=== PATIENT | female | born 1945 | race Caucasian/White ===

== ENCOUNTER → 2017-10-27 | Outpatient (CLI) | payer OTHER, MEDICARE ==
[2017-10-27 14:40] LABS: ALBUMIN 3.5 gm/dl (3.4-5.0); ALT/SGPT 16 U/L (12-78); BLOOD UREA NITROGEN 27 mg/dl (7-18); CALCIUM 8.9 mg/dl (8.5-10.1); CARBON DIOXIDE 34 mmol/L (21-32); CHOLESTEROL 167 mg/dl (0-200); CREATININE 1.53 mg/dl (0.60-1.20); GLUCOSE,FASTING 87 mg/dl (70-99); POTASSIUM 3.9 mmol/L (3.5-5.1); SODIUM 139 mmol/L (136-145)
[2017-10-27 14:51] LABS: ALKALINE PHOSPHATASE 63 U/L (45-117); AST/SGOT 15 U/L (15-37); LDL CHOLESTEROL CALCULATED 76 mg/dl; TOTAL PROTEIN 7.2 gm/dl (6.4-8.2)
== END | disposition home or self-care (01) ==
LOC: C.LABPBG 08:36
PROVIDERS: ATTEND Family Medicine
DX: E03.9 Hypothyroidism, unspecified (principal); E78.5 Hyperlipidemia, unspecified; I10 Essential (primary) hypertension

== ENCOUNTER → 2017-11-06 | Day surgery (SDC) | payer OTHER, MEDICARE ==
[~2017-11-06] MED LIST: ALPR0.25 PO; ASPI81TA28 PO; CHOL1000 PO; DOXY100C76 PO; INDA1TAB3 PO; LEVO137T3 PO; OPTIRAY 320 IV PRN; ROSU20TA PO; SODIUM BICARBONATE 8.4% INJ 100 MEQ in STERILE WATER 1000 ML 1,000 ML IV SCH; SODIUM CHLORIDE 0.9% 1000ML 1,000 ML IV SCH; TPRSR100 PO; VERA240T20 PO; [UNRECOGNIZED DRUG - REMARK] SCH
[2017-11-06 08:15] VITALS: Wt 104.9 kg
--- NOTE | 2017-11-07 07:19 | DIAGNOSTIC IMAGING REPORT ---
CT ANGIOGRAPHY OF THE NECK WITH AND WITHOUT CONTRAST CLINICAL HISTORY: Occlusion/stenosis of the bilateral carotid arteries. COMPARISON STUDY: No previous studies for comparison. TECHNIQUE: Unenhanced and arterial phase imaging of the neck was performed. Injection of 100 cc of Optiray 320 IV was uneventful. Sagittal and coronal reconstructions were viewed as well as maximal intensity projections on an independent 3-D workstation. FINDINGS: There is mild airspace opacity within visualized portions of the left upper lobe. Note is made of a 1.9 cm minimally enhancing right parotid gland lesion. Origins of the great vessels are suboptimally assessed due to artifact. There is apparent stenosis or less likely occlusion of the proximal left subclavian artery. There is moderate stenosis at the origin of the right subclavian artery. There is severe stenosis of the proximal right internal carotid artery extends for 1.3 cm from the vessel origin with calcified and noncalcified plaque. The vessel measures 1 mm at area of narrowing and 4.3 mm distally. This suggests a proximal 90% stenosis. There is moderate plaque within the proximal left internal carotid artery. The vessel measures 2 mm at site of narrowing and 3.7 mm distally. This suggest 40% stenosis. There is no dissection within the major vessels of the neck. No suspicious osseous lesions are present. There is moderate plaque within the bilateral cavernous carotids without significant stenosis. IMPRESSION: 1. Severe stenosis of the proximal right internal carotid artery of approximately 90% 2. Approximate 40% stenosis of the proximal left internal carotid artery. 3. Moderate stenosis at the origin of the right subclavian artery. Suboptimal evaluation of the proximal left subclavian artery due to streak artifact. The findings suggest a stenosis or less likely occlusion of the proximal left subclavian artery. 4. 1.9 cm minimally enhancing right parotid gland lesion. A follow-up carotid ultrasound is recommended. 5. Partially visualized minimal airspace opacity within the left upper lobe. A follow-up chest CT in one month is recommended to ensure resolution. Electronically signed by: Dung Berry M.D. 11/07/2017 7:18 AM Dictated Date/Time: 11/06/2017 11:49 AM
== END | disposition home or self-care (01) ==
LOC: C.MTU 07:56 → EDSTATUS 09:30
PROVIDERS: ATTEND Surgery Vascular Surgery
DX: I65.23 Occlusion and stenosis of bilateral carotid arteries (principal)

== ENCOUNTER 2017-12-03 07:37 | Inpatient (IN) | payer OTHER, MEDICARE ==
[2017-11-24 08:42] VITALS: BMI 47.0
--- NOTE | 2017-11-24 09:22 | PAT Medication Instructions ---
Service Date Nov 24, 2017. Current Home Medication List Alprazolam (Xanax), 1 TAB PO DAILY PRN for Anxiety Aspirin (Aspirin Ec), 81 MG PO QAM Cholecalciferol (Vitamin D3), 5 TAB PO QAM Indapamide (Lozol), 2.5 MG PO QAM Levothyroxine Sodium (Levothyroxine Sodium), 1 TAB PO QAM Metoprolol Succinate (Toprol Xl), 1 TAB PO QAM Rosuvastatin Calcium (Crestor), 1 TAB PO QAM Verapamil Sust Rel (Calan Sr Ext Rel), 240 MG PO HS Medication Instructions For Your Scheduled Surgery - Hold the following medications the morning of surgery: Cholecalciferol (Vitamin D3), 5 TAB PO QAM Indapamide (Lozol), 2.5 MG PO QAM - Take the following medications the morning of surgery with a sip of water: Alprazolam (Xanax), 1 TAB PO DAILY PRN for Anxiety (if needed) Aspirin (Aspirin Ec), 81 MG PO QAM (ok per surgeon) Levothyroxine Sodium (Levothyroxine Sodium), 1 TAB PO QAM Metoprolol Succinate (Toprol Xl), 1 TAB PO QAM Rosuvastatin Calcium (Crestor), 1 TAB PO QAM - Take the following medications as scheduled the night before surgery: Alprazolam (Xanax), 1 TAB PO DAILY PRN for Anxiety (if needed) Verapamil Sust Rel (Calan Sr Ext Rel), 240 MG PO HS If you have any questions please call us at [phone] or [phone] or [phone]
--- NOTE | 2017-11-24 10:01 | DIAGNOSTIC IMAGING REPORT ---
CHEST 2 VIEWS ROUTINE CLINICAL HISTORY: Preoperative chest COMPARISON STUDY: No previous studies for comparison. FINDINGS: The heart is normal in size. There is no failure. There is no focal pulmonary consolidation. There are no pleural effusions. A density at the left lung base just lateral to the left heart border is felt to represent a summation.[ IMPRESSION: No active disease in the chest. Electronically signed by: Arnold Leal M.D. 11/24/2017 10:00 AM Dictated Date/Time: 11/24/2017 9:59 AM
[2017-11-24 10:05] LABS: BASO % 0.6 %; BASO ABS # 0.03 K/uL (0-0.2); EOS % 4.2 %; IG# 0.01 K/uL (0.00-0.02); LYMPH % 20.6 %; LYMPH ABS # 0.97 K/uL (1.2-3.4); MEAN CELL VOLUME 92.7 fL (80-100); MEAN CORPUSCULAR HEMOGLOBIN 30.2 pg (25-34); MEAN CORPUSCULAR HGB CONC 32.6 g/dl (32-36); MONO % 11.9 %; MONO ABS # 0.56 K/uL (0.11-0.59); NEUT % 62.5 %; NEUT ABS # 2.94 K/uL (1.4-6.5); PLATELET COUNT 213 K/uL (130-400); RED CELL DISTRIBUTION WIDTH CV 14.4 % (11.5-14.5); RED CELL DISTRIBUTION WIDTH SD 48.9 fL (36.4-46.3); WHITE BLOOD COUNT 4.71 K/uL (4.8-10.8)
[2017-11-24 10:18] LABS: PTT PATIENT 26.2 SECONDS (21.0-31.0)
[2017-11-24 11:10] LABS: CALCIUM 9.2 mg/dl (8.5-10.1); CREATININE 1.36 mg/dl (0.60-1.20); POTASSIUM 4.4 mmol/L (3.5-5.1)
[2017-12-03] VITALS (20 sets, daily range): BP systolic 93–136; BP diastolic 41–62; PULSE 46–59; TEMP 36.3–36.7; O2SAT 91–99; Ht 149.9 cm; Wt 106.4 kg
[~2017-12-03] VITALS: Ht 149.9 cm; Wt 106.4 kg
--- NOTE | 2017-12-03 05:56 | History and Physical ---
History & Physical Date of Service December 03, 2017. History & Physical CC: Right internal carotid artery stenosis HPI: April Jensen is a 72-year-old female who was noticed to have a carotid bruit on the right. She was then sent and she underwent ultrasound which demonstrated high-grade right carotid artery stenosis where the peak systolic was in the 500s and diastolics over 150, indicating a 99% stenosis. [facility] was [facility] evaluation. Ms. Jensen states that she was in her normal state of health prior to this visit. She denies any symptoms of TIA or stroke including unilateral weakness or numbness, slurred speech, difficulty word finding, or amaurosis. She denies any new abdominal or back pain. She does have chronic back pain and issues with sciatica. She denies any claudication, rest pain, or tissue loss. She does state that early in the morning she will get cramps in her back requiring her to lay down. Once she has passed, she is able to do her activities. She is able to walk throughout [facility] without any symptoms. She is able to walk up a flight of stairs without any leg pain, minimal shortness of breath. She is able to lie flat at night. She sleeps with 2 pillows. She does not see a automatic cigar wrapper tender and has not had any stress echo testing. She denies any fever, chills, nausea, vomiting, chest pain, shortness of breath. Following that, she underwent a CTA of the neck confirming this stenosis. Past medical history is significant for hypertension, hypothyroidism, hyperlipidemia, chronic venous insufficiency with varicose veins, anxiety. Her past surgical history includes hysterectomy, bilateral oophorectomy, appendectomy, and cholecystectomy. SOCIAL HISTORY: Positive smoker, smokes 3/4 of a pack a day. This is increased since her sister in July. She drinks socially. No illicit substances. Family history is significant for cancer, stroke, and coronary artery disease. ALLERGIES TO CECLOR. HOME MEDICATIONS: Include verapamil 240 mg daily, metoprolol succinate 100 mg daily, Xanax 0.25 mg p.r.n. daily for anxiety, rosuvastatin 20 mg daily, Indapamide 25 mg daily, vitamin D3 of 5000 international units daily, levothyroxine 137 mcg daily. PHYSICAL EXAM: Heart rate is 54, blood pressure is 122/76 in the right and 22/ 72 in the left. Saturating 98% on room air. This is an obese 72-year-old female, in no acute distress. Head is normocephalic, atraumatic. Extraocular movements are intact. She does have a loud high-pitched right carotid bruit. No carotid bruit on the left. Her heart is regular rate and rhythm. Lungs are clear to auscultation bilaterally. Abdomen is obese, soft, nontender, nondistended. No rebound. No guarding. No peritoneal signs. She has palpable bilateral radial pulses. She has palpable bilateral femoral pulses. She has palpable bilateral DP pulses. She does have varicosities in her feet and small varicosities in her lower calves bilaterally. No ulcerations or sores. Her strength is 5/5 bilaterally. Sensation is intact to light touch. No cranial nerve deficits. Imp: Severe right internal carotid artery stenosis. Plan: Patient is admitted for a right CEA. I have discussed the risks options and benefits of the procedure with the patient. The patient understands the risks options and benefits and agrees to the procedure.
[~2017-12-03 07:37] MED LIST changes: +CLINDAMYCIN 600 MG/54 ML D5W IV SCH; -DOXY100C76 PO; +LACTATED RINGER'S 1000ML 1,000 ML IV SCH; -OPTIRAY 320 IV PRN; -SODIUM BICARBONATE 8.4% INJ 100 MEQ in STERILE WATER 1000 ML 1,000 ML IV SCH; -[UNRECOGNIZED DRUG - REMARK] SCH
[2017-12-03] MEDS ORDERED: ONDANSETRON INJ 2 MG/ML 2 ML VIAL ONE (09:31)
[2017-12-03] MEDS ORDERED: LIDOCAINE HCL 2% 2 ML VIAL (20MG/ML) ONE (09:31)
[2017-12-03] MEDS ORDERED: FENTANYL CITRATE INJ 50 MCG/1 ML 2 ML VIAL ONE ×2 (09:31→10:35)
[2017-12-03] MEDS ORDERED: GLYCOPYRROLATE INJ 0.2 MG/ML VIAL ONE (09:31)
[2017-12-03] MEDS ORDERED: PROPOFOL IV EMULSION 10 MG/ML 20 ML VIAL ONE (09:31)
[2017-12-03] MEDS ORDERED: DEXAMETHASONE SOD INJ 4 MG/ML VIAL ONE (09:31)
[2017-12-03] MEDS ORDERED: NEOSTIGMINE METHYLSULFATE 5 MG/5 ML SYR ONE (09:31)
--- NOTE | 2017-12-03 09:35 | History & Physical Bridge Note ---
H&P Re-Evaluation Bridge Note: I have examined the patient, reviewed the History & Physical and in the interval since the performance of the History & Physical I have noted the following changes of clinical significance: No changes noted
[2017-12-03] MEDS ORDERED: HYDROmorphone INJ 2 MG/ML SYR/VIAL IV PRN (09:45)
[2017-12-03] MEDS ORDERED: ONDANSETRON INJ 2 MG/ML 2 ML VIAL IV PRN ×2 (09:45→13:15)
[2017-12-03] MEDS ORDERED: FENTANYL CITRATE INJ 50 MCG/1 ML 2 ML VIAL IV PRN (09:45)
[2017-12-03] MEDS ORDERED: ATROPINE SULFATE 0.1 MG/ML 5ML SYR IV PRN (09:45)
[2017-12-03] MEDS ORDERED: EpHEDrine SULFATE INJ 50 MG/ML AMP IV PRN (09:45)
[2017-12-03] MEDS ORDERED: GELATIN SPONGE SZ 100 ONE (10:24)
[2017-12-03] MEDS ORDERED: BUPIVACAINE/EPINEPHRINE 0.5% MPF 1:200,000 30 ML VIAL ONE (10:25)
[2017-12-03] MEDS ORDERED: HEPARIN SOD (PORCINE) 1000 UNIT/ML 10 ML VIAL ONE ×2 (10:25→11:56)
[2017-12-03] MEDS ORDERED: CEFAZOLIN SOD 1 GM VIAL ONE (10:25)
[2017-12-03] MEDS ORDERED: THROMBIN FOR SOLN 20000 UNIT KIT ONE (10:25)
[2017-12-03] MEDS ORDERED: LIDOCAINE HCL 1% 20 ML VIAL ONE (10:25)
[2017-12-03] MEDS ORDERED: EpHEDrine SULFATE 50MG/5ML SYR ONE (11:51)
[2017-12-03] MEDS ORDERED: PHENYLEPHRINE HCL INJ 10 MG/ML VIAL ONE (11:51)
[2017-12-03] MEDS ORDERED: LARYING-O-JET KIT (LTA) ONE (12:21)
[2017-12-03] MEDS ORDERED: ROCURONIUM BROMIDE 10 MG/ML 5 ML VIAL ONE (12:23)
--- NOTE | 2017-12-03 13:07 | [facility] Post Operative Brief Note ---
Immediate Operative Summary Operative Date December 03, 2017. Pre-Operative Diagnosis Right internal carotid artery stenosis Post-Operative Diagnosis right internal carotid artery stenosis Procedure(s) Performed right carotid endarterectomy with patch Surgeon Dr. Jitendra Ward Vulnerability Assessment Analyst Surgeon(s) Dr. Chayito Lion(Fellow) Estimated Blood Loss 125ml Findings Consistent with Post-Op Diagnosis Specimens A. right carotid artery plaque (permanent) Drains None Anesthesia Type General Complication(s) none Disposition Accompanied Pt To Recover: no Disposition: Recovery Room / PACU
[2017-12-03] MEDS ORDERED: MoRPHine SULFATE 4 MG/ML 1 ML CARP\\VIAL IV PRN (13:15)
[2017-12-03] MEDS ORDERED: ALPRAZOLAM 0.25 MG TAB PO PRN (13:15)
[2017-12-03] MEDS ORDERED: OXYCODONE/ACETAMINOPHEN 5-325 TAB PO PRN (13:15)
[2017-12-03] MEDS ORDERED: PHENYLEPHRINE 100MCG/ML 5ML SYR ONE (13:57)
[2017-12-03] MEDS ORDERED: ALBUMIN HUMAN 5% 12.5 GM/250 ML VIAL IV ONE (14:03)
[2017-12-03] MEDS ORDERED: NURSING VERBAL MED ORDER ONE ×2 (14:15→14:30)
[2017-12-03] MEDS: PHENYLEPHRINE 100MCG/ML 5ML SYR IV PRN ×2 (14:26→14:33)
[2017-12-03] MEDS ORDERED: PHENYLEPHRINE HCL INJ 20 MG in DEXTROSE 5% 500ML 500 ML IV PRN ×2 (14:27→14:30)
--- NOTE | 2017-12-03 15:20 | Anesthesiology Progress Note ---
Anesthesia Post Op Note Date & Time December 03, 2017 at 15:17 Vital Signs Pain Intensity: 0 Vital Signs Past 12 Hours Date Time Temp Pulse Resp B/P (MAP) Pulse Ox O2 Delivery O2 Flow Rate FiO2 12/03/17 15:13 36.1 100 Nasal Cannula 3 12/03/17 15:08 48 15 99 12/03/17 15:08 47 15 12/03/17 15:06 118/56 12/03/17 15:03 48 17 100 12/03/17 15:03 47 17 12/03/17 15:01 119/57 12/03/17 14:58 50 16 12/03/17 14:58 49 16 103/44 99 12/03/17 14:57 49 16 104/44 99 12/03/17 14:57 49 16 12/03/17 14:56 112/58 12/03/17 14:52 53 16 12/03/17 14:52 56 16 107/46 99 12/03/17 14:51 104/60 12/03/17 14:47 50 16 99/43 99 12/03/17 14:47 50 16 12/03/17 14:46 110/55 12/03/17 14:42 49 16 12/03/17 14:42 49 16 92/40 100 12/03/17 14:41 94/47 12/03/17 14:37 58 15 79/37 100 79/37 12/03/17 14:37 61 15 12/03/17 14:36 90/50 12/03/17 14:32 62 17 12/03/17 14:32 62 17 76/37 99 76/37 12/03/17 14:31 82/48 12/03/17 14:27 15 12/03/17 14:27 50 15 80/38 80/38 12/03/17 14:26 76/44 12/03/17 14:22 59 17 68/33 12/03/17 14:22 17 12/03/17 14:21 83/49 12/03/17 14:17 64 17 81/39 81/39 12/03/17 14:17 17 12/03/17 14:16 81/50 12/03/17 14:12 16 12/03/17 14:12 63 16 12/03/17 14:11 82/49 12/03/17 14:07 17 5/2/18 14:07 66 17 12/03/17 14:06 74/45 12/03/17 14:02 68 18 12/03/17 14:02 18 12/03/17 14:01 94/53 12/03/17 13:58 69 23 12/03/17 13:58 23 12/03/17 13:56 81/45 12/03/17 13:53 72 26 12/03/17 13:53 26 12/03/17 13:51 91/54 12/03/17 13:48 70 22 12/03/17 13:48 69 22 98 12/03/17 13:46 111/57 12/03/17 13:44 83/50 12/03/17 13:43 15 12/03/17 13:43 36.2 68 16 111/57 98 Oxymask 10 12/03/17 13:43 71 15 12/03/17 08:18 36.3 59 17 136/62 94 Room Air Notes Mental Status: alert / awake / arousable, participated in evaluation Pt Amnestic to Procedure: Yes Nausea / Vomiting: adequately controlled Pain: adequately controlled Airway Patency, RR, SpO2: stable & adequate BP & HR: stable & adequate, see Notes Hydration State: stable & adequate Anesthetic Complications: no major complications apparent In recovery room, patient was awake and conversant. Good motor strength b/l upper and lower extremities. Tongue midline. Patient was hypotensive and required multiple doses of IV bolus phenylephrine followed by ephedrine. I also gave 5% albumin for volume repletion. Given that patient required bolus doses of vasoactive medications, decided to write for phenylephrine infusion. Arterial line already in place. MAP goals greater than 60. Dr. Ward is aware and we agreed to send the patient to the ICU. ICU attending saw patient at bedside. BP much improved with cuong ggt. Patient is agreeable to the plan.
--- NOTE | 2017-12-03 15:25 | Critical Care Consultation ---
Critical Care Consultation Date of Consultation: December 03, 2017. Attending Physician: Jitendra Ward M.D. Reason for Consultation: post operative hypotension History of Present Illness Patient is 72-year-old female with past medical history of hypertension hypothyroidism, hyperlipidemia, chronic venous insufficiency and anxiety who presents postop day 0 from a right carotid endarterectomy for a 99% stenosis. she has not had any known TIA or stroke or unilateral weakness, during the operative procedure her mean arterial pressure was maintained with phenylephrine she was intubated with a grade 3 view and a MAC 3 blade. Postoperatively her course was largely uneventful with the exception of sagging mean arterial pressures down into the 50s which improved with administration of phenylephrine. She is transferred to the ICU for continued phenylephrine infusion. During my evaluation in the post anesthesia care unit the patient was largely asymptomatic no complaints of pain, no chest pain, no weakness, no headache she was hoping to get a little bit of water to drink as she felt parched. Past Medical/Surgical History As noted above Past surgical history hysterectomy, oophorectomy, appendectomy, cholecystectomy , right carotid endarterectomy. Social History Smoking Status: Current Every Day Smoker Allergies Coded Allergies: Cefaclor (Verified Allergy, Severe, ANAPHYLAXIS, 12/03/17) PT REPORTS "RESPIRATORY ISSUES-THROAT CLOSES" Eggplant (Verified Allergy, Unknown, TINGLING IN HER MOUTH, 12/03/17) Home Medications Scheduled Aspirin (Aspirin Ec), 81 MG PO QAM Cholecalciferol (Vitamin D3), 5 TAB PO QAM Indapamide (Lozol), 2.5 MG PO QAM Levothyroxine Sodium (Levothyroxine Sodium), 1 TAB PO QAM Metoprolol Succinate (Toprol Xl), 1 TAB PO QAM Rosuvastatin Calcium (Crestor), 1 TAB PO QAM Verapamil Sust Rel (Calan Sr Ext Rel), 240 MG PO HS Scheduled PRN Alprazolam (Xanax), 1 TAB PO DAILY PRN for Anxiety Current Inpatient Medications Current Inpatient Medications Medications (Trade) Dose Ordered Sig/Herminio Route Start Time Stop Time Status Last Admin Dose Admin Lactated Ringer's 1,000 ml @ 15 mls/hr Q24H IV 12/03/17 06:00 12/04/17 05:59 Clindamycin Phosphate 54 ml @ 100 mls/hr PREOP IV 12/03/17 06:00 12/03/17 18:00 12/03/17 10:53 100 MLS/HR Sodium Chloride 1,000 ml @ 75 mls/hr [id number] IV 12/03/17 06:00 12/03/17 19:19 12/03/17 08:41 75 MLS/HR Oxycodone/ Acetaminophen (Percocet 5-325mg Tab) FOR MODERATE PAIN ... Q4H PRN PO 12/03/17 13:15 12/17/17 13:14 Morphine Sulfate (MoRPHine SULFATE INJ) 4 mg Q4H PRN IV 12/03/17 13:15 12/17/17 13:14 Ondansetron HCl (Zofran Inj) 4 mg Q6H PRN IV 12/03/17 13:15 01/02/18 13:14 Clindamycin Phosphate 600 mg/ Dextrose 54 ml @ 100 mls/hr Q8H IV 12/03/17 19:00 12/04/17 03:33 UNV Dextrose/Sodium Chloride 1,000 ml @ 125 mls/hr Q8H IV 12/03/17 13:07 01/02/18 13:06 UNV Enoxaparin Sodium (Lovenox Inj) 30 mg Q12H SQ 12/04/17 09:00 01/03/18 08:59 UNV Alprazolam (Xanax Tab) 0.25 mg DAILY PRN PO 12/03/17 13:15 01/02/18 13:14 Aspirin (Ecotrin Tab) 81 mg QAM PO 12/04/17 09:00 01/03/18 08:59 UNV Cholecalciferol (Vitamin D Tab) 5,000 inter.unit QAM PO 12/04/17 09:00 01/03/18 08:59 UNV Indapamide (Lozol Tab) 2.5 mg QAM PO 12/04/17 09:00 01/03/18 08:59 UNV Levothyroxine Sodium (Synthroid Tab) 137 mcg DAILYBB PO 12/04/17 07:00 01/03/18 06:59 UNV Rosuvastatin Calcium (Crestor Tab) 20 mg QAM PO 12/04/17 09:00 01/03/18 08:59 UNV Verapamil HCl (Calan-Sr Tab) 240 mg HS PO 12/03/17 21:00 01/02/18 20:59 UNV Metoprolol Succinate (Toprol Xl Tab) 100 mg DAILY PO 12/04/17 09:00 01/03/18 08:59 UNV Phenylephrine HCl (Darius-Synephrine 500MCG/5ML Syr) 100 mcg Q5M PRN IV 12/03/17 14:30 12/03/17 15:00 12/03/17 14:33 100 MCG Phenylephrine HCl 20 mg/Dextrose 502 ml @ 0 mls/hr Q0M PRN IV 12/03/17 14:27 01/02/18 14:26 Review of Systems Constitutional: No fever, No chills Respiratory: No cough, No sputum Cardiovascular: No chest pain, No orthopnea Abdomen: No pain, No nausea, No vomiting Neurologic: No memory loss, No paralysis, No weakness, No numbness/tingling, No vertigo, No balance problems, No problem reported Physical Exam Date Time Temp Pulse Resp B/P (MAP) Pulse Ox O2 Delivery O2 Flow Rate FiO2 12/03/17 14:01 94/53 12/03/17 13:58 69 23 12/03/17 13:58 23 12/03/17 13:56 81/45 12/03/17 13:53 72 26 12/03/17 13:53 26 12/03/17 13:51 91/54 12/03/17 13:48 70 22 12/03/17 13:48 69 22 98 12/03/17 13:46 111/57 12/03/17 13:44 83/50 12/03/17 13:43 15 12/03/17 13:43 36.2 68 16 111/57 98 Oxymask 10 12/03/17 13:43 71 15 12/03/17 08:18 36.3 59 17 136/62 94 Room Air General: Alert. nontoxic. Skin: Warm, dry, incision clean dry and intact Head: Atraumatic Ears, nose, mouth and throat: airway patent no evidence of hematoma Cardiovascular: Normal peripheral perfusion Respiratory: no respiratory distress Gastrointestinal: Non distended Musculoskeletal: No deformity Neuro: Equal geometry professor strength bilaterally, no obvious facial droop Diagnostic Results Reason Critically Ill: Postoperative hypotension PLAN: Neuro: Monitor for neuro change Resp: Tolerating room air Tobacco use -Encouraged smoking cessation CV: Hypotension requiring vasoactive's -Wean as tolerated, EKG and morning -This is likely secondary to anesthetics Fluids/Renal: Baseline renal insufficiency with elevated creatinine -[place] fluids ID: Monitor fever curve GI/Nutrition: Diet as tolerated Heme: Lovenox 30 mg every 12 hours ordered per vascular surgery -GFR greater than 30, appropriate dosing Endocrine: ICU glycemic protocol Vascular access: Peripheral IVs Code Status: Full code I have personally spent 30 minutes of critical care time in the direct management of this patient. This is a life/limb threatening event. This includes time spent evaluating patient, direct bedside care, chart review, placing orders, interpretation of diagnostic studies, discussion with consultants, patient, and/or family members regarding treatment decisions, as well as other required patient management activities. This time is exclusive of all separately billable procedures, and teaching time and separate from and in addition to any other critical care service time.
[2017-12-03] MEDS: D5W AND 1/2NSS 1,000 ML IV SCH (15:57)
[2017-12-03] MEDS: CLINDAMYCIN IV 600 MG in DEXTROSE 5% 50ML 50 ML IV SCH (19:14)
[2017-12-03] MEDS ORDERED: VERAPAMIL HCL 240 MG TABCR PO SCH (21:00)
--- NOTE | 2017-12-03 21:28 | OPERATIVE REPORT ---
DATE OF OPERATION: 12/03/2017 PREOPERATIVE DIAGNOSIS: Right internal carotid artery stenosis. POSTOPERATIVE DIAGNOSIS: Right internal carotid artery stenosis. PROCEDURE: Right carotid endarterectomy with Sheffield Acuseal patch angioplasty. SURGEON: Dr. Jitendra Ward. SENIOR APPLICATION SECURITY CONSULTANT: Dr. Chayito Lion, [facility]. ESTIMATED BLOOD LOSS: 125 mL. Findings consistent with postoperative diagnosis. ASSESSMENT: Right carotid artery plaque. ANESTHESIA: General endotracheal anesthesia plus local. COMPLICATIONS: None. INDICATIONS: Mrs. April Jensen is a pleasant 72-year-old woman with history of hypertension, hypothyroidism, hyperlipidemia, chronic venous insufficiency, anxiety who was found on routine exam to have a right carotid bruit. She underwent a carotid duplex which showed a severe stenosis of the right carotid artery. For this reason, she was referred to vascular surgery. She was recommended to undergo right carotid endarterectomy. The risks, benefits and alternatives were discussed with the patient and she consented to the procedure. DESCRIPTION OF PROCEDURE: The patient was taken to the operating room and placed in the supine position. General endotracheal anesthesia was induced by anesthesia colleagues. Right neck and chest were prepped and draped in the usual sterile fashion. A safety timeout was performed and the patient, procedure, and sidedness were correctly identified. An incision was made with a 10 blade scalpel over the anterior border of the sternocleidomastoid. Bovie electrocautery was used to dissect subcutaneous tissues. The platysma was identified and divided with Bovie electrocautery. The anterior border of the sternocleidomastoid muscle was identified and retracted laterally. The IJ was identified and also retracted laterally. The facial vein was identified and doubly ligated and divided. The common carotid artery was identified and dissected circumferentially. We proceeded distally and identified the superior thyroid, external carotid, and internal carotid arteries. These were dissected circumferentially. The patient was anticoagulated with 7000 units of intravenous heparin. Following this, the internal, external, superior thyroid, and common carotid arteries were clamped sequentially. An arteriotomy was made in the common carotid with an 11 blade scalpel. This was extended proximally and distally with Collins scissors. A Doppler shunt was placed into the internal carotid and a Pratik clamp used to secure in place. It was backbled and the remaining end was inserted into the common carotid artery and to restore flow. We proceeded with our endarterectomy in the usual fashion. Small bits of plaque were additionally removed. The lumen was irrigated with heparinized saline and appeared clean. A Sheffield Acuseal patch was then brought into the field. This was sewn in place with Sheffield-Beck CV6 suture in a running fashion beginning at the internal carotid. Prior to completion of the patch, the shunt was removed and all arteries were back bled, forward bled and flushed. Following completion of the patch, there were 2 areas of bleeding at the distal aspect of the patch near the internal carotid. These were controlled with 6-0 Prolene sutures. Gelfoam, thrombin were applied to overlying the patch and manual pressure was held for several minutes with good hemostasis. The platysma was reapproximated with 3-0 Vicryl in a running fashion. The skin was reapproximated with 4-0 Vicryl in a running subcuticular fashion. Dermabond skin glue was applied to the incision. Local anesthesia was injected into the subcutaneous tissues surrounding the incision. The patient was awakened from anesthesia and was following commands in all 4 extremities. She tolerated the procedure well and there were no immediate complications. Dr. Jitendra Ward was present for the entire procedure. I attest to the content of the Intraoperative Record and any orders documented therein. Any exception s are noted below.
[2017-12-04] VITALS (11 sets, daily range): BP systolic 108–202; BP diastolic 45–87; PULSE 48–78; TEMP 36.4–37.4; O2SAT 87–96
[2017-12-04] MEDS: D5W AND 1/2NSS 1,000 ML IV SCH (00:29)
[2017-12-04] MEDS: CLINDAMYCIN IV 600 MG in DEXTROSE 5% 50ML 50 ML IV SCH (03:45)
[2017-12-04 04:32] LABS: HEMATOCRIT 41.2 % (37-47); HEMOGLOBIN 13.6 g/dL (12.0-16.0); IG# 0.02 K/uL (0.00-0.02); LYMPH % 4.3 %; MEAN CELL VOLUME 91.6 fL (80-100); MEAN CORPUSCULAR HEMOGLOBIN 30.2 pg (25-34); MEAN PLATELET VOLUME 9.1 fL (7.4-10.4); MONO % 5.1 %; MONO ABS # 0.47 K/uL (0.11-0.59); NEUT % 90.4 %; NEUT ABS # 8.37 K/uL (1.4-6.5); PLATELET COUNT 163 K/uL (130-400); RED CELL DISTRIBUTION WIDTH CV 14.3 % (11.5-14.5); RED CELL DISTRIBUTION WIDTH SD 47.9 fL (36.4-46.3); WHITE BLOOD COUNT 9.26 K/uL (4.8-10.8)
[2017-12-04 05:00] LABS: CALCIUM 7.8 mg/dl (8.5-10.1); CREATININE 1.26 mg/dl (0.60-1.20); POTASSIUM 3.4 mmol/L (3.5-5.1)
[2017-12-04] MEDS ORDERED: POTASSIUM CHLORIDE 20 MEQ TABCR PO STA (05:18)
--- NOTE | 2017-12-04 05:59 | Clinical Documentation Query ---
CLINICAL DOCUMENTATION QUERY 72-y/o female who has undergone right CEA. Patient is documented as having "baseline renal insufficiency with elevated creatinine." Documenting the stage of CKD will improve data integrity and will help clarify vague terms such as "renal insufficiency" or "chronic renal failure." The stages of CKD according to the [employer] are as follows: Stage I: GFR >90 Stage II: GFR 60-89 Stage III: GFR 30-59 Stage IV: GFR 15-29 Stage V: GFR <15 In your clinical opinion is this patient being managed for: ( x) Chronic kidney disease, stage 3 (moderate) ( ) Not Agree ( ) Other explanation of clinical findings (Please Explain. If no explanation given, this would be considered a no response.) ( ) Unable to determine ( ) Need to Discuss (Please call CDS via extension or qliq. If no interaction occurs this is considered a no response.) The medical record reflects the following clinical findings, treatment, and risk factors. Clinical Indicators: As above. BUN 23, Creatinine 1.26, GFR 42.8 Treatment: daily PRP's, I/O's, ICU hemodynamic monitoring, liberal fluid administration, IV Darius-Synephrine gtt. Risk Factors: Age, home NSAID use, HTN, Please clarify and document your clinical opinion in the progress notes and discharge summary. Terms such as "probable", "suspected", "likely", "questionable", "possible", or "still to be ruled out" are acceptable. IF IN AGREEMENT, YOU MUST DOCUMENT ABOVE DIAGNOSTIC STATEMENT IN DAILY PROGRESS NOTES AND DISCHARGE SUMMARY. This document is not part of the patient's record. Thank You, Saad Redd RN [phone] & via [email or web address]
[2017-12-04] MEDS ORDERED: LEVOTHYROXINE 137 MCG TAB PO SCH (06:00)
--- NOTE | 2017-12-04 06:00 | Clinical Documentation Query ---
CLINICAL DOCUMENTATION QUERY 72-y/o female who has undergone right CEA. Patient is documented as having "baseline renal insufficiency with elevated creatinine." Documenting the stage of CKD will improve data integrity and will help clarify vague terms such as "renal insufficiency" or "chronic renal failure." The stages of CKD according to the [employer] are as follows: Stage I: GFR >90 Stage II: GFR 60-89 Stage III: GFR 30-59 Stage IV: GFR 15-29 Stage V: GFR <15 In your clinical opinion is this patient being managed for: (X ) Chronic kidney disease, stage 3 (moderate) ( ) Not Agree ( ) Other explanation of clinical findings (Please Explain. If no explanation given, this would be considered a no response.) ( ) Unable to determine ( ) Need to Discuss (Please call CDS via extension or qliq. If no interaction occurs this is considered a no response.) The medical record reflects the following clinical findings, treatment, and risk factors. Clinical Indicators: As above. BUN 23, Creatinine 1.26, GFR 42.8 Treatment: daily PRP's, I/O's, ICU hemodynamic monitoring, liberal fluid administration, IV Darius-Synephrine gtt. Risk Factors: Age, home NSAID use, HTN, Please clarify and document your clinical opinion in the progress notes and discharge summary. Terms such as "probable", "suspected", "likely", "questionable", "possible", or "still to be ruled out" are acceptable. IF IN AGREEMENT, YOU MUST DOCUMENT ABOVE DIAGNOSTIC STATEMENT IN DAILY PROGRESS NOTES AND DISCHARGE SUMMARY. This document is not part of the patient's record. Thank You, Saad Redd RN [phone] & via qlicCONNECT
--- NOTE | 2017-12-04 08:01 | Progress Note ---
Progress Note Date of Service: December 04, 2017. Subjective No complaints. No swallowing problems. No hoarseness. Objective Vital Signs Vital Signs Past 12 Hours Date Time Temp Pulse Resp B/P (MAP) Pulse Ox O2 Delivery O2 Flow Rate FiO2 12/04/17 06:01 78 24 126/72 (90) 12/04/17 05:01 65 14 123/52 (75) 93 12/04/17 04:01 54 17 118/66 (83) 95 12/04/17 04:00 96 Room Air 12/04/17 04:00 36.6 52 17 202/87 (125) 95 12/04/17 03:00 53 13 116/47 (70) 93 12/04/17 02:01 52 15 108/61 (77) 87 12/04/17 02:00 54 16 125/50 (75) 95 12/04/17 01:00 48 18 117/45 (69) 94 12/04/17 00:01 56 16 127/71 (89) 94 12/04/17 00:00 36.4 54 19 113/46 (68) 95 12/03/17 23:59 93 Room Air 12/03/17 22:15 53 16 97/50 (66) 93 12/03/17 22:01 50 18 115/57 (76) 94 12/03/17 21:30 52 18 103/45 (64) 93 Room Air 12/03/17 21:00 48 16 111/48 (69) 92 Room Air 12/03/17 20:30 47 16 112/48 (69) 91 Room Air 12/03/17 20:01 36.7 50 16 93/51 (65) 92 Room Air 12/03/17 20:00 52 16 97/46 (63) 91 Room Air 12/03/17 20:00 98 Room Air Exam Awake and alert VSS Afebrile Incision dry and clean Minimal edema of incision No neuro deficits Laboratory and Microbiology Results Past 24 Hours Test 12/03/17 08:38 12/03/17 16:25 12/03/17 20:56 12/03/17 23:59 Range/Units Hepatitis C Antibody Screen NEG NEG Bedside Glucose 154 185 157 70-90 mg/dl Test 12/04/17 03:57 Range/Units White Blood Count 9.26 4.8-10.8 K/uL Red Blood Count 4.50 4.2-5.4 M/uL Hemoglobin 13.6 12.0-16.0 g/dL Hematocrit 41.2 37-47 % Mean Corpuscular Volume 91.6 80-100 fL Mean Corpuscular Hemoglobin 30.2 25-34 pg Mean Corpuscular Hemoglobin Concent 33.0 32-36 g/dl Platelet Count 163 130-400 K/uL Mean Platelet Volume 9.1 7.4-10.4 fL Neutrophils (%) (Auto) 90.4 % Lymphocytes (%) (Auto) 4.3 % Monocytes (%) (Auto) 5.1 % Eosinophils (%) (Auto) 0.0 % Basophils (%) (Auto) 0.0 % Neutrophils # (Auto) 8.37 1.4-6.5 K/uL Lymphocytes # (Auto) 0.40 1.2-3.4 K/uL Monocytes # (Auto) 0.47 0.11-0.59 K/uL Eosinophils # (Auto) 0.00 0-0.5 K/uL Basophils # (Auto) 0.00 0-0.2 K/uL RDW Standard Deviation 47.9 36.4-46.3 fL RDW Coefficient of Variation 14.3 11.5-14.5 % Immature Granulocyte % (Auto) 0.2 % Immature Granulocyte # (Auto) 0.02 0.00-0.02 K/uL Sodium Level 137 136-145 mmol/L Potassium Level 3.4 3.5-5.1 mmol/L Chloride Level 105 98-107 mmol/L Carbon Dioxide Level 28 21-32 mmol/L Anion Gap 4.0 3-11 mmol/L Blood Urea Nitrogen 23 7-18 mg/dl Creatinine 1.26 0.60-1.20 mg/dl Est Creatinine Clear Calc Drug Dose 44.1 ml/min Estimated GFR () 49.6 Estimated GFR (Non- 42.8 BUN/Creatinine Ratio 18.0 10-20 Random Glucose 130 70-99 mg/dl Calcium Level 7.8 8.5-10.1 mg/dl Microbiology Results 12/03/17 MRSA DNA Surveillance Screen - Final, Complete Specimen Negative for MRSA by DNA Probe Imp: Post right CEA Plan: Doing well D/C today
[2017-12-04] MEDS ORDERED: OXYC-57 PO (08:02)
--- NOTE | 2017-12-04 08:03 | Discharge Instructions ---
Discharge Instructions Date of Service December 04, 2017. Admission Reason for Admission: Right Severe Asymptomatic Carotid Stenosis Discharge Discharge Diagnosis / Problem: Severe right internal carotid artery stenosis Discharge Goals Goal(s): Therapeutic intervention Activity Recommendations Activity Limitations: per Instructions/Follow-up section . Instructions / Follow-Up Instructions / Follow-Up Call [phone] to schedule a follow up appointment if one not already scheduled. SPECIAL CARE INSTRUCTIONS: Medications: * Continue to take Aspirin as directed. Incision Care: * You may shower, but do not rub incision. You may let the warm soapy water run over it. Be sure to dry the incision well after bathing. * Do not shave directly over the incision until it is healed. * DO NOT IMMERSE THE INCISION IN A TUB/POOL/etc. UNTIL HEALED. Restrictions: * Do not drive for at least one week or if you are still taking any narcotic pain medication. * Do not lift anything heavier than a gallon of milk for one week after going home. Possible Complications: * Numbness - It is normal to have some numbness around the incision. Numbness can extend beyond the incision to areas of the neck, ear and face. The numbness is due to bruising of nerves during the surgery and will gradually improve over a period of months. * Hoarseness/Difficulty Speaking and Swallowing - The bruising of nerves in the neck can also cause a hoarse voice, difficulty speaking or swallowing. This may improve over time, HOWEVER, if it continues for more than a few days please contact our office ([phone]). * Excessive Swelling - There will be some swelling immediately after surgery which usually resolves within one week. If you notice that the swelling is getting worse, notify your surgeon ([phone]). * Drainage/Bleeding - If there is any drainage or bleeding, it should be a very small amount (less than a teaspoon per day). If you have excessive bleeding or drainage from the incision, call your surgeon ([phone]) right away. ACTIVATION OF EMERGENCY MEDICAL SYSTEM: Call [phone], immediately, if you experience any of the following: Warning Signs and Symptoms of Stroke: * Sudden numbness or weakness of the face, arm or leg, especially on one side of the body * Sudden confusion, trouble speaking or understanding * Sudden trouble seeing in one or both eyes * Sudden trouble walking, dizziness, loss of balance or coordination * Sudden severe headache with no cause Do not delay calling 911 if you experience any warning signs or symptoms of a stroke. Delay in seeking medical attention may affect what treatments can be given to you. Risk Factors for Stroke: You can reduce your chances of stroke by working with your medical provider to adopt a healthy lifestyle. Some specific ways to lower your chance of stroke are: * If you are a smoker, now is the time to stop smoking cigarettes * If you are diabetic, improve the control of your blood sugars * Avoid excessive amounts of alcohol * Control high blood pressure * Lose weight if you are overweight * Be sure to lead an active lifestyle * Eat a healthy diet low in salt, cholesterol and fat You should know about other risk factors for stroke that you are unable to control. These include: * Age 55 years or older * Male gender * Certain racial groups: , or / * Family History of Stroke, Mini stroke or Heart Attack * Sickle Cell Disease You will be receiving a call from the Vascular Surgery Nurse after you are discharged. FOLLOW UP VISIT: It is important for you to keep your follow up appointments with your medical provider. Keep any scheduled doctor appointments. Current Hospital Diet Patient's current hospital diet: AHA Diet (Heart Healthy) Discharge Diet Recommended Diet: AHA Diet (Heart Healthy) Procedures Procedures Performed: right carotid endarterectomy with patch Pending Studies Studies pending at discharge: no Laboratory Results Lipid Panel Test 10/27/17 08:39 Range/Units Triglycerides Level 113 0-150 mg/dl Cholesterol Level 167 0-200 mg/dl HDL Cholesterol 68 mg/dl Cholesterol/HDL Ratio 2.5 LDL Cholesterol, Calculated 76 mg/dl Medical Emergencies . Who to Call and When: Medical Emergencies: If at any time you feel your situation is an emergency, please call 911 immediately. . Non-Emergent Contact Non-Emergency issues call your: Surgeon . "Provider Documentation" section prepared by Jitendra Ward. . [place] Drug Monitoring Program Search Results: no issues identified
[2017-12-04] MEDS ORDERED: CHOLECALCIFEROL 1000 INTER.UNIT TAB PO SCH (09:00)
[2017-12-04] MEDS ORDERED: ROSUVASTATIN CALCIUM 20 MG TAB PO SCH (09:00)
[2017-12-04] MEDS ORDERED: INDAPAMIDE 1.25 MG TAB PO SCH (09:00)
[2017-12-04] MEDS ORDERED: ENOXAPARIN 30 MG/0.3 ML SYR SQ SCH (09:00)
[2017-12-04] MEDS ORDERED: ASPIRIN 81 MG ECTAB PO SCH (09:00)
[2017-12-04] MEDS ORDERED: METOPROLOL SUCC 50MG EXT REL TAB PO SCH (09:00)
--- NOTE | 2017-12-06 03:15 | DISCHARGE SUMMARY ---
ADMISSION DIAGNOSIS: Right internal carotid artery stenosis. DISCHARGE DIAGNOSES: 1. Status post right carotid endarterectomy with patch. 2. Right internal carotid artery stenosis. DISCHARGE CONDITION: Stable. CONSULTATIONS IN THE HOSPITAL: Included none. PROCEDURES IN THE HOSPITAL: Included her right carotid endarterectomy with patch which was performed on 12/03/2017 with an EBL of 125 mL and no significant complications. HISTORY OF PRESENT ILLNESS: Mrs. Jensen is a 72-year-old female who was noticed by her family physician to have a carotid bruit on the right side. She underwent ultrasound evaluation to determine if she had a high-grade right carotid artery stenosis, and she was referred to the vascular surgery team. Patient was essentially asymptomatic, denying any symptoms of amaurosis, unilateral extremity weakness, numbness or tingling, difficulty speaking or swallowing, sudden onset confusion or other concerns. CTA confirmed the diagnosis of 99% stenosis of the right internal carotid artery, and she was recommended to consider undergoing a right carotid endarterectomy due to her significantly increased risk of CVA, if left untreated. The procedure, risks, benefits, alternatives were discussed with the patient by Dr. Ward and she expressed understanding and agreement to proceed. HOSPITAL COURSE: Patient was admitted after undergoing her right carotid endarterectomy with patch. She had no significant complications and an EBL of 125 mL. She remained essentially stable postoperatively including labs and vital signs. She was taking foods well by mouth, ambulating in the room and had minimal discomfort postoperatively and she was felt to be stable enough for discharge on postop day 1. PHYSICAL EXAMINATION: VITAL SIGNS: On day of discharge, her vital signs are as follows: Pulse of 78, respiratory rate of 24, blood pressure of 126/72, pulse oximetry of 93% on room air. CONSTITUTIONAL: Patient is a mildly chronically ill appearing elderly female in no acute distress. She ambulated without assistance and is active, alert and oriented x4 with normal recent and remote memory. HEAD: Normocephalic and atraumatic. EYES: EOMI. ENMT: Demonstrates no hearing loss, rhinorrhea or pharyngeal erythema. NECK: The right side of her neck did demonstrate some mild edema and tenderness. Her incision is well approximated. There is no dehiscence or drainage. Her trachea is midline. Her left neck is normal. HEART: Demonstrates regular rate and rhythm. LUNGS: Decreased but clear bilaterally. EXTREMITIES: Peripheral pulses are full and equal in all extremities unless otherwise noted, specifically they were normal in her brachial, radial and femoral pulses. Lower extremity distal pulses are +1. She has brisk capillary refill. No sign of distal ischemia. ABDOMEN: Soft, nontender with normoactive bowel sounds in all 4 quadrants. No guarding, rebound. There was no flank or CVA tenderness. MUSCULOSKELETAL: Demonstrated normal tone and strength for age. NEUROLOGIC: Patient has grossly intact cranial nerves and grossly intact sensation. She is without any focal deficits. DIET UPON DISCHARGE: Should be a low-cholesterol AHA diet. MEDICATIONS: Reconciled in the chart and are as per the discharge instructions. FOLLOWUP: With Dr. Ward or his PA Leilani Cardozo within 2 weeks for reevaluation. She is advised to call the office with any other questions or concerns.
== END 2017-12-04 10:00 | disposition home or self-care (01) | DRG 38 ==
LOC: C.ACU 07:37 → C.MSICU 07:41 → ENRESERV 14:47 → CANBEDREQ 15:34
PROVIDERS: ADMIT Surgery Vascular Surgery; ATTEND Surgery Vascular Surgery
PROC: 03UK0JZ Supplement Right Internal Carotid Artery with Synthetic Substitute, Open Approach (ICD-10-PCS; principal; 2017-12-03 10:00)
PROC: 03CK0Z6 (ICD-10-PCS; principal; 2017-12-03 10:00)
DX: I65.21 Occlusion and stenosis of right carotid artery (principal); Z68.42 Body mass index [BMI] 45.0-49.9, adult; I95.81 Postprocedural hypotension; T88.59XA Other complications of anesthesia, initial encounter; T41.205A Adverse effect of unspecified general anesthetics, initial encounter; Y92.238 Other place in hospital as the place of occurrence of the external cause; I73.9 Peripheral vascular disease, unspecified; I12.9 Hypertensive chronic kidney disease with stage 1 through stage 4 chronic kidney disease, or unspecified chronic kidney disease; N18.9 Chronic kidney disease, unspecified; E03.9 Hypothyroidism, unspecified; E78.5 Hyperlipidemia, unspecified; I87.2 Venous insufficiency (chronic) (peripheral); F41.9 Anxiety disorder, unspecified; F32.9 Major depressive disorder, single episode, unspecified; F17.210 Nicotine dependence, cigarettes, uncomplicated; E66.01 Morbid (severe) obesity due to excess calories; Z86.718 Personal history of other venous thrombosis and embolism; Z79.82 Long term (current) use of aspirin; Z79.899 Other long term (current) drug therapy; Z88.1 Allergy status to other antibiotic agents; Z91.018 Allergy to other foods

== ENCOUNTER → 2018-03-24 | Outpatient (CLI) | payer OTHER, MEDICARE ==
[~2018-03-24] MED LIST changes: -CLINDAMYCIN 600 MG/54 ML D5W IV SCH; -LACTATED RINGER'S 1000ML 1,000 ML IV SCH; +OXYC-57 PO; -SODIUM CHLORIDE 0.9% 1000ML 1,000 ML IV SCH
--- NOTE | 2018-03-25 13:39 | MAMMOGRAPHY REPORT ---
BILATERAL DIGITAL SCREENING MAMMOGRAM TOMOSYNTHESIS WITH CAD: 03/24/2018 CLINICAL HISTORY: Routine screening. TECHNIQUE: The study was acquired using full field digital technology and interpreted from soft copy. Breast tomosynthesis in addition to standard 2D mammography was performed. Current study was also ev aluated with a Computer Aided Detection (CAD) system. COMPARISON: No prior exams were available for comparison. BREAST COMPOSITION: There are scattered areas of fibroglandular density in both breasts. FINDINGS: The exam is slightly suboptimal due to inability of the patient to tolerate adequate positi oning. Therefore additional 2D mammograms were performed to optimize inclusion of all breast tissue. There are a few scattered benign-appearing calcifications. No suspicious mass, architectural distor tion or cluster of microcalcifications is seen. IMPRESSION: ACR BI-RADS CATEGORY 1: NEGATIVE There is no mammographic evidence of malignancy. Prior outside mammograms are currently being reques tommie and if obtained they will be reviewed, compared to the current exam to assess for any more subtle changes, and an addendum will be made to this report. Otherwise, a 1 year screening mammogram is re commended. The patient will receive written notification of the results. Some breast cancers are not detected with mammography. A negative mammographic report should not scotty y biopsy if a clinically suggestive mass is present. Tonia Kwan M.D. ay/:03/24/2018 16:00:43 Canary Breeder: RT Ap(Anuja)(M), [facility] letter sent: Normal 1/2 BI-RADS Code: ACR BI-RADS Category 1: Negative
== END | disposition home or self-care (01) ==
LOC: C.MAMM 11:17
PROVIDERS: ATTEND Physician Assistant
DX: Z12.31 Encounter for screening mammogram for malignant neoplasm of breast (principal)

== ENCOUNTER 2025-02-16 12:28 | Inpatient (IN) ==
[2025-02-16] MEDS: ALBUT/IPRATROP 3MG/0.5MG NEB 3 ML VIAL ONE (12:50)
[2025-02-16] MEDS: ALBUT/IPRATROP 3MG/0.5MG NEB 3 ML VIAL NEB STA (12:51)
--- NOTE | 2025-02-16 13:04 | XRay Report ---
XR chest 1V portable CLINICAL HISTORY: SOB, hypoxic COMPARISON STUDY: 01/28/2024 FINDINGS: Single view portable chest demonstrates the patchy airspace opacity in the right lung base. There is no pleural effusion or pneumothorax. The heart and pulmonary vascularity are unremarkable f or portable technique. IMPRESSION: Patchy right basilar infiltrate. Suspect infectious or aspiration pneumonia. ACT 112: Negative or not required by law. Electronically signed by: Qian Gonzalez M.D. 02/16/2025 1:01 PM
[2025-02-16 13:06] LABS: Hematocrit (blood only) 50.2 % (37.0-47.0); Hemoglobin 16.5 g/dl (12.0-16.0); Immature Granulocytes # (auto) 0.02 K/uL (0.01-0.20); Immature Granulocytes % (auto) 0.2 %; Mean Corpuscular Hemoglobin 29.8 pg (25.0-34.0); Mean Corpuscular Volume 90.8 fL (80.0-100.0); Platelet Count 254 K/uL (130-400); RDW Standard Deviation 51.8 fL (36.4-46.3); Red Blood Count 5.53 M/uL (4.20-5.40); White Blood Count 8.09 K/ul (4.8-10.8)
[2025-02-16 13:25] LABS: Alanine Aminotransferase 10.0 U/L (7-52); Albumin Globulin Ratio 1.1 (0.9-2); Alkaline Phosphatase 69.0 U/L (34-104); Anion Gap 7.0 (3-11); Bilirubin,Total 0.4 mg/dl (0.2-1.0); Blood Urea Nitrogen 20.0 mg/dl (6-23); Calcium 9.1 mg/dl (8.6-10.3); Carbon Dioxide 32.0 mmol/L (21-32); Chloride 100.0 mmol/L (98-107); Creatinine Clr Calc Pharmacy 48.4 ml/min; Globulin 3.7 gm/dl (2.5-4.0); Glucose 153.0 mg/dl (70-99(Fasting)); Lipase 69.0 U/L (11-82); Potassium 3.6 mmol/L (3.5-5.1); Sodium 139.0 mmol/L (136-145); Total Protein 7.8 gm/dl (6.0-8.3)
--- NOTE | 2025-02-16 13:26 | Emergency Department Note ---
Impression & Plan Acute hypoxic respiratory failure, COPD (chronic obstructive pulmonary disease), Elevated troponin, Flash pulmonary edema ED Provider Note NAME: MILLICENT JOHN AGE: 79 SEX: F : 1945 ARRIVES VIA: Walk-In INFORMANT: Patient, ED PROVIDER(S): Randall Hauser MD CHIEF COMPLAINT: Shortness of breath, "acid reflux ". HPI: This is a 79-year-old female presenting for shortness of breath and acid reflux per patient notes that she has had stomach pain, sharp feels like a "stone "in her abdomen. She reports is why she got to the hospital however she feels short of breath more she walks. She reports requiring no oxygen. She reports no pleurisy currently. She reports smoking only occasionally. Otherwise no nausea or vomiting currently. No diarrhea. Does not report actual chest pain. ROS: See above HPI for pertinent positives & negatives. A total of 10 systems reviewed and were otherwise negative. PAST MEDICAL HISTORY: See Below PAST SURGICAL HISTORY: See Below FAMILY HISTORY: See Below SOCIAL HISTORY: See Below HOME MEDICATIONS: See Below ALLERGIES: See Below VITALS: See Below PHYSICAL EXAMINATION: General: resting comfortably in no acute distress Head: Normocephalic and atraumatic Eyes: Normal inspection, extraocular muscles intact Ear, nose, throat: Normal external exam Neck: Normal range of motion Respiratory: Tachypneic, faint wheezes at the bases Cardiovascular: Regular rate/rhythm, no murmur GI: soft, nontender, no guarding or rebound Extremities: nontender, moves all extremities Neuro: The patient awake and alert, appropriately conversive, no focal deficits, symmetric faces Skin: Warm, dry, and intact MEDICAL DECISION MAKING: This is a 79-year-old female presenting for shortness of breath/acid reflux pain. Patient does point to her lower chest/upper abdomen on the left side. Consider ACS, PE. Patient with hypoxia to about 79% on arrival. She is tachycardic into the 110s. Otherwise not hypotensive. Considered sepsis, pneumonia as well. - Chest x-ray reveals a right lower lobe opacity concerning for pneumonia, independent interpretation - Due to the risk of PE with her tachycardia and hypoxia we will proceed to CTA to help better elucidate - Patient troponin does come back elevated at 570s. Repeat EKG is ordered please see below for interpretations - Patient blood otherwise reveals hemoglobin is 16.5, no significant electrolyte disturbances - I was called to bedside as patient's nurse was concern about patient's breathing status. Patient returned from CT shortly before this. She had received albuterol treatment without success. She appears centrally cyanotic with blue lips. She is an extremis and tachypneic. She states he "help me, I cannot breathe ". I have called emergently for respiratory therapist for BiPAP. - I have reviewed the CT of the chest and do not see any large pulm embolism. Otherwise see only minimal pleural effusions. No signs of significant pleural effusion or pneumonia by my independent interpretation - CT imaging read by radiology shows cardiomegaly with mild pleural effusion - Otherwise patient continues to decline. She now has become unresponsive. BiPAP placed for preoxygenation prior to intubation - Patient's VBG also returns at 7.16/97. Will increase respiratory rate at this time - Patient intubated, see procedure note below. Required 2 attempts, 7.5 tube was too large, downsized to 7.0 without complication. -Post procedure chest x-ray reveals right-sided hazy opacity diffusely, with ET tube above martin -Consider COPD extubation worsening versus flash pulmonary edema. Will start patient on nitroglycerin drip as well as propofol for post sedation -Ultimate patient ever ended up receiving nitroglycerin. Propofol did downtrend her blood pressure. She has had significant improvement. She also had continued albuterol treatments on the ventilator. -Discussed care with Dr. Carranza,, choker hooker - Discussed care with Dr. Mae, for admission Endotracheal Intubation Indication respiratory distress, decline The patient was on 100% oxygen via NRB prior to the procedure. Suction, airway equipment, RSI drugs, respiratory equipment, and appropriate personnel were prepared prior to the initiation of the procedure. A time out was taken. Induction was performed with etomidate, succinylcholine. After observing the clinical benefit of the medications, the airway was easily visualized utilizing a video laryngoscopy. A 7.0 size ETT tube was placed atraumatically to 22 cm using standard technique. The cuff inflated without signs of malfunction. There were bilateral breath sounds, positive colormetric change, no gastric sounds, a good capnography waveform, and post procedure pulse oximetry was 92%. Post intubation sedation and paralysis was administered using propofol. Differential diagnosis: ACS, PE, dissection, pneumonia, CHF, COPD Independent History obtained from: Daughter, son-in-law, Diagnostics interpreted by me: ECG: ECG independently interpreted by me with sinus tachycardia rate of 111, QRS 76, QTc 372, no ST segment elevations consistent with STEMI criteria Second ECG independently interpreted by me with sinus tachycardia to 132, QRS 70, QTc 394], no ST segment elevations consistent with STEMI criteria overall similar morphology Cardiac Monitoring: An order was placed for continuous cardiac monitoring. The monitor shows a rate of 112 with sinus tachycardia rhythm. Critical Care Note: I have personally spent 64 minutes of critical care time in the direct management of this patient. This includes bedside care, interpretation of diagnostic studies, and testing, discussion with consultants, patient, and family members, and other required patient management activities. This 64 minutes is in excess of all separately billable procedures. Past Med/Surg History Problem List (Updated 02/18/25 @ 00:38 by Randall Hauser MD) Flash pulmonary edema (Acute) Elevated troponin (Acute) Acute hypoxic respiratory failure (Acute) Elevated troponin Chronic intermittent abdominal pain Hypomagnesemia Acute metabolic encephalopathy NSTEMI (non-ST elevated myocardial infarction) Acute CHF Acute respiratory failure with hypoxia and hypercapnia Peripheral vascular disease Acute respiratory failure with hypercapnia Hiatal hernia Tobacco use Sensorineural hearing loss, bilateral Stenosis of both subclavian arteries [facility] vascular visit (05/2022): asymptomatic, 2 year reevaluation recommended Hx of carotid stenosis s/p Right CEA (2018) Morbid obesity Venous insufficiency (chronic) (peripheral) Pre-diabetes Hypothyroidism Hypertension Hyperlipidemia History of uterine cancer (2006) chemo and XRT GERD (gastroesophageal reflux disease) COPD (chronic obstructive pulmonary disease) (Acute) Per records, patient denies Chronic kidney disease, stage III (moderate) Anxiety Warthin tumor Vitamin D deficiency Medical History Imbalance Bilateral impacted cerumen Balance disorder Edema of both lower legs due to peripheral venous insufficiency Parotid mass Postmenopausal Hx of renal calculi History of seasonal allergies History of anemia Hx of blood clots Superficial RLE blood clot (after delivery), no issues since History of asthma Childhood, no current/recent issues Surgical History History of parotid gland removal (02/03/24) superficial right parotidectomy, pathology Warthin Tumor Hx of esophagogastroduodenoscopy (10/2021) History of cholecystectomy History of colonoscopy H/O total hysterectomy History of tooth extraction H/O carotid endarterectomy (12/03/17) Right H/O: section x1 Family History Grandmother Breast cancer Mother Myocardial infarction Heart disease Stroke Hypertension Mother Hypertension Father , age 76 Family history of esophageal cancer Heart disease Hypertension Cancer Other No family history of adverse response to anesthesia No family history of bleeding disorder Denies family history of Ovarian cancer Prostate cancer Lung cancer Colorectal cancer Social History (Updated 02/16/25 @ 23:36 by Rudolph Mae MD) Smoking Status: Current every day smoker Tobacco Type: Cigarettes Age Started Using Tobacco: 21; packs per day: 1; Second Hand Exposure: No; Do You Dip or Chew Tobacco: No; Hx Alcohol Use: No (unknown; intubated) Hx Substance Use: No (unknown; intubated) Preferred Language: Indonesian Communication Ability: Effective Communication Ability Comment: intubated Visual Impairment: No Limitations Hearing Ability: Normal Demurrage Clerk Required: No Beliefs That Will Affect Care: None marital status: Current Living Situation: Spouse Current Living Situation Comment: lives with current occupational status: retired How many Children do You have: 2 Feels Safe at Home: Yes Childhood Exposure to Second-Hand Smoke: Yes Diet: regular Diet Comment: regular caffeine: Yes (coffee) during the past year weight has: decreased > 10 lbs Dental Care, Regularly: No Physical Activity Frequency: 1-2 Times per Week Physical Activity Frequency Comment: limited Seatbelt Use: always Sunscreen Use: No Assistive Devices: Cane Assistive Devices Comment: unknown; intubated Allergies Allergies Allergy/AdvReac Type Severity Reaction Status Date / Time cefaclor Allergy Severe Anaphylaxis Verified 02/16/25 11:56 eggplant Allergy Itching Verified 02/17/25 16:21 Home Meds Home Medications Medication Instructions Recorded Confirmed aspirin 81 mg tablet,delayed 81 mg PO QAM #90 tabs 01/20/19 02/16/25 release cholecalciferol (vitamin D3) 25 25 mcg PO QAM 11/22/22 02/16/25 mcg (1,000 unit) capsule docusate sodium 100 mg capsule 100 mg PO BID PRN Constipation 10/27/23 07/16/25 (Colace) Previous Rx's Medication Instructions Recorded potassium chloride 20 mEq 20 meq PO BID #180 tabs 03/16/24 tablet,extended release(part/cryst) rosuvastatin 40 mg tablet 40 mg PO QAM #90 tabs 03/16/24 betamethasone dipropionate 0.05 % 1 applic topical BID PRN skin 07/26/24 topical cream irritation #45 grams levothyroxine 137 mcg tablet 137 mcg PO QAM #90 tabs 08/03/24 indapamide 2.5 mg tablet 2.5 mg PO QAM #90 tabs 08/23/24 metoprolol succinate 50 mg 50 mg PO QAM #90 tabs 08/23/24 tablet,extended release 24 hr verapamil 240 mg tablet,extended 240 mg PO HS #90 tabs 09/02/24 release alprazolam 0.25 mg tablet 0.25 mg PO DAILY PRN anxiety #30 01/25/25 tabs dicyclomine 20 mg tablet 20 mg PO BID PRN stomach cramps 02/02/25 #60 tabs hydroxyzine pamoate 25 mg capsule 25 mg PO Q8H PRN anxiety #30 caps 02/02/25 (Vistaril) pantoprazole 40 mg tablet,delayed 40 mg PO DAILY reflux #90 tabs 02/02/25 release Results & Data (ED) Vital Signs Vital Signs - 24 hr 02/16/25 12:33 02/16/25 12:42 02/16/25 12:45 Temperature 36.7 C Temperature Source Temporal Artery Scan Pulse Rate 117 H 102 H Pulse Rate [Forehead] Respiratory Rate 22 Respiratory Effort / Characteristics Short of Breath Respiratory Pattern Regular Blood Pressure 140/98 Blood Pressure Mean 112 Pulse Oximetry 81 L 98 Oxygen Delivery Method Room Air Nasal Cannula Oxygen Flow Rate 6 Fraction of Inspired Oxygen Sepsis Recent Fever Within 48 Hours No Sepsis New/Unexplained Change in Mental Status N/A Sepsis Action Taken by Nursing Physician Notified End-Tidal CO2 02/16/25 12:45 02/16/25 12:57 02/16/25 14:59 Temperature Temperature Source Pulse Rate 108 H 103 H Pulse Rate [Forehead] 108 H Respiratory Rate 23 29 H 21 Respiratory Effort / Characteristics Spontaneous Respiratory Pattern Blood Pressure 160/98 H Blood Pressure Mean 118 Pulse Oximetry 100 100 91 Oxygen Delivery Method Nasal Cannula Nasal Cannula Mechanical Vent Oxygen Flow Rate 6 6 Fraction of Inspired Oxygen 100 Sepsis Recent Fever Within 48 Hours Sepsis New/Unexplained Change in Mental Status Sepsis Action Taken by Nursing End-Tidal CO2 02/16/25 15:27 02/16/25 15:30 Temperature Temperature Source Pulse Rate 115 H Pulse Rate [Forehead] Respiratory Rate 20 22 Respiratory Effort / Characteristics Respiratory Pattern Blood Pressure Blood Pressure Mean Pulse Oximetry 99 Oxygen Delivery Method Oxygen Flow Rate Fraction of Inspired Oxygen 50 Sepsis Recent Fever Within 48 Hours Sepsis New/Unexplained Change in Mental Status Sepsis Action Taken by Nursing End-Tidal CO2 61 Laboratory Data 02/17/25 04:33 02/17/25 15:53 Lab Results 02/16/25 02/16/25 02/16/25 Range/Units 12:45 12:53 13:56 WBC 8.09 (4.8-10.8) K/ul RBC 5.53 H (4.20-5.40) M/uL Hgb 16.5 H (12.0-16.0) g/dl POC Hgb 17.3 H (12.0-16.0) g/dl Hct 50.2 H (37.0-47.0) % POC Hct 51 H (37-47) % MCV 90.8 (80.0-100.0) fL MCH 29.8 (25.0-34.0) pg MCHC 32.9 (32.0-36.0) g/dL RDW Std Deviation 51.8 H (36.4-46.3) fL RDW Coeff of Rudy 15.4 H (11.5-14.5) % Plt Count 254 (130-400) K/uL MPV 8.8 L (9.4-12.4) fL Immature Gran % (Auto) 0.2 % Neut % (Auto) 70.6 % Lymph % (Auto) 16.9 % Wake % (Auto) 9.4 % Eos % (Auto) 2.3 % Baso % (Auto) 0.6 % Neut # (Auto) 5.70 (1.40-6.50) K/uL Lymph # (Auto) 1.37 (1.20-3.40) K/uL Wake # (Auto) 0.76 H (0.11-0.59) K/uL Eos # (Auto) 0.19 (0.00-0.50) K/uL Baso # (Auto) 0.05 (0.00-0.20) K/uL Immature Gran # (Auto) 0.02 (0.01-0.20) K/uL POC Sodium 140 (135-144) mmol/L Sodium 139 (136-145) mmol/L POC Potassium 3.4 (3.3-5.0) mmol/L Potassium 3.6 (3.5-5.1) mmol/L POC Chloride 99 L (101-112) mmol/L Chloride 100 (98-107) mmol/L Carbon Dioxide 32 (21-32) mmol/L POC Total CO2 30 (24-31) mmol/L Anion Gap 7 (3-11) POC Anion Gap 15.0 L (16-25) mmol/L POC BUN 22 H (7-18) mg/dl BUN 20 (6-23) mg/dl Creatinine 1.08 (0.6-1.2) mg/dl POC Creatinine 1.2 (0.6-1.3) mg/dl Est Cr Clr Drug Dosing 48.4 ml/min eGFR 52.58 BUN/Creatinine Ratio 18.5 (10-20) Glucose 153 H (70-99(Fasting)) mg/dl POC Glucose (other) 149 H (70-99) mg/dl Lactate 0.9 (0.4-2.0) mmol/L Calcium 9.1 (8.6-10.3) mg/dl POC Ioniz Calcium [place] 1.09 L (1.12-1.32) mmol/l Magnesium 1.0 L (1.7-2.4) mg/dl Total Bilirubin 0.4 (0.2-1.0) mg/dl AST 19 (13-39) U/L ALT 10 (7-52) U/L Alkaline Phosphatase 69 (34-104) U/L Troponin I High Sens 572.1 H* (0-14) pg/ml Total Protein 7.8 (6.0-8.3) gm/dl Albumin 4.1 (3.4-5.0) gm/dl Globulin 3.7 (2.5-4.0) gm/dl Albumin/Globulin Ratio 1.1 (0.9-2) Lipase 69 (11-82) U/L 07/16/25 Range/Units 15:02 WBC (4.8-10.8) K/ul RBC (4.20-5.40) M/uL Hgb (12.0-16.0) g/dl POC Hgb (12.0-16.0) g/dl Hct (37.0-47.0) % POC Hct (37-47) % MCV (80.0-100.0) fL MCH (25.0-34.0) pg MCHC (32.0-36.0) g/dL RDW Std Deviation (36.4-46.3) fL RDW Coeff of Rudy (11.5-14.5) % Plt Count (130-400) K/uL MPV (9.4-12.4) fL Immature Gran % (Auto) % Neut % (Auto) % Lymph % (Auto) % Wake % (Auto) % Eos % (Auto) % Baso % (Auto) % Neut # (Auto) (1.40-6.50) K/uL Lymph # (Auto) (1.20-3.40) K/uL Wake # (Auto) (0.11-0.59) K/uL Eos # (Auto) (0.00-0.50) K/uL Baso # (Auto) (0.00-0.20) K/uL Immature Gran # (Auto) (0.01-0.20) K/uL POC Sodium (135-144) mmol/L Sodium (136-145) mmol/L POC Potassium (3.3-5.0) mmol/L Potassium (3.5-5.1) mmol/L POC Chloride (101-112) mmol/L Chloride (98-107) mmol/L Carbon Dioxide (21-32) mmol/L POC Total CO2 (24-31) mmol/L Anion Gap (3-11) POC Anion Gap (16-25) mmol/L POC BUN (7-18) mg/dl BUN (6-23) mg/dl Creatinine (0.6-1.2) mg/dl POC Creatinine (0.6-1.3) mg/dl Est Cr Clr Drug Dosing ml/min eGFR BUN/Creatinine Ratio (10-20) Glucose (70-99(Fasting)) mg/dl POC Glucose (other) (70-99) mg/dl Lactate (0.4-2.0) mmol/L Calcium (8.6-10.3) mg/dl POC Ioniz Calcium Carolina (1.12-1.32) mmol/l Magnesium (1.7-2.4) mg/dl Total Bilirubin (0.2-1.0) mg/dl AST (13-39) U/L ALT (7-52) U/L Alkaline Phosphatase (34-104) U/L Troponin I High Sens 916.1 H* D (0-14) pg/ml Total Protein (6.0-8.3) gm/dl Albumin (3.4-5.0) gm/dl Globulin (2.5-4.0) gm/dl Albumin/Globulin Ratio (0.9-2) Lipase (11-82) U/L Administered Medications Albuterol (Albut/Ipratrop 3mg/0.5mg Neb 3 Ml Vial) 3 ml NEB QIDR [facility]; Protocol Stop: 03/18/25 18:59 Last Admin: 02/17/25 20:41 Dose: Not Given Documented By: Admin: 02/17/25 15:04 Dose: 3 ml Documented By: han Admin: 02/17/25 13:32 Dose: 3 ml Documented By: Admin: 02/17/25 06:59 Dose: 3 ml Documented By: han Admin: 02/16/25 20:35 Dose: Not Given Documented By: ZEKE Aspirin (Aspirin 81 Mg Ectab) 81 mg PO QAM [facility] Stop: 03/19/25 08:59 Last Admin: 02/17/25 10:49 Dose: 81 mg Documented By: ARTI Budesonide (Budesonide 0.5 Mg/2 Ml Vial (Pulmicort)) 0.5 mg NEB BIDR [facility] Stop: 03/18/25 18:59 Last Admin: 02/17/25 20:35 Dose: 0.5 mg Documented By: Admin: 02/17/25 06:59 Dose: 0.5 mg Documented By: han Admin: 02/16/25 19:21 Dose: 0.5 mg Documented By: ZEKE Enoxaparin Sodium (Enoxaparin Inj 40 Mg/0.4 Ml Syr) 40 mg SQ Q24H [facility] Stop: 03/19/25 08:59 Last Admin: 02/17/25 09:53 Dose: 40 mg Documented By: ARTI Formoterol Fumarate (Formoterol 20 Mcg/2 Ml Vial) 20 mcg NEB BIDR [facility] Stop: 03/18/25 18:59 Last Admin: 02/17/25 20:36 Dose: 20 mcg Documented By: Admin: 02/17/25 06:58 Dose: 20 mcg Documented By: han Admin: 02/16/25 19:22 Dose: 20 mcg Documented By: ZEKE Azithromycin 250 mg/ Dextrose 252.5 mls @ 125 mls/hr IV Q24H [facility] Stop: 02/22/25 15:14 Last Infusion: 02/17/25 17:17 Dose: Infused Documented By: Admin: 02/17/25 15:15 Dose: 125 mls/hr Documented By: ARTI Norepinephrine Bitartrate (Levophed/D5w) 4 mg in 250 mls @ 0 mls/hr IV .Q0M [facility]COM; Protocol Stop: 03/18/25 17:51 Last Titration: 02/17/25 12:01 Dose: 0 mcg/kg/min, 0 mls/hr Documented By: ARTI Co-signed By: LISA Titration: 02/17/25 11:52 Dose: 0.01 mcg/kg/min, 3.6 mls/hr Documented By: ARTI Co-signed By: LISA Titration: 02/17/25 11:43 Dose: 0.03 mcg/kg/min, 10.9 mls/hr Documented By: ARTI Co-signed By: LISA Titration: 02/17/25 11:38 Dose: 0.05 mcg/kg/min, 18.1 mls/hr Documented By: ARTI Co-signed By: LISA Titration: 02/17/25 11:33 Dose: 0.07 mcg/kg/min, 25.3 mls/hr Documented By: ARTI Co-signed By: LISA Titration: 02/17/25 10:18 Dose: 0.05 mcg/kg/min, 18.1 mls/hr Documented By: ARTI Co-signed By: LISA Titration: 02/17/25 07:03 Dose: 0 mcg/kg/min, 0 mls/hr Documented By: ARTI Co-signed By: MNM Titration: 02/17/25 06:45 Dose: 0 mcg/kg/min, 0 mls/hr Documented By: MNM Co-signed By: CLC Titration: 02/17/25 06:22 Dose: 0.01 mcg/kg/min, 3.6 mls/hr Documented By: MNM Co-signed By: CLC Titration: 02/17/25 05:41 Dose: 0.03 mcg/kg/min, 10.9 mls/hr Documented By: MNM Co-signed By: CLC Titration: 02/17/25 05:00 Dose: 0.05 mcg/kg/min, 18.1 mls/hr Documented By: MNM Co-signed By: CLC Titration: 02/17/25 02:44 Dose: 0 mcg/kg/min, 0 mls/hr Documented By: MNM Co-signed By: CLC Titration: 02/17/25 02:15 Dose: 0.01 mcg/kg/min, 3.6 mls/hr Documented By: MNM Co-signed By: CLC Titration: 02/16/25 21:15 Dose: 0.03 mcg/kg/min, 10.9 mls/hr Documented By: MNM Co-signed By: CLC Titration: 02/16/25 20:20 Dose: 0.05 mcg/kg/min, 18.1 mls/hr Documented By: MNM Co-signed By: CLC Titration: 02/16/25 18:55 Dose: 0.07 mcg/kg/min, 25.3 mls/hr Documented By: LAF Co-signed By: MNM Titration: 02/16/25 17:45 Dose: 0.07 mcg/kg/min, 25.3 mls/hr Documented By: LAF Co-signed By: WMDexter Admin: 02/16/25 17:34 Dose: 0.05 mcg/kg/min, 18.1 mls/hr Documented By: LAF Co-signed By: MARILOU Insulin Aspart (Insulin Aspart Per Unit Charge) 0 units SC Q6 [facility]COM Stop: 03/19/25 00:00 Last Admin: 02/17/25 17:32 Dose: 1 units Documented By: ARTI Co-signed By: LISA Admin: 02/17/25 12:28 Dose: 4 units Documented By: ARTI Co-signed By: LISA Admin: 02/17/25 05:48 Dose: Not Given Documented By: Admin: 02/17/25 01:12 Dose: 4 units Documented By: DINESH Co-signed By: NIKKI Levothyroxine Sodium (Levothyroxine Sodium 137 Mcg Tablet) 137 mcg PO DAILYBB [facility] Stop: 03/19/25 06:29 Last Admin: 02/17/25 06:05 Dose: 137 mcg Documented By: DINESH Midodrine (Midodrine Hcl 2.5 Mg Tab) 5 mg PO TID@0800,1200,1700 [facility] Stop: 03/19/25 16:59 Last Admin: 02/17/25 17:34 Dose: 5 mg Documented By: ARTI Miscellaneous (Icu Electrolyte Replacement Protocol) 1 each N/A BID@06,18 [facility]; Protocol Stop: 02/23/25 17:59 Last Admin: 02/17/25 17:33 Dose: 1 each Documented By: Admin: 02/17/25 06:05 Dose: 1 each Documented By: Admin: 02/16/25 18:48 Dose: Not Given Documented By: MAGALY Polyethylene Glycol (Polyethylene (Miralax) 17 Gm Pack) 17 gm PO DAILY [facility] Stop: 03/18/25 18:59 Last Admin: 02/17/25 10:49 Dose: 17 gm Documented By: Admin: 02/16/25 20:19 Dose: 17 gm Documented By: DINESH Prednisone (Prednisone 20 Mg Tab) 20 mg PO QDB [facility] Stop: 03/19/25 13:29 Last Admin: 02/17/25 14:32 Dose: 20 mg Documented By: ARTI Rosuvastatin Calcium (Rosuvastatin Calcium 20 Mg Tab) 40 mg PO QAM [facility] Stop: 03/19/25 08:59 Last Admin: 02/17/25 10:49 Dose: 40 mg Documented By: ARTI Discontinued Medications Albuterol (Albut/Ipratrop 3mg/0.5mg Neb 3 Ml Vial) Confirm Administered Dose 3 ml .ROUTE .STK-MED ONE Stop: 02/16/25 12:48 Last Admin: 02/16/25 12:50 Dose: 3 ml Documented By: Albuterol (Albut/Ipratrop 3mg/0.5mg Neb 3 Ml Vial) 3 ml NEB NOW STA; Protocol Stop: 02/16/25 12:51 Last Admin: 02/16/25 12:51 Dose: Not Given Documented By: Albuterol (Albuterol 0.083% Nebu Soln 3 Ml Vial) Confirm Administered Dose 2.5 mg .ROUTE .STK-MED ONE Stop: 02/16/25 14:39 Last Admin: 02/16/25 15:02 Dose: 2.5 mg Documented By: ORLANDO Albuterol (Albuterol 0.083% Nebu Soln 3 Ml Vial) Confirm Administered Dose 5 mg .ROUTE .STK-MED ONE Stop: 02/16/25 15:02 Last Admin: 02/16/25 15:13 Dose: Not Given Documented By: CTK Albuterol (Albuterol 0.083% Nebu Soln 3 Ml Vial) 2.5 mg NEB NOW STA; Protocol Stop: 02/16/25 15:24 Last Admin: 02/16/25 15:25 Dose: 2.5 mg Documented By: JROGELIO Albuterol (Albuterol 0.083% Nebu Soln 3 Ml Vial) 2.5 mg NEB NOW STA; Protocol Stop: 02/16/25 15:25 Last Admin: 02/16/25 15:25 Dose: 2.5 mg Documented By: JROGELIO Aspirin (Aspirin 300 Mg Supp) 300 mg MD ONE ONE Stop: 02/16/25 15:48 Last Admin: 02/16/25 16:25 Dose: 300 mg Documented By: CTK Furosemide (Furosemide 40 Mg/4 Ml Vial) 40 mg IV ONE ONE Stop: 02/16/25 15:20 Last Admin: 02/16/25 15:58 Dose: 40 mg Documented By: CTK Furosemide (Furosemide Inj 20 Mg/2 Ml Vial) 20 mg IV ONE ONE Stop: 02/17/25 05:54 Last Admin: 02/17/25 06:17 Dose: 20 mg Documented By: MNM Levofloxacin/Dextrose (Levaquin/D5w) 750 mg in 150 mls @ 100 mls/hr IV Q24H [facility]; Protocol Stop: 02/18/25 13:44 Last Admin: 02/16/25 16:23 Dose: Not Given Documented By: CTK Propofol (Diprivan) 1,000 mg in 100 mls @ 0 mls/hr IV .Q0M [facility]; Protocol Stop: 02/19/25 15:14 Last Titration: 02/17/25 10:35 Dose: Infused Documented By: Titration: 02/17/25 07:24 Dose: 0 mcg/kg/min, 0 mls/hr Documented By: Titration: 02/17/25 07:03 Dose: 15 mcg/kg/min, 8.7 mls/hr Documented By: Admin: 02/17/25 06:22 Dose: Not Given Documented By: Admin: 02/17/25 06:14 Dose: 15 mcg/kg/min, 8.7 mls/hr Documented By: DINESH Co-signed By: CLC Titration: 02/17/25 06:14 Dose: Infused Documented By: MNAshely Co-signed By: CLC Admin: 02/17/25 03:55 Dose: Not Given Documented By: Titration: 02/16/25 22:50 Dose: 20 mcg/kg/min, 11.6 mls/hr Documented By: Titration: 02/16/25 22:36 Dose: 25 mcg/kg/min, 14.5 mls/hr Documented By: Admin: 02/16/25 22:31 Dose: 30 mcg/kg/min, 17.4 mls/hr Documented By: DINESH Co-signed By: CLC Titration: 02/16/25 22:31 Dose: Infused Documented By: MNAshely Co-signed By: CLC Admin: 02/16/25 21:15 Dose: Not Given Documented By: Titration: 02/16/25 20:41 Dose: 30 mcg/kg/min, 17.4 mls/hr Documented By: Titration: 02/16/25 20:20 Dose: 35 mcg/kg/min, 20.3 mls/hr Documented By: Titration: 02/16/25 18:55 Dose: 40 mcg/kg/min, 23.2 mls/hr Documented By: LAF Co-signed By: MNM Admin: 02/16/25 18:00 Dose: 40 mcg/kg/min, 23.2 mls/hr Documented By: LAF Co-signed By: WMK Titration: 02/16/25 18:00 Dose: Infused Documented By: LAF Co-signed By: WMK Titration: 02/16/25 15:22 Dose: 40 mcg/kg/min, 23.2 mls/hr Documented By: Admin: 02/16/25 15:10 Dose: 35 mcg/kg/min, 20.3 mls/hr Documented By: ALEJANDRO Co-signed By: KIRK Azithromycin 250 mg/ Dextrose 252.5 mls @ 125 mls/hr IV NOW STA Stop: 02/16/25 17:21 Last Infusion: 02/16/25 18:52 Dose: Infused Documented By: Admin: 02/16/25 16:24 Dose: 125 mls/hr Documented By: ALEJANDRO Fentanyl Citrate (Fentanyl Citrate) 2,500 mcg in 250 mls @ 0 mls/hr IV .Q0M MALCOM; Protocol Stop: 03/02/25 15:29 Last Titration: 02/17/25 10:34 Dose: Infused Documented By: ARTI Co-signed By: LISA Titration: 02/17/25 07:25 Dose: 0 mcg/hr, 0 mls/hr Documented By: ARTI Co-signed By: KJL Titration: 02/17/25 07:03 Dose: 25 mcg/hr, 2.5 mls/hr Documented By: ARTI Co-signed By: MNM Titration: 02/17/25 00:46 Dose: 25 mcg/hr, 2.5 mls/hr Documented By: DINESH Co-signed By: CLC Titration: 02/16/25 18:55 Dose: 50 mcg/hr, 5 mls/hr Documented By: MAGALY Co-signed By: MNM Titration: 02/16/25 16:31 Dose: 50 mcg/hr, 5 mls/hr Documented By: ALEJANDRO Co-signed By: KIRK Admin: 02/16/25 16:12 Dose: 25 mcg/hr, 2.5 mls/hr Documented By: ALEJANDRO Co-signed By: KIRK Famotidine (Pepcid 20mg Iv Push) 20 mg in 5 mls @ 2.5 mls/min IV NOW STA Stop: 02/16/25 16:16 Last Admin: 02/16/25 16:34 Dose: 2.5 mls/min Documented By: ALEJANDRO Pantoprazole Sodium (Protonix) 40 mg in 10 mls @ 5 mls/min IV DAILY MALCOM Stop: 03/18/25 16:56 Last Admin: 02/17/25 10:01 Dose: 5 mls/min Documented By: Admin: 02/16/25 17:54 Dose: 5 mls/min Documented By: MAGALY Magnesium Sulfate/Dextrose (Magnesium Sulfate / D5w) 1 gm in 100 mls @ 50 mls/hr IV Q2H MALCOM Stop: 02/17/25 02:44 Last Infusion: 02/17/25 03:56 Dose: Infused Documented By: Admin: 02/17/25 01:12 Dose: 50 mls/hr Documented By: Infusion: 02/17/25 00:32 Dose: Infused Documented By: Admin: 02/16/25 22:32 Dose: 50 mls/hr Documented By: Infusion: 02/16/25 22:19 Dose: Infused Documented By: Admin: 02/16/25 20:19 Dose: 50 mls/hr Documented By: Infusion: 02/16/25 20:19 Dose: Infused Documented By: Admin: 02/16/25 18:47 Dose: 50 mls/hr Documented By: MAGALY Potassium Chloride (K Antonio / Wtr) 10 meq in 100 mls @ 100 mls/hr IV Q1H MALCOM Stop: 02/17/25 03:59 Last Infusion: 02/17/25 04:05 Dose: Infused Documented By: Admin: 02/17/25 03:10 Dose: 100 mls/hr Documented By: Infusion: 02/17/25 03:10 Dose: Infused Documented By: Admin: 02/17/25 02:10 Dose: 100 mls/hr Documented By: DINESH Sodium Phosphate 21 mmol/ (Sodium Chloride) 507 mls @ 145 mls/hr IV ONE ONE Stop: 02/17/25 09:14 Last Infusion: 02/17/25 10:35 Dose: Infused Documented By: Admin: 02/17/25 06:14 Dose: 145 mls/hr Documented By: DINESH Ioversol (Optiray 320 125ml) 112 ml IV ONCE ONE Stop: 02/16/25 13:47 Last Admin: 02/16/25 13:46 Dose: 112 ml Documented By: CLEVE Ioversol (Optiray 320 125ml) 115 ml IV ONCE ONE Stop: 02/16/25 17:07 Last Admin: 02/16/25 17:07 Dose: 115 ml Documented By: CATHY Magnesium Oxide (Magnesium Oxide 400 Mg Tab) 400 mg NG Q4H MALCOM Stop: 02/17/25 09:46 Last Admin: 02/17/25 10:49 Dose: 400 mg Documented By: Admin: 02/17/25 06:04 Dose: 400 mg Documented By: DINESH Magnesium Oxide (Magnesium Oxide 400 Mg Tab) 400 mg PO ONCE ONE Stop: 02/17/25 17:22 Last Admin: 02/17/25 17:32 Dose: 400 mg Documented By: ARTI Magnesium Oxide (Magnesium Oxide 400 Mg Tab) 400 mg PO ONCE ONE Stop: 02/17/25 21:31 Last Admin: 02/17/25 20:54 Dose: 400 mg Documented By: MAIA Methylprednisolone (Methylprednisolone 125 Mg/2 Ml Vial) 40 mg IV NOW STA Stop: 02/16/25 15:05 Last Admin: 02/16/25 15:14 Dose: 40 mg Documented By: ALEJANDRO Miscellaneous (Rapid Sequence Induction Bag) Confirm Administered Dose 1 each N/A .STK-MED ONE Stop: 02/16/25 14:16 Last Admin: 02/16/25 15:09 Dose: Not Given Documented By: ALEJANDRO Joineraneous (Icu Protocol For Hyperglycemia) 1 each N/A ACHS MALCOM Stop: 02/18/25 16:56 Last Admin: 02/16/25 19:22 Dose: Not Given Documented By: DINESH Nitroglycerin/Dextrose (Nitroglycerin/D5w 100 Mcg/Ml Btl) Confirm Administered Dose 25 mg .ROUTE .STK-MED ONE Stop: 02/16/25 14:14 Last Admin: 02/16/25 15:08 Dose: Not Given Documented By: NAYAK Norepinephrine Bitartrate (Norepinephrine/D5w 4 Mg/250 Ml) Confirm Administered Dose 4 mg IV .STK-MED ONE Stop: 02/16/25 17:34 Last Admin: 02/16/25 17:54 Dose: Not Given Documented By: MAGALY Potassium Chloride (Potassium Chloride 20 Meq/15 Ml Udc) 40 meq GT NOW STA Stop: 02/17/25 01:12 Last Admin: 02/17/25 01:35 Dose: 40 meq Documented By: DINESH Potassium Chloride (Potassium Chloride 20 Meq/15 Ml Udc) 20 meq NG Q4H MALCOM Stop: 02/17/25 09:46 Last Admin: 02/17/25 10:49 Dose: 20 meq Documented By: Admin: 02/17/25 06:04 Dose: 20 meq Documented By: DINESH Propofol (Propofol Iv Emulsion 10 Mg/Ml 100 Ml Vial) Confirm Administered Dose 1,000 mg IV .STK-MED ONE Stop: 02/16/25 14:23 Last Admin: 02/16/25 15:08 Dose: Not Given Documented By: CTK Imaging Data Radiologist's Impression: Chest X-Ray 02/16/25 12:43 XR chest 1V portable CLINICAL HISTORY: SOB, hypoxic COMPARISON STUDY: 01/28/2024 FINDINGS: Single view portable chest demonstrates the patchy airspace opacity in the right lung base. There is no pleural effusion or pneumothorax. The heart and pulmonary vascularity are unremarkable for portable technique. IMPRESSION: Patchy right basilar infiltrate. Suspect infectious or aspiration pneumonia. ACT 112: Negative or not required by law. Electronically signed by: Qian Gonzalez M.D. 02/16/2025 1:01 PM Chest CTA 02/16/25 13:18 CT ANGIOGRAM OF THE CHEST CLINICAL HISTORY: Chest pain. Hypoxia. Tachycardia. COMPARISON STUDY: Chest x-ray dated 02/16/2025 TECHNIQUE: Following the IV administration of 112 cc of Optiray 320, CT angiogram of the chest was performed from the upper abdomen to the thoracic inlet utilizing the pulmonary embolus protocol. Images are reviewed in the axial, sagittal, and coronal planes. 3-D MIPS images are created and assessed. IV contrast was administered without complication. A dose lowering technique was utilized adhering to the principles of ALARA. CT DOSE: 833.65 mGy.cm FINDINGS: Thyroid: Mildly enlarged and heterogeneous. Thoracic aorta: There is atherosclerotic calcification of the thoracic aorta, which is normal in caliber and demonstrates standard 3-vessel arch anatomy. No dissection is seen. 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 Pulmonary vasculature: The pulmonary trunk is normal in caliber. There are no filling defects identified in main, lobar, or segmental pulmonary branches to suggest pulmonary embolus. Heart: The heart is mildly enlarged and without pericardial effusion. The coronary arteries are densely calcified. Lungs and pleural spaces: There is diffuse interlobular septal thickening with mild groundglass opacities. There is no airspace consolidation typical for pneumonia. There are trace pleural effusions with dependent atelectasis. Secretions are noted in the trachea. There is diffuse peribronchial thickening. There is a 5 mm left lower lobe pulmonary nodule seen on image #101. Mediastinum: There is no mediastinal lymphadenopathy. Alexus: Clear. Axillae: There is no axillary lymphadenopathy. 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 Partially imaged upper abdominal viscera is otherwise grossly unremarkable. Skeletal structures: The skeletal structures are osteopenic. No lytic or blastic bony lesions are seen. Degenerative change is noted in the thoracic spine and shoulders. Sclerotic change is seen at the right sternoclavicular joint. IMPRESSION: 1. There is no evidence of pulmonary embolus in the main, lobar, or segmental pulmonary arteries. 2. Cardiomegaly with congestive failure and mild pulmonary edema. 3. Trace pleural effusions. 4. There is a pathologically indeterminant 5 mm pulmonary nodule in the left lower lobe. If warranted this can be followed as per the Fleischner criteria. See below 5. 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 Note that this may place the patient at risk for steal phenomenon. 6. Additional findings as above. Please refer to below summary of Fleischner criteria recommendations for follow- up of incidental CT nodules (Krystina Perry, Guidelines for management of small pulmonary nodules detected on CT scans: A statement from the Fleischner Society, Radiology 237: [phone].) SOLID NODULES Solitary nodule size: <6 mm * low risk patients: no follow-up needed * high risk patients: optional CT at 12 months Solitary nodule size: 6-8 mm * low risk patients: follow-up at 6-12 months, then consider further follow-up at 18-24 months * high risk patients: initial follow-up CT at 6-12 months and then at 18-24 months if no change Solitary nodule size: >8 mm * either low or high risk patients - consider follow-up CT at 3 months, and/or CT-PET, and/or biopsy Multiple nodules size: <6 mm * low risk patients: no routine follow-up * high risk patients: optional CT at 12 months Multiple nodules size: 6-8 mm * low risk patients: follow-up at 3-6 months, then consider further follow-up at 18-24 months * high risk patients: follow-up at 3-6 months, then at 18-24 months if no change Multiple nodules size: >8 mm * low risk patients: follow-up at 3-6 months, then consider further follow-up at 18-24 months * high risk patients: follow-up at 3-6 months, then at 18-24 months if no change Note: newly detected indeterminate nodule in persons 35 years of age or older. * low risk patients: minimal or absent history of smoking and/or other known risk factors * high risk patients: history of smoking or of other known risk factors (e.g. first degree relative with lung cancer, or exposure to asbestos, radon, uranium) * if a nodule up to 8 mm is partly solid or is ground glass further follow-up is required after 24 months to exclude possible slow growing adenocarcinoma (JOAN) SUBSOLID NODULES Solitary pure ground-glass nodule * nodule size <6 mm - no CT follow-up required * nodule size >=6 mm - follow-up CT at 6-12 months, then every 2 years until 5 years Solitary part-solid nodule * nodule size <6 mm - no CT follow-up required * nodule size >=6 mm - follow-up CT at 3-6 months. If unchanged, and solid component remains <6 mm, then annual follow-up for 5 years Multiple subsolid nodules * nodule size <6 mm - follow-up CT at 3-6 months, consider further follow-up at 2 and 4 years if stable * nodule size >=6 mm - follow-up CT at 3-6 months, subsequent management based on the most suspicious nodule(s) ACT 112: Negative or not required by law. Electronically signed by: Jabier White M.D. 02/16/2025 2:02 PM Chest X-Ray 02/16/25 14:42 XR chest 1V portable CLINICAL HISTORY: ET tube confirmation COMPARISON STUDY: 02/16/2025 FINDINGS: Single view portable chest demonstrates an endotracheal tube approximately 3 cm above the martin. There is an NG tube in place with the tip extending at least as far as the upper body of the stomach. Reticular densities are progressive since the prior examination and the right Appears more involved than the left. Some loculated fluid in the right minor fissure. IMPRESSION: Endotracheal tube 3 cm above the martin. NG tube tip not visualized. Progressive findings of pulmonary edema right greater than left. ACT 112: Negative or not required by law. Electronically signed by: Qian Gonzalez M.D. 02/16/2025 3:04 PM KUB X-Ray 02/16/25 14:42 KUB HISTORY: OG tube confirmation COMPARISON STUDY: 02/16/2025 FINDINGS: Endotracheal tube tip is stable just below the thoracic inlet. Nasogastric tube tip is in the mid body of the stomach. IMPRESSION: Nasogastric tube tip is in the body of the stomach. ACT 112: Negative or not required by law. The above report was generated using voice recognition software. It may contain grammatical, syntax or spelling errors. Electronically signed by: Gm Stoddard M.D. 02/16/2025 3:01 PM Discharge Plan Visit Data Chief Complaint: Abdominal Pain Stated Complaint: ACID REFLUX ED Provider: Randall Hauser Discharge Problem: Acute hypoxic respiratory failure, COPD (chronic obstructive pulmonary disease), Elevated troponin, Flash pulmonary edema Patient Disposition: Admitted As Inpatient Condition: Critical Discharge Instructions Interventions: ED Discharge Assessment Last Done: 02/16/25 16:54
[2025-02-16] MEDS: OPTIRAY 320 125ml IV ONE ×2 (13:46→17:07)
--- NOTE | 2025-02-16 14:04 | CT Scan Report ---
CT ANGIOGRAM OF THE CHEST CLINICAL HISTORY: Chest pain. Hypoxia. Tachycardia. COMPARISON STUDY: Chest x-ray dated 02/16/2025 TECHNIQUE: Following the IV administration of 112 cc of Optiray 320, CT angiogram of the chest was pe rformed from the upper abdomen to the thoracic inlet utilizing the pulmonary embolus protocol. Images are reviewed in the axial, sagittal, and coronal planes. 3-D MIPS images are created and assessed. I V contrast was administered without complication. A dose lowering technique was utilized adhering to the principles of ALARA. CT DOSE: 833.65 mGy.cm FINDINGS: Thyroid: Mildly enlarged and heterogeneous. Thoracic aorta: There is atherosclerotic calcification of the thoracic aorta, which is normal in [place] and demonstrates standard 3-vessel arch anatomy. No dissection is seen. There is high-grade steno sis at the origin of the left subclavian artery. Pulmonary vasculature: The pulmonary trunk is normal in caliber. There are no filling defects identif ied in main, lobar, or segmental pulmonary branches to suggest pulmonary embolus. Heart: The heart is mildly enlarged and without pericardial effusion. The coronary arteries are dense ly calcified. Lungs and pleural spaces: There is diffuse interlobular septal thickening with mild groundglass opaci ties. There is no airspace consolidation typical for pneumonia. There are trace pleural effusions wit h dependent atelectasis. Secretions are noted in the trachea. There is diffuse peribronchial thickeni ng. There is a 5 mm left lower lobe pulmonary nodule seen on image #101. Mediastinum: There is no mediastinal lymphadenopathy. Alexus: Clear. Axillae: There is no axillary lymphadenopathy. 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 Partially imaged uppe r abdominal viscera is otherwise grossly unremarkable. Skeletal structures: The skeletal structures are osteopenic. No lytic or blastic bony lesions are see n. Degenerative change is noted in the thoracic spine and shoulders. Sclerotic change is seen at the right sternoclavicular joint. IMPRESSION: 1. There is no evidence of pulmonary embolus in the main, lobar, or segmental pulmonary arteries. 2. Cardiomegaly with congestive failure and mild pulmonary edema. 3. Trace pleural effusions. 4. There is a pathologically indeterminant 5 mm pulmonary nodule in the left lower lobe. If warranted this can be followed as per the Fleischner criteria. See below 5. 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 Note that this may place the patient at risk for steal phenomenon. 6. Additional findings as above. Please refer to below summary of Fleischner criteria recommendations for follow-up of incidental CT n odules (Krystina Perry, Guidelines for management of small pulmonary nodules detected on CT scans: A fallon zarco from the Fleischner Society, Radiology 237: [phone].) SOLID NODULES Solitary nodule size: <6 mm * low risk patients: no follow-up needed * high risk patients: optional CT at 12 months Solitary nodule size: 6-8 mm * low risk patients: follow-up at 6-12 months, then consider further follow-up at 18-24 months * high risk patients: initial follow-up CT at 6-12 months and then at 18-24 months if no change Solitary nodule size: >8 mm * either low or high risk patients - consider follow-up CT at 3 months, and/or CT-PET, and/or biopsy Multiple nodules size: <6 mm * low risk patients: no routine follow-up * high risk patients: optional CT at 12 months Multiple nodules size: 6-8 mm * low risk patients: follow-up at 3-6 months, then consider further follow-up at 18-24 months * high risk patients: follow-up at 3-6 months, then at 18-24 months if no change Multiple nodules size: >8 mm * low risk patients: follow-up at 3-6 months, then consider further follow-up at 18-24 months * high risk patients: follow-up at 3-6 months, then at 18-24 months if no change Note: newly detected indeterminate nodule in persons 35 years of age or older. * low risk patients: minimal or absent history of smoking and/or other known risk factors * high risk patients: history of smoking or of other known risk factors (e.g. first degree relative with lung cancer, or exposure to asbestos, radon, uranium) * if a nodule up to 8 mm is partly solid or is ground glass further follow-up is required after 24 m onths to exclude possible slow growing adenocarcinoma (JOAN) SUBSOLID NODULES Solitary pure ground-glass nodule * nodule size <6 mm - no CT follow-up required * nodule size >=6 mm - follow-up CT at 6-12 months, then every 2 years until 5 years Solitary part-solid nodule * nodule size <6 mm - no CT follow-up required * nodule size >=6 mm - follow-up CT at 3-6 months. If unchanged, and solid component remains <6 mm, then annual follow-up for 5 years Multiple subsolid nodules * nodule size <6 mm - follow-up CT at 3-6 months, consider further follow-up at 2 and 4 years if sta ble * nodule size >=6 mm - follow-up CT at 3-6 months, subsequent management based on the most suspiciou s nodule(s) ACT 112: Negative or not required by law. Electronically signed by: Jabier White M.D. 02/16/2025 2:02 PM
[2025-02-16 14:11] LABS: Base Excess VBG 1.9 mEq/L; HCO3 VBG 35 mmol/L; Oxygen Saturation VBG < 60.0 %; PCO2 VBG 97 mmHg (38-50); PO2 VBG 29 mmHg; pH VBG 7.16 (7.36-7.41)
[2025-02-16] MEDS: ALBUTEROL 0.083% NEBU SOLN 3 ML VIAL ONE ×2 (15:02→15:13)
--- NOTE | 2025-02-16 15:02 | XRay Report ---
KUB HISTORY: OG tube confirmation COMPARISON STUDY: 02/16/2025 FINDINGS: Endotracheal tube tip is stable just below the thoracic inlet. Nasogastric tube tip is in t he mid body of the stomach. IMPRESSION: Nasogastric tube tip is in the body of the stomach. ACT 112: Negative or not required by law. The above report was generated using voice recognition software. It may contain grammatical, syntax o r spelling errors. Electronically signed by: Gm Stoddard M.D. 02/16/2025 3:01 PM
[2025-02-16] MEDS ORDERED: STAT IV Infusion **Titration per Protocol STA ×3 (15:03→17:51)
[2025-02-16] MEDS ORDERED: PROPOFOL BOLUS FROM BAG IV PRN (15:03)
--- NOTE | 2025-02-16 15:05 | XRay Report ---
XR chest 1V portable CLINICAL HISTORY: ET tube confirmation COMPARISON STUDY: 02/16/2025 FINDINGS: Single view portable chest demonstrates an endotracheal tube approximately 3 cm above the c [place]. There is an NG tube in place with the tip extending at least as far as the upper body of the s tomach. Reticular densities are progressive since the prior examination and the right Appears more involved than the left. Some loculated fluid in the right minor fissure. IMPRESSION: Endotracheal tube 3 cm above the martin. NG tube tip not visualized. Progressive finding s of pulmonary edema right greater than left. ACT 112: Negative or not required by law. Electronically signed by: Qian Gonzalez M.D. 02/16/2025 3:04 PM
--- NOTE | 2025-02-16 15:06 | Critical Care Consultation ---
Date of Consultation February 16, 2025 Assessment & Plan (1) Acute respiratory failure with hypercapnia: (2) COPD (chronic obstructive pulmonary disease): (3) Morbid obesity: (4) Peripheral vascular disease: Plan Impression: 79-year-old female with likely COPD although PFTs are not available admitted with abdominal pain found to have hypercapnic respiratory failure progressing to need for intubation mechanical ventilation. Recommendations: 1. Neurologic: Patient is currently sedated with propofol. Will use adjuvant fentanyl and as needed Versed/Precedex. 2. Cardiovascular: CT scan concerning for increased pulmonary venous pressures. Check echocardiogram. Trend troponins. Lasix IV now. Hold verapamil and statin for now 3. Pulmonary: Hypercapnic respiratory failure: Likely a component of obstructive lung disease. Solu-Medrol, budesonide, and Perforomist with azithromycin added for acute exacerbation of COPD. Smoking cessation to be recommended. Patient does have a pulmonary nodule which will require outpatient follow-up with a repeat CT scan in 6 to 12 months. Continue current ventilatory strategy and monitor for auto PEEP. Assess for vent liberation in the next 24 hours 4. GI: Abdominal pain, unclear etiology. The patient does have significant peripheral arterial disease and intestinal ischemia is possible. CT of the abdomen and pelvis currently pending. LFTs reassuring. Lipase normal. Consider checking lactate depending on clinical response. 5. Renal: No current issues. ICU electrolyte replacement protocol. Acid-base status as noted above. 6. ID: Patient received Levaquin in the emergency room. Do not see an obvious source of infection. Azithromycin for acute exacerbation of COPD but hold additional antibiotics. 8. Endocrine: Glycemic control per protocol. Continue home Synthroid. Patient is critically ill at this point time with significant possibility of clinical decline and/or . A total of 45 minutes in critical care time was spent in evaluation management coordinating care for this patient History of Present Illness History of Present Illness Asked by ER staff to assist in evaluation management of this patient intubated for hypercarbic respiratory failure. History is obtained from review electronic medical record as well as discussion with the ER staff. The patient is intubated and unable to provide any history. Patient is a 79-year-old female with a history of tobacco abuse (no PFTs available). She likely has chronic hypercarbic respiratory failure as elevated by chronically elevated bicarb on chemistry panels but no blood gas previously performed. She presented to the emergency room this afternoon with complaints of abdominal pain. She was noted to be bronchospastic in the emergency room and received albuterol. She was noted to be hypercarbic and an attempt was made with noninvasive positive pressure ventilation which the patient was poorly tolerant of and she was subsequently intubated. She developed hypertension. She is now sedated on propofol. CTA of the chest did show increased interstitial markings concerning for potential pulmonary venous hypertension but no significant airspace opacity. She has high peak airway pressures on the ventilator. Allergies Allergy/AdvReac Type Severity Reaction Status Date / Time cefaclor Allergy Severe Anaphylaxis Verified 02/16/25 11:56 prednisone AdvReac Mild Unverified 02/16/25 11:56 Eggplant Allergy Intermediate Mouth Uncoded 02/16/25 11:56 tingling Home Medications Medication Instructions Recorded Confirmed Type aspirin 81 mg tablet,delayed 81 mg PO QAM #90 tabs 01/20/19 01/20/25 History release cholecalciferol (vitamin D3) 25 25 mcg PO QAM 11/22/22 01/20/25 History mcg (1,000 unit) capsule docusate sodium 100 mg capsule 100 mg PO BID PRN Constipation 05/30/23 01/20/25 History (Colace) potassium chloride 20 mEq 20 meq PO BID #180 tabs 03/16/24 01/20/25 Rx tablet,extended release(part/cryst) rosuvastatin 40 mg tablet 40 mg PO QAM #90 tabs 03/16/24 01/20/25 Rx betamethasone dipropionate 0.05 % 1 applic topical BID PRN skin 07/26/24 01/20/25 Rx topical cream irritation #45 grams levothyroxine 137 mcg tablet 137 mcg PO QAM #90 tabs 08/03/24 01/20/25 Rx indapamide 2.5 mg tablet 2.5 mg PO QAM #90 tabs 08/23/24 01/20/25 Rx metoprolol succinate 50 mg 50 mg PO QAM #90 tabs 08/23/24 01/20/25 Rx tablet,extended release 24 hr verapamil 240 mg tablet,extended 240 mg PO HS #90 tabs 09/02/24 01/20/25 Rx release alprazolam 0.25 mg tablet 0.25 mg PO DAILY PRN anxiety #30 01/25/25 Rx tabs dicyclomine 20 mg tablet 20 mg PO BID PRN stomach cramps 02/02/25 Rx #60 tabs hydroxyzine pamoate 25 mg capsule 25 mg PO Q8H PRN anxiety #30 caps 02/02/25 Rx (Vistaril) pantoprazole 40 mg tablet,delayed 40 mg PO DAILY reflux #90 tabs 02/02/25 Rx release Patient History Medical History Imbalance Bilateral impacted cerumen Balance disorder Edema of both lower legs due to peripheral venous insufficiency Parotid mass Postmenopausal Hx of renal calculi History of seasonal allergies History of anemia Hx of blood clots History of asthma Surgical History History of parotid gland removal (02/03/24) Hx of esophagogastroduodenoscopy (10/2021) History of cholecystectomy History of colonoscopy H/O total hysterectomy History of tooth extraction H/O carotid endarterectomy (12/03/17) H/O: section Family History Grandmother Breast cancer Mother Myocardial infarction Heart disease Stroke Hypertension Mother Hypertension Father Family history of esophageal cancer Heart disease Hypertension Cancer Other No family history of adverse response to anesthesia No family history of bleeding disorder Denies family history of Ovarian cancer Prostate cancer Lung cancer Colorectal cancer Social History Smoking Status: Unknown if ever smoked Tobacco Type: Cigarettes Age Started Using Tobacco: 66; packs per day: 0.5; Cigarettes Per Day: > 1 PPD; Second Hand Exposure: No; Do You Dip or Chew Tobacco: No; Hx Alcohol Use: No Hx Substance Use: No Preferred Language: Welsh Communication Ability: Effective Visual Impairment: No Limitations Hearing Ability: Normal 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 Beliefs That Will Affect Care: None marital status: Current Living Situation: Spouse Current Living Situation Comment: current occupational status: retired How many Children do You have: 2 Feels Safe at Home: Yes Childhood Exposure to Second-Hand Smoke: Yes Diet: regular Diet Comment: regular caffeine: Yes (coffee) during the past year weight has: decreased > 10 lbs Dental Care, Regularly: No Physical Activity Frequency: 1-2 Times per Week Physical Activity Frequency Comment: limited Seatbelt Use: always Sunscreen Use: No Assistive Devices: Denture - Upper and Glasses Review of Systems Review of Systems: Unobtainable due to endotracheal tube Physical Exam Constitutional: + mechanically ventilated Neck: trachea midline, no thyromegaly Respiratory: + tachypneic Auscultation: + rhonchi and + wheezes Cardiovascular: RRR, no murmur, no edema Gastrointestinal (Abdomen): normal bowel sounds, soft, nontender, no hepatosplenomegaly Musculoskeletal: Extremities: extremities normal to inspection Skin: no rashes, warm and dry Neurologic: sedated Lymphatic: no cervical lymphadenopathy Results & Data Results & Data Vital Signs (Past 12 Hours) Vital Signs Temp Pulse Pulse Resp BP Pulse Ox O2 Del Method 02/16/25 14:59 108 H 21 91 Mechanical Vent 02/16/25 12:57 103 H 29 H 160/98 H 100 Nasal Cannula 02/16/25 12:45 108 H 23 100 Nasal Cannula 02/16/25 12:45 102 H 02/16/25 12:42 98 Nasal Cannula 02/16/25 12:33 36.7 C 117 H 22 140/98 81 L Room Air O2 Flow Rate FiO2 02/16/25 14:59 100 02/16/25 12:57 6 02/16/25 12:45 6 02/16/25 12:45 02/16/25 12:42 6 02/16/25 12:33 Critical Care Results & Data Vital Signs (Past 12 Hours) Vital Signs Temp Pulse Pulse Resp BP Pulse Ox O2 Del Method 02/16/25 14:59 108 H 21 91 Mechanical Vent 02/16/25 12:57 103 H 29 H 160/98 H 100 Nasal Cannula 02/16/25 12:45 108 H 23 100 Nasal Cannula 02/16/25 12:45 102 H 02/16/25 12:42 98 Nasal Cannula 02/16/25 12:33 36.7 C 117 H 22 140/98 81 L Room Air O2 Flow Rate FiO2 02/16/25 14:59 100 02/16/25 12:57 6 02/16/25 12:45 6 02/16/25 12:45 02/16/25 12:42 6 02/16/25 12:33 Lab & Micro Results (Past 24 Hours) RBC 5.53 M/uL (4.20-5.40) H 02/16/25 WBC 8.09 K/ul (4.8-10.8) 02/16/25 Hgb 16.5 g/dl (12.0-16.0) H 02/16/25 Hct 50.2 % (37.0-47.0) H 02/16/25 MCV 90.8 fL (80.0-100.0) 02/16/25 MCH 29.8 pg (25.0-34.0) 02/16/25 MCHC 32.9 g/dL (32.0-36.0) 02/16/25 RDW Standard Deviation 51.8 fL (36.4-46.3) H 02/16/25 RDW Coefficient of Variation 15.4 % (11.5-14.5) H 02/16/25 Plt Count 254 K/uL (130-400) 02/16/25 MPV 8.8 fL (9.4-12.4) L 02/16/25 Neutrophils (%) (Auto) 70.6 % 02/16/25 Lymphocytes (%) (Auto) 16.9 % 02/16/25 Monocytes # (Auto) 0.76 K/uL (0.11-0.59) H 02/16/25 Eosinophils # (Auto) 0.19 K/uL (0.00-0.50) 02/16/25 Immature Granulocyte % (Auto) 0.2 % 02/16/25 Neutrophils # (Auto) 5.70 K/uL (1.40-6.50) 02/16/25 Lymphocytes # (Auto) 1.37 K/uL (1.20-3.40) 02/16/25 Monocytes # (Auto) 0.76 K/uL (0.11-0.59) H 02/16/25 Eosinophils # (Auto) 0.19 K/uL (0.00-0.50) 02/16/25 Basophils # (Auto) 0.05 K/uL (0.00-0.20) 02/16/25 Immature Granulocyte # (Auto) 0.02 K/uL (0.01-0.20) 5 Na 139 mmol/L (136-145) 02/16/25 K 3.6 mmol/L (3.5-5.1) 02/16/25 Cl 100 mmol/L (98-107) 02/16/25 CO2 32 mmol/L (21-32) 02/16/25 Anion Gap 7 (3-11) 02/16/25 BUN 20 mg/dl (6-23) 02/16/25 Creatinine 1.08 mg/dl (0.6-1.2) 02/16/25 BUN/Creatinine Ratio 18.5 (10-20) 02/16/25 Glu 153 mg/dl (70-99(Fasting)) H 02/16/25 Ca 9.1 mg/dl (8.6-10.3) 02/16/25 Total Bilirubin 0.4 mg/dl (0.2-1.0) 02/16/25 AST 19 U/L (13-39) 02/16/25 ALT 10 U/L (7-52) 02/16/25 Alkaline Phosphatase 69 U/L (34-104) 02/16/25 TP 7.8 gm/dl (6.0-8.3) 02/16/25 Albumin 4.1 gm/dl (3.4-5.0) 02/16/25 Globulin 3.7 gm/dl (2.5-4.0) 02/16/25 Albumin/Globulin Ratio 1.1 (0.9-2) 02/16/25 Calcium Level 9.1 mg/dl (8.6-10.3) 02/16/25 12:45 Venous Blood pH 7.16 (7.36-7.41) L 02/16/25 23:59 Venous Blood Partial Pressure CO2 97 mmHg (38-50) H 02/16/25 23 :59 Venous Blood Partial Pressure O2 29 mmHg 02/16/25 23:59 Venous Blood HCO3 35 mmol/L 02/16/25 23:59 Venous Blood Base Excess 1.9 mEq/L 02/16/25 23:59 Venous Blood Oxygen Saturation < 60.0 % 02/16/25 23:59 Diagnostic Findings (Past 24 Hours) Chest X-Ray 02/16/25 12:43 XR chest 1V portable CLINICAL HISTORY: SOB, hypoxic COMPARISON STUDY: 01/28/2024 FINDINGS: Single view portable chest demonstrates the patchy airspace opacity in the right lung base. There is no pleural effusion or pneumothorax. The heart and pulmonary vascularity are unremarkable for portable technique. IMPRESSION: Patchy right basilar infiltrate. Suspect infectious or aspiration pneumonia. ACT 112: Negative or not required by law. Electronically signed by: Qian Gonzalez M.D. 02/16/2025 1:01 PM Chest CTA 02/16/25 13:18 CT ANGIOGRAM OF THE CHEST CLINICAL HISTORY: Chest pain. Hypoxia. Tachycardia. COMPARISON STUDY: Chest x-ray dated 02/16/2025 TECHNIQUE: Following the IV administration of 112 cc of Optiray 320, CT angiogram of the chest was performed from the upper abdomen to the thoracic inlet utilizing the pulmonary embolus protocol. Images are reviewed in the axial, sagittal, and coronal planes. 3-D MIPS images are created and assessed. IV contrast was administered without complication. A dose lowering technique was utilized adhering to the principles of ALARA. CT DOSE: 833.65 mGy.cm FINDINGS: Thyroid: Mildly enlarged and heterogeneous. Thoracic aorta: There is atherosclerotic calcification of the thoracic aorta, which is normal in caliber and demonstrates standard 3-vessel arch anatomy. No dissection is seen. 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 Pulmonary vasculature: The pulmonary trunk is normal in caliber. There are no filling defects identified in main, lobar, or segmental pulmonary branches to suggest pulmonary embolus. Heart: The heart is mildly enlarged and without pericardial effusion. The coronary arteries are densely calcified. Lungs and pleural spaces: There is diffuse interlobular septal thickening with mild groundglass opacities. There is no airspace consolidation typical for pneumonia. There are trace pleural effusions with dependent atelectasis. Secretions are noted in the trachea. There is diffuse peribronchial thickening. There is a 5 mm left lower lobe pulmonary nodule seen on image #101. Mediastinum: There is no mediastinal lymphadenopathy. Alexus: Clear. Axillae: There is no axillary lymphadenopathy. 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 Partially imaged upper abdominal viscera is otherwise grossly unremarkable. Skeletal structures: The skeletal structures are osteopenic. No lytic or blastic bony lesions are seen. Degenerative change is noted in the thoracic spine and shoulders. Sclerotic change is seen at the right sternoclavicular joint. IMPRESSION: 1. There is no evidence of pulmonary embolus in the main, lobar, or segmental pulmonary arteries. 2. Cardiomegaly with congestive failure and mild pulmonary edema. 3. Trace pleural effusions. 4. There is a pathologically indeterminant 5 mm pulmonary nodule in the left lower lobe. If warranted this can be followed as per the Fleischner criteria. See below 5. 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 Note that this may place the patient at risk for steal phenomenon. 6. Additional findings as above. Please refer to below summary of Fleischner criteria recommendations for follow- up of incidental CT nodules (Krystina Perry, Guidelines for management of small pulmonary nodules detected on CT scans: A statement from the Fleischner Society, Radiology 237: [phone].) SOLID NODULES Solitary nodule size: <6 mm * low risk patients: no follow-up needed * high risk patients: optional CT at 12 months Solitary nodule size: 6-8 mm * low risk patients: follow-up at 6-12 months, then consider further follow-up at 18-24 months * high risk patients: initial follow-up CT at 6-12 months and then at 18-24 months if no change Solitary nodule size: >8 mm * either low or high risk patients - consider follow-up CT at 3 months, and/or CT-PET, and/or biopsy Multiple nodules size: <6 mm * low risk patients: no routine follow-up * high risk patients: optional CT at 12 months Multiple nodules size: 6-8 mm * low risk patients: follow-up at 3-6 months, then consider further follow-up at 18-24 months * high risk patients: follow-up at 3-6 months, then at 18-24 months if no change Multiple nodules size: >8 mm * low risk patients: follow-up at 3-6 months, then consider further follow-up at 18-24 months * high risk patients: follow-up at 3-6 months, then at 18-24 months if no change Note: newly detected indeterminate nodule in persons 35 years of age or older. * low risk patients: minimal or absent history of smoking and/or other known risk factors * high risk patients: history of smoking or of other known risk factors (e.g. first degree relative with lung cancer, or exposure to asbestos, radon, uranium) * if a nodule up to 8 mm is partly solid or is ground glass further follow-up is required after 24 months to exclude possible slow growing adenocarcinoma (JOAN) SUBSOLID NODULES Solitary pure ground-glass nodule * nodule size <6 mm - no CT follow-up required * nodule size >=6 mm - follow-up CT at 6-12 months, then every 2 years until 5 years Solitary part-solid nodule * nodule size <6 mm - no CT follow-up required * nodule size >=6 mm - follow-up CT at 3-6 months. If unchanged, and solid component remains <6 mm, then annual follow-up for 5 years Multiple subsolid nodules * nodule size <6 mm - follow-up CT at 3-6 months, consider further follow-up at 2 and 4 years if stable * nodule size >=6 mm - follow-up CT at 3-6 months, subsequent management based on the most suspicious nodule(s) ACT 112: Negative or not required by law. Electronically signed by: Jabier White M.D. 02/16/2025 2:02 PM Chest X-Ray 02/16/25 14:42 XR chest 1V portable CLINICAL HISTORY: ET tube confirmation COMPARISON STUDY: 02/16/2025 FINDINGS: Single view portable chest demonstrates an endotracheal tube approximately 3 cm above the martin. There is an NG tube in place with the tip extending at least as far as the upper body of the stomach. Reticular densities are progressive since the prior examination and the right Appears more involved than the left. Some loculated fluid in the right minor fissure. IMPRESSION: Endotracheal tube 3 cm above the martin. NG tube tip not visualized. Progressive findings of pulmonary edema right greater than left. ACT 112: Negative or not required by law. Electronically signed by: Qian Gonzalez M.D. 02/16/2025 3:04 PM KUB X-Ray 02/16/25 14:42 KUB HISTORY: OG tube confirmation COMPARISON STUDY: 02/16/2025 FINDINGS: Endotracheal tube tip is stable just below the thoracic inlet. Nasogastric tube tip is in the mid body of the stomach. IMPRESSION: Nasogastric tube tip is in the body of the stomach. ACT 112: Negative or not required by law. The above report was generated using voice recognition software. It may contain grammatical, syntax or spelling errors. Electronically signed by: Gm Stoddard M.D. 02/16/2025 3:01 PM RT Ventilator Mngmt (Last Documented) Ventilator Ordered Settings Respiratory Rate 21 02/16/25 14:59 Fraction of Inspired Oxygen 100 02/16/25 14:59 Ventilator - PT Measurements Respiratory Rate 21 Coding Level of Care Code 50992 CRITICAL CARE 1ST 30-74M Diagnoses Acute respiratory failure with hypercapnia J96.02 COPD (chronic obstructive pulmonary disease) J44.9 Morbid obesity E66.01 Peripheral vascular disease I73.9
[2025-02-16] MEDS: PROPOFOL IV EMULSION 10 MG/ML 100 ML VIAL IV ONE (15:08)
[2025-02-16] MEDS: NITROGLYCERIN/D5W 100 MCG/ML BTL ONE (15:08)
[2025-02-16] MEDS: RAPID SEQUENCE INDUCTION BAG ONE (15:09)
--- NOTE | 2025-02-16 15:16 | History & Physical Report ---
Date of Service February 16, 2025 Assessment & Plan (1) Acute respiratory failure with hypoxia and hypercapnia: (2) Acute CHF: (3) NSTEMI (non-ST elevated myocardial infarction): (4) Chronic intermittent abdominal pain: (5) Acute metabolic encephalopathy: (6) COPD (chronic obstructive pulmonary disease): (7) Hypomagnesemia: (8) Peripheral vascular disease: (9) Tobacco use: (10) Stenosis of both subclavian arteries: (11) Hx of carotid stenosis: (12) Hypothyroidism: (13) Hypertension: (14) Hyperlipidemia: (15) History of uterine cancer: (16) GERD (gastroesophageal reflux disease): (17) Chronic kidney disease, stage III (moderate): (18) History of parotid gland removal: Plan 79yo female with long-standing tobacco dependence, hypothyroidism, uterine cancer 2006, childhood asthma/current COPD, CKD stage 3a, known subclavian artery stenosis, h/o carotid stenosis s/p CEA on right, and 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 Patient's respiratory distress worsened while in the ER ultimately requiring intubation & mechanical ventilation. #acute respiratory failure with hypoxia & hypercapnia - -suspect multifactorial - pulmonary edema/acute CHF + ?b/l pneumonia (?aspiration given how rapid her resp failure developed) + COPD exacerbation; no evidence of PE on CTA chest -s/p intubation/mech ventilation -defer vent management to ICU attending -defer antibiotic selection to ICU attending -diuresis with lasix IV x 1 -bronchodilators QID scheduled -defer use of steroids to ICU attending -recheck ABG this afternoon #recurrent, intermittent abdominal pain - -episodes present for months -not always related to eating/drinking; some episodes occur randomly -severe; typically present in the epigastric region -symptoms cont to reoccur despite use of antacids; she does not have a gall bladder -could be due to mesenteric ischemia; could be atypical angina; could be gastri tis/GERD/PUD -CTA abd/pelvis ordered; mesenteric arteries indeed have significant stenoses -troponin is elevated - see below -EGD 2021 with gastritis - place on IV PPI +/- IV pepcid -of note - lipase and LFTs today wnl #elevated troponin / NSTEMI - -uncertain at this time if type 1 vs type 2 -has numerous CAD risk factors -initial troponin was 572, climbing to 916 a short while later -she has Q waves inferiorly and anteriorly on her EKG -gave rectal aspirin in the event this was type 1 event and cont asa 81mg daily moving forward -trend troponins -echo ordered (I cannot find an old echo in our system) -low threshold for formal cardiology evaluation #acute CHF - -imaging and exam suggestive of some element of pulmonary edema/volume overload -lasix 40mg IV x 1 ordered by ICU attending - agree with such -echo ordered/pending #?infectious bronchitis/pneumonia? - -defer antibiotic selection, if felt needed, to ICU attending #acute metabolic encephalopathy - -2nd to hypoxia, hypercapnia, possible pneumonia/bronchitis, etc. #COPD with exacerbation - -bronchodilators, +/- systemic steroids, +/- antibiotics #GERD/history of gastritis/history of hiatal hernia - -IV PPI #hypomagnesemia - -severe, level 1 -mag sulfate 4gm IV now -etiology? 2nd to poor oral intake at home? chronic PPI use? other? 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 and able to discuss #polycythemia - -likely 2nd to chronic hypoxia from tobacco use/COPD #PAD/history of carotid stenosis/history of subclavian artery stenosis - -BPs may not be reliable in either arm due to subclavian artery stenosis thus consider arterial line while in ICU #LLL pulmonary nodule - -given long-standing tobacco use will need f/u CT scan in the next few months for stability -5mm in size patient is medically complex and critically ill code status - FULL code per family total critical care time about 75 minutes including care coordination with ER attending, ICU attending, gathering information from family, chart review, placing orders, and treating her cardiopulmonary issues which are life- threatening History of Present Illness Chief Complaint: abdominal pain, shortness of breath Primary Care Provider: Humera Mccann, DO 79yo female with long-standing tobacco dependence, hypothyroidism, uterine cancer 2006, childhood asthma/current COPD, CKD stage 3, known subclavian artery stenosis, h/o carotid stenosis s/p CEA on right, and prior Warthin tumor of the parotid gland presents with persistent abdominal pain as well as worsening dyspnea. During my assessment patient was intubated and sedated on propofol. Thus, all history was obtained from the ER provider, the medical record, and the patient's daughter & . Ms Jensen reportedly has been dealing with recurrent episodes of severe upper abdominal pain going back 6-12 months. Episodes are sometime post-prandial, and other episodes are unrelated to eating. Episodes can list minutes to hours. Pain radiates from the upper abdomen into the middle of the chest and up to the lower anterior neck. She has some dyspnea with these episodes. Does not typically vomit with her spells. She has had some weight loss dating back to when these episodes started. Daughter & report she takes large amounts of Tums for her abdominal pain without relief of symptoms. She had a severe episode last Friday, and then about 9/930am today - while in the bathroom - she developed a typical episode of abdominal pain. She was able to ready herself to go to the [facility] office for her ears but the pain did persist. While at ENT the patient's noted mild dyspnea. Following this visit she came to the ER to be evaluated for the ongoing abdominal pain and dyspnea. Upon presentation to the ER today she was tachycardic and her o2 sats were 81% in room air. 6 liters NC O2 was applied with improvement in her sats. She was sent for a CTA chest to check for PE and upon return her respiratory status worsened rapidly. She also had worsening lethargy/altered mental status. Attempts to utilize NIPPV with BiPAP were not successful, and therefore she was intubated by the ER attending. Since intubation she has had some pink/mildly bloody gastric secretions exuding from the enteric tube. Per the patient's Ms Jensen has been in her usual state of health the last few days. She has had no infectious symptoms or respiratory illness. There was no vomiting while at the ENT office or en route to [facility]. Lastly, per the pt's family as well as per outpatient primary care office visit documentation, the patient's verapamil was recently discontinued due to low BPs at home as well as in the office. This is in addition to d/c of her metoprolol and indapamide. Allergies Allergy/AdvReac Type Severity Reaction Status Date / Time cefaclor Allergy Severe Anaphylaxis Verified 02/16/25 11:56 prednisone AdvReac Mild Unverified 02/16/25 11:56 Eggplant Allergy Intermediate Mouth Uncoded 02/16/25 11:56 tingling Home Medications Medication Instructions Recorded Confirmed Type aspirin 81 mg tablet,delayed 81 mg PO QAM #90 tabs 01/20/19 02/16/25 History release cholecalciferol (vitamin D3) 25 25 mcg PO QAM 11/22/22 02/16/25 History mcg (1,000 unit) capsule docusate sodium 100 mg capsule 100 mg PO BID PRN Constipation 05/30/23 02/16/25 History (Colace) potassium chloride 20 mEq 20 meq PO BID #180 tabs 03/16/24 02/16/25 Rx tablet,extended release(part/cryst) rosuvastatin 40 mg tablet 40 mg PO QAM #90 tabs 03/16/24 02/16/25 Rx betamethasone dipropionate 0.05 % 1 applic topical BID PRN skin 07/26/24 02/16/25 Rx topical cream irritation #45 grams levothyroxine 137 mcg tablet 137 mcg PO QAM #90 tabs 08/03/24 02/16/25 Rx indapamide 2.5 mg tablet 2.5 mg PO QAM #90 tabs 08/23/24 02/16/25 Rx metoprolol succinate 50 mg 50 mg PO QAM #90 tabs 08/23/24 02/16/25 Rx tablet,extended release 24 hr verapamil 240 mg tablet,extended 240 mg PO HS #90 tabs 09/02/24 02/16/25 Rx release alprazolam 0.25 mg tablet 0.25 mg PO DAILY PRN anxiety #30 01/25/25 02/16/25 Rx tabs dicyclomine 20 mg tablet 20 mg PO BID PRN stomach cramps 02/02/25 02/16/25 Rx #60 tabs hydroxyzine pamoate 25 mg capsule 25 mg PO Q8H PRN anxiety #30 caps 02/02/25 02/16/25 Rx (Vistaril) pantoprazole 40 mg tablet,delayed 40 mg PO DAILY reflux #90 tabs 02/02/25 02/16/25 Rx release Past Med/Surg History Problem List (Updated 02/16/25 @ 23:44 by Rudolph Mae MD) Chronic intermittent abdominal pain Hypomagnesemia Acute metabolic encephalopathy NSTEMI (non-ST elevated myocardial infarction) Acute CHF Acute respiratory failure with hypoxia and hypercapnia Peripheral vascular disease Acute respiratory failure with hypercapnia Hiatal hernia Tobacco use Sensorineural hearing loss, bilateral Stenosis of both subclavian arteries [facility] vascular visit (05/2022): asymptomatic, 2 year reevaluation recommended Hx of carotid stenosis s/p Right CEA (2017) Morbid obesity Venous insufficiency (chronic) (peripheral) Pre-diabetes Hypothyroidism Hypertension Hyperlipidemia History of uterine cancer (2006) chemo and XRT GERD (gastroesophageal reflux disease) COPD (chronic obstructive pulmonary disease) Per records, patient denies Chronic kidney disease, stage III (moderate) Anxiety Warthin tumor Vitamin D deficiency Medical History Imbalance Bilateral impacted cerumen Balance disorder Edema of both lower legs due to peripheral venous insufficiency Parotid mass Postmenopausal Hx of renal calculi History of seasonal allergies History of anemia Hx of blood clots Superficial RLE blood clot (after delivery), no issues since History of asthma Childhood, no current/recent issues Surgical History History of parotid gland removal (02/03/24) superficial right parotidectomy, pathology Warthin Tumor Hx of esophagogastroduodenoscopy (10/2021) History of cholecystectomy History of colonoscopy H/O total hysterectomy History of tooth extraction H/O carotid endarterectomy (12/03/17) Right H/O: section x1 Family History Grandmother Breast cancer Mother Myocardial infarction Heart disease Stroke Hypertension Mother Hypertension Father , age 76 Family history of esophageal cancer Heart disease Hypertension Cancer Other No family history of adverse response to anesthesia No family history of bleeding disorder Denies family history of Ovarian cancer Prostate cancer Lung cancer Colorectal cancer Social History (Updated 02/16/25 @ 23:36 by Rudolph Mae MD) Smoking Status: Current every day smoker Tobacco Type: Cigarettes Age Started Using Tobacco: 21; packs per day: 1; Second Hand Exposure: No; Do You Dip or Chew Tobacco: No; Hx Alcohol Use: No (unknown; intubated) Hx Substance Use: No (unknown; intubated) Preferred Language: Stateless Communication Ability: Unable Communication Ability Comment: intubated Visual Impairment: No Limitations Hearing Ability: Normal [employer] Supervisor Required: No Beliefs That Will Affect Care: None marital status: Current Living Situation: Spouse Current Living Situation Comment: lives with current occupational status: retired How many Children do You have: 2 Feels Safe at Home: Yes Childhood Exposure to Second-Hand Smoke: Yes Diet: regular Diet Comment: regular caffeine: Yes (coffee) during the past year weight has: decreased > 10 lbs Dental Care, Regularly: No Physical Activity Frequency: 1-2 Times per Week Physical Activity Frequency Comment: limited Seatbelt Use: always Sunscreen Use: No Assistive Devices: Denture - Upper and Glasses Review of Systems Review of Systems: Unobtainable due to endotracheal tube and Unobtainable due to reduced consciousness additional information obtained from family - -LE edema is chronic -upper abdominal pain episodes, although they radiate into the midline chest, do not radiate into the jaw or arms -continues to smoke -last stress test years ago -last EGD 2021 (gastritis, etc) Physical Exam Physical Exam: gen - intubated, sedated - but moving arms around, pulling at lines - thus placed in soft limb restraints eyes - PERRL HENT - ETT in place; enteric tube in place neck - JVD present, about 1/[address] up neck; no lymph nodes or obvious goiter heart - tachy, s1 s2, no obvious murmur lungs - diffuse wheezes b/l, crackles b/l, tachypneic, intubated abd - soft NT ND BS+; no HSM vascular - b/l radial pulses <1+, right hand is mildly dusky in appearance, cap refill 3 sec on right hand, slightly better left hand; b/l foot pulses 1+; 2+ pitting edema extending to just above knees neuro - moves all 4 limbs spontaneously skin - no rash Results & Data Results & Data Vital Signs (Past 12 Hours) Vital Signs Temp Pulse Pulse Resp BP Pulse Ox O2 Del Method 02/16/25 14:59 108 H 21 91 Mechanical Vent 02/16/25 12:57 103 H 29 H 160/98 H 100 Nasal Cannula 02/16/25 12:45 108 H 23 100 Nasal Cannula 02/16/25 12:45 102 H 02/16/25 12:42 98 Nasal Cannula 02/16/25 12:33 36.7 C 117 H 22 140/98 81 L Room Air O2 Flow Rate FiO2 02/16/25 14:59 100 02/16/25 12:57 6 02/16/25 12:45 6 02/16/25 12:45 02/16/25 12:42 6 02/16/25 12:33 Laboratory Results Laboratory Results - last 24 hr 02/16/25 02/16/25 02/16/25 12:45 12:53 13:56 WBC 8.09 RBC 5.53 H Hgb 16.5 H POC Hgb 17.3 H Hct 50.2 H POC Hct 51 H MCV 90.8 MCH 29.8 MCHC 32.9 RDW Std Deviation 51.8 H RDW Coeff of Rudy 15.4 H Plt Count 254 MPV 8.8 L Immature Gran % (Auto) 0.2 Neut % (Auto) 70.6 Lymph % (Auto) 16.9 [place] % (Auto) 9.4 Eos % (Auto) 2.3 Baso % (Auto) 0.6 Neut # (Auto) 5.70 Lymph # (Auto) 1.37 [place] # (Auto) 0.76 H Eos # (Auto) 0.19 Baso # (Auto) 0.05 Immature Gran # (Auto) 0.02 Specimen Type Sample Site POC pH POC pCO2 POC pO2 POC HCO3 POC Base Excess O2 Sat Pulse Oximetry ABG pH (Temp Correct) ABG pCO2 (Temp Corrct POC ABG pO2 at Pt Temp POC ABG O2 Sat Julito Test VBG pH VBG pCO2 VBG pO2 VBG HCO3 VBG O2 Saturation VBG Base Excess O2 Delivery Device Vent Mode POC FiO2 End Tidal CO2 POC Sodium 140 Sodium 139 POC Potassium 3.4 Potassium 3.6 POC Chloride 99 L Chloride 100 Carbon Dioxide 32 POC Total CO2 30 Anion Gap 7 POC Anion Gap 15.0 L POC BUN 22 H BUN 20 Creatinine 1.08 POC Creatinine 1.2 Est Cr Clr Drug Dosing 48.4 eGFR 52.58 BUN/Creatinine Ratio 18.5 Glucose 153 H POC Glucose POC Glucose (other) 149 H Lactate 0.9 Calcium 9.1 POC Ioniz Calcium [place] 1.09 L Magnesium 1.0 L Total Bilirubin 0.4 AST 19 ALT 10 Alkaline Phosphatase 69 Troponin I High Sens 572.1 H* Total Protein 7.8 Albumin 4.1 Globulin 3.7 Albumin/Globulin Ratio 1.1 Lipase 69 Urine Color Urine Appearance Urine pH Ur Specific [place] Urine Protein Urine Glucose (UA) Urine Ketones Urine Blood Urine Nitrite Urine Bilirubin Urine Urobilinogen Ur Leukocyte Esterase Urine WBC (Auto) Urine RBC (Auto) U Hyaline Cast (Auto) U Epithel Cells (Auto) Urine Bacteria (Auto) Urine Comment Nasal Screen MRSA (PCR) 02/16/25 15:02 WBC RBC Hgb POC Hgb Hct POC Hct MCV MCH MCHC RDW Std Deviation RDW Coeff of Rudy Plt Count MPV Immature Gran % (Auto) Neut % (Auto) Lymph % (Auto) [place] % (Auto) Eos % (Auto) Baso % (Auto) Neut # (Auto) Lymph # (Auto) [place] # (Auto) Eos # (Auto) Baso # (Auto) Immature Gran # (Auto) Specimen Type Sample Site POC pH POC pCO2 POC pO2 POC HCO3 POC Base Excess O2 Sat Pulse Oximetry ABG pH (Temp Correct) ABG pCO2 (Temp Corrct POC ABG pO2 at Pt Temp POC ABG O2 Sat Julito Test VBG pH VBG pCO2 VBG pO2 VBG HCO3 VBG O2 Saturation VBG Base Excess O2 Delivery Device Vent Mode POC FiO2 End Tidal CO2 POC Sodium Sodium POC Potassium Potassium POC Chloride Chloride Carbon Dioxide POC Total CO2 Anion Gap POC Anion Gap POC BUN BUN Creatinine POC Creatinine Est Cr Clr Drug Dosing eGFR BUN/Creatinine Ratio Glucose POC Glucose POC Glucose (other) Lactate Calcium POC Ioniz Calcium [place] Magnesium Total Bilirubin AST ALT Alkaline Phosphatase Troponin I High Sens 916.1 H* D Total Protein Albumin Globulin Albumin/Globulin Ratio Lipase Urine Color Urine Appearance Urine pH Ur Specific [place] Urine Protein Urine Glucose (UA) Urine Ketones Urine Blood Urine Nitrite Urine Bilirubin Urine Urobilinogen Ur Leukocyte Esterase Urine WBC (Auto) Urine RBC (Auto) U Hyaline Cast (Auto) U Epithel Cells (Auto) Urine Bacteria (Auto) Urine Comment Nasal Screen MRSA (PCR) Diagnostic Findings Chest X-Ray 02/16/25 12:43 XR chest 1V portable CLINICAL HISTORY: SOB, hypoxic COMPARISON STUDY: 01/28/2024 FINDINGS: Single view portable chest demonstrates the patchy airspace opacity in the right lung base. There is no pleural effusion or pneumothorax. The heart and pulmonary vascularity are unremarkable for portable technique. IMPRESSION: Patchy right basilar infiltrate. Suspect infectious or aspiration pneumonia. ACT 112: Negative or not required by law. Electronically signed by: Qian Gonzalez M.D. 02/16/2025 1:01 PM Chest CTA 02/16/25 13:18 CT ANGIOGRAM OF THE CHEST CLINICAL HISTORY: Chest pain. Hypoxia. Tachycardia. COMPARISON STUDY: Chest x-ray dated 02/16/2025 TECHNIQUE: Following the IV administration of 112 cc of Optiray 320, CT angiogram of the chest was performed from the upper abdomen to the thoracic inlet utilizing the pulmonary embolus protocol. Images are reviewed in the axial, sagittal, and coronal planes. 3-D MIPS images are created and assessed. IV contrast was administered without complication. A dose lowering technique was utilized adhering to the principles of ALARA. CT DOSE: 833.65 mGy.cm FINDINGS: Thyroid: Mildly enlarged and heterogeneous. Thoracic aorta: There is atherosclerotic calcification of the thoracic aorta, which is normal in caliber and demonstrates standard 3-vessel arch anatomy. No dissection is seen. 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 Pulmonary vasculature: The pulmonary trunk is normal in caliber. There are no filling defects identified in main, lobar, or segmental pulmonary branches to suggest pulmonary embolus. Heart: The heart is mildly enlarged and without pericardial effusion. The coronary arteries are densely calcified. Lungs and pleural spaces: There is diffuse interlobular septal thickening with mild groundglass opacities. There is no airspace consolidation typical for pneumonia. There are trace pleural effusions with dependent atelectasis. Secretions are noted in the trachea. There is diffuse peribronchial thickening. There is a 5 mm left lower lobe pulmonary nodule seen on image #101. Mediastinum: There is no mediastinal lymphadenopathy. Alexus: Clear. Axillae: There is no axillary lymphadenopathy. 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 Partially imaged upper abdominal viscera is otherwise grossly unremarkable. Skeletal structures: The skeletal structures are osteopenic. No lytic or blastic bony lesions are seen. Degenerative change is noted in the thoracic spine and shoulders. Sclerotic change is seen at the right sternoclavicular joint. IMPRESSION: 1. There is no evidence of pulmonary embolus in the main, lobar, or segmental pulmonary arteries. 2. Cardiomegaly with congestive failure and mild pulmonary edema. 3. Trace pleural effusions. 4. There is a pathologically indeterminant 5 mm pulmonary nodule in the left l ower lobe. If warranted this can be followed as per the Fleischner criteria. See below 5. 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 Note that this may place the patient at risk for steal phenomenon. 6. Additional findings as above. Please refer to below summary of Fleischner criteria recommendations for follow- up of incidental CT nodules (Krystina Perry, Guidelines for management of small pulmonary nodules detected on CT scans: A statement from the Fleischner Society, Radiology 237: [phone].) SOLID NODULES Solitary nodule size: <6 mm * low risk patients: no follow-up needed * high risk patients: optional CT at 12 months Solitary nodule size: 6-8 mm * low risk patients: follow-up at 6-12 months, then consider further follow-up at 18-24 months * high risk patients: initial follow-up CT at 6-12 months and then at 18-24 months if no change Solitary nodule size: >8 mm * either low or high risk patients - consider follow-up CT at 3 months, and/or CT-PET, and/or biopsy Multiple nodules size: <6 mm * low risk patients: no routine follow-up * high risk patients: optional CT at 12 months Multiple nodules size: 6-8 mm * low risk patients: follow-up at 3-6 months, then consider further follow-up at 18-24 months * high risk patients: follow-up at 3-6 months, then at 18-24 months if no change Multiple nodules size: >8 mm * low risk patients: follow-up at 3-6 months, then consider further follow-up at 18-24 months * high risk patients: follow-up at 3-6 months, then at 18-24 months if no change Note: newly detected indeterminate nodule in persons 35 years of age or older. * low risk patients: minimal or absent history of smoking and/or other known risk factors * high risk patients: history of smoking or of other known risk factors (e.g. first degree relative with lung cancer, or exposure to asbestos, radon, uranium) * if a nodule up to 8 mm is partly solid or is ground glass further follow-up is required after 24 months to exclude possible slow growing adenocarcinoma (JOAN) SUBSOLID NODULES Solitary pure ground-glass nodule * nodule size <6 mm - no CT follow-up required * nodule size >=6 mm - follow-up CT at 6-12 months, then every 2 years until 5 years Solitary part-solid nodule * nodule size <6 mm - no CT follow-up required * nodule size >=6 mm - follow-up CT at 3-6 months. If unchanged, and solid component remains <6 mm, then annual follow-up for 5 years Multiple subsolid nodules * nodule size <6 mm - follow-up CT at 3-6 months, consider further follow-up at 2 and 4 years if stable * nodule size >=6 mm - follow-up CT at 3-6 months, subsequent management based on the most suspicious nodule(s) ACT 112: Negative or not required by law. Electronically signed by: Jabier White M.D. 02/16/2025 2:02 PM Chest X-Ray 02/16/25 14:42 XR chest 1V portable CLINICAL HISTORY: ET tube confirmation COMPARISON STUDY: 02/16/2025 FINDINGS: Single view portable chest demonstrates an endotracheal tube approximately 3 cm above the martin. There is an NG tube in place with the tip extending at least as far as the upper body of the stomach. Reticular densities are progressive since the prior examination and the right Appears more involved than the left. Some loculated fluid in the right minor fissure. IMPRESSION: Endotracheal tube 3 cm above the martin. NG tube tip not visualized. Progressive findings of pulmonary edema right greater than left. ACT 112: Negative or not required by law. Electronically signed by: Qian Gonzalez M.D. 02/16/2025 3:04 PM KUB X-Ray 02/16/25 14:42 KUB HISTORY: OG tube confirmation COMPARISON STUDY: 02/16/2025 FINDINGS: Endotracheal tube tip is stable just below the thoracic inlet. Nasogastric tube tip is in the mid body of the stomach. IMPRESSION: Nasogastric tube tip is in the body of the stomach. ACT 112: Negative or not required by law. The above report was generated using voice recognition software. It may contain grammatical, syntax or spelling errors. Electronically signed by: Gm Stoddard M.D. 02/16/2025 3:01 PM Abdomen/Pelvis CTA 02/16/25 16:16 CT ABDOMEN and PELVIS with INTRAVENOUS CONTRAST HISTORY: Abdominal pain TECHNIQUE: CT abdomen and pelvis with contrast. IV CONTRAST: 100 mL of OMNIPAQUE 300 ENTERIC CONTRAST: Not Given COMPARISON: None FINDINGS: LOWER CHEST: Cardiomegaly. Small pleural fluids and interstitial pulmonary edema. Bibasilar atelectasis and pneumonia with extensive bronchiolitis. LIVER: No focal lesion identified. Hepatic steatosis and hepatomegaly. GALLBLADDER/BILIARY: The gallbladder is not well-seen, may be surgically absent or underdistended. No abnormal biliary dilatation. SPLEEN: Unremarkable. PANCREAS: Unremarkable. ADRENALS: Nodular thickening. KIDNEYS: Unremarkable. No stones or hydronephrosis identified. PERITONEUM/RETROPERITONEUM. No lymphadenopathy by size criteria. No aortic aneurysm. Extensive atherosclerosis with multifocal stenoses of the celiac trunk, the SMA, the renal arteries and BETTIE. GASTROINTESTINAL: No obstruction. Normal appendix. Colonic diverticulosis without evidence of diverticulitis. Multiple loops of small bowel demonstrate mild inflammatory changes with wall thickening. There is a moderate-sized stool ball resulting in impaction of the rectal vault. There is perirectal inflammation. Upstream, there is moderate fecal burden in the large bowel. REPRODUCTIVE: Status post hysterectomy. URINARY BLADDER: Beckett catheter is in place. Intraluminal air likely related to current instrumentation. Mild wall thickening through the urinary bladder. BONES: No acute findings. IMPRESSION: Bibasilar pneumonia and atelectasis with extensive bronchiolitis. Interstitial pulmonary edema and small pleural fluids suggesting CHF. Suggestion of mild enteritis. The etiology is nonspecific and may be infectious/inflammatory however ischemic process should be also considered given extensive atherosclerosis of the mesenteric vasculature and evidence of CHF noted in the lung base. Stercoral colitis with upstream constipation. Electronically signed by Gerry Jackson 02-16-2025 6:01 PM EKG - my reading - sinus tach, anterior and inferior Q waves, no ST changes Code Status & VTE Plan Code Status full code Critical Care Time Critical Care Time: Yes Total Critical Care Time: 75 PG Care Time/CCT Total # of Minutes Spent Total Time Spent with Patient: Total time spent is greater than 50% in coordination of care (as documented) at patient's floor/unit and/or counseling patient: Critical Care Time: Yes Total Critical Care Time: 75 Coding Level of Care Code None Diagnoses Acute respiratory failure with hypoxia and hypercapnia J96.01; J96.02 Acute CHF I50.9 NSTEMI (non-ST elevated myocardial infarction) I21.4 Chronic intermittent abdominal pain R10.9; G89.29 Acute metabolic encephalopathy G93.41 COPD (chronic obstructive pulmonary disease) J44.9 Hypomagnesemia E83.42 Peripheral vascular disease I73.9 Tobacco use Z72.0 Stenosis of both subclavian arteries I70.8 Hx of carotid stenosis Z86.79 Hypothyroidism, unspecified type E03.9 Hypothyroidism type: unspecified Essential hypertension I10 Hypertension type: essential hypertension Mixed hyperlipidemia E78.2 Hyperlipidemia type: mixed hyperlipidemia History of uterine cancer Z85.42 GERD (gastroesophageal reflux disease) K21.9 Chronic kidney disease, stage III (moderate) N18.3 History of parotid gland removal Z90.49 Additional Codes Critical Care Time - Critical Care Time: Yes ([id number]) (12) Hypothyroidism Hypothyroidism type: unspecified Qualified Code(s): E03.9 - Hypothyroidism, unspecified (13) Hypertension Hypertension type: essential hypertension Qualified Code(s): I10 - Essential (primary) hypertension (14) Hyperlipidemia Hyperlipidemia type: mixed hyperlipidemia Qualified Code(s): E78.2 - Mixed hyperlipidemia
[2025-02-16] MEDS: ALBUTEROL 0.083% NEBU SOLN 3 ML VIAL NEB STA ×2 (15:25)
[2025-02-16] MEDS: FUROSEMIDE 40 MG/4 ML VIAL IV ONE (15:58)
[2025-02-16] MEDS: fentaNYL citrate 2,500 MCG/250 ML BAG IV SCH (16:12)
[2025-02-16 16:23] LABS: Magnesium 1.0 mg/dl (1.7-2.4)
[2025-02-16] MEDS: AZITHROMYCIN 250 MG in DEXTROSE 5% 250 ML IV STA (16:24)
[2025-02-16] MEDS: ASPIRIN 300 MG SUPP PR ONE (16:25)
[2025-02-16] MEDS: FAMOTIDINE 20MG IV PUSH 20 MG/5 ML SYR IV STA (16:34)
[2025-02-16 17:02] LABS: Appearance Urine Clear (Clear); Bacteria Urine Automated None Seen (None Seen); Glucose Urine UA Negative (Negative); WBC Urine Automated 0-5 /hpf (0-5)
[2025-02-16 17:16] LABS: iSTAT Art Bld Gas Base Excess -7.0 meg/L (-9-1.8)
[2025-02-16] MEDS: NOREPINEPHRINE/D5W 4 MG/250 ML PLCT IV SCH (17:34)
[2025-02-16] MEDS: PANTOprazole 40 MG/10 ML SYR IV SCH (17:54)
[2025-02-16] MEDS: NOREPINEPHRINE/D5W 4 MG/250 ML IV ONE (17:54)
--- NOTE | 2025-02-16 18:02 | CT Scan Report ---
CT ABDOMEN and PELVIS with INTRAVENOUS CONTRAST HISTORY: Abdominal pain TECHNIQUE: CT abdomen and pelvis with contrast. IV CONTRAST: 100 mL of OMNIPAQUE 300 ENTERIC CONTRAST: Not Given COMPARISON: None FINDINGS: LOWER CHEST: Cardiomegaly. Small pleural fluids and interstitial pulmonary edema. Bibasilar atelectasis and pneumonia with extensive bronchiolitis. LIVER: No focal lesion identified. Hepatic steatosis and hepatomegaly. GALLBLADDER/BILIARY: The gallbladder is not well-seen, may be surgically absent or underdistended. No abnormal biliary dilatation. SPLEEN: Unremarkable. PANCREAS: Unremarkable. ADRENALS: Nodular thickening. KIDNEYS: Unremarkable. No stones or hydronephrosis identified. PERITONEUM/RETROPERITONEUM. No lymphadenopathy by size criteria. No aortic aneurysm. Extensive atherosclerosis with multifocal stenoses of the celiac trunk, the SMA, the renal arteries and BETTIE. GASTROINTESTINAL: No obstruction. Normal appendix. Colonic diverticulosis without evidence of diverticulitis. Multiple loops of small bowel demonstrate mild inflammatory changes with wall thickening. There is a moderate-sized stool ball resulting in impaction of the rectal vault. There is perirectal inflammation. Upstream, there is moderate fecal burden in the large bowel. REPRODUCTIVE: Status post hysterectomy. URINARY BLADDER: Beckett catheter is in place. Intraluminal air likely related to current instrumentation. Mild wall thickening through the urinary bladder. BONES: No acute findings. IMPRESSION: Bibasilar pneumonia and atelectasis with extensive bronchiolitis. Interstitialpulmonary edema and small pleural fluids suggesting CHF. Suggestion of mild enteritis. The etiology is nonspecific and may be infectious/inflammatory however ischemic process should be also considered given extensive atherosclerosis of the mesenteric vasculature and evidence of CHF noted in the lung base. Stercoral colitis withupstream constipation. Electronically signed by Gerry Jackson 02-16-2025 6:01 PM
[2025-02-16] MEDS ORDERED: DEXTROSE 50% 50 ML SYRINGE IV PRN (18:17)
[2025-02-16] MEDS ORDERED: GLUCOSE 10 TAB/TUBE PO PRN (18:17)
[2025-02-16] MEDS ORDERED: GLUCOSE 40% GEL 15 GM TUBE PO PRN (18:17)
[2025-02-16] MEDS ORDERED: GLUCAGON FOR INJ 1 MG VIAL SQ PRN (18:17)
[2025-02-16] MEDS ORDERED: CARBOHYDRATES FOR HYPOGLYCEMIA PO PRN (18:17)
--- NOTE | 2025-02-16 18:21 | Procedure Note ---
Procedure Note Date of Service February 16, 2025 ARTERIAL LINE PROCEDURE NOTE: Procedure: Arterial Line Placement Provider: Basim Carranza MD Indication: Monitoring on Pressors Procedure was emergent. Patient unable to provide verbal or written consent due to being intubated on the ventilator. A time-out was completed verifying correct patient, procedure, site, positioning, and implant(s) or special equipment if applicable. Allens test was performed to ensure adequate perfusion. Patients right wrist was prepped and draped in the usual sterile fashion. Left side was avoided due to significant subclavian stenosis on the left. Ultrasound guidance was used to aid needle placement. A 20g Arrow arterial line was introduced into the right radial artery. Catheter was threaded, and the needle was removed with appropriate blood return. Good waveform was observed. The patient tolerated the procedure well. Blood Loss: Minimal Complications: None [facility] [place] (Charges) Tubes, Drains, and Vasc Access Procedure 1: Tubes, Drains, and Vasc Access: [id number] Arterial Cath/Cannulation Sampling/Monitoring/Transfusion Procedure 2: Tubes, Drains, and Vasc Access: [id number] Ultrasound Guidance For Vascular Coding CPT Codes Tubes, Drains, and Vasc Access - Tubes, Drains, and Vasc Access: [id number] Arterial Cath/Cannulation Sampling/Monitoring/Transfusion ([id number]) Tubes, Drains, and Vasc Access - Tubes, Drains, and Vasc Access: [id number] Ultrasound Guidance For Vascular ([id number]) Additional Codes Date of Service ([email or web address])
[2025-02-16] MEDS: MAGNESIUM SULFATE / D5W 1 GM/100 ML BAG IV SCH (18:47)
[2025-02-16] MEDS: ICU ELECTROLYTE REPLACEMENT PROTOCOL SCH (18:48)
[2025-02-16] MEDS: BUDESONIDE 0.5 MG/2 ML VIAL (PULMICORT) NEB SCH (19:21)
[2025-02-16] MEDS: FORMOTEROL 20 MCG/2 ML VIAL NEB SCH (19:22)
[2025-02-16 19:51] LABS: iSTAT Art Bld Gas Base Excess 2.0 meg/L (-9-1.8); iSTAT Art Bld Gas pCO2 Correct 38 mmHg (35-46); iSTAT Art Bld Gas pH Corrected 7.448 (7.35-7.45); iSTAT Arterial Blood Gas pO2 C 115
[2025-02-16] MEDS: POLYETHYLENE (MIRALAX) 17 GM PACK PO SCH (20:19)
[2025-02-16] MEDS: ALBUT/IPRATROP 3MG/0.5MG NEB 3 ML VIAL NEB SCH (20:35)
[2025-02-17 00:10] LABS: Hematocrit (blood only) 47.2 % (37.0-47.0); Hemoglobin 15.8 g/dl (12.0-16.0)
[2025-02-17 00:52] LABS: Anion Gap 13.0 (3-11); Blood Urea Nitrogen 20.0 mg/dl (6-23); Calcium 8.7 mg/dl (8.6-10.3); Carbon Dioxide 26.0 mmol/L (21-32); Chloride 96.0 mmol/L (98-107); Creatinine Clr Calc Pharmacy 44.3 ml/min; Glucose 236.0 mg/dl (70-99(Fasting)); Potassium 2.7 mmol/L (3.5-5.1); Sodium 135.0 mmol/L (136-145)
[2025-02-17] MEDS: INSULIN ASPART PER UNIT CHARGE SC SCH (01:12)
[2025-02-17] MEDS: POTASSIUM CHLORIDE 20 MEQ/15 ML UDC GT STA (01:35)
--- NOTE | 2025-02-17 01:44 | Communication Note ---
Date of Service: February 17, 2025 Notified by RN of critical troponin > 4000, prior was 900s. Repeat EKG without acute ischemic changes. POCUS shows LVH with overall reduced LVEF. LV is full to mildly dilated, IVC is plump > 2cm without respiratory variation. Her UOP has been approximately 1L tonight and 1L during day shift. Received Lasix x1. Based on her presentation, imaging, and POCUS I believe patient remains volume up. She is currently urinating well on her own. K is 2.7. Will replace K and consider additional IV Lasix if UOP slows, otherwise re-dose in AM. Vent mechanics are a cceptable. NSTEMI likely 2/2 acute exacerbation of combined heart failure, unlikely ACS. Could consider heparin infusion pending further work-up but with given history of blood from OGT will hold for now. Of note, there is no blood from OGT and it remains to LIS. Echo is ordered for morning. Coding Level of Care Code None
[2025-02-17] MEDS: POTASSIUM CHLORIDE / WTR 10 MEQ/100 ML PLCT IV SCH (02:10)
[2025-02-17 04:54] LABS: Hematocrit (blood only) 43.7 % (37.0-47.0); Hemoglobin 15.2 g/dl (12.0-16.0); Immature Granulocytes # (auto) 0.03 K/uL (0.01-0.20); Immature Granulocytes % (auto) 0.3 %; Mean Corpuscular Hemoglobin 29.9 pg (25.0-34.0); Mean Corpuscular Volume 86.0 fL (80.0-100.0); Platelet Count 228 K/uL (130-400); RDW Standard Deviation 47.0 fL (36.4-46.3); Red Blood Count 5.08 M/uL (4.20-5.40); White Blood Count 10.07 K/ul (4.8-10.8)
[2025-02-17 05:16] LABS: Anion Gap 8.0 (3-11); Blood Urea Nitrogen 20.0 mg/dl (6-23); Calcium 8.7 mg/dl (8.6-10.3); Carbon Dioxide 29.0 mmol/L (21-32); Chloride 98.0 mmol/L (98-107); Creatinine Clr Calc Pharmacy 44.7 ml/min; Glucose 133.0 mg/dl (70-99(Fasting)); Magnesium 1.9 mg/dl (1.7-2.4); Potassium 3.7 mmol/L (3.5-5.1); Sodium 135.0 mmol/L (136-145)
[2025-02-17] MEDS ORDERED: SODIUM PHOSPHATE 3 MMOL/1 ML INFUSION IV STA (05:34)
[2025-02-17] MEDS: MAGNESIUM OXIDE 400 MG TAB NG SCH (06:04)
[2025-02-17] MEDS: POTASSIUM CHLORIDE 20 MEQ/15 ML UDC NG SCH (06:04)
[2025-02-17] MEDS: LEVOTHYROXINE SODIUM 137 MCG TABLET PO SCH (06:05)
[2025-02-17] MEDS: SODIUM PHOSPHATE 21 MMOL in SODIUM CHLORIDE 0.9% 500 ML IV ONE (06:14)
[2025-02-17] MEDS: FUROSEMIDE INJ 20 MG/2 ML VIAL IV ONE (06:17)
--- NOTE | 2025-02-17 07:34 | XRay Report ---
EXAM: XR chest 1V portable CLINICAL HISTORY: resp failure TECHNIQUE: Radiograph of chest was acquired. COMPARISON: 01/28/2024 07:48:46 L[facility] TRIMMER FINDINGS: Bilateral bronchovascular congestion. The cardiomediastinal silhouette is within normal limits. No acute osseous abnormality. ETT with tip 3.5cm over the martin. NGT seen below the left hemidiaphragm, with its tip not included in the field of view IMPRESSION: 1. Bilateral bronchovascular congestion. (New finding) 2. ETT with tip 3.5cm over the martin. 3. NGT seen below the left hemidiaphragm, with its tip not included in the field of view. Electronically signed by Tesfaye Hernandez 02-17-2025 07:34 AM
[2025-02-17] MEDS ORDERED: Nursing to Pharmacy Communication SCH (08:02)
[2025-02-17] MEDS: ENOXAPARIN INJ 40 MG/0.4 ML SYR SQ SCH (09:53)
--- NOTE | 2025-02-17 10:21 | Critical Care Progress Note ---
Date of Service February 17, 2025 Assessment & Plan (1) Acute respiratory failure with hypercapnia: (2) COPD (chronic obstructive pulmonary disease): (3) Morbid obesity: (4) Peripheral vascular disease: Plan Impression: 79-year-old female with likely COPD although PFTs are not available admitted with abdominal pain found to have hypercapnic respiratory failure progressing to need for intubation mechanical ventilation. 24-hour events: Patient was stable overnight. Pressors were weaned off. She completed a spontaneous breathing trial this morning with reassuring results and was extubated. She is doing well clinically and hemodynamically stable. No chest pain. Recommendations: 1. Neurologic: No current issues 2. Cardiovascular: Troponin increased significantly. Outside of what I would expect from supply/demand mismatch. Echocardiogram performed this morning and pending. Continue aspirin. Continue to trend troponin. Cardiology consultation. Given her significant peripheral arterial disease, high suspicion that she has underlying coronary disease as well. She is responded favorably to diuretics. 3. Pulmonary: Hypercapnic respiratory failure: Likely a component of obstructive lung disease. Continue Solu-Medrol, budesonide, Perforomist, azithromycin, and as needed DuoNebs. Smoking cessation recommended. Patient does have a pulmonary nodule which will require outpatient follow-up with a repeat CT scan in 6 to 12 months. Incentive spirometry and out of bed to chair as tolerated. 4. GI: Severe reflux: The patient had been treating this with cigarettes. Unclear if her reflux may have been her anginal equivalent. Continue PPI. Advance diet as tolerated. 5. Renal: No current issues. ICU electrolyte replacement protocol. Acid-base status as noted above. 6. ID: Azithromycin for acute exacerbation of COPD 8. Endocrine: Glycemic control per protocol. Continue home Synthroid. Out of bed to chair as tolerated. Discontinue Beckett catheter. Bedside swallow evaluation and if does well advance diet as tolerated. If does well, may be able to downgrade out of the intensive care unit later today. The above recommendations and plan were discussed with the patient and bedside critical care nurse. They expressed understanding and are in agreement with plan as outlined Admission and Anticipated Discharge Date Admission Date: February 16, 2025 Subjective Patient seen and examined. EMR reviewed. Discussed with bedside critical care nurse in a multidisciplinary rounds as well as with overnight critical care MERCEDEZ. The patient was placed on SBT this morning. She did well. She was extubated. She currently states she is feeling fine. No shortness of breath or chest pain. She endorses severe reflux which brought her to the hospital, unclear if this was an anginal equivalent. Review of Systems Review of Systems: All systems reviewed & are unremarkable except as noted in Subjective Physical Exam Constitutional: well developed and well nourished Neck: trachea midline, no thyromegaly Respiratory: no respiratory distress, no labored breathing and not tachypneic Auscultation: no rhonchi and no wheezes Cardiovascular: RRR, no murmur, no edema Gastrointestinal (Abdomen): normal bowel sounds, soft, nontender, no hepatosplenomegaly Musculoskeletal: Extremities: extremities normal to inspection Skin: no rashes, warm and dry Lymphatic: no cervical lymphadenopathy Results & Data Results & Data Vital Signs (Past 12 Hours) Vital Signs Temp Pulse Resp BP Pulse Ox O2 Del Method O2 Flow Rate 02/17/25 09:35 90 Room Air 02/17/25 09:33 37.3 C 95 H 17 91 02/17/25 09:21 Nasal Cannula 1 02/17/25 09:06 93 Nasal Cannula 1 02/17/25 09:03 37.2 C 95 H 16 95 02/17/25 09:00 92/56 L 02/17/25 08:51 37.3 C 88 23 98 02/17/25 08:48 37.3 C 92 H 17 100 02/17/25 08:09 37.2 C 115 H 20 96 02/17/25 07:25 02/17/25 07:14 19 02/17/25 07:06 37.1 C 88 16 95 02/17/25 05:21 36.9 C 73 16 97 02/17/25 05:12 36.9 C 74 16 96 02/17/25 04:51 36.8 C 70 16 97 02/17/25 04:42 36.8 C 83 16 97 02/17/25 04:30 36.8 C 71 16 97 02/17/25 04:27 36.8 C 71 16 98 02/17/25 04:06 36.7 C 77 16 98 02/17/25 04:00 02/17/25 03:54 36.7 C 72 16 97 02/17/25 03:48 36.7 C 73 16 97 02/17/25 03:39 36.7 C 72 16 97 02/17/25 03:15 36.6 C 68 16 96 02/17/25 03:06 36.5 C 72 16 97 02/17/25 02:51 36.5 C 76 16 97 02/17/25 02:45 36.4 C L 76 16 97 02/17/25 02:30 74 16 99 02/17/25 02:21 36.4 C L 74 16 98 02/17/25 02:06 36.3 C L 68 16 98 02/17/25 01:51 36.3 C L 68 16 98 02/17/25 01:42 36.2 C L 66 16 98 02/17/25 01:30 36.2 C L 68 16 98 02/17/25 01:03 36.1 C L 69 16 98 02/17/25 00:30 35.9 C L 69 16 98 02/17/25 00:21 35.9 C L 67 16 98 02/17/25 00:18 35.9 C L 63 16 99 02/17/25 00:06 35.8 C L 68 16 98 02/17/25 00:00 66 02/16/25 23:56 02/16/25 23:51 35.8 C L 66 16 98 02/16/25 23:45 35.7 C L 66 16 99 02/16/25 23:36 35.7 C L 72 16 99 02/16/25 23:34 17 02/16/25 23:15 35.7 C L 66 18 99 02/16/25 23:03 35.7 C L 67 18 99 02/16/25 22:54 35.7 C L 69 18 99 02/16/25 22:33 35.6 C L 69 18 100 02/16/25 22:21 70 18 100 FiO2 02/17/25 09:35 02/17/25 09:33 02/17/25 09:21 02/17/25 09:06 02/17/25 09:03 02/17/25 09:00 02/17/25 08:51 02/17/25 08:48 02/17/25 08:09 02/17/25 07:25 40 02/17/25 07:14 40 02/17/25 07:06 02/17/25 05:21 02/17/25 05:12 02/17/25 04:51 02/17/25 04:42 02/17/25 04:30 02/17/25 04:27 02/17/25 04:06 02/17/25 04:00 40 02/17/25 03:54 02/17/25 03:48 02/17/25 03:39 02/17/25 03:15 02/17/25 03:06 02/17/25 02:51 02/17/25 02:45 02/17/25 02:30 40 02/17/25 02:21 02/17/25 02:06 02/17/25 01:51 02/17/25 01:42 02/17/25 01:30 02/17/25 01:03 02/17/25 00:30 02/17/25 00:21 02/17/25 00:18 02/17/25 00:06 02/17/25 00:00 02/16/25 23:56 40 02/16/25 23:51 02/16/25 23:45 02/16/25 23:36 02/16/25 23:34 40 02/16/25 23:15 02/16/25 23:03 02/16/25 22:54 02/16/25 22:33 02/16/25 22:21 40 Critical Care Results & Data Vital Signs (Past 12 Hours) Vital Signs Temp Pulse Resp BP Pulse Ox O2 Del Method O2 Flow Rate 02/17/25 09:35 90 Room Air 02/17/25 09:33 37.3 C 95 H 17 91 02/17/25 09:21 Nasal Cannula 1 02/17/25 09:06 93 Nasal Cannula 1 02/17/25 09:03 37.2 C 95 H 16 95 02/17/25 09:00 92/56 L 02/17/25 08:51 37.3 C 88 23 98 02/17/25 08:48 37.3 C 92 H 17 100 02/17/25 08:09 37.2 C 115 H 20 96 02/17/25 07:25 02/17/25 07:14 19 02/17/25 07:06 37.1 C 88 16 95 02/17/25 05:21 36.9 C 73 16 97 02/17/25 05:12 36.9 C 74 16 96 02/17/25 04:51 36.8 C 70 16 97 07/17/25 04:42 36.8 C 83 16 97 02/17/25 04:30 36.8 C 71 16 97 02/17/25 04:27 36.8 C 71 16 98 02/17/25 04:06 36.7 C 77 16 98 02/17/25 04:00 02/17/25 03:54 36.7 C 72 16 97 02/17/25 03:48 36.7 C 73 16 97 02/17/25 03:39 36.7 C 72 16 97 02/17/25 03:15 36.6 C 68 16 96 02/17/25 03:06 36.5 C 72 16 97 02/17/25 02:51 36.5 C 76 16 97 02/17/25 02:45 36.4 C L 76 16 97 02/17/25 02:30 74 16 99 02/17/25 02:21 36.4 C L 74 16 98 02/17/25 02:06 36.3 C L 68 16 98 02/17/25 01:51 36.3 C L 68 16 98 02/17/25 01:42 36.2 C L 66 16 98 02/17/25 01:30 36.2 C L 68 16 98 02/17/25 01:03 36.1 C L 69 16 98 02/17/25 00:30 35.9 C L 69 16 98 02/17/25 00:21 35.9 C L 67 16 98 02/17/25 00:18 35.9 C L 63 16 99 02/17/25 00:06 35.8 C L 68 16 98 02/17/25 00:00 66 02/16/25 23:56 02/16/25 23:51 35.8 C L 66 16 98 02/16/25 23:45 35.7 C L 66 16 99 02/16/25 23:36 35.7 C L 72 16 99 02/16/25 23:34 17 02/16/25 23:15 35.7 C L 66 18 99 02/16/25 23:03 35.7 C L 67 18 99 02/16/25 22:54 35.7 C L 69 18 99 02/16/25 22:33 35.6 C L 69 18 100 FiO2 02/17/25 09:35 02/17/25 09:33 07/17/25 09:21 02/17/25 09:06 02/17/25 09:03 02/17/25 09:00 02/17/25 08:51 02/17/25 08:48 02/17/25 08:09 02/17/25 07:25 40 02/17/25 07:14 40 02/17/25 07:06 02/17/25 05:21 02/17/25 05:12 02/17/25 04:51 02/17/25 04:42 02/17/25 04:30 02/17/25 04:27 02/17/25 04:06 02/17/25 04:00 40 02/17/25 03:54 02/17/25 03:48 02/17/25 03:39 02/17/25 03:15 02/17/25 03:06 02/17/25 02:51 02/17/25 02:45 02/17/25 02:30 40 02/17/25 02:21 02/17/25 02:06 02/17/25 01:51 02/17/25 01:42 02/17/25 01:30 02/17/25 01:03 02/17/25 00:30 02/17/25 00:21 02/17/25 00:18 02/17/25 00:06 02/17/25 00:00 02/16/25 23:56 40 02/16/25 23:51 02/16/25 23:45 02/16/25 23:36 02/16/25 23:34 40 02/16/25 23:15 02/16/25 23:03 02/16/25 22:54 02/16/25 22:33 Lab & Micro Results (Past 24 Hours) RBC 5.08 M/uL (4.20-5.40) 02/17/25 WBC 10.07 K/ul (4.8-10.8) 02/17/25 Hgb 15.2 g/dl (12.0-16.0) 02/17/25 Hct 43.7 % (37.0-47.0) 02/17/25 MCV 86.0 fL (80.0-100.0) 02/17/25 MCH 29.9 pg (25.0-34.0) 02/17/25 MCHC 34.8 g/dL (32.0-36.0) 02/17/25 RDW Standard Deviation 47.0 fL (36.4-46.3) H 02/17/25 RDW Coefficient of Variation 14.7 % (11.5-14.5) H 02/17/25 Plt Count 228 K/uL (130-400) 02/17/25 MPV 8.9 fL (9.4-12.4) L 02/17/25 Neutrophils (%) (Auto) 88.6 % 02/17/25 Lymphocytes (%) (Auto) 4.4 % 02/17/25 Monocytes # (Auto) 0.66 K/uL (0.11-0.59) H 02/17/25 Eosinophils # (Auto) 0.00 K/uL (0.00-0.50) 02/17/25 Immature Granulocyte % (Auto) 0.3 % 02/17/25 Neutrophils # (Auto) 8.93 K/uL (1.40-6.50) H 02/17/25 Lymphocytes # (Auto) 0.44 K/uL (1.20-3.40) L 02/17/25 Monocytes # (Auto) 0.66 K/uL (0.11-0.59) H 02/17/25 Eosinophils # (Auto) 0.00 K/uL (0.00-0.50) 02/17/25 Basophils # (Auto) 0.01 K/uL (0.00-0.20) 02/17/25 Immature Granulocyte # (Auto) 0.03 K/uL (0.01-0.20) 5 Na 135 mmol/L (136-145) L 02/17/25 K 3.7 mmol/L (3.5-5.1) 02/17/25 Cl 98 mmol/L (98-107) 02/17/25 CO2 29 mmol/L (21-32) 02/17/25 Anion Gap 8 (3-11) 02/17/25 BUN 20 mg/dl (6-23) 02/17/25 Creatinine 1.17 mg/dl (0.6-1.2) 02/17/25 BUN/Creatinine Ratio 17.1 (10-20) 02/17/25 Glu 133 mg/dl (70-99(Fasting)) H 02/17/25 Ca 8.7 mg/dl (8.6-10.3) 02/17/25 Phosphorus Level 1.9 mg/dl (2.5-4.9) L 02/17/25 Total Bilirubin 0.4 mg/dl (0.2-1.0) 02/16/25 AST 19 U/L (13-39) 02/16/25 ALT 10 U/L (7-52) 02/16/25 Alkaline Phosphatase 69 U/L (34-104) 02/16/25 TP 7.8 gm/dl (6.0-8.3) 02/16/25 Albumin 4.1 gm/dl (3.4-5.0) 02/16/25 Globulin 3.7 gm/dl (2.5-4.0) 02/16/25 Albumin/Globulin Ratio 1.1 (0.9-2) 02/16/25 Mg 1.9 mg/dl (1.7-2.4) 02/17/25 04:33 Calcium Level 8.7 mg/dl (8.6-10.3) 02/17/25 04:33 Venous Blood pH 7.16 (7.36-7.41) L 02/16/25 23:59 Venous Blood Partial Pressure CO2 97 mmHg (38-50) H 02/16/25 23 :59 Venous Blood Partial Pressure O2 29 mmHg 02/16/25 23:59 Venous Blood HCO3 35 mmol/L 02/16/25 23:59 Venous Blood Base Excess 1.9 mEq/L 02/16/25 23:59 Venous Blood Oxygen Saturation < 60.0 % 02/16/25 23:59 Julito Test NA 02/16/25 19:22 Diagnostic Findings (Past 24 Hours) Chest X-Ray 02/16/25 12:43 XR chest 1V portable CLINICAL HISTORY: SOB, hypoxic COMPARISON STUDY: 01/28/2024 FINDINGS: Single view portable chest demonstrates the patchy airspace opacity in the right lung base. There is no pleural effusion or pneumothorax. The heart and pulmonary vascularity are unremarkable for portable technique. IMPRESSION: Patchy right basilar infiltrate. Suspect infectious or aspiration pneumonia. ACT 112: Negative or not required by law. Electronically signed by: Qian Gonzalez M.D. 02/16/2025 1:01 PM Chest CTA 02/16/25 13:18 CT ANGIOGRAM OF THE CHEST CLINICAL HISTORY: Chest pain. Hypoxia. Tachycardia. COMPARISON STUDY: Chest x-ray dated 02/16/2025 TECHNIQUE: Following the IV administration of 112 cc of Optiray 320, CT angiogram of the chest was performed from the upper abdomen to the thoracic inlet utilizing the pulmonary embolus protocol. Images are reviewed in the axial, sagittal, and coronal planes. 3-D MIPS images are created and assessed. IV contrast was administered without complication. A dose lowering technique was utilized adhering to the principles of ALARA. CT DOSE: 833.65 mGy.cm FINDINGS: Thyroid: Mildly enlarged and heterogeneous. Thoracic aorta: There is atherosclerotic calcification of the thoracic aorta, which is normal in caliber and demonstrates standard 3-vessel arch anatomy. No dissection is seen. 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 Pulmonary vasculature: The pulmonary trunk is normal in caliber. There are no filling defects identified in main, lobar, or segmental pulmonary branches to suggest pulmonary embolus. Heart: The heart is mildly enlarged and without pericardial effusion. The coronary arteries are densely calcified. Lungs and pleural spaces: There is diffuse interlobular septal thickening with mild groundglass opacities. There is no airspace consolidation typical for pneumonia. There are trace pleural effusions with dependent atelectasis. Secretions are noted in the trachea. There is diffuse peribronchial thickening. There is a 5 mm left lower lobe pulmonary nodule seen on image #101. Mediastinum: There is no mediastinal lymphadenopathy. Alexus: Clear. Axillae: There is no axillary lymphadenopathy. 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 Partially imaged upper abdominal viscera is otherwise grossly unremarkable. Skeletal structures: The skeletal structures are osteopenic. No lytic or blastic bony lesions are seen. Degenerative change is noted in the thoracic spine and shoulders. Sclerotic change is seen at the right sternoclavicular joint. IMPRESSION: 1. There is no evidence of pulmonary embolus in the main, lobar, or segmental pulmonary arteries. 2. Cardiomegaly with congestive failure and mild pulmonary edema. 3. Trace pleural effusions. 4. There is a pathologically indeterminant 5 mm pulmonary nodule in the left lower lobe. If warranted this can be followed as per the Fleischner criteria. See below 5. 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 N ote that this may place the patient at risk for steal phenomenon. 6. Additional findings as above. Please refer to below summary of Fleischner criteria recommendations for follow- up of incidental CT nodules (Krystina Perry, Guidelines for management of small pulmonary nodules detected on CT scans: A statement from the Fleischner Society, Radiology 237: [phone].) SOLID NODULES Solitary nodule size: <6 mm * low risk patients: no follow-up needed * high risk patients: optional CT at 12 months Solitary nodule size: 6-8 mm * low risk patients: follow-up at 6-12 months, then consider further follow-up at 18-24 months * high risk patients: initial follow-up CT at 6-12 months and then at 18-24 months if no change Solitary nodule size: >8 mm * either low or high risk patients - consider follow-up CT at 3 months, and/or CT-PET, and/or biopsy Multiple nodules size: <6 mm * low risk patients: no routine follow-up * high risk patients: optional CT at 12 months Multiple nodules size: 6-8 mm * low risk patients: follow-up at 3-6 months, then consider further follow-up at 18-24 months * high risk patients: follow-up at 3-6 months, then at 18-24 months if no change Multiple nodules size: >8 mm * low risk patients: follow-up at 3-6 months, then consider further follow-up at 18-24 months * high risk patients: follow-up at 3-6 months, then at 18-24 months if no change Note: newly detected indeterminate nodule in persons 35 years of age or older. * low risk patients: minimal or absent history of smoking and/or other known risk factors * high risk patients: history of smoking or of other known risk factors (e.g. first degree relative with lung cancer, or exposure to asbestos, radon, uranium) * if a nodule up to 8 mm is partly solid or is ground glass further follow-up is required after 24 months to exclude possible slow growing adenocarcinoma (JOAN) SUBSOLID NODULES Solitary pure ground-glass nodule * nodule size <6 mm - no CT follow-up required * nodule size >=6 mm - follow-up CT at 6-12 months, then every 2 years until 5 years Solitary part-solid nodule * nodule size <6 mm - no CT follow-up required * nodule size >=6 mm - follow-up CT at 3-6 months. If unchanged, and solid component remains <6 mm, then annual follow-up for 5 years Multiple subsolid nodules * nodule size <6 mm - follow-up CT at 3-6 months, consider further follow-up at 2 and 4 years if stable * nodule size >=6 mm - follow-up CT at 3-6 months, subsequent management based on the most suspicious nodule(s) ACT 112: Negative or not required by law. Electronically signed by: Jabier White M.D. 02/16/2025 2:02 PM Chest X-Ray 02/16/25 14:42 XR chest 1V portable CLINICAL HISTORY: ET tube confirmation COMPARISON STUDY: 02/16/2025 FINDINGS: Single view portable chest demonstrates an endotracheal tube approximately 3 cm above the martin. There is an NG tube in place with the tip extending at least as far as the upper body of the stomach. Reticular densities are progressive since the prior examination and the right Appears more involved than the left. Some loculated fluid in the right minor fissure. IMPRESSION: Endotracheal tube 3 cm above the martin. NG tube tip not visualized. Progressive findings of pulmonary edema right greater than left. ACT 112: Negative or not required by law. Electronically signed by: Qian Gonzalez M.D. 02/16/2025 3:04 PM KUB X-Ray 02/16/25 14:42 KUB HISTORY: OG tube confirmation COMPARISON STUDY: 02/16/2025 FINDINGS: Endotracheal tube tip is stable just below the thoracic inlet. Nasogastric tube tip is in the mid body of the stomach. IMPRESSION: Nasogastric tube tip is in the body of the stomach. ACT 112: Negative or not required by law. The above report was generated using voice recognition software. It may contain grammatical, syntax or spelling errors. Electronically signed by: Gm Stoddard M.D. 02/16/2025 3:01 PM Abdomen/Pelvis CTA 02/16/25 16:16 CT ABDOMEN and PELVIS with INTRAVENOUS CONTRAST HISTORY: Abdominal pain TECHNIQUE: CT abdomen and pelvis with contrast. IV CONTRAST: 100 mL of OMNIPAQUE 300 ENTERIC CONTRAST: Not Given COMPARISON: None FINDINGS: LOWER CHEST: Cardiomegaly. Small pleural fluids and interstitial pulmonary edema. Bibasilar atelectasis and pneumonia with extensive bronchiolitis. LIVER: No focal lesion identified. Hepatic steatosis and hepatomegaly. GALLBLADDER/BILIARY: The gallbladder is not well-seen, may be surgically absent or underdistended. No abnormal biliary dilatation. SPLEEN: Unremarkable. PANCREAS: Unremarkable. ADRENALS: Nodular thickening. KIDNEYS: Unremarkable. No stones or hydronephrosis identified. PERITONEUM/RETROPERITONEUM. No lymphadenopathy by size criteria. No aortic aneurysm. Extensive atherosclerosis with multifocal stenoses of the celiac trunk, the SMA, the renal arteries and BETTIE. GASTROINTESTINAL: No obstruction. Normal appendix. Colonic diverticulosis without evidence of diverticulitis. Multiple loops of small bowel demonstrate mild inflammatory changes with wall thickening. There is a moderate-sized stool ball resulting in impaction of the rectal vault. There is perirectal inflammation. Upstream, there is moderate fecal burden in the large bowel. REPRODUCTIVE: Status post hysterectomy. URINARY BLADDER: Beckett catheter is in place. Intraluminal air likely related to current instrumentation. Mild wall thickening through the urinary bladder. BONES: No acute findings. IMPRESSION: Bibasilar pneumonia and atelectasis with extensive bronchiolitis. Interstitialpulmonary edema and small pleural fluids suggesting CHF. Suggestion of mild enteritis. The etiology is nonspecific and may be infectious/inflammatory however ischemic process should be also considered given extensive atherosclerosis of the mesenteric vasculature and evidence of CHF noted in the lung base. Stercoral colitis withupstream constipation. Electronically signed by Gerry Jackson 02-16-2025 6:01 PM Chest X-Ray 02/17/25 06:00 EXAM: XR chest 1V portable CLINICAL HISTORY: resp failure TECHNIQUE: Radiograph of chest was acquired. COMPARISON: 01/28/2024 07:48:46 ROOF TILER FINDINGS: Bilateral bronchovascular congestion. The cardiomediastinal silhouette is within normal limits. No acute osseous abnormality. ETT with tip 3.5cm over the martin. NGT seen below the left hemidiaphragm, with its tip not included in the field of view IMPRESSION: 1. Bilateral bronchovascular congestion. (New finding) 2. ETT with tip 3.5cm over the martin. 3. NGT seen below the left hemidiaphragm, with its tip not included in the field of view. Electronically signed by Tesfaye Hernandez 02-17-2025 07:34 AM I & O Totals 24 Hours 02/16/25 02/17/25 02/18/25 06:59 06:59 06:59 Intake Total 1282.879 / 1282.879 26.775 / 26.775 Output Total 2350 / 2350 1050 / 1050 Balance -1067.121 / -1067.121 -1023.225 / -1023.225 Cumulative 02/16/25 12:28 thru 02/17/25 10:18 Intake Total 1309.654 Output Total 3400 Balance -2090.346 RT Ventilator Mngmt (Last Documented) Ventilator Ordered Settings Ventilator Support Mode Pressure Control 02/17/25 07:25 Respiratory Rate 17 02/17/25 09:33 Ventilator Tidal Volume 475 02/17/25 07:14 Setting Minute Ventilation 13.2 02/17/25 07:14 Ventilator Positive Pressure 5 02/17/25 07:25 Support Setting Positive End Expiratory 5 02/17/25 07:25 Pressure Fraction of Inspired Oxygen 40 02/17/25 07:25 Machine Comment RR decrease per Estrellita Mccullough 02/16/25 23:34 PA-C CCM Ventilator - PT Measurements Respiratory Rate 17 Exhaled Tidal Volume 421 Minute Ventilation 13.2 Peak Inspiratory Airway 29 Pressure Plateau Pressure 25 Respiratory Cycle Inspiratory: 1:3.7 Expiratory Ratio Inspiratory Phase Time 0.8 End-Tidal CO2 40 Static Lung Compliance 24.76 Dynamic Lung Compliance 20.05 Normal Static Lung Compliance 46.00 Coding Level of Care Code 56284 SUB INP/OBS CARE 3/50MIN Diagnoses Acute respiratory failure with hypercapnia J96.02 COPD (chronic obstructive pulmonary disease) J44.9 Morbid obesity E66.01 Peripheral vascular disease I73.9
[2025-02-17] MEDS: ROSUVASTATIN CALCIUM 20 MG TAB PO SCH (10:49)
[2025-02-17] MEDS: ASPIRIN 81 MG ECTAB PO SCH (10:49)
--- NOTE | 2025-02-17 12:01 | XCELERA ---
[id number] [id number].[email or web address]
--- NOTE | 2025-02-17 14:25 | Electrocardiogram Report ---
Test Reason : Blood Pressure : */* mmHG Vent. Rate : 111 BPM Atrial Rate : 111 BPM P-R Int : 202 ms QRS Dur : 76 ms QT Int : 274 ms P-R-T Axes : 69 -14 99 degrees QTcB Int : 372 ms Sinus tachycardia Possible Left atrial enlargement Inferior infarct , age undetermined Anterolateral infarct , age undetermined Abnormal ECG When compared with ECG of 28-Jan-2024 09:04, Significant changes have occurred Confirmed by Mahamed Gracia ([id number]) on 02/17/2025 2:25:10 PM Referred By: REFERRED SELF Confirmed By: Mahamed Gracia
--- NOTE | 2025-02-17 14:26 | Electrocardiogram Report ---
Test Reason : Blood Pressure : */* mmHG Vent. Rate : 132 BPM Atrial Rate : 132 BPM P-R Int : 194 ms QRS Dur : 70 ms QT Int : 266 ms P-R-T Axes : 33 -19 100 degrees QTcB Int : 394 ms Sinus tachycardia with Premature atrial complexes Possible Left atrial enlargement Inferior infarct (cited on or before 16-Feb-2025) Anterolateral infarct (cited on or before 16-Feb-2025) Abnormal ECG When compared with ECG of 16-Feb-2025 12:44, (unconfirmed) Premature atrial complexes are now Present Confirmed by Mahamed Gracia ([id number]) on 02/17/2025 2:25:30 PM Referred By: REFERRED SELF Confirmed By: Mahamed Gracia
--- NOTE | 2025-02-17 14:27 | Electrocardiogram Report ---
Test Reason : Blood Pressure : */* mmHG Vent. Rate : 111 BPM Atrial Rate : 111 BPM P-R Int : 194 ms QRS Dur : 76 ms QT Int : 286 ms P-R-T Axes : -29 -11 -73 degrees QTcB Int : 388 ms Sinus tachycardia Inferior infarct (cited on or before 16-Feb-2025) Anterolateral infarct (cited on or before 16-Feb-2025) Abnormal ECG When compared with ECG of 16-Feb-2025 14:04, (unconfirmed) Premature atrial complexes are no longer Present Confirmed by Mahamed Gracia ([id number]) on 02/17/2025 2:27:26 PM Referred By: REFERRED SELF Confirmed By: Mahamed Gracia
--- NOTE | 2025-02-17 14:29 | Electrocardiogram Report ---
Test Reason : Blood Pressure : */* mmHG Vent. Rate : 81 BPM Atrial Rate : 81 BPM P-R Int : 250 ms QRS Dur : 88 ms QT Int : 374 ms P-R-T Axes : 70 -16 93 degrees QTcB Int : 434 ms Sinus rhythm with sinus arrhythmia with 1st degree A-V block Inferior infarct (cited on or before 16-Feb-2025) Anteroseptal infarct (cited on or before 16-Feb-2025) Abnormal ECG When compared with ECG of 16-Feb-2025 15:47, (unconfirmed) TN interval has increased ST elevation now present in Inferior leads Confirmed by Mahamed Gracia ([id number]) on 02/17/2025 2:29:22 PM Referred By: REFERRED SELF Confirmed By: Mahamed Gracia
[2025-02-17] MEDS: predniSONE 20 MG TAB PO SCH (14:32)
--- NOTE | 2025-02-17 14:48 | Electrocardiogram Report ---
Test Reason : Blood Pressure : */* mmHG Vent. Rate : 68 BPM Atrial Rate : 68 BPM P-R Int : 266 ms QRS Dur : 82 ms QT Int : 406 ms P-R-T Axes : 59 -26 124 degrees QTcB Int : 431 ms Sinus rhythm with sinus arrhythmia with 1st degree A-V block Minimal voltage criteria for LVH, may be normal variant Inferior infarct (cited on or before 16-Feb-2025) Anterolateral infarct (cited on or before 16-Feb-2025) Abnormal ECG When compared with ECG of 16-Feb-2025 18:26, (unconfirmed) Questionable change in initial forces of Septal leads Confirmed by Mahamed Gracia ([id number]) on 02/17/2025 2:48:51 PM Referred By: REFERRED SELF Confirmed By: Mahamed Gracia
[2025-02-17] MEDS: AZITHROMYCIN 250 MG in DEXTROSE 5% 250 ML IV SCH (15:15)
--- NOTE | 2025-02-17 15:51 | Cardiology Consultation ---
Date of Consultation February 17, 2025 Assessment & Plan (1) Acute respiratory failure with hypercapnia: -Seems to be a large component of acute pulmonary edema. -Would continue aggressive diuresis. -Normal left ventricular systolic function without wall motion abnormalities. (2) Elevated troponin: -Suspect this is a supply/demand mismatch. -Acute respiratory failure in the face of mild LVH. -Continue to trend troponins. History of Present Illness Attending Physician: Rudolph Mae MD History of Present Illness Mrs. Jensen is a 79-year-old female admitted yesterday with respiratory distress requiring mechanical ventilation. This consultation was ordered to assist in her cardiac management. The patient was in her usual state of health until the day of presentation. She began to note some abdominal discomfort and progressive shortness of breath. She presented to the emergency room in extremis and required intubation. Chest x-ray and CT scan of the chest noted significant pulmonary edema. Fortunately, the patient was successfully extubated this morning. She is now resting comfortably in bed without complaints. She explains that her breathing has improved. At no time as she experienced chest discomfort. She has never had a cardiac diagnosis previously. Past medical and surgical history 1. Hypertension 2. Hypercholesterolemia 3. Peripheral vascular disease 4. Bilateral subclavian artery stenosis 5. Chronic renal failure 6. GERD 7. Hiatal hernia 8. Hypothyroidism 9. COPD 10. Right carotid endarterectomy 11. Uterine carcinoma Social history , lives with her Smokes 1 pack of cigarettes daily Occasional alcohol Family history Noncontributory Review of systems A 10 point review of system was undertaken and negative except that described above. Allergies Allergy/AdvReac Type Severity Reaction Status Date / Time cefaclor Allergy Severe Anaphylaxis Verified 02/16/25 11:56 eggplant Allergy Verified 02/17/25 09:45 prednisone AdvReac Mild Unverified 02/16/25 11:56 Home Medications Medication Instructions Recorded Confirmed Type aspirin 81 mg tablet,delayed 81 mg PO QAM #90 tabs 01/20/19 02/16/25 History release cholecalciferol (vitamin D3) 25 25 mcg PO QAM 11/22/22 02/16/25 History mcg (1,000 unit) capsule docusate sodium 100 mg capsule 100 mg PO BID PRN Constipation 05/30/23 02/16/25 History (Colace) potassium chloride 20 mEq 20 meq PO BID #180 tabs 03/16/24 02/16/25 Rx tablet,extended release(part/cryst) rosuvastatin 40 mg tablet 40 mg PO QAM #90 tabs 03/16/24 02/16/25 Rx betamethasone dipropionate 0.05 % 1 applic topical BID PRN skin 07/26/24 02/16/25 Rx topical cream irritation #45 grams levothyroxine 137 mcg tablet 137 mcg PO QAM #90 tabs 08/03/24 02/16/25 Rx indapamide 2.5 mg tablet 2.5 mg PO QAM #90 tabs 08/23/24 02/16/25 Rx metoprolol succinate 50 mg 50 mg PO QAM #90 tabs 08/23/24 02/16/25 Rx tablet,extended release 24 hr verapamil 240 mg tablet,extended 240 mg PO HS #90 tabs 09/02/24 02/16/25 Rx release alprazolam 0.25 mg tablet 0.25 mg PO DAILY PRN anxiety #30 01/25/25 02/16/25 Rx tabs dicyclomine 20 mg tablet 20 mg PO BID PRN stomach cramps 02/02/25 02/16/25 Rx #60 tabs hydroxyzine pamoate 25 mg capsule 25 mg PO Q8H PRN anxiety #30 caps 02/02/25 02/16/25 Rx (Vistaril) pantoprazole 40 mg tablet,delayed 40 mg PO DAILY reflux #90 tabs 02/02/25 02/16/25 Rx release Patient History Medical History Imbalance Bilateral impacted cerumen Balance disorder Edema of both lower legs due to peripheral venous insufficiency Parotid mass Postmenopausal Hx of renal calculi History of seasonal allergies History of anemia Hx of blood clots Superficial RLE blood clot (after delivery), no issues since History of asthma Childhood, no current/recent issues Surgical History History of parotid gland removal (02/03/24) superficial right parotidectomy, pathology Warthin Tumor Hx of esophagogastroduodenoscopy (10/2021) History of cholecystectomy History of colonoscopy H/O total hysterectomy History of tooth extraction H/O carotid endarterectomy (12/03/17) Right H/O: section x1 Family History Grandmother Breast cancer Mother Myocardial infarction Heart disease Stroke Hypertension Mother Hypertension Father , age 76 Family history of esophageal cancer Heart disease Hypertension Cancer Other No family history of adverse response to anesthesia No family history of bleeding disorder Denies family history of Ovarian cancer Prostate cancer Lung cancer Colorectal cancer Social History (Updated 02/16/25 @ 23:36 by Rudolph Mae MD) Smoking Status: Current every day smoker Tobacco Type: Cigarettes Age Started Using Tobacco: 21; packs per day: 1; Second Hand Exposure: No; Do You Dip or Chew Tobacco: No; Hx Alcohol Use: No (unknown; intubated) Hx Substance Use: No (unknown; intubated) Preferred Language: Upper Sorbian Communication Ability: Effective Communication Ability Comment: intubated Visual Impairment: No Limitations Hearing Ability: Normal 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 Beliefs That Will Affect Care: None marital status: Current Living Situation: Spouse Current Living Situation Comment: lives with current occupational status: retired How many Children do You have: 2 Feels Safe at Home: Yes Childhood Exposure to Second-Hand Smoke: Yes Diet: regular Diet Comment: regular caffeine: Yes (coffee) during the past year weight has: decreased > 10 lbs Dental Care, Regularly: No Physical Activity Frequency: 1-2 Times per Week Physical Activity Frequency Comment: limited Seatbelt Use: always Sunscreen Use: No Assistive Devices: Cane Assistive Devices Comment: unknown; intubated Physical Exam Physical Exam: In general this is a well-developed and well-nourished white female in no acute distress. HEENT exam is negative. Neck is supple with full carotid upstrokes. Scar noted on the right neck. No jugular venous distention at 45 degrees. Cardiovascular Martin reveals a regular rhythm with distant heart sounds. No obvious murmurs. Lungs decreased breath sounds at the bases with scattered rales. Abdomen soft bruise. Extremities reveal intact radial artery pulse bilaterally. Trace pretibial edema. Results & Data Vital Signs (Past 12 Hours) Vital Signs Temp Pulse Pulse Resp BP BP BP 02/17/25 15:04 65 20 02/17/25 13:00 37.5 C 100 H 19 02/17/25 13:00 02/17/25 12:52 125/78 02/17/25 12:52 125/78 02/17/25 12:45 71/47 L 02/17/25 12:42 37.5 C 96 H 18 02/17/25 12:36 37.5 C 99 H 19 02/17/25 12:30 84/53 L 02/17/25 12:24 37.5 C 101 H 19 02/17/25 12:15 90/58 L 02/17/25 12:09 37.5 C 104 H 21 02/17/25 12:00 91/64 L 02/17/25 12:00 91/64 L 02/17/25 12:00 37.5 C 99 H 14 02/17/25 12:00 91/64 L 02/17/25 11:51 99/66 L 02/17/25 11:45 112/67 02/17/25 11:43 109/68 02/17/25 11:43 109/68 02/17/25 11:42 37.5 C 101 H 11 L 02/17/25 11:38 121/84 02/17/25 11:33 37.4 C 96 H 02/17/25 11:31 54/45 L 02/17/25 11:15 86/60 L 02/17/25 11:03 37.3 C 82 02/17/25 11:01 93/55 L 02/17/25 10:51 37.3 C 93 H 02/17/25 10:45 107/60 02/17/25 10:39 37.3 C 93 H 02/17/25 10:03 37.3 C 91 H 02/17/25 10:00 85/55 L 02/17/25 09:48 37.3 C 83 19 02/17/25 09:35 02/17/25 09:33 37.3 C 95 H 02/17/25 09:21 02/17/25 09:06 02/17/25 09:03 37.2 C 95 H 02/17/25 09:00 92/56 L 02/17/25 08:51 37.3 C 88 02/17/25 08:48 37.3 C 92 H 02/17/25 08:09 37.2 C 115 H 20 02/17/25 08:00 85 02/17/25 07:25 02/17/25 07:14 19 02/17/25 07:06 37.1 C 88 16 02/17/25 05:21 36.9 C 73 16 02/17/25 05:12 36.9 C 74 16 02/17/25 04:51 36.8 C 70 16 02/17/25 04:42 36.8 C 83 16 02/17/25 04:30 36.8 C 71 16 02/17/25 04:27 36.8 C 71 16 02/17/25 04:06 36.7 C 77 16 02/17/25 04:00 02/17/25 03:54 36.7 C 72 16 02/17/25 03:48 36.7 C 73 16 02/17/25 03:39 36.7 C 72 16 Pulse Ox O2 Del Method O2 Flow Rate FiO2 02/17/25 15:04 93 Room Air 02/17/25 13:00 90 02/17/25 13:00 96 Room Air 02/17/25 12:52 02/17/25 12:52 02/17/25 12:45 02/17/25 12:42 97 02/17/25 12:36 96 02/17/25 12:30 02/17/25 12:24 97 02/17/25 12:15 02/17/25 12:09 98 02/17/25 12:00 02/17/25 12:00 02/17/25 12:00 96 02/17/25 12:00 02/17/25 11:51 02/17/25 11:45 02/17/25 11:43 02/17/25 11:43 02/17/25 11:42 95 02/17/25 11:38 02/17/25 11:33 95 02/17/25 11:31 02/17/25 11:15 02/17/25 11:03 95 02/17/25 11:01 02/17/25 10:51 95 02/17/25 10:45 02/17/25 10:39 95 02/17/25 10:03 100 02/17/25 10:00 02/17/25 09:48 94 02/17/25 09:35 90 Room Air 02/17/25 09:33 91 02/17/25 09:21 Nasal Cannula 1 02/17/25 09:06 93 Nasal Cannula 1 02/17/25 09:03 95 02/17/25 09:00 02/17/25 08:51 98 02/17/25 08:48 100 02/17/25 08:09 96 02/17/25 08:00 02/17/25 07:25 40 02/17/25 07:14 40 02/17/25 07:06 95 02/17/25 05:21 97 02/17/25 05:12 96 02/17/25 04:51 97 02/17/25 04:42 97 02/17/25 04:30 97 02/17/25 04:27 98 02/17/25 04:06 98 02/17/25 04:00 40 02/17/25 03:54 97 02/17/25 03:48 97 02/17/25 03:39 97 Laboratory Results CBC, electrolytes, and TSH are all unremarkable. Initial high-sensitivity troponin was 572 with follow-up values of 916, 4813, 7389, and 6048. Diagnostic Findings Echocardiogram notes normal left ventricular systolic function with ejection fraction of 55 to 60%. No wall motion abnormality. Mild LVH. Mild to moderate mitral crustacean. No prior studies for comparison. EKG notes sinus tachycardia and age on no anterolateral myocardial infarction pattern. Chest x- ray notes pulmonary edema. CT scan of the chest noted no evidence of a pulmonary embolism. There was evidence of pulmonary edema. PG Care Time/CCT Total # of Minutes Spent Total Time Spent with Patient: Total time spent is greater than 50% in coordination of care (as documented) at patient's floor/unit and/or counseling patient: Coding Level of Care Code 16693 INT INP/OBS CARE 3/75MIN Diagnoses Acute respiratory failure with hypercapnia J96.02 Elevated troponin R79.89
[2025-02-17 17:04] LABS: Calcium 8.9 mg/dl (8.6-10.3); Magnesium 1.8 mg/dl (1.7-2.4); Potassium 4.0 mmol/L (3.5-5.1)
[2025-02-17] MEDS: MAGNESIUM OXIDE 400 MG TAB PO ONE ×2 (17:32→20:54)
[2025-02-17] MEDS: MIDODRINE HCL 2.5 MG TAB PO SCH (17:34)
--- NOTE | 2025-02-17 20:17 | Hospitalist Progress Note ---
Date of Service February 17, 2025 Assessment & Plan (1) Acute respiratory failure with hypoxia and hypercapnia: (2) Acute heart failure with preserved ejection fraction (HFpEF): (3) Flash pulmonary edema: (4) Elevated troponin: (5) NSTEMI (non-ST elevated myocardial infarction): (6) Mesenteric artery stenosis: (7) Chronic intermittent abdominal pain: (8) Acute metabolic encephalopathy: (9) COPD (chronic obstructive pulmonary disease): (10) Hypomagnesemia: (11) Peripheral vascular disease: (12) Tobacco use: (13) Stenosis of both subclavian arteries: (14) Hx of carotid stenosis: (15) Hypothyroidism: (16) Hypertension: (17) Hyperlipidemia: (18) History of uterine cancer: (19) GERD (gastroesophageal reflux disease): (20) Chronic kidney disease, stage III (moderate): (21) History of parotid gland removal: Plan 79yo female with long-standing tobacco dependence, hypothyroidism, uterine cancer 2006, childhood asthma/current COPD, CKD stage 3a, known subclavian artery stenosis, h/o carotid stenosis s/p CEA on right, and 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 Patient's respiratory distress escalated significantly while in the ER ultimately requiring intubation & mechanical ventilation. Imaging highly suggestive of pulmonary edema. #acute respiratory failure with hypoxia & hypercapnia - -suspect multifactorial - pulmonary edema/acute CHF + ?b/l pneumonia (?aspiration given how rapid her resp failure developed) + COPD exacerbation; no evidence of PE on CTA chest -s/p intubation/mech ventilation 02/16, now extubated 02/17 AM -cont diuresis with IV lasix -cont bronchodilators -remains on tapering steroids -remains on azithromycin -I believe the main component of her resp failure was due to pulmonary edema #recurrent, intermittent abdominal pain - -episodes present for months -not always related to eating/drinking; some episodes occur randomly -severe; typically present in the epigastric region; "twisting" sensation in the abdomen per patient -symptoms cont to reoccur despite use of antacids; she does not have a gall bladder -could be due to mesenteric ischemia; could be atypical angina; could be gastritis/GERD/PUD -CTA abd/pelvis -- all 3 mesenteric arteries have significant stenoses -troponin is elevated - see below -EGD 2021 with gastritis - placed on PPI -of note - lipase and LFTs wnl -consider MRA abdomen to check celiac/SMA/BETTIE -consider GI consultation for EGD #elevated troponin / NSTEMI - -uncertain at this time if type 1 vs type 2; cardiology consult appreciated --> type 2 AR suspected (ie - myocardial demand ischemia) -echo with normal EF and normal LV wall motion -initial troponin was 572; peak troponin - 7389 -she has Q waves inferiorly and anteriorly on her EKG -remains on aspirin 81mg daily -cont crestor 40mg daily -patient herself feels that chest symptoms are due to severe GERD but, although she may have GERD, GERD would not cause flash pulmonary edema #acute HFpEF - -imaging and admit exam suggestive of pulmonary edema/volume overload -improved s/p multiple doses of IV lasix with marked improvement in volume status & respiratory status -echo with preserved EF & normal LV wall motion -BMP am #?infectious bronchitis/pneumonia? - -day #2 azithromycin #acute metabolic encephalopathy - -2nd to hypoxia, hypercapnia, possible pneumonia/bronchitis, etc. -resolved #COPD with exacerbation - -bronchodilators + systemic steroids +antibiotics -improved #GERD/history of gastritis/history of hiatal hernia - -cont PPI #hypomagnesemia - -severe, level 1 at presentation -s/p replacement with IV mag; mag level now wnl -etiology? 2nd to poor oral intake at home? chronic PPI use? other? -serial levels #h/o HTN - -all anti-hypertensives on hold -"low" BPs in arms likely due to subclavian artery stenosis #DVT Proph - -lovenox 40mg daily #CKD stage 3a - -daily BMP while being diuresed #hypothyroidism - -TSH 2.4 in January -cont synthroid #tobacco dependence - -consider nicoderm patch -scholarship counselor to quit #polycythemia - -likely 2nd to chronic hypoxia from tobacco use/COPD #PAD/history of carotid stenosis/history of subclavian artery stenosis - -BPs may not be reliable in either arm due to subclavian artery stenosis -art line indeed was giving readings 20+ points better than automatic BP cuff -is now on midodrine TID #LLL pulmonary nodule - -given long-standing tobacco use will need f/u CT scan in the next few months for stability -5mm in size appreciate critical care assistance Admission and Anticipated Discharge Date Admission Date: February 16, 2025 Subjective events of last 24 hours noted was extubated from the vent this am after undergoing successful spontaneous breathing trial during my visit she was initially sleeping but easily awoke reported no dyspnea reported no abd pain today she confirmed with me that on the day of admission she had abdominal pain - "like a twisting" in her abdomen - that started at home continued all the way until she saw ENT abd pain got worse she then began to experience some mild dyspnea while in the car on the way home from ENT dyspnea got to a point where she asked her to bring her to the hospital patient confirmed she takes copious amounts of Tums at home for "heartburn" sometimes it helps, sometimes it doesn't has not tried PPI therapy tele overnight wnl of note - automatic BPs from electronic cuff on arms giving SBP readings in the 80-90 range; before arterial line was pulled she had 20+ point difference (BPs 20+ points higher with art line) Review of Systems Review of Systems: gen - no fevers cv - no chest pain today pulm - no dyspnea at rest GI - no N/V/pain today Physical Exam Physical Exam: gen - looks much better today, awake/alert, extubated HENT - MMM neck - JVD much improved today heart - RRR, s1 s2, no obvious murmur lungs - mild wheezes b/l - improved, crackles b/l - improved, no distress abd - soft NT ND BS+; no HSM vascular - right hand duskiness improved today; b/l foot pulses 1+; <1+ pitting edema b/l legs psych - a/o x 3 Results & Data Results & Data Vital Signs (Past 12 Hours) Vital Signs Temp Pulse Pulse Resp BP BP BP 02/17/25 18:10 103/64 02/17/25 18:00 36.9 C 89 18 02/17/25 17:21 37.1 C 90 19 02/17/25 16:57 02/17/25 16:15 37.1 C 95 H 23 02/17/25 15:52 84/57 L 02/17/25 15:51 37.3 C 101 H 22 02/17/25 15:51 84/57 L 02/17/25 15:04 65 20 02/17/25 15:00 37.4 C 96 H 17 02/17/25 14:00 37.4 C 99 H 21 02/17/25 13:00 37.5 C 100 H 19 02/17/25 13:00 02/17/25 12:52 125/78 02/17/25 12:52 125/78 02/17/25 12:45 71/47 L 02/17/25 12:42 37.5 C 96 H 18 02/17/25 12:36 37.5 C 99 H 02/17/25 12:30 84/53 L 02/17/25 12:24 37.5 C 101 H 19 02/17/25 12:15 90/58 L 02/17/25 12:09 37.5 C 104 H 02/17/25 12:00 91/64 L 02/17/25 12:00 91/64 L 02/17/25 12:00 37.5 C 99 H 02/17/25 12:00 91/64 L 02/17/25 11:51 99/66 L 02/17/25 11:45 112/67 02/17/25 11:43 109/68 02/17/25 11:43 109/68 02/17/25 11:42 37.5 C 101 H 11 L 02/17/25 11:38 121/84 02/17/25 11:33 37.4 C 96 H 02/17/25 11:31 54/45 L 02/17/25 11:15 86/60 L 02/17/25 11:03 37.3 C 82 02/17/25 11:01 93/55 L 02/17/25 10:51 37.3 C 93 H 02/17/25 10:45 107/60 02/17/25 10:39 37.3 C 93 H 02/17/25 10:03 37.3 C 91 H 17 02/17/25 10:00 85/55 L 02/17/25 09:48 37.3 C 83 02/17/25 09:35 02/17/25 09:33 37.3 C 95 H 17 02/17/25 09:21 02/17/25 09:06 02/17/25 09:03 37.2 C 95 H 02/17/25 09:00 92/56 L 02/17/25 08:51 37.3 C 88 23 02/17/25 08:48 37.3 C 92 H 17 Pulse Ox Pulse Ox O2 Del Method O2 Del Method O2 Flow Rate 02/17/25 18:10 02/17/25 18:00 94 02/17/25 17:21 93 02/17/25 16:57 90 Room Air 02/17/25 16:15 90 02/17/25 15:52 02/17/25 15:51 02/17/25 15:51 02/17/25 15:04 93 Room Air 02/17/25 15:00 02/17/25 14:00 91 02/17/25 13:00 90 02/17/25 13:00 96 Room Air 02/17/25 12:52 02/17/25 12:52 02/17/25 12:45 02/17/25 12:42 97 02/17/25 12:36 96 02/17/25 12:30 02/17/25 12:24 97 02/17/25 12:15 02/17/25 12:09 98 02/17/25 12:00 02/17/25 12:00 02/17/25 12:00 96 02/17/25 12:00 02/17/25 11:51 02/17/25 11:45 02/17/25 11:43 02/17/25 11:43 02/17/25 11:42 95 02/17/25 11:38 02/17/25 11:33 95 02/17/25 11:31 02/17/25 11:15 02/17/25 11:03 95 02/17/25 11:01 02/17/25 10:51 95 02/17/25 10:45 02/17/25 10:39 95 02/17/25 10:03 100 02/17/25 10:00 02/17/25 09:48 94 02/17/25 09:35 90 Room Air 02/17/25 09:33 91 02/17/25 09:21 Nasal Cannula 1 02/17/25 09:06 93 Nasal Cannula 1 02/17/25 09:03 95 02/17/25 09:00 02/17/25 08:51 98 02/17/25 08:48 100 Laboratory Results Laboratory Results - last 48 hr 02/16/25 02/16/25 02/16/25 12:45 12:53 13:56 WBC 8.09 RBC 5.53 H Hgb 16.5 H POC Hgb 17.3 H Hct 50.2 H POC Hct 51 H MCV 90.8 MCH 29.8 MCHC 32.9 RDW Std Deviation 51.8 H RDW Coeff of Rudy 15.4 H Plt Count 254 MPV 8.8 L Immature Gran % (Auto) 0.2 Neut % (Auto) 70.6 Lymph % (Auto) 16.9 [place] % (Auto) 9.4 Eos % (Auto) 2.3 Baso % (Auto) 0.6 Neut # (Auto) 5.70 Lymph # (Auto) 1.37 [place] # (Auto) 0.76 H Eos # (Auto) 0.19 Baso # (Auto) 0.05 Immature Gran # (Auto) 0.02 Specimen Type Sample Site POC pH POC pCO2 POC pO2 POC HCO3 POC Base Excess O2 Sat Pulse Oximetry ABG pH (Temp Correct) ABG pCO2 (Temp Corrct POC ABG pO2 at Pt Temp POC ABG O2 Sat Julito Test VBG pH VBG pCO2 VBG pO2 VBG HCO3 VBG O2 Saturation VBG Base Excess O2 Delivery Device Vent Mode POC FiO2 End Tidal CO2 POC Sodium 140 Sodium 139 POC Potassium 3.4 Potassium 3.6 POC Chloride 99 L Chloride 100 Carbon Dioxide 32 POC Total CO2 30 Anion Gap 7 POC Anion Gap 15.0 L POC BUN 22 H BUN 20 Creatinine 1.08 POC Creatinine 1.2 Est Cr Clr Drug Dosing 48.4 eGFR 52.58 BUN/Creatinine Ratio 18.5 Glucose 153 H POC Glucose POC Glucose (other) 149 H Lactate 0.9 Calcium 9.1 POC Ioniz Calcium [place] 1.09 L Phosphorus Magnesium 1.0 L Total Bilirubin 0.4 AST 19 ALT 10 Alkaline Phosphatase 69 Troponin I High Sens 572.1 H* Total Protein 7.8 Albumin 4.1 Globulin 3.7 Albumin/Globulin Ratio 1.1 Lipase 69 Procalcitonin Urine Color Urine Appearance Urine pH Ur Specific [place] Urine Protein Urine Glucose (UA) Urine Ketones Urine Blood Urine Nitrite Urine Bilirubin Urine Urobilinogen Ur Leukocyte Esterase Urine WBC (Auto) Urine RBC (Auto) U Hyaline Cast (Auto) U Epithel Cells (Auto) Urine Bacteria (Auto) Urine Comment Nasal Screen MRSA (PCR) 02/16/25 02/16/25 02/16/25 15:02 16:39 17:03 WBC RBC Hgb POC Hgb 18.0 H Hct POC Hct 53 H MCV MCH MCHC RDW Std Deviation RDW Coeff of Rudy Plt Count MPV Immature Gran % (Auto) Neut % (Auto) Lymph % (Auto) [place] % (Auto) Eos % (Auto) Baso % (Auto) Neut # (Auto) Lymph # (Auto) [place] # (Auto) Eos # (Auto) Baso # (Auto) Immature Gran # (Auto) Specimen Type Sample Site POC pH 7.16 L* POC pCO2 60 H POC pO2 83 POC HCO3 22 POC Base Excess -7.0 O2 Sat Pulse Oximetry ABG pH (Temp Correct) ABG pCO2 (Temp Corrct POC ABG pO2 at Pt Temp POC ABG O2 Sat 92.0 Julito Test VBG pH VBG pCO2 VBG pO2 VBG HCO3 VBG O2 Saturation VBG Base Excess O2 Delivery Device Vent Mode POC FiO2 End Tidal CO2 POC Sodium 155 H Sodium POC Potassium 3.1 L Potassium POC Chloride Chloride Carbon Dioxide POC Total CO2 23 L Anion Gap POC Anion Gap POC BUN BUN Creatinine POC Creatinine Est Cr Clr Drug Dosing eGFR BUN/Creatinine Ratio Glucose POC Glucose POC Glucose (other) Lactate Calcium POC Ioniz Calcium [place] Phosphorus Magnesium Total Bilirubin AST ALT Alkaline Phosphatase Troponin I High Sens 916.1 H* D Total Protein Albumin Globulin Albumin/Globulin Ratio Lipase Procalcitonin Urine Color Yellow Urine Appearance Clear Urine pH 6.0 Ur Specific [place] 1.024 Urine Protein Negative Urine Glucose (UA) Negative Urine Ketones Negative Urine Blood Trace H Urine Nitrite Negative Urine Bilirubin Negative Urine Urobilinogen Negative Ur Leukocyte Esterase Negative Urine WBC (Auto) 0-5 Urine RBC (Auto) 3-5 H U Hyaline Cast (Auto) 3-5 H U Epithel Cells (Auto) 3-5 H Urine Bacteria (Auto) None Seen Urine Comment Nasal Screen MRSA (PCR) 02/16/25 02/16/25 02/16/25 17:32 19:22 23:51 WBC RBC Hgb 15.8 POC Hgb 16.7 H Hct 47.2 H POC Hct 49 H MCV MCH MCHC RDW Std Deviation RDW Coeff of Rudy Plt Count MPV Immature Gran % (Auto) Neut % (Auto) Lymph % (Auto) [place] % (Auto) Eos % (Auto) Baso % (Auto) Neut # (Auto) Lymph # (Auto) [place] # (Auto) Eos # (Auto) Baso # (Auto) Immature Gran # (Auto) Specimen Type Arterial Sample Site Art Line POC pH 7.43 POC pCO2 40 POC pO2 123 H POC HCO3 27 H POC Base Excess 2.0 H O2 Sat Pulse Oximetry 100 ABG pH (Temp Correct) 7.448 ABG pCO2 (Temp Corrct 38 POC ABG pO2 at Pt Temp 115 POC ABG O2 Sat 99.0 H Julito Test NA VBG pH VBG pCO2 VBG pO2 VBG HCO3 VBG O2 Saturation VBG Base Excess O2 Delivery Device Ventilator Vent Mode AC POC FiO2 40 End Tidal CO2 27 POC Sodium 134 L Sodium 135 L POC Potassium 2.8 L Potassium 2.7 L D POC Chloride Chloride 96 L Carbon Dioxide 26 POC Total CO2 28 Anion Gap 13 H POC Anion Gap POC BUN BUN 20 Creatinine 1.18 POC Creatinine Est Cr Clr Drug Dosing 44.3 eGFR 47.28 BUN/Creatinine Ratio 16.9 Glucose 236 H POC Glucose 202 H POC Glucose (other) Lactate Calcium 8.7 POC Ioniz Calcium [place] Phosphorus Magnesium Total Bilirubin AST ALT Alkaline Phosphatase Troponin I High Sens 4813.2 H* D Total Protein Albumin Globulin Albumin/Globulin Ratio Lipase Procalcitonin 0.09 Urine Color Urine Appearance Urine pH Ur Specific [place] Urine Protein Urine Glucose (UA) Urine Ketones Urine Blood Urine Nitrite Urine Bilirubin Urine Urobilinogen Ur Leukocyte Esterase Urine WBC (Auto) Urine RBC (Auto) U Hyaline Cast (Auto) U Epithel Cells (Auto) Urine Bacteria (Auto) Urine Comment Nasal Screen MRSA (PCR) 02/16/25 02/17/25 02/17/25 Unknown 04:33 11:32 WBC 10.07 RBC 5.08 Hgb 15.2 POC Hgb Hct 43.7 POC Hct MCV 86.0 D MCH 29.9 MCHC 34.8 RDW Std Deviation 47.0 H RDW Coeff of Rudy 14.7 H Plt Count 228 MPV 8.9 L Immature Gran % (Auto) 0.3 Neut % (Auto) 88.6 Lymph % (Auto) 4.4 [place] % (Auto) 6.6 Eos % (Auto) 0.0 Baso % (Auto) 0.1 Neut # (Auto) 8.93 H Lymph # (Auto) 0.44 L [place] # (Auto) 0.66 H Eos # (Auto) 0.00 Baso # (Auto) 0.01 Immature Gran # (Auto) 0.03 Specimen Type Sample Site POC pH POC pCO2 POC pO2 POC HCO3 POC Base Excess O2 Sat Pulse Oximetry ABG pH (Temp Correct) ABG pCO2 (Temp Corrct POC ABG pO2 at Pt Temp POC ABG O2 Sat Julito Test VBG pH 7.16 L VBG pCO2 97 H VBG pO2 29 VBG HCO3 35 VBG O2 Saturation < 60.0 VBG Base Excess 1.9 O2 Delivery Device Vent Mode POC FiO2 End Tidal CO2 POC Sodium Sodium 135 L POC Potassium Potassium 3.7 D POC Chloride Chloride 98 Carbon Dioxide 29 POC Total CO2 Anion Gap 8 POC Anion Gap POC BUN BUN 20 Creatinine 1.17 POC Creatinine Est Cr Clr Drug Dosing 44.7 eGFR 47.76 BUN/Creatinine Ratio 17.1 Glucose 133 H POC Glucose 132 H POC Glucose (other) Lactate Calcium 8.7 POC Ioniz Calcium [place] Phosphorus 1.9 L Magnesium 1.9 Total Bilirubin AST ALT Alkaline Phosphatase Troponin I High Sens 7389.3 H* D Total Protein Albumin Globulin Albumin/Globulin Ratio Lipase Procalcitonin Urine Color Urine Appearance Urine pH Ur Specific [place] Urine Protein Urine Glucose (UA) Urine Ketones Urine Blood Urine Nitrite Urine Bilirubin Urine Urobilinogen Ur Leukocyte Esterase Urine WBC (Auto) Urine RBC (Auto) U Hyaline Cast (Auto) U Epithel Cells (Auto) Urine Bacteria (Auto) Urine Comment Nasal Screen MRSA (PCR) Negative 02/17/25 02/17/25 02/17/25 12:01 15:53 16:30 WBC RBC Hgb POC Hgb Hct POC Hct MCV MCH MCHC RDW Std Deviation RDW Coeff of Rudy Plt Count MPV Immature Gran % (Auto) Neut % (Auto) Lymph % (Auto) [place] % (Auto) Eos % (Auto) Baso % (Auto) Neut # (Auto) Lymph # (Auto) [place] # (Auto) Eos # (Auto) Baso # (Auto) Immature Gran # (Auto) Specimen Type Sample Site POC pH POC pCO2 POC pO2 POC HCO3 POC Base Excess O2 Sat Pulse Oximetry ABG pH (Temp Correct) ABG pCO2 (Temp Corrct POC ABG pO2 at Pt Temp POC ABG O2 Sat Julito Test VBG pH VBG pCO2 VBG pO2 VBG HCO3 VBG O2 Saturation VBG Base Excess O2 Delivery Device Vent Mode POC FiO2 End Tidal CO2 POC Sodium Sodium POC Potassium Potassium 4.0 POC Chloride Chloride Carbon Dioxide POC Total CO2 Anion Gap POC Anion Gap POC BUN BUN Creatinine POC Creatinine Est Cr Clr Drug Dosing eGFR BUN/Creatinine Ratio Glucose POC Glucose 124 H POC Glucose (other) Lactate Calcium 8.9 POC Ioniz Calcium [place] Phosphorus 4.2 D Magnesium 1.8 Total Bilirubin AST ALT Alkaline Phosphatase Troponin I High Sens 6048.1 H* Total Protein Albumin Globulin Albumin/Globulin Ratio Lipase Procalcitonin Urine Color Urine Appearance Urine pH Ur Specific [place] Urine Protein Urine Glucose (UA) Urine Ketones Urine Blood Urine Nitrite Urine Bilirubin Urine Urobilinogen Ur Leukocyte Esterase Urine WBC (Auto) Urine RBC (Auto) U Hyaline Cast (Auto) U Epithel Cells (Auto) Urine Bacteria (Auto) Urine Comment Nasal Screen MRSA (PCR) Diagnostic Findings Chest X-Ray 02/17/25 06:00 EXAM: XR chest 1V portable CLINICAL HISTORY: resp failure TECHNIQUE: Radiograph of chest was acquired. COMPARISON: 01/28/2024 07:48:46 QUITLINE COUNSELOR FINDINGS: Bilateral bronchovascular congestion. The cardiomediastinal silhouette is within normal limits. No acute osseous abnormality. ETT with tip 3.5cm over the martin. NGT seen below the left hemidiaphragm, with its tip not included in the field of view IMPRESSION: 1. Bilateral bronchovascular congestion. (New finding) 2. ETT with tip 3.5cm over the martin. 3. NGT seen below the left hemidiaphragm, with its tip not included in the field of view. Electronically signed by Tesfaye Hernandez 02-17-2025 07:34 AM echo - EF preserved, no LV wall motion abnormalities, RV function wnl, no major valvular dysfunction PG Care Time/CCT Total # of Minutes Spent Total Time Spent with Patient: Total time spent is greater than 50% in coordination of care (as documented) at patient's floor/unit and/or counseling patient: Coding Level of Care Code 74220 SUB INP/OBS CARE 2/35MIN Diagnoses Acute respiratory failure with hypoxia and hypercapnia J96.01; J96.02 Acute heart failure with preserved ejection fraction (HFpEF) I50.31 Flash pulmonary edema J81.0 Elevated troponin R79.89 NSTEMI (non-ST elevated myocardial infarction) I21.4 Mesenteric artery stenosis K55.1 Chronic intermittent abdominal pain R10.9; G89.29 Acute metabolic encephalopathy G93.41 COPD (chronic obstructive pulmonary disease) J44.9 Hypomagnesemia E83.42 Peripheral vascular disease I73.9 Tobacco use Z72.0 Stenosis of both subclavian arteries I70.8 Hx of carotid stenosis Z86.79 Hypothyroidism, unspecified type E03.9 Hypothyroidism type: unspecified Essential hypertension I10 Hypertension type: essential hypertension Mixed hyperlipidemia E78.2 Hyperlipidemia type: mixed hyperlipidemia History of uterine cancer Z85.42 GERD (gastroesophageal reflux disease) K21.9 Chronic kidney disease, stage III (moderate) N18.3 History of parotid gland removal Z90.49 (15) Hypothyroidism Hypothyroidism type: unspecified Qualified Code(s): E03.9 - Hypothyroidism, unspecified (16) Hypertension Hypertension type: essential hypertension Qualified Code(s): I10 - Essential (primary) hypertension (17) Hyperlipidemia Hyperlipidemia type: mixed hyperlipidemia Qualified Code(s): E78.2 - Mixed hyperlipidemia
[2025-02-18 04:43] LABS: Hematocrit (blood only) 42.2 % (37.0-47.0); Hemoglobin 13.8 g/dl (12.0-16.0); Immature Granulocytes # (auto) 0.04 K/uL (0.01-0.20); Immature Granulocytes % (auto) 0.3 %; Mean Corpuscular Hemoglobin 29.4 pg (25.0-34.0); Mean Corpuscular Volume 89.8 fL (80.0-100.0); Platelet Count 201 K/uL (130-400); RDW Standard Deviation 52.6 fL (36.4-46.3); Red Blood Count 4.70 M/uL (4.20-5.40); White Blood Count 11.88 K/ul (4.8-10.8)
[2025-02-18 04:57] LABS: Anion Gap 6.0 (3-11); Blood Urea Nitrogen 20.0 mg/dl (6-23); Calcium 8.5 mg/dl (8.6-10.3); Carbon Dioxide 33.0 mmol/L (21-32); Chloride 98.0 mmol/L (98-107); Creatinine Clr Calc Pharmacy 41.3 ml/min; Glucose 121.0 mg/dl (70-99(Fasting)); Magnesium 1.8 mg/dl (1.7-2.4); Potassium 4.5 mmol/L (3.5-5.1); Sodium 137.0 mmol/L (136-145)
[2025-02-18] MEDS: MAGNESIUM OXIDE 400 MG TAB PO SCH (06:24)
--- NOTE | 2025-02-18 07:55 | Critical Care Progress Note ---
Date of Service February 18, 2025 Assessment & Plan (1) Acute respiratory failure with hypercapnia: (2) COPD (chronic obstructive pulmonary disease): (3) Morbid obesity: (4) Peripheral vascular disease: Plan Impression: 79-year-old female with likely COPD although PFTs are not available admitted with abdominal pain found to have hypercapnic respiratory failure progressing to need for intubation mechanical ventilation. 24-hour events: SBT yesterday morning. Extubated. Oxygen weaned to off. Up to chair. Advancing diet. Recommendations: 1. Neurologic: No current issues 2. Cardiovascular: Cardiology consultation reviewed. Troponin is peaked. Suspect supply/demand mismatch. No regional wall motion abnormalities. Continue aspirin. Hypotension resolved. She is on midodrine currently and blood pressure appears well-controlled. Midodrine can be weaned to off as tolerated over the next several days. She does have severe subclavian stenosis so blood pressure in the left arm is likely unreliable 3. Pulmonary: Hypercapnic respiratory failure: Likely a component of obstructive lung disease. Complete 5 days of prednisone as well as 5 days of oral azithromycin for acute exacerbation of COPD. Will continue nebulized budesonide and Perforomist but can likely transition to Anoro at discharge. Outpatient PFTs and smoking cessation recommended. 4. GI: Severe reflux: Reasonably well-controlled currently. Diet as tolerated 5. Renal: Mild increase in serum creatinine on this morning. Hold additional diuretics 6. ID: Azithromycin for acute exacerbation of COPD 8. Endocrine: Glycemic control per protocol. Continue home Synthroid. Out of be discontinue Beckett catheter. The patient's critical care needs are resolved. She stable to transfer to the floor. Critical care services will sign off. Feel free to contact us with questions or concerns Admission and Anticipated Discharge Date Admission Date: February 16, 2025 Subjective Patient seen and examined. EMR reviewed. Discussed with overnight critical care MERCEDEZ as well as with bedside critical care nurse in a multidisciplinary rounds. The patient has been extubated. She is doing well clinically. She is up to the chair yesterday. Her oxygen has been weaned down to room air. She is not experiencing any coughing or sputum production. No chest pain or palpitations. No syncope or presyncope. She is tolerating a diet and not experiencing any significant heartburn reflux or abdominal pain. She overall feels that she is doing well. Review of Systems Review of Systems: All systems reviewed & are unremarkable except as noted in Subjective Physical Exam Constitutional: well developed and well nourished Neck: trachea midline, no thyromegaly Respiratory: no respiratory distress, no labored breathing and not tachypneic Auscultation: no rhonchi and no wheezes Cardiovascular: RRR, no murmur, no edema Gastrointestinal (Abdomen): normal bowel sounds, soft, nontender, no hepatosplenomegaly Musculoskeletal: Extremities: extremities normal to inspection Skin: no rashes, warm and dry Lymphatic: no cervical lymphadenopathy Results & Data Results & Data Vital Signs (Past 12 Hours) Vital Signs Temp Pulse Pulse Resp BP Pulse Ox O2 Del Method 02/18/25 07:44 Room Air 02/18/25 07:38 66 20 91 Nasal Cannula 02/18/25 07:30 36.6 C 82 22 124/72 94 Room Air 02/18/25 06:00 95/66 L 02/18/25 06:00 36.6 C 67 15 98 02/18/25 05:01 97/63 L 02/18/25 05:01 97/63 L 02/18/25 05:01 97/63 L 02/18/25 05:00 36.5 C 71 16 97 02/18/25 04:00 36.6 C 113 H 14 99 02/18/25 03:01 90/56 L 02/18/25 03:01 90/56 L 02/18/25 03:01 90/56 L 02/18/25 03:00 36.5 C 69 15 97 02/18/25 02:09 36.5 C 72 16 97 02/18/25 01:03 36.5 C 69 17 108/61 97 02/18/25 00:30 36.5 C 66 17 97 02/17/25 23:21 36.6 C 65 20 97 02/17/25 22:00 36.6 C 75 15 96 02/17/25 21:15 36.7 C 71 15 96 02/17/25 20:39 72 15 96 Nasal Cannula 02/17/25 20:24 36.7 C 73 14 103/64 97 02/17/25 20:00 Nasal Cannula O2 Flow Rate 02/18/25 07:44 02/18/25 07:38 2 02/18/25 07:30 02/18/25 06:00 02/18/25 06:00 02/18/25 05:01 02/18/25 05:01 02/18/25 05:01 02/18/25 05:00 02/18/25 04:00 02/18/25 03:01 02/18/25 03:01 02/18/25 03:01 02/18/25 03:00 02/18/25 02:09 02/18/25 01:03 02/18/25 00:30 02/17/25 23:21 02/17/25 22:00 02/17/25 21:15 02/17/25 20:39 2 02/17/25 20:24 02/17/25 20:00 2 Critical Care Results & Data Vital Signs (Past 12 Hours) Vital Signs Temp Pulse Pulse Resp BP Pulse Ox O2 Del Method 02/18/25 07:44 Room Air 02/18/25 07:38 66 20 91 Nasal Cannula 02/18/25 07:30 36.6 C 82 22 124/72 94 Room Air 02/18/25 06:00 95/66 L 02/18/25 06:00 36.6 C 67 15 98 02/18/25 05:01 97/63 L 02/18/25 05:01 97/63 L 02/18/25 05:01 97/63 L 02/18/25 05:00 36.5 C 71 16 97 02/18/25 04:00 36.6 C 113 H 14 99 02/18/25 03:01 90/56 L 02/18/25 03:01 90/56 L 02/18/25 03:01 90/56 L 02/18/25 03:00 36.5 C 69 15 97 02/18/25 02:09 36.5 C 72 16 97 02/18/25 01:03 36.5 C 69 17 108/61 97 02/18/25 00:30 36.5 C 66 17 97 02/17/25 23:21 36.6 C 65 20 97 02/17/25 22:00 36.6 C 75 15 96 02/17/25 21:15 36.7 C 71 15 96 02/17/25 20:39 72 15 96 Nasal Cannula 02/17/25 20:24 36.7 C 73 14 103/64 97 02/17/25 20:00 Nasal Cannula O2 Flow Rate 02/18/25 07:44 02/18/25 07:38 2 02/18/25 07:30 02/18/25 06:00 02/18/25 06:00 02/18/25 05:01 02/18/25 05:01 02/18/25 05:01 02/18/25 05:00 02/18/25 04:00 02/18/25 03:01 02/18/25 03:01 02/18/25 03:01 02/18/25 03:00 02/18/25 02:09 02/18/25 01:03 02/18/25 00:30 02/17/25 23:21 02/17/25 22:00 02/17/25 21:15 02/17/25 20:39 2 02/17/25 20:24 02/17/25 20:00 2 Lab & Micro Results (Past 24 Hours) RBC 4.70 M/uL (4.20-5.40) 02/18/25 WBC 11.88 K/ul (4.8-10.8) H 02/18/25 Hgb 13.8 g/dl (12.0-16.0) 02/18/25 Hct 42.2 % (37.0-47.0) 02/18/25 MCV 89.8 fL (80.0-100.0) 02/18/25 MCH 29.4 pg (25.0-34.0) 02/18/25 MCHC 32.7 g/dL (32.0-36.0) 02/18/25 RDW Standard Deviation 52.6 fL (36.4-46.3) H 02/18/25 RDW Coefficient of Variation 15.9 % (11.5-14.5) H 02/18/25 Plt Count 201 K/uL (130-400) 02/18/25 MPV 9.2 fL (9.4-12.4) L 02/18/25 Neutrophils (%) (Auto) 87.2 % 02/18/25 Lymphocytes (%) (Auto) 5.9 % 02/18/25 Monocytes # (Auto) 0.76 K/uL (0.11-0.59) H 02/18/25 Eosinophils # (Auto) 0.00 K/uL (0.00-0.50) 02/18/25 Immature Granulocyte % (Auto) 0.3 % 02/18/25 Neutrophils # (Auto) 10.36 K/uL (1.40-6.50) H 02/18/25 Lymphocytes # (Auto) 0.70 K/uL (1.20-3.40) L 02/18/25 Monocytes # (Auto) 0.76 K/uL (0.11-0.59) H 02/18/25 Eosinophils # (Auto) 0.00 K/uL (0.00-0.50) 02/18/25 Basophils # (Auto) 0.02 K/uL (0.00-0.20) 02/18/25 Immature Granulocyte # (Auto) 0.04 K/uL (0.01-0.20) 5 Na 137 mmol/L (136-145) 02/18/25 K 4.5 mmol/L (3.5-5.1) 02/18/25 Cl 98 mmol/L (98-107) 02/18/25 CO2 33 mmol/L (21-32) H 02/18/25 Anion Gap 6 (3-11) 02/18/25 BUN 20 mg/dl (6-23) 02/18/25 Creatinine 1.26 mg/dl (0.6-1.2) H 02/18/25 BUN/Creatinine Ratio 15.9 (10-20) 02/18/25 Glu 121 mg/dl (70-99(Fasting)) H 02/18/25 Ca 8.5 mg/dl (8.6-10.3) L 02/18/25 Phosphorus Level 4.9 mg/dl (2.5-4.9) 02/18/25 Mg 1.8 mg/dl (1.7-2.4) 02/18/25 04:18 Calcium Level 8.5 mg/dl (8.6-10.3) L 02/18/25 04:18 Diagnostic Findings (Past 24 Hours) Chest X-Ray 02/18/25 06:00 EXAM: XR chest 1V portable CLINICAL HISTORY: resp failure TECHNIQUE: Radiograph of chest was acquired. COMPARISON: FINDINGS: Prominent peripheral and bronchovascular markings in bilateral lung huber -unchanged Rest of the lungs are clear and well-expanded with no pulmonary infiltrate or pleural effusion. The cardiomediastinal silhouette is within normal limits. No acute osseous abnormality. Interval removal of endotracheal and nasogastric tubes IMPRESSION: Interval stable prominent peripheral and bronchovascular markings in bilateral lung huber are likely of congestive etiology, clinical correlation is recommended. Interval removal of endotracheal and nasogastric tubes Electronically signed by Tesfaye Hernandez 02-18-2025 07:54 AM I & O Totals 24 Hours 02/17/25 02/18/25 02/19/25 06:59 06:59 06:59 Intake Total 1282.879 / 2574.740 0748.691 / 1209.691 Output Total 2350 / 2350 2310 / 2310 Balance -1067.121 / -1067.121 -1100.309 / -1100.309 Cumulative 02/16/25 12:28 thru 02/18/25 06:00 Intake Total 2492.570 Output Total 4660 Balance -2167.430 RT Ventilator Mngmt (Last Documented) Ventilator Ordered Settings Ventilator Support Mode Pressure Control 02/17/25 07:25 Respiratory Rate 20 02/18/25 07:38 Ventilator Tidal Volume 475 02/17/25 07:14 Setting Minute Ventilation 13.2 02/17/25 07:14 Ventilator Positive Pressure 5 02/17/25 07:25 Support Setting Positive End Expiratory 5 02/17/25 07:25 Pressure Fraction of Inspired Oxygen 40 02/17/25 07:25 Machine Comment RR decrease per Estrellita Mccullough 02/16/25 23:34 PA-C CCM Ventilator - PT Measurements Respiratory Rate 20 Exhaled Tidal Volume 421 Minute Ventilation 13.2 Peak Inspiratory Airway 29 Pressure Plateau Pressure 25 Respiratory Cycle Inspiratory: 1:3.7 Expiratory Ratio Inspiratory Phase Time 0.8 End-Tidal CO2 40 Static Lung Compliance 24.76 Dynamic Lung Compliance 20.05 Normal Static Lung Compliance 46.00 Coding Level of Care Code 16403 SUB INP/OBS CARE 3/50MIN Diagnoses Acute respiratory failure with hypercapnia J96.02 COPD (chronic obstructive pulmonary disease) J44.9 Morbid obesity E66.01 Peripheral vascular disease I73.9
[2025-02-18] MEDS ORDERED: Nursing to Pharmacy Communication SCH (08:15)
[2025-02-18] MEDS: AZITHROMYCIN 250 MG TAB PO SCH (09:31)
--- NOTE | 2025-02-18 11:29 | Cardiology Progress Note ---
Date of Service February 18, 2025 Assessment & Plan (1) Acute respiratory failure with hypercapnia: Plan: -Pulmonary edema resolved. -Would continue diuretics on an as-needed basis. -Normal left ventricular systolic function without wall motion abn ormalities. (2) Elevated troponin: Plan: -Suspect a supply/demand mismatch. -Acute respiratory failure in the face of mild LVH. -Troponin trending down. Admission and Anticipated Discharge Date Admission Date: February 16, 2025 Subjective The patient is resting comfortably at bedside chair without complaints of chest pain or dyspnea. Physical Exam Physical Exam: In general this is a well-developed and well-nourished white female in no acute distress. HEENT exam is negative. Neck is supple with full carotid upstrokes. Scar noted on the right neck. No jugular venous distention at 45 degrees. Cardiovascular exam reveals a regular rhythm with distant heart sounds. No obvious murmurs. Lungs decreased breath sounds at the bases with scattered rales. Abdomen soft bruise. Extremities reveal intact radial artery pulse bilaterally. Trace pretibial edema. Results & Data Vital Signs (Past 12 Hours) Vital Signs Temp Pulse Pulse Resp BP Pulse Ox O2 Del Method 02/18/25 11:14 65 15 94 Room Air 02/18/25 08:00 69 02/18/25 07:44 Room Air 02/18/25 07:38 66 20 91 Nasal Cannula 02/18/25 07:30 36.6 C 82 22 124/72 94 Room Air 02/18/25 06:00 95/66 L 02/18/25 06:00 36.6 C 67 15 98 02/18/25 05:01 97/63 L 02/18/25 05:01 97/63 L 02/18/25 05:01 97/63 L 02/18/25 05:00 36.5 C 71 16 97 02/18/25 04:00 36.6 C 113 H 14 99 02/18/25 03:01 90/56 L 02/18/25 03:01 90/56 L 02/18/25 03:01 90/56 L 02/18/25 03:00 36.5 C 69 15 97 02/18/25 02:09 36.5 C 72 16 97 02/18/25 01:03 36.5 C 69 17 108/61 97 02/18/25 00:30 36.5 C 66 17 97 O2 Flow Rate 02/18/25 11:14 02/18/25 08:00 02/18/25 07:44 02/18/25 07:38 2 02/18/25 07:30 02/18/25 06:00 02/18/25 06:00 02/18/25 05:01 02/18/25 05:01 02/18/25 05:01 02/18/25 05:00 02/18/25 04:00 02/18/25 03:01 02/18/25 03:01 02/18/25 03:01 02/18/25 03:00 02/18/25 02:09 02/18/25 01:03 02/18/25 00:30 Diagnostic Findings threat monitoring analyst is benign. PG Care Time/CCT Total # of Minutes Spent Total Time Spent with Patient: Total time spent is greater than 50% in coordination of care (as documented) at patient's floor/unit and/or counseling patient: Coding Level of Care Code 57312 SUB INP/OBS CARE 3/50MIN Diagnoses Acute respiratory failure with hypercapnia J96.02 Elevated troponin R79.89
[2025-02-18] MEDS: INSULIN ASPART PER UNIT CHARGE SC SCH (11:53)
[2025-02-18] MEDS: COUGH DROP (SUGAR FREE) LOZ 24 LOZ/1 BOX BUCCAL PRN (15:48)
[2025-02-18] MEDS: FUROSEMIDE 20 MG TAB PO ONE (15:49)
--- NOTE | 2025-02-18 16:58 | Hospitalist Progress Note ---
Date of Service February 18, 2025 Assessment & Plan (1) Acute respiratory failure with hypoxia and hypercapnia: (2) Acute heart failure with preserved ejection fraction (HFpEF): (3) Flash pulmonary edema: (4) Elevated troponin: (5) NSTEMI (non-ST elevated myocardial infarction): (6) Mesenteric artery stenosis: (7) Chronic intermittent abdominal pain: (8) Acute metabolic encephalopathy: (9) COPD (chronic obstructive pulmonary disease): (10) Hypomagnesemia: (11) Peripheral vascular disease: (12) Tobacco use: (13) Stenosis of both subclavian arteries: (14) Hx of carotid stenosis: (15) Hypothyroidism: (16) Hypertension: (17) Hyperlipidemia: (18) History of uterine cancer: (19) GERD (gastroesophageal reflux disease): (20) Chronic kidney disease, stage III (moderate): (21) History of parotid gland removal: Plan 79yo female with long-standing tobacco dependence, hypothyroidism, uterine cancer 2006, childhood asthma/current COPD, CKD stage 3a, known subclavian artery stenosis, h/o carotid stenosis s/p CEA on right, and 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 Patient's respiratory distress escalated significantly while in the ER ultimately requiring intubation & mechanical ventilation. Imaging c/w pulmonary edema. #acute respiratory failure with hypoxia & hypercapnia - fully resolved - -suspect multifactorial - pulmonary edema/acute CHF +/- COPD exacerbation; no evidence of PE on CTA chest; infectious process (pneumonia, etc) not suspected -s/p intubation/mech ventilation 02/16; extubated 02/17 AM -cont diuresis with lasix - can make PO today -cont bronchodilators -remains on tapering steroids - prednisone 20mg/day -remains on azithromycin - day #3 of 5 -I believe the main component of her resp failure was due to pulmonary edema - see below #recurrent, intermittent abdominal pain - -episodes present for months -not always related to eating/drinking; some episodes occur randomly -severe; typically present in the epigastric region; "twisting" sensation in the abdomen per patient; pain radiates up the center of chest to the throat, and then has a "burning" sensation -she had continuous upper abd pain the AM of admission which persisted until she came to the hospital; she had florid resp failure in the midst of this pain event -symptoms cont to reoccur despite use of antacids; she does not have a gall bladder -could be due to mesenteric ischemia; could be atypical angina/ischemic; could be gastritis/GERD/PUD --- latter least favored -CTA abd/pelvis -- all 3 mesenteric arteries have significant stenoses -I messaged with Dr Ward from vascular surgery who sees her in clinic for previous carotid disease, subclavian artery stenosis, etc. -he briefly looked at CTA - he advised f/u with him in clinic to discuss this further -troponin was markedly elevated near 8000 - see below -EGD 2021 with gastritis - placed on PPI this admission -added carafate QID today due to recurrent symptoms; tums prn as well -of note - lipase and LFTs wnl -consider GI consultation for EGD but uncertain if this is an optimal time to pursue such -consider additional cardiac w/u (nuclear study??, other?) -NUMEROUS CAD risk factors - tobacco, strong famhx (mother with CABG), HTN, known PAD (carotids, subclavian, mesenterics, etc), etc. #elevated troponin / NSTEMI - -uncertain at this time if type 1 vs type 2; cardiology consult appreciated --> type 2 NJ suspected (ie - myocardial demand ischemia) rather than ACS -echo with normal EF and normal LV wall motion -initial troponin was 572; peak troponin - 7389 -she has Q waves inferiorly and anteriorly on her EKG -remains on aspirin 81mg daily -cont crestor 40mg daily -patient herself feels that chest symptoms are due to severe GERD but, although she may have GERD, GERD would not cause flash pulmonary edema -d/w cardiology plan of care #acute HFpEF - -imaging and admit exam suggestive of pulmonary edema/volume overload -improved s/p multiple doses of IV lasix with marked improvement in volume status & respiratory status -echo with preserved EF & normal LV wall motion -BMP stable today -plan lasix 20mg po x 1 today -BMP am #?infectious bronchitis/pneumonia? - -low suspicion of such -day #3 azithromycin -will finish 5-day course of azithromycin to be on safe side but again I have little suspicion this was infectious in nature #acute metabolic encephalopathy - -2nd to hypoxia, hypercapnia, possible pneumonia/bronchitis, etc. -resolved #COPD with exacerbation - -bronchodilators + systemic steroids +antibiotics -improved/resolving -wean steroids, finish 5-day azithromycin course #GERD/history of gastritis/history of hiatal hernia - -cont PPI -add carafate QID today -tums prn #hypomagnesemia - -severe, level 1 at presentation -s/p replacement with IV mag; mag level now wnl -etiology? 2nd to poor oral intake at home? chronic PPI use? other? -mag 1.8 today #h/o HTN - -all anti-hypertensives on hold -"low" BPs in arms may be due to subclavian artery stenosis #DVT Proph - -lovenox 40mg daily #CKD stage 3a - -daily BMP -Cr stable today #hypothyroidism - -TSH 2.4 in January -cont synthroid #tobacco dependence - -offered nicoderm patch today - patient declined such -funeral prearrangement counselor to quit #polycythemia - -likely 2nd to chronic hypoxia from tobacco use/COPD -h/h stable #PAD/history of carotid stenosis/history of subclavian artery stenosis - -BPs may not be reliable in either arm due to subclavian artery stenosis -art line indeed was giving readings 20+ points better than automatic BP cuff -is now on midodrine TID; try to wean this off by hospital discharge #LLL pulmonary nodule - -given long-standing tobacco use will need f/u CT scan in the next few months for stability -5mm in size appreciate critical care assistance transfer from ICU to PCU today PT, OT evals rehab needed? family EXTENSIVELY updated at bedside today questions answered Admission and Anticipated Discharge Date Admission Date: February 16, 2025 Subjective tele stable overnight patient is tired/weak but otherwise feels better in comparison to admission multiple family at bedside - , daughter, grand-daughter discussed care plan answered numerous questions retrospectively patient now remembers being more short of breath than baseline about 24 hours prior to ER presentation she also "always has swelling" and family is pleased with how her legs look now (no edema) patient's family also mentions that in the days leading up to admission she was having more frequent episodes of upper abdominal pain (pt describes them as a "twisting" feeling in her abdomen that radiates to the central chest and into the throat) the throat "avina" when she gets these symptoms late in the day today she had another episode of "throat burning" and she requested tums for this family wants patient to go to rehab Review of Systems Review of Systems: gen - tired, eating well cv - no orthopnea; edema improved pulm - cough improved; dyspnea improved/resolved (at rest) GI - no abd pain episodes since admission Physical Exam Physical Exam: gen - looks well today, in good spirits, NAD, laying comfortably in bed HENT - MMM neck - no JVD today heart - RRR, occasional PVC, s1 s2, no obvious murmur lungs - mild wheezes b/l, minimal crackles b/l bases, no distress abd - soft NT ND BS+; no HSM vascular - b/l foot pulses 1+; no edema b/l legs psych - a/o x 3 Results & Data Results & Data Vital Signs (Past 12 Hours) Vital Signs Temp Pulse Pulse Resp BP Pulse Ox O2 Del Method 02/18/25 15:08 68 20 93 Room Air 02/18/25 12:00 76 18 93 02/18/25 12:00 36.5 C 02/18/25 11:57 104/66 02/18/25 11:14 65 15 94 Room Air 02/18/25 08:00 69 02/18/25 07:44 Room Air 02/18/25 07:38 66 20 91 Nasal Cannula 02/18/25 07:30 36.6 C 82 22 124/72 94 Room Air 02/18/25 06:00 95/66 L 02/18/25 06:00 36.6 C 67 15 98 02/18/25 05:01 97/63 L 02/18/25 05:01 97/63 L 02/18/25 05:01 97/63 L 02/18/25 05:00 36.5 C 71 16 97 O2 Flow Rate 02/18/25 15:08 02/18/25 12:00 02/18/25 12:00 02/18/25 11:57 02/18/25 11:14 02/18/25 08:00 02/18/25 07:44 02/18/25 07:38 2 02/18/25 07:30 02/18/25 06:00 02/18/25 06:00 02/18/25 05:01 02/18/25 05:01 02/18/25 05:01 02/18/25 05:00 Laboratory Results Laboratory Results - last 48 hr 02/17/25 02/17/25 02/17/25 11:32 12:01 15:53 WBC RBC Hgb Hct MCV MCH MCHC RDW Std Deviation RDW Coeff of Rudy Plt Count MPV Immature Gran % (Auto) Neut % (Auto) Lymph % (Auto) [place] % (Auto) Eos % (Auto) Baso % (Auto) Neut # (Auto) Lymph # (Auto) [place] # (Auto) Eos # (Auto) Baso # (Auto) Immature Gran # (Auto) Sodium Potassium 4.0 Chloride Carbon Dioxide Anion Gap BUN Creatinine Est Cr Clr Drug Dosing eGFR BUN/Creatinine Ratio Glucose POC Glucose 132 H Calcium 8.9 Phosphorus 4.2 D Magnesium 1.8 Troponin I High Sens 6048.1 H* 02/17/25 02/17/25 02/18/25 16:30 20:07 04:18 WBC 11.88 H RBC 4.70 Hgb 13.8 Hct 42.2 MCV 89.8 MCH 29.4 MCHC 32.7 RDW Std Deviation 52.6 H RDW Coeff of Rudy 15.9 H Plt Count 201 MPV 9.2 L Immature Gran % (Auto) 0.3 Neut % (Auto) 87.2 Lymph % (Auto) 5.9 [place] % (Auto) 6.4 Eos % (Auto) 0.0 Baso % (Auto) 0.2 Neut # (Auto) 10.36 H Lymph # (Auto) 0.70 L [place] # (Auto) 0.76 H Eos # (Auto) 0.00 Baso # (Auto) 0.02 Immature Gran # (Auto) 0.04 Sodium 137 Potassium 4.5 Chloride 98 Carbon Dioxide 33 H Anion Gap 6 BUN 20 Creatinine 1.26 H Est Cr Clr Drug Dosing 41.3 eGFR 43.70 BUN/Creatinine Ratio 15.9 Glucose 121 H POC Glucose 124 H 128 H Calcium 8.5 L Phosphorus 4.9 Magnesium 1.8 Troponin I High Sens 02/18/25 02/18/25 02/18/25 07:07 11:11 15:44 WBC RBC Hgb Hct MCV MCH MCHC RDW Std Deviation RDW Coeff of Rudy Plt Count MPV Immature Gran % (Auto) Neut % (Auto) Lymph % (Auto) [place] % (Auto) Eos % (Auto) Baso % (Auto) Neut # (Auto) Lymph # (Auto) [place] # (Auto) Eos # (Auto) Baso # (Auto) Immature Gran # (Auto) Sodium Potassium Chloride Carbon Dioxide Anion Gap BUN Creatinine Est Cr Clr Drug Dosing eGFR BUN/Creatinine Ratio Glucose POC Glucose 111 H 98 131 H Calcium Phosphorus Magnesium Troponin I High Sens Diagnostic Findings Chest X-Ray 02/18/25 06:00 EXAM: XR chest 1V portable CLINICAL HISTORY: resp failure TECHNIQUE: Radiograph of chest was acquired. COMPARISON: FINDINGS: Prominent peripheral and bronchovascular markings in bilateral lung huber -unchanged Rest of the lungs are clear and well-expanded with no pulmonary infiltrate or pleural effusion. The cardiomediastinal silhouette is within normal limits. No acute osseous abnormality. Interval removal of endotracheal and nasogastric tubes IMPRESSION: Interval stable prominent peripheral and bronchovascular markings in bilateral lung huber are likely of congestive etiology, clinical correlation is recommended. Interval removal of endotracheal and nasogastric tubes Electronically signed by Tesfaye Hernandez 02-18-2025 07:54 AM PG Care Time/CCT Total # of Minutes Spent Total Time Spent with Patient: Total time spent is greater than 50% in coordination of care (as documented) at patient's floor/unit and/or counseling patient: Coding Level of Care Code 59947 SUB INP/OBS CARE 3/50MIN Diagnoses Acute respiratory failure with hypoxia and hypercapnia J96.01; J96.02 Acute heart failure with preserved ejection fraction (HFpEF) I50.31 Flash pulmonary edema J81.0 Elevated troponin R79.89 NSTEMI (non-ST elevated myocardial infarction) I21.4 Mesenteric artery stenosis K55.1 Chronic intermittent abdominal pain R10.9; G89.29 Acute metabolic encephalopathy G93.41 COPD (chronic obstructive pulmonary disease) J44.9 Hypomagnesemia E83.42 Peripheral vascular disease I73.9 Tobacco use Z72.0 Stenosis of both subclavian arteries I70.8 Hx of carotid stenosis Z86.79 Hypothyroidism, unspecified type E03.9 Hypothyroidism type: unspecified Essential hypertension I10 Hypertension type: essential hypertension Mixed hyperlipidemia E78.2 Hyperlipidemia type: mixed hyperlipidemia History of uterine cancer Z85.42 GERD (gastroesophageal reflux disease) K21.9 Chronic kidney disease, stage III (moderate) N18.3 History of parotid gland removal Z90.49 (15) Hypothyroidism Hypothyroidism type: unspecified Qualified Code(s): E03.9 - Hypothyroidism, unspecified (16) Hypertension Hypertension type: essential hypertension Qualified Code(s): I10 - Essential (primary) hypertension (17) Hyperlipidemia Hyperlipidemia type: mixed hyperlipidemia Qualified Code(s): E78.2 - Mixed hyperlipidemia
[2025-02-18] MEDS: SUCRALFATE 1 GM/10 ML UDC PO SCH (17:16)
[2025-02-19 05:06] LABS: Anion Gap 7.0 (3-11); Blood Urea Nitrogen 26.0 mg/dl (6-23); Calcium 8.6 mg/dl (8.6-10.3); Carbon Dioxide 32.0 mmol/L (21-32); Chloride 101.0 mmol/L (98-107); Creatinine Clr Calc Pharmacy 45.3 ml/min; Glucose 93.0 mg/dl (70-99(Fasting)); Potassium 3.7 mmol/L (3.5-5.1); Sodium 140.0 mmol/L (136-145)
[2025-02-19] MEDS: MIDODRINE HCL 2.5 MG TAB PO SCH (07:56)
[2025-02-19] MEDS: POTASSIUM CHLORIDE CRTAB 20 MEQ TABCR PO SCH (08:11)
[2025-02-19] MEDS: FUROSEMIDE 20 MG TAB PO SCH (08:11)
[2025-02-19] MEDS: MAGNESIUM OXIDE 400 MG TAB PO SCH (08:11)
[2025-02-19] MEDS ORDERED: ALBUT/IPRATROP 3MG/0.5MG NEB 3 ML VIAL NEB PRN (11:25)
--- NOTE | 2025-02-19 12:52 | Cardiology Consultation ---
Date of Consultation February 19, 2025 History of Present Illness Reason for Consultation: Atypical chest discomfort, possible coronary artery disease Attending Physician: Rudolph Mae MD History of Present Illness Chart reviewed and patient examined. In brief she is a 79-year-old woman with a history of hypertension, hypercholesterolemia, chronic kidney disease and widespread atherosclerosis including carotid, subclavian and mesenteric disease. She has not been evaluated for coronary artery disease to my knowledge however she had a chest CTA done February 16, 2025 which showed atherosclerotic calcification of the thoracic aorta and her coronary arteries were reported to be densely calcified. This is consistent with coronary artery disease. She presented on February 16, 2025 with shortness of breath and what she describes as acid reflux, however very shortly after presentation she appeared to demonstrate worsening of pulmonary edema (she had been having fluid retention but no other diagnosis of CHF) and required intubation for respiratory failure. She was diuresed and her pulmonary edema has clinically cleared and she is extubated, on chest x-ray yesterday she did have evidence of CHF however. Of note she has been having what she describes as acid reflux which is discomfort in her midsternal area, there is a concern that this might be angina with an atypical description. On presentation her troponin was 572 and it increased to just over 6024 hours later and this morning (2 days after the peak) was still 32 her echocardiogram done on February 17, 2025 shows normal left ventricular systolic function with mild concentric left ventricular hypertrophy and mild to moderate mitral regurgitation. No wall motion abnormalities were identified. 00. Allergies Allergy/AdvReac Type Severity Reaction Status Date / Time cefaclor Allergy Severe Anaphylaxis Verified 02/16/25 11:56 eggplant Allergy Itching Verified 02/17/25 16:21 Home Medications Medication Instructions Recorded Confirmed Type aspirin 81 mg tablet,delayed 81 mg PO QAM #90 tabs 01/20/19 02/16/25 History release cholecalciferol (vitamin D3) 25 25 mcg PO QAM 11/22/22 02/16/25 History mcg (1,000 unit) capsule docusate sodium 100 mg capsule 100 mg PO BID PRN Constipation 05/30/23 02/16/25 History (Colace) potassium chloride 20 mEq 20 meq PO BID #180 tabs 03/16/24 02/16/25 Rx tablet,extended release(part/cryst) rosuvastatin 40 mg tablet 40 mg PO QAM #90 tabs 03/16/24 02/16/25 Rx betamethasone dipropionate 0.05 % 1 applic topical BID PRN skin 07/26/24 02/16/25 Rx topical cream irritation #45 grams levothyroxine 137 mcg tablet 137 mcg PO QAM #90 tabs 08/03/24 02/16/25 Rx indapamide 2.5 mg tablet 2.5 mg PO QAM #90 tabs 08/23/24 02/16/25 Rx metoprolol succinate 50 mg 50 mg PO QAM #90 tabs 08/23/24 02/16/25 Rx tablet,extended release 24 hr verapamil 240 mg tablet,extended 240 mg PO HS #90 tabs 09/02/24 02/16/25 Rx release alprazolam 0.25 mg tablet 0.25 mg PO DAILY PRN anxiety #30 01/25/25 02/16/25 Rx tabs dicyclomine 20 mg tablet 20 mg PO BID PRN stomach cramps 02/02/25 02/16/25 Rx #60 tabs hydroxyzine pamoate 25 mg capsule 25 mg PO Q8H PRN anxiety #30 caps 02/02/25 02/16/25 Rx (Vistaril) pantoprazole 40 mg tablet,delayed 40 mg PO DAILY reflux #90 tabs 02/02/25 02/16/25 Rx release Patient History Medical History Imbalance Bilateral impacted cerumen Balance disorder Edema of both lower legs due to peripheral venous insufficiency Parotid mass Postmenopausal Hx of renal calculi History of seasonal allergies History of anemia Hx of blood clots Superficial RLE blood clot (after delivery), no issues since History of asthma Childhood, no current/recent issues Surgical History History of parotid gland removal (02/03/24) superficial right parotidectomy, pathology Warthin Tumor Hx of esophagogastroduodenoscopy (10/2021) History of cholecystectomy History of colonoscopy H/O total hysterectomy History of tooth extraction H/O carotid endarterectomy (12/03/17) Right H/O: section x1 Family History Grandmother Breast cancer Mother Myocardial infarction Heart disease Stroke Hypertension Mother Hypertension Father , age 76 Family history of esophageal cancer Heart disease Hypertension Cancer Other No family history of adverse response to anesthesia No family history of bleeding disorder Denies family history of Ovarian cancer Prostate cancer Lung cancer Colorectal cancer Social History (Updated 02/16/25 @ 23:36 by Rudolph Mae MD) Smoking Status: Current every day smoker Tobacco Type: Cigarettes Age Started Using Tobacco: 21; packs per day: 1; Second Hand Exposure: No; Do You Dip or Chew Tobacco: No; Hx Alcohol Use: No (unknown; intubated) Hx Substance Use: No (unknown; intubated) Preferred Language: [place]ian Communication Ability: Effective Communication Ability Comment: intubated Visual Impairment: No Limitations Hearing Ability: Normal Senior Instructional Designer Required: No Beliefs That Will Affect Care: None marital status: Current Living Situation: Spouse Current Living Situation Comment: lives with current occupational status: retired How many Children do You have: 2 Feels Safe at Home: Yes Childhood Exposure to Second-Hand Smoke: Yes Diet: regular Diet Comment: regular caffeine: Yes (coffee) during the past year weight has: decreased > 10 lbs Dental Care, Regularly: No Physical Activity Frequency: 1-2 Times per Week Physical Activity Frequency Comment: limited Seatbelt Use: always Sunscreen Use: No Assistive Devices: Cane Assistive Devices Comment: unknown; intubated Results & Data Vital Signs (Past 12 Hours) Vital Signs Temp Pulse Pulse Resp BP BP Pulse Ox 02/19/25 12:38 36.6 C 75 19 123/71 95 02/19/25 07:50 02/19/25 07:49 36.4 C L 83 22 104/55 L 93 02/19/25 07:05 78 16 96 02/19/25 01:00 71 18 137/75 O2 Del Method O2 Flow Rate 02/19/25 12:38 Room Air 02/19/25 07:50 Room Air 02/19/25 07:49 Room Air 02/19/25 07:05 Nasal Cannula 2 02/19/25 01:00 Laboratory Results Cardiac Enzymes 02/19/25 Range/Units 04:35 Troponin I High Sens 3199.6 H* D (0-14) pg/ml Comprehensive Metabolic Panel 02/19/25 Range/Units 04:35 Sodium 140 (136-145) mmol/L Potassium 3.7 (3.5-5.1) mmol/L Chloride 101 (98-107) mmol/L Carbon Dioxide 32 (21-32) mmol/L BUN 26 H (6-23) mg/dl Creatinine 1.15 (0.6-1.2) mg/dl Glucose 93 (70-99(Fasting)) mg/dl Calcium 8.6 (8.6-10.3) mg/dl Intake and Output 02/18/25 02/19/25 02/19/25 22:59 06:59 14:59 Intake Total 0 / 260 60 / 260 180 / 180 Output Total 300 / 500 700 / 700 Balance 0 / -240 -240 / -240 -520 / -520 Intake: IV 0 / 0 Norepinephrine/D5w 4 mg In 250 0 / 0 ml @ 0 MCG/KG/MIN IV .Q0M [facility] Rx#:[id number] Oral 60 / 260 180 / 180 Output: Urine 300 / 300 700 / 700 Other: # Unmeasured Voids 1 PG Care Time/CCT Total # of Minutes Spent Total Time Spent with Patient: Total time spent is greater than 50% in coordination of care (as documented) at patient's floor/unit and/or counseling patient: Coding
--- NOTE | 2025-02-19 13:05 | Cardiology Progress Note ---
Date of Service February 19, 2025 Assessment & Plan (1) Chest pain: (2) NSTEMI (non-ST elevated myocardial infarction): (3) Acute heart failure with preserved ejection fraction (HFpEF): Plan 1. Chest pain: Her chest pain is hard to interpret, it has characteristics of both angina and reflux, but I am leaning toward a lot of it being anginal. She has coronary calcifications consistent with coronary artery disease and her electrocardiogram on presentation suggests ischemia as well as her enzyme pattern. I think we need to assume that her chest discomfort is at least in part ischemic. 2. NSTEMI: On presentation she had a mildly elevated troponin which increased significantly and is now dropped down somewhat. The pattern is consistent with injury, it is possible it is simply demand ischemia in the setting of coronary artery disease but I think we need to characterize her coronary arteries and make sure she does not have unstable plaque. Her electrocardiographic changes are very worrisome. I discussed invasive evaluation with her, her and her daughter and they all agree therefore I will plan on catheterization on Friday. 3. CHF: Her respiratory arrest seems at least in part due to congestive heart failure however her chest x-ray never showed severe findings, it may well be that she had "flash pulmonary edema" from quite severe disease, possibly right coronary artery occlusion and left main disease or something equivalent which could be very risky. I think we need to define her coronary anatomy. Admission and Anticipated Discharge Date Admission Date: February 16, 2025 Subjective Chart reviewed and patient examined. In brief she is a 79-year-old woman with a history of hypertension, hypercholesterolemia, chronic kidney disease and widespread atherosclerosis including carotid, subclavian and mesenteric disease. She has not been evaluated for coronary artery disease to my knowledge however she had a chest CTA done February 16, 2025 which showed atherosclerotic calcification of the thoracic aorta and her coronary arteries were reported to be densely calcified. This is consistent with coronary artery disease. She presented on February 16, 2025 with shortness of breath and what she describes as acid reflux, however very shortly after presentation she appeared to demonstrate worsening of pulmonary edema (she had been having fluid retention but no other diagnosis of CHF) and required intubation for respiratory failure. She was diuresed and her pulmonary edema has clinically cleared and she is extubated, on chest x-ray yesterday she did have evidence of CHF however although not severe. Of note she has been having what she describes as acid reflux which is discomfort in her midsternal area, there is a concern that this might be angina with an atypical description. On presentation her troponin was 572 and it increased to just over 6000 24 hours later and this morning (2 days after the peak) was still 3200. Her echocardiogram done on February 17, 2025 shows normal left ventricular systolic function with mild concentric left ventricular hypertrophy and mild to moderate mitral regurgitation. No wall motion abnormalities were identified. Review of her electrocardiograms suggest some acute changes on February 16, 2025, her electrocardiogram from January 2024 was essentially normal and now she appears to have widespread (inferior and anterior) ischemic change or infarction. I discussed her symptoms with her and I cannot tell whether she is describing reflux symptoms or angina, there are components of both in her description. One worrisome aspect is that if she is anxious and active at the same time she has a lot of trouble with it, sometimes it seems to be fairly brief which would suggest that it is angina. It could be she has both and cannot distinguish. She did not have any discomfort today but she had it yesterday which might fit her enzyme pattern being ischemic. Today she feels better. Physical Exam Physical Exam: Constitutional: Alert, cooperative and in no distress. She is resting supine in bed. HEENT: Unremarkable Neck: No jugular venous distention, carotid pulses are normal and equal bilaterally without bruits. Pulmonary: Expiratory wheeze bilaterally. Cardiac: Regular rhythm with no murmur, gallop or rub. Abdomen: Soft, nontender with normal bowel sounds. Extremities: No edema. Neurologic: No focal findings. G Skin: No rash, ecchymoses or petechiae. Results & Data Vital Signs (Past 12 Hours) Vital Signs Temp Pulse Resp BP Pulse Ox O2 Del Method O2 Flow Rate 02/19/25 12:38 36.6 C 75 19 123/71 95 Room Air 02/19/25 07:50 Room Air 02/19/25 07:49 36.4 C L 83 22 104/55 L 93 Room Air 02/19/25 07:05 78 16 96 Nasal Cannula 2 Laboratory Results Cardiac Enzymes 02/19/25 Range/Units 04:35 Troponin I High Sens 3199.6 H* D (0-14) pg/ml Comprehensive Metabolic Panel 02/19/25 Range/Units 04:35 Sodium 140 (136-145) mmol/L Potassium 3.7 (3.5-5.1) mmol/L Chloride 101 (98-107) mmol/L Carbon Dioxide 32 (21-32) mmol/L BUN 26 H (6-23) mg/dl Creatinine 1.15 (0.6-1.2) mg/dl Glucose 93 (70-99(Fasting)) mg/dl Calcium 8.6 (8.6-10.3) mg/dl Intake and Output 02/18/25 02/19/25 02/19/25 22:59 06:59 14:59 Intake Total 0 / 260 60 / 260 180 / 180 Output Total 300 / 500 700 / 700 Balance 0 / -240 -240 / -240 -520 / -520 Intake: IV 0 / 0 Norepinephrine/D5w 4 mg In 250 0 / 0 ml @ 0 MCG/KG/MIN IV .Q0M [facility] Rx#:[id number] Oral 60 / 260 180 / 180 Output: Urine 300 / 300 700 / 700 Other: # Unmeasured Voids 1 Diagnostic Findings Telemetry: Sinus rhythm, no significant arrhythmia PG Care Time/CCT Total # of Minutes Spent Total Time Spent with Patient: Total time spent is greater than 50% in coordination of care (as documented) at patient's floor/unit and/or counseling patient: Coding Level of Care Code 06407 CRITICAL CARE EA ADD 30M Diagnoses Chest pain R07.9 NSTEMI (non-ST elevated myocardial infarction) I21.4 Acute heart failure with preserved ejection fraction (HFpEF) I50.31 Time Spent (min) 90
--- NOTE | 2025-02-19 16:52 | Hospitalist Progress Note ---
Date of Service February 19, 2025 Assessment & Plan (1) Acute respiratory failure with hypoxia and hypercapnia: (2) Acute heart failure with preserved ejection fraction (HFpEF): (3) Flash pulmonary edema: (4) Elevated troponin: (5) NSTEMI (non-ST elevated myocardial infarction): (6) Mesenteric artery stenosis: (7) Chronic intermittent abdominal pain: (8) Acute metabolic encephalopathy: (9) COPD (chronic obstructive pulmonary disease): (10) Hypomagnesemia: (11) Peripheral vascular disease: (12) Tobacco use: (13) Stenosis of both subclavian arteries: (14) Hx of carotid stenosis: (15) Hypothyroidism: (16) Hypertension: (17) Hyperlipidemia: (18) History of uterine cancer: (19) GERD (gastroesophageal reflux disease): (20) Chronic kidney disease, stage III (moderate): (21) History of parotid gland removal: Plan 79yo female with long-standing tobacco dependence, hypothyroidism, uterine cancer 2006, childhood asthma/current COPD, CKD stage 3a, known subclavian artery stenosis, h/o carotid stenosis s/p CEA on right, and 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 Patient's respiratory distress escalated significantly and rapidly while in the ER ultimately requiring intubation & mechanical ventilation. Imaging c/w pulmonary edema. #acute respiratory failure with hypoxia & hypercapnia - fully resolved - -suspect multifactorial - pulmonary edema/acute CHF +/- COPD exacerbation; no evidence of PE on CTA chest; infectious process (pneumonia, etc) not suspected -s/p intubation/mech ventilation 02/16; extubated 02/17 AM -cont diuresis with lasix 20mg daily -cont bronchodilators -remains on tapering steroids - prednisone 20mg/day; cut to 10mg/day tomorrow -remains on azithromycin - day #4 of 5 -I believe the main component of her resp failure was due to pulmonary edema - see below #recurrent, intermittent abdominal pain - -episodes present for months -not always related to eating/drinking; some episodes occur randomly -severe; typically present in the epigastric region; "twisting" sensation in the abdomen per patient; pain radiates up the center of chest to the throat, and then has a "burning" sensation -she had continuous upper abd pain the AM of admission which persisted until she came to the hospital; she had florid resp failure in the midst of this pain event -symptoms cont to reoccur despite use of antacids; she does not have a gall bladder -could be due to mesenteric ischemia; could be atypical angina/ischemic; could be gastritis/GERD/PUD --- latter least favored -CTA abd/pelvis -- all 3 mesenteric arteries have significant stenoses -I messaged Dr Ward from vascular surgery who sees her in clinic for previous carotid disease, subclavian artery stenosis, etc. -he briefly looked at CTA - he advised f/u with him in clinic to discuss this further; likely not the main cause of her abdominal pain -troponin was markedly elevated near 8000 - see below -EGD 2021 with gastritis - placed on PPI this admission -added carafate QID due to recurrent symptoms; tums prn also available to her -of note - lipase and LFTs wnl -strongly consider additional cardiac w/u -NUMEROUS CAD risk factors - tobacco, strong famhx (mother with CABG), HTN, known PAD (carotids, subclavian, mesenterics, etc), etc. -see below #elevated troponin / NSTEMI - -ACS on hospital day #1 suspected -troponin repeated today - it is coming down albeit very slowly; this fits more so with ACS rather than myocardial demand ischemia -echo with normal EF and normal LV wall motion -initial troponin was 572; peak troponin - 7389 -she has Q waves inferiorly and anteriorly on her EKG -cont aspirin 81mg daily -cont crestor 40mg daily -this AM I had a lengthy discussion with Dr Pitts from [facility] [place] [facility] -in light of her numerous CAD risk factors, her presentation ("abdominal pain" lasting hours followed by respiratory distress and flash pulmonary edema leading to intubation), slowly decreasing troponin, EKG findings, etc we are both concerned her presentation was c/w ACS -Dr Pitts to see today and discuss possible heart cath early this week -if any recurrent chest/abdominal symptoms would start low-dose heparin drip -ideally she take a beta anand but uncertain her BP could tolerate; hold for now but at some point try to introduce #acute HFpEF - -imaging and admit exam c/w pulmonary edema/volume overload -improved s/p multiple doses of IV lasix with marked improvement in volume status & respiratory status; extubated from the critical [facility] hospital day #2 -echo with preserved EF & normal LV wall motion -BMP stable -cont lasix 20mg po daily -BMP am #?infectious bronchitis/pneumonia? - -low suspicion of such but finish course of azithromycin, day #4 of 5 today, to be on safe side -no evidence of pneumonia, however #acute metabolic encephalopathy - -2nd to hypoxia, hypercapnia, possible pneumonia/bronchitis, etc. -resolved #COPD with exacerbation - -bronchodilators + systemic steroids +antibiotics -resolved -wean steroids to 10mg/day, finish 5-day azithromycin course #GERD/history of gastritis/history of hiatal hernia - -cont PPI -cont carafate QID -tums prn #hypomagnesemia - -severe, level 1 at presentation -s/p replacement with IV mag; mag level now wnl -etiology? 2nd to poor oral intake at home? chronic PPI use? other? -repeat mag am #h/o HTN - -all anti-hypertensives on hold including indapamide, verapamil -"low" BPs in arms may be due to subclavian artery stenosis #DVT Proph - -lovenox 40mg daily #CKD stage 3a - -daily BMP #hypothyroidism - -TSH 2.4 in January -cont synthroid #tobacco dependence - -offered nicoderm patch - patient declined such -student financial services counselor to quit #polycythemia - -likely 2nd to chronic hypoxia from tobacco use/COPD -h/h stable since her admission CBC #PAD/history of carotid stenosis/history of subclavian artery stenosis - -BPs may not be reliable in either arm due to subclavian artery stenosis -art line indeed was giving readings 20+ points better than automatic BP cuff -is now on midodrine TID; try to wean this off by hospital discharge; cut to 2.5mg TID -then try holding tomorrow #LLL pulmonary nodule - -given long-standing tobacco use will need f/u CT scan in the next few months for stability -5mm in size PT, OT evals rehab needed? family EXTENSIVELY updated at bedside 02/18 questions answered lengthy discussion held with Dr Pitts today from cardiology appreciate his assistance Admission and Anticipated Discharge Date Admission Date: February 16, 2025 Subjective patient reports ongoing fatigue she was sitting in the chair when I came to visit her did have "burning throat" last pm; I ordered carafate for her and the symptoms did resolve however, following the throat symptoms, she was "exhausted" in fact, she reports that with her abdominal pain "spells" she is typically exhausted for 3-4 hours following the events denies any dyspnea at rest mild cough tele overnight wnl Review of Systems Review of Systems: cv - no discrete chest pain, no edema pulm - no sputum, mild cough only, no dyspnea at rest; some wheezing GI - no vomiting, no abd pain spells Physical Exam Physical Exam: gen - laying in recliner chair, looks tired, otherwise NAD HENT - MMM neck - no JVD heart - RRR, s1 s2, no obvious murmur lungs - mild wheezes b/l, slight crackle bases, no distress abd - soft NT ND BS+; no HSM vascular - b/l foot pulses 1+; no edema b/l legs; varicose veins b/l legs psych - a/o x 3 Results & Data Results & Data Vital Signs (Past 12 Hours) Vital Signs Temp Pulse Resp BP Pulse Ox O2 Del Method O2 Flow Rate 02/19/25 12:38 36.6 C 75 19 123/71 95 Room Air 02/19/25 07:50 Room Air 02/19/25 07:49 36.4 C L 83 22 104/55 L 93 Room Air 02/19/25 07:05 78 16 96 Nasal Cannula 2 Laboratory Results Laboratory Results - last 24 hr 02/19/25 02/19/25 02/19/25 04:35 07:24 11:33 Sodium 140 Potassium 3.7 Chloride 101 Carbon Dioxide 32 Anion Gap 7 BUN 26 H Creatinine 1.15 Est Cr Clr Drug Dosing 45.3 eGFR 48.76 BUN/Creatinine Ratio 22.6 H Glucose 93 POC Glucose 85 85 Calcium 8.6 Magnesium Troponin I High Sens 3199.6 H* D PG Care Time/CCT Total # of Minutes Spent Total Time Spent with Patient: Total time spent is greater than 50% in coordination of care (as documented) at patient's floor/unit and/or counseling patient: Coding Level of Care Code 38381 SUB INP/OBS CARE 3/50MIN Diagnoses Acute respiratory failure with hypoxia and hypercapnia J96.01; J96.02 Acute heart failure with preserved ejection fraction (HFpEF) I50.31 Flash pulmonary edema J81.0 Elevated troponin R79.89 NSTEMI (non-ST elevated myocardial infarction) I21.4 Mesenteric artery stenosis K55.1 Chronic intermittent abdominal pain R10.9; G89.29 Acute metabolic encephalopathy G93.41 COPD (chronic obstructive pulmonary disease) J44.9 Hypomagnesemia E83.42 Peripheral vascular disease I73.9 Tobacco use Z72.0 Stenosis of both subclavian arteries I70.8 Hx of carotid stenosis Z86.79 Hypothyroidism, unspecified type E03.9 Hypothyroidism type: unspecified Essential hypertension I10 Hypertension type: essential hypertension Mixed hyperlipidemia E78.2 Hyperlipidemia type: mixed hyperlipidemia History of uterine cancer Z85.42 GERD (gastroesophageal reflux disease) K21.9 Chronic kidney disease, stage III (moderate) N18.3 History of parotid gland removal Z90.49 (15) Hypothyroidism Hypothyroidism type: unspecified Qualified Code(s): E03.9 - Hypothyroidism, unspecified (16) Hypertension Hypertension type: essential hypertension Qualified Code(s): I10 - Essential (primary) hypertension (17) Hyperlipidemia Hyperlipidemia type: mixed hyperlipidemia Qualified Code(s): E78.2 - Mixed hyperlipidemia
[2025-02-20 04:45] LABS: Anion Gap 7.0 (3-11); Blood Urea Nitrogen 28.0 mg/dl (6-23); Calcium 8.8 mg/dl (8.6-10.3); Carbon Dioxide 29.0 mmol/L (21-32); Chloride 100.0 mmol/L (98-107); Creatinine Clr Calc Pharmacy 48.7 ml/min; Glucose 85.0 mg/dl (70-99(Fasting)); Magnesium 1.7 mg/dl (1.7-2.4); Potassium 3.9 mmol/L (3.5-5.1); Sodium 136.0 mmol/L (136-145)
--- NOTE | 2025-02-20 14:39 | Cardiology Progress Note ---
Date of Service February 20, 2025 Assessment & Plan (1) Chest pain: (2) NSTEMI (non-ST elevated myocardial infarction): (3) Acute heart failure with preserved ejection fraction (HFpEF): Plan 1. Chest pain: Her chest pain is hard to interpret, it has characteristics of both angina and reflux, but I am leaning toward a lot of it being anginal. She has coronary calcifications consistent with coronary artery disease and her electrocardiogram on presentation suggests ischemia as well as her enzyme pattern, now she appears to have an inferior and anterior infarct pattern which is new the last year. I think we need to assume that her chest discomfort is at least in part ischemic. She has not had it for several days which may mean that she infarcted. 2. NSTEMI: On presentation she had a mildly elevated troponin which increased significantly and has now dropped down somewhat. The pattern is consistent with injury, it is possible it is simply demand ischemia in the setting of coronary artery disease but I think we need to characterize her coronary arteries and make sure she does not have unstable plaque. May have infarcted a vessel, her electrocardiographic changes are very worrisome. I discussed invasive evaluation with her, her and her daughter yesterday and I reviewed it again today with the patient and they all agree therefore I will plan on catheterization on Friday. 3. CHF: Her respiratory arrest seems at least in part due to congestive heart failure however her chest x-ray never showed severe findings, it may well be that she had "flash pulmonary edema" from quite severe disease, possibly right coronary artery occlusion and left main disease or something equivalent which could be very risky. I think we need to define her coronary anatomy. She seems to be out of her heart failure currently. Admission and Anticipated Discharge Date Admission Date: February 16, 2025 Subjective She is feeling well today with no cardiovascular symptoms. No recurrent chest discomfort, she has been out of bed. She is in good spirits. Physical Exam Physical Exam: Constitutional: Alert, cooperative and in no distress. She is resting supine in bed. HEENT: Unremarkable Neck: No jugular venous distention, carotid pulses are normal and equal bilaterally without bruits. Pulmonary: Lungs are clear bilaterally. Cardiac: Regular rhythm with no murmur, gallop or rub. Abdomen: Soft, nontender with normal bowel sounds. Extremities: No edema. Neurologic: No focal findings. Skin: No rash, ecchymoses or petechiae. Results & Data Vital Signs (Past 12 Hours) Vital Signs Temp Pulse Pulse Pulse Resp BP Pulse Ox 02/20/25 11:23 36.5 C 92 H 16 146/86 H 95 02/20/25 08:10 36.6 C 76 16 124/66 96 02/20/25 07:45 02/20/25 07:14 69 02/20/25 07:13 81 18 92 O2 Del Method 02/20/25 11:23 Room Air 02/20/25 08:10 Room Air 02/20/25 07:45 Room Air 02/20/25 07:14 02/20/25 07:13 Room Air Laboratory Results Comprehensive Metabolic Panel 02/20/25 Range/Units 04:12 Sodium 136 (136-145) mmol/L Potassium 3.9 (3.5-5.1) mmol/L Chloride 100 (98-107) mmol/L Carbon Dioxide 29 (21-32) mmol/L BUN 28 H (6-23) mg/dl Creatinine 1.07 (0.6-1.2) mg/dl Glucose 85 (70-99(Fasting)) mg/dl Calcium 8.8 (8.6-10.3) mg/dl Intake and Output 02/19/25 02/20/25 02/20/25 22:59 06:59 14:59 Intake Total 60 / 240 440 / 440 Output Total 350 / 1050 151 / 151 Balance -350 / -810 60 / -810 289 / 289 Intake: Oral 60 / 240 440 / 440 Output: Urine 350 / 1050 150 / 150 # Bowel Movements / Other: # Unmeasured Voids 2 3 Diagnostic Findings Telemetry: Sinus rhythm, no significant arrhythmia Yesterday's electrocardiogram shows sinus rhythm at 75 bpm with an inferior myocardial infarction and an anterior myocardial infarction by ECG criteria, new since January 2024 and consistent with her recent ST elevation. PG Care Time/CCT Total # of Minutes Spent Total Time Spent with Patient: Total time spent is greater than 50% in coordination of care (as documented) at patient's floor/unit and/or counseling patient: Coding Level of Care Code 82477 SUB INP/OBS CARE 3/50MIN Diagnoses Chest pain R07.9 NSTEMI (non-ST elevated myocardial infarction) I21.4 Acute heart failure with preserved ejection fraction (HFpEF) I50.31
--- NOTE | 2025-02-20 16:38 | Electrocardiogram Report ---
Test Reason : Blood Pressure : */* mmHG Vent. Rate : 75 BPM Atrial Rate : 75 BPM P-R Int : 208 ms QRS Dur : 76 ms QT Int : 374 ms P-R-T Axes : 73 -23 104 degrees QTcB Int : 417 ms Normal sinus rhythm with sinus arrhythmia Minimal voltage criteria for LVH, may be normal variant ( [place] product ) Inferior infarct (cited on or before 16-Feb-2025) Anterior infarct (cited on or before 16-Feb-2025) Abnormal ECG When compared with ECG of 17-Feb-2025 01:08, DE interval has decreased Serial changes of evolving Inferior infarct and anterior infarct Confirmed by Je Pitts ([id number]) on 02/20/2025 4:38:18 PM Referred By: REFERRED SELF Confirmed By: Je Pitts
--- NOTE | 2025-02-20 17:46 | Hospitalist Progress Note ---
Date of Service February 20, 2025 Assessment & Plan (1) Acute respiratory failure with hypoxia and hypercapnia: (2) Acute heart failure with preserved ejection fraction (HFpEF): (3) Flash pulmonary edema: (4) NSTEMI (non-ST elevated myocardial infarction): (5) Elevated troponin: (6) Mesenteric artery stenosis: (7) Chronic intermittent abdominal pain: (8) Acute metabolic encephalopathy: (9) COPD (chronic obstructive pulmonary disease): (10) Hypomagnesemia: (11) Peripheral vascular disease: (12) Tobacco use: (13) Stenosis of both subclavian arteries: (14) Hx of carotid stenosis: (15) Hypothyroidism: (16) Hypertension: (17) Hyperlipidemia: (18) History of uterine cancer: (19) GERD (gastroesophageal reflux disease): (20) Chronic kidney disease, stage III (moderate): (21) History of parotid gland removal: Plan 79yo female with long-standing tobacco dependence, hypothyroidism, uterine cancer 2006, childhood asthma/current COPD, CKD stage 3a, known subclavian artery stenosis, h/o carotid stenosis s/p CEA on right, and 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 Patient's respiratory distress escalated significantly and rapidly while in the ER ultimately requiring intubation & mechanical ventilation. Imaging c/w pulmonary edema. #acute respiratory failure with hypoxia & hypercapnia - resolved - -suspect multifactorial - pulmonary edema/acute CHF +/- COPD exacerbation; no evidence of PE on CTA chest; infectious process (pneumonia, etc) not suspected -s/p intubation/mech ventilation 02/16; extubated 02/17 AM -cont diuresis with lasix 20mg daily -cont bronchodilators -remains on tapering steroids - cut prednisone to 10mg/day -remains on azithromycin - today is day #5 of 5 -stop abx after today's dose -I believe the main component of her resp failure was due to pulmonary edema - see below #elevated troponin / NSTEMI - -ACS on hospital day #1 suspected -initial troponin was 572; peak troponin - 7389 -troponin repeated 02/19 - still elevated at 3199 but slowly coming down; this fits more so with ACS rather than myocardial demand ischemia -echo with normal EF and normal LV wall motion -she has Q waves inferiorly and anteriorly on her EKG -cont aspirin 81mg daily -cont crestor 40mg daily -consider low-dose beta anand if BPs will allow -lengthy discussion with Dr Pitts from [facility] on 02/19 -in light of her numerous CAD risk factors (tobacco, strong famhx - mother with CABG, HTN, known PAD), her presentation ("abdominal pain" lasting hours followed by respiratory distress and flash pulmonary edema leading to intubation), slowly decreasing troponin, EKG findings, etc we are both concerned her presentation was c/w ACS -Dr Pitts advising L heart cath - plan to 02/21; NPO after MN tonight -if any recurrent chest/abdominal symptoms would start low-dose heparin drip #acute HFpEF - -imaging and admit exam c/w pulmonary edema/volume overload -resolved s/p multiple doses of IV lasix with marked improvement in volume status & respiratory status; extubated from the [facility] day [facility]2 -echo with preserved EF & normal LV wall motion -BMP stable -cont lasix 20mg po daily -BMP again in am #recurrent, intermittent abdominal pain - -episodes present for months -not always related to eating/drinking; some episodes occur randomly -severe; typically present in the epigastric region; "twisting" sensation in the abdomen per patient; pain radiates up the center of chest to the throat, and then has a "burning" sensation -she had continuous upper abd pain the AM of admission which persisted until she came to the hospital; she had florid resp failure in the midst of this pain event -symptoms have continued to reoccur despite use of antacids; she does not have a gall bladder -CTA abd/pelvis -- all 3 mesenteric arteries have significant stenoses -I messaged Dr Ward from vascular surgery who sees her in clinic for previous carotid disease, subclavian artery stenosis, etc. -he briefly looked at CTA - he advised f/u with him in clinic to discuss this further; likely not the main cause of her abdominal pain -troponin was markedly elevated near 8000 -EGD 2021 with gastritis - -placed on PPI this admission -added carafate QID due to recurrent symptoms; tums prn also available to her -of note - lipase and LFTs wnl -at this point we are concerned that these abdominal pain episodes are atypical angina -to director of cath lab tomorrow for L heart cath; NPO after MN tonight #?infectious bronchitis/pneumonia? - -low suspicion of such but finish course of azithromycin, day #5 of 5 today, to be on safe side -no evidence of pneumonia clinically or radiographically #acute metabolic encephalopathy - resolved -2nd to hypoxia, hypercapnia, possible pneumonia/bronchitis, etc. #COPD with exacerbation - -bronchodilators + systemic steroids +antibiotics -resolved -wean steroids to 10mg/day today, finish 5-day azithromycin course today #GERD/history of gastritis/history of hiatal hernia - -cont PPI -cont carafate QID -tums prn #hypomagnesemia - -severe, level 1 at presentation -s/p replacement with IV mag; mag level now wnl -etiology? 2nd to poor oral intake at home? chronic PPI use? other? -repeat mag today wnl #h/o HTN - -all anti-hypertensives on hold including indapamide, verapamil -"low" BPs in arms may be due to subclavian artery stenosis #DVT Proph - -lovenox 40mg daily #CKD stage 3a - -daily BMP #hypothyroidism - -TSH 2.4 in January -cont synthroid #tobacco dependence - -director of group counseling program to quit #polycythemia - -likely 2nd to chronic hypoxia from tobacco use/COPD -h/h stable since her admission CBC #PAD/history of carotid stenosis/history of subclavian artery stenosis - -BPs may not be reliable in either arm due to subclavian artery stenosis -art line indeed was giving readings 20+ points better than automatic BP cuff -try holding midodrine today #LLL pulmonary nodule - -given long-standing tobacco use will need f/u CT scan in the next few months for stability -5mm in size PT, OT evals completed; rehab not needed family EXTENSIVELY updated at bedside 02/18 updated 02/20 by phone care d/w Dr Pitts today from cardiology appreciate his assistance Admission and Anticipated Discharge Date Admission Date: February 16, 2025 Subjective tele overnight wnl no dyspnea, SCHNEIDER, chest pain, "twisting abd pain" episodes, nausea or emesis walked around the ICU today w/o limitation some fatigue, but otherwise feeling good she is anxious about the heart cath tomorrow Review of Systems Review of Systems: CV - no orthopnea, no edema pulm - minimal cough, minimal wheeze GI - no reflux symptoms today; no N/V Physical Exam Physical Exam: gen - laying in bed comfortably; best she has looked since admission; NAD HENT - MMM neck - no JVD heart - RRR, s1 s2, no obvious murmur lungs - minimal wheezes b/l, no rales, no distress abd - soft NT ND BS+; no HSM vascular - b/l foot pulses 1-2+; no edema b/l legs; varicose veins b/l legs psych - a/o x 3 Results & Data Results & Data Vital Signs (Past 12 Hours) Vital Signs Temp Pulse Pulse Pulse Resp BP Pulse Ox 02/20/25 15:21 36.5 C 80 18 124/70 92 02/20/25 14:54 76 02/20/25 11:23 36.5 C 92 H 16 146/86 H 95 02/20/25 08:10 36.6 C 76 16 124/66 96 02/20/25 07:45 02/20/25 07:14 69 02/20/25 07:13 81 18 92 O2 Del Method 02/20/25 15:21 Room Air 02/20/25 14:54 02/20/25 11:23 Room Air 02/20/25 08:10 Room Air 02/20/25 07:45 Room Air 02/20/25 07:14 02/20/25 07:13 Room Air Laboratory Results Laboratory Results - last 24 hr 02/19/25 02/20/25 02/20/25 20:14 04:12 07:17 Sodium 136 Potassium 3.9 Chloride 100 Carbon Dioxide 29 Anion Gap 7 BUN 28 H Creatinine 1.07 Est Cr Clr Drug Dosing 48.7 eGFR 53.17 BUN/Creatinine Ratio 26.2 H Glucose 85 POC Glucose 94 84 Calcium 8.8 Magnesium 1.7 02/20/25 02/20/25 11:22 16:14 Sodium Potassium Chloride Carbon Dioxide Anion Gap BUN Creatinine Est Cr Clr Drug Dosing eGFR BUN/Creatinine Ratio Glucose POC Glucose 106 H 101 H Calcium Magnesium PG Care Time/CCT Total # of Minutes Spent Total Time Spent with Patient: Total time spent is greater than 50% in coordination of care (as documented) at patient's floor/unit and/or counseling patient: Coding Level of Care Code 23746 SUB INP/OBS CARE 2/35MIN Diagnoses Acute respiratory failure with hypoxia and hypercapnia J96.01; J96.02 Acute heart failure with preserved ejection fraction (HFpEF) I50.31 Flash pulmonary edema J81.0 NSTEMI (non-ST elevated myocardial infarction) I21.4 Elevated troponin R79.89 Mesenteric artery stenosis K55.1 Chronic intermittent abdominal pain R10.9; G89.29 Acute metabolic encephalopathy G93.41 COPD (chronic obstructive pulmonary disease) J44.9 Hypomagnesemia E83.42 Peripheral vascular disease I73.9 Tobacco use Z72.0 Stenosis of both subclavian arteries I70.8 Hx of carotid stenosis Z86.79 Hypothyroidism, unspecified type E03.9 Hypothyroidism type: unspecified Essential hypertension I10 Hypertension type: essential hypertension Mixed hyperlipidemia E78.2 Hyperlipidemia type: mixed hyperlipidemia History of uterine cancer Z85.42 GERD (gastroesophageal reflux disease) K21.9 Chronic kidney disease, stage III (moderate) N18.3 History of parotid gland removal Z90.49 (15) Hypothyroidism Hypothyroidism type: unspecified Qualified Code(s): E03.9 - Hypothyroidism, unspecified (16) Hypertension Hypertension type: essential hypertension Qualified Code(s): I10 - Essential (primary) hypertension (17) Hyperlipidemia Hyperlipidemia type: mixed hyperlipidemia Qualified Code(s): E78.2 - Mixed hyperlipidemia
[2025-02-21 04:40] LABS: Anion Gap 10.0 (3-11); Blood Urea Nitrogen 27.0 mg/dl (6-23); Calcium 9.1 mg/dl (8.6-10.3); Carbon Dioxide 30.0 mmol/L (21-32); Chloride 101.0 mmol/L (98-107); Creatinine Clr Calc Pharmacy 41.7 ml/min; Glucose 86.0 mg/dl (70-99(Fasting)); Potassium 4.0 mmol/L (3.5-5.1); Sodium 141.0 mmol/L (136-145)
--- NOTE | 2025-02-21 08:27 | Pre Anesthesia Assessment ---
Date of Service February 21, 2025 Pre Sedation Assessment Vital Signs Temp Pulse Pulse Pulse Resp BP BP 02/21/25 07:22 84 15 117/94 02/21/25 07:08 36.6 C 92 H 18 151/90 H 02/21/25 07:00 02/21/25 06:56 77 17 02/21/25 06:55 92 H 02/21/25 04:50 36.6 C 83 83 18 128/71 128/71 02/20/25 21:04 36.9 C 76 76 23 119/71 119/71 02/20/25 20:00 02/20/25 19:29 70 18 02/20/25 15:21 36.5 C 80 18 124/70 02/20/25 14:54 76 02/20/25 11:23 36.5 C 92 H 16 146/86 H Pulse Ox O2 Del Method 02/21/25 07:22 97 Room Air 02/21/25 07:08 97 Room Air 02/21/25 07:00 Room Air 02/21/25 06:56 94 Room Air 02/21/25 06:55 02/21/25 04:50 95 Room Air 02/20/25 21:04 94 Room Air 02/20/25 20:00 Room Air 02/20/25 19:29 95 Room Air 02/20/25 15:21 92 Room Air 02/20/25 14:54 02/20/25 11:23 95 Room Air Cardiovascular RRR, no murmur, no edema Respiratory Additional Comments: CTAB poor air movement Pre-Sedation Airway Assessment Smoking Status: Current every day smoker Short, Thick Neck: Yes Thyromental Distance: > or= 3.5 Finger Breadths Oral Cavity: + Dentures Mallampati Class: III ASA: ASA4 NPO Status Date of Last Intake of Fluids: 02/20/25 Time of Last Intake of Fluids: 20:00 Date of Last Intake of Solid Food: 02/20/25 Time of Last Intake of Solid Foods: 20:00 Notes The planned sedation has been discussed with the patient. Informed Consent was obtained. I have identified the patient, determined the appropriateness of sedation and have assessed the patient immediately prior to the procedure. All medicine(s) and interventions are by my order.
[2025-02-21] MEDS: MIDAZOLAM HCL 1 MG/ML 2ML VIAL ONE (09:13)
[2025-02-21] MEDS: NITROGLYCERIN/D5W 100MCG/ML 20ML SYR ONE (09:13)
[2025-02-21] MEDS: HEPARIN (PORCINE) 1000 UNIT/ML 10 ML (CATH LAB USE ONLY) ONE (09:13)
[2025-02-21] MEDS: niCARdipine 2,000 MCG/20 ML SYR ONE (09:13)
[2025-02-21] MEDS: OPTIRAY 350 ONE (09:14)
[2025-02-21] MEDS: IODIXANOL (VISIPAQUE) 320 MG/ML 100ML IV ONE (09:14)
[2025-02-21] MEDS: diphenhydrAMINE 50 MG/ML VIAL ONE (09:14)
--- NOTE | 2025-02-21 09:15 | Post Anesthesia Assessment ---
Date of Service February 21, 2025 Post Sedation Assessment Vital Signs Temp Pulse Pulse Pulse Resp BP BP 02/21/25 07:22 84 15 117/94 02/21/25 07:08 36.6 C 92 H 18 151/90 H 02/21/25 07:00 02/21/25 06:56 77 17 02/21/25 06:55 92 H 02/21/25 04:50 36.6 C 83 83 18 128/71 128/71 02/20/25 21:04 36.9 C 76 76 23 119/71 119/71 02/20/25 20:00 02/20/25 19:29 70 18 02/20/25 15:21 36.5 C 80 18 124/70 02/20/25 14:54 76 02/20/25 11:23 36.5 C 92 H 16 146/86 H Pulse Ox O2 Del Method 02/21/25 07:22 97 Room Air 02/21/25 07:08 97 Room Air 02/21/25 07:00 Room Air 02/21/25 06:56 94 Room Air 02/21/25 06:55 02/21/25 04:50 95 Room Air 02/20/25 21:04 94 Room Air 02/20/25 20:00 Room Air 02/20/25 19:29 95 Room Air 02/20/25 15:21 92 Room Air 02/20/25 14:54 02/20/25 11:23 95 Room Air Recovery Score Activity: Moves 4 extremities Respiration: Deep Breath/Cough Circulation: +/-20% PreAnes Value Consciousness: Fully Awake Oxygen Saturation: O2 needed for >90% Discharge Sedation Level of Care: Fast Track Phase II Post Sedation Plan On clinical assessment, the patient appears to have tolerated the sedation without complications. Patient is recovering as anticipated. Patient will continue to be monitored by nursing and may be discharged when sedation discharge criteria are met per below protocol. Upon Completions of procedure up to 15 minutes continue every 5 minute vital signs and the P.A.R. score; then discharge to a Phase I or Fast Track to Phase II per the following guidelines: * Discharge Patient to appropriate Phase II area if PAR is 8 or greater or return to pre- procedure baseline. The post - procedure orders will be as directed. * If PAR score is less than 8 or not return to pre-procedure baseline then patient will follow Phase I monitoring till PAR is reached for Phase II. The Phase I may be done in procedure room or may call to secure a Phase I area. * If naloxone or flumazenil are used for reversal, hold in Phase I for continued monitoring from when last reversal dose was given for a minimum of 60 minutes or longer pending the nurse and/or physician discretion of patient condition before discharge to Phase II. Please call the Sedation Physician to re-evaluate and complete post-note for discharge to Phase II area. Do NOT discharge from procedure sedation or Phase 1 until post- sedation evaluation note is complete by procedure /sedation MD Sedation Discharge Instructions to be given to the patient at discharge to home. [facility] Procedure Codes (Charges) Indication for Procedure Indication for procedure: NSTEMI Congestive heart failure Sedation/Anesthesia Procedure 1: Sedation/Anesthesia: 75949 Mod Sedation by the same physician;Init15 Min Child Age 5 & Up (Initial 15 minutes, start time 0855) Total Sedation Time (minutes): 18 Procedure 2: Sedation/Anesthesia: 43903 Mod Sedation by the same physician; Ea [id number] Minutes (Additional 3 minutes, end time 0913) Total Sedation Time (minutes): 18
--- NOTE | 2025-02-21 15:38 | Cardiac Catheterization ---
[facility] Data: Lever Tender Cardiac Status Clinical evaluation leading to the procedure CAD Presenation: Non STEMI Anginal Classification: CCS IV (Dyspnea) Heart Failure: NYHA Class: CCS IV Cardiogenic Shock within 24 Hours: No Cardiac Arrest within 24 Hours: No Imaging Studies Past 6 Months: Yes Stress Studies Past 6 Months: No Coronary Anatomy Dominant: Right Left Main (% Stenosis): Mid (30 to 40%) and Distal (70 to 80%) LAD (% Stenosis): Ostial (90%) and Proximal (100%) D1 (% Stenosis): Normal D2 (% Stenosis): Normal Circumflex (% Stenosis): Ostial (80 to 90%) RCA (% Stenosis): Proximal (70 to 80%), Mid (30 to 40%) and Distal (30%) R PDA (% Stenosis): Normal R PL1 (% Stenosis): Proximal (80 to 90%) Ramus (% Stenosis): Normal (Diffuse mild less than 40%) Diagnostic Physicians Name: Kimo Espinoza MD, PhD Closure Device Percutaneous Entry Location: Radial Closure Device: Radial Band Recommendations: Medical Therapy and/or Counseling and CABG Cardiac Cath Procedure Full Procedure Date February 21, 2025 Pre-Procedure Diagnosis Pre-Procedure Diagnosis: Non STEMI AUC Score AUC Score: 08 Post-Procedure Diagnosis Post-Procedure Diagnosis: Severe CAD Procedure(s) Performed Procedure(s) Performed: Coronary Angiography Air Pumper Kimo Espinoza MD, PhD Estimated Blood Loss Estimated Blood Loss: Less than 5 cc Medication(s) Medication(s): Diphenhydramine, Fentanyl, Heparin, Lidocaine 1%, Nicardipine, Nitroglycerin and Versed Summary of Findings Brief description: Patient was brought to the cardiac catheterization suite where she was shaved and prepped in a sterile fashion. Sedated using IV Versed, Benadryl, and fentanyl. Soft tissues of the right wrist were anesthetized using 2 mL of 1% Xylocaine. The right radial artery was accessed with a modified Seldinger technique and a 6 Irish radial artery glide sheath was placed. Patient was provided anticoagulation with IV heparin and antispasmodics including nicardipine and nitroglycerin. All catheters were advanced and exchanged over a 0.035 J-tip wire. Left coronary angiography was performed in orthogonal views with a 5 Irish JL 3.5 diagnostic catheter. Right coronary angiography was performed in orthogonal views a 5 Irish [place] 4 diagnostic catheter. All catheters were removed. Radial artery sheath was removed. Hemostasis was obtained using a TR band. Patient was hemodynamically stable and asymptomatic. She was returned to the recovery area. This ended the case. Coronary angiography findings: [id number] vessel trifurcating into LAD, circumflex, and ramus. There is diffuse disease with mid up to 30 to 40% stenosis and distal 70 to 80% stenosis extending into the LAD and circumflex. [id number] and transapical vessel. Ostial 90% stenosis. There is 100% occlusion after the large septal branch. The mid and distal LAD fills via right to left and left to left collateralization. D1 and D2 are long. LCx-medium caliber. Ostial 80 to 90% stenosis. There are no obtuse marginal branches noted. There may be a single OM which partially fills late via collateralization. Ramus-this is large and branching. Proximally there is diffuse mild disease. RCA-this is large caliber and dominant. Proximal 70 to 80% stenosis. Mid vessel with scattered 30 to 40% stenosis and then a focal distal stenosis of 30%. RCA branches into a large PLB and large PDA. PLB has proximal 80 to 90% complex stenosis. The PDA has no significant disease. There are right to left collaterals to the LAD. Summary: 1. Severe chronic multivessel coronary artery disease. 2. Guideline directed medical therapy for secondary prevention of coronary disease including aspirin, beta-anand, high intensity statin therapy, plus or minus CORAL inhibitor/ARB as tolerated. 3. Recommend referral to tertiary center for complex revascularization (CABG versus staged PCI). Hemodynamics Rest Ao:: 179/75 mmHg Final Ao: 154/68 mmHg LV: Not performed Recommendations Recommendations: Medical Therapy and/or Counseling and CABG Radiation Exposure (mGy) 1009 mGy, fluoroscopy time 2.7 minutes Contrast (mls) 120 cc Anesthesia 2 mg Versed, 50 mcg fentanyl, 25 mg Benadryl IV. Start 08, and 09 Procedural Complication(s) None Disposition Lever Tender Holding/Recovery I attest to the content of the Intraoperative Record and any orders documented therein. Any exceptions are noted below. [place] Card Cath Procedure Codes Cardiac Catheterization Procedure 1: Cardiovascular Cath Procedures: 03282 Coronaries Moderate Sedation Procedure 1: Sedation/Anesthesia: 46209 Mod Sedation by the same physician;Init15 Min Child Age 5 & Up (Initial 15 minutes, start time 0855) Procedure 2: Sedation/Anesthesia: 95190 Mod Sedation by the same physician; Ea [id number] Minutes (Additional 3 minutes, end time 09) PG Care Time/CCT Total # of Minutes Spent Total Time Spent with Patient: Total time spent is greater than 50% in coordination of care (as documented) at patient's floor/unit and/or counseling patient:
--- NOTE | 2025-02-21 19:14 | Hospitalist Progress Note ---
Date of Service February 21, 2025 Assessment & Plan (1) Acute respiratory failure with hypoxia and hypercapnia: (2) Acute heart failure with preserved ejection fraction (HFpEF): (3) Flash pulmonary edema: (4) NSTEMI (non-ST elevated myocardial infarction): (5) CAD (coronary artery disease), burns paiute coronary artery: (6) Mesenteric artery stenosis: (7) Chronic intermittent abdominal pain: (8) Acute metabolic encephalopathy: (9) COPD (chronic obstructive pulmonary disease): (10) Hypomagnesemia: (11) Peripheral vascular disease: (12) Tobacco use: (13) Stenosis of both subclavian arteries: (14) Hx of carotid stenosis: (15) Hypothyroidism: (16) Hypertension: (17) Hyperlipidemia: (18) History of uterine cancer: (19) GERD (gastroesophageal reflux disease): (20) Chronic kidney disease, stage III (moderate): (21) History of parotid gland removal: Plan 79yo female with long-standing tobacco dependence, hypothyroidism, uterine cancer 2006, childhood asthma/current COPD, CKD stage 3a, known subclavian artery stenosis, h/o carotid stenosis s/p CEA on right, and 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 Patient's respiratory distress escalated significantly and rapidly while in the ER ultimately requiring intubation & mechanical ventilation. Imaging c/w pulmonary edema. #acute respiratory failure with hypoxia & hypercapnia - resolved - -2nd to pulmonary edema/acute CHF +/- COPD exacerbation; no evidence of PE on CTA chest; infectious process (pneumonia, etc) not suspected -s/p intubation/mech ventilation 02/16; extubated 02/17 AM -creatinine rising; does not examine in CHF; BPs are soft today; will place lasix on hold -cont bronchodilators -remains on tapering steroids - cont prednisone 10mg/day for 2-3 more days then stop -completed 5 days of azithromycin - now off such #new diagnosis of severe, triple vessel CAD; NSTEMI - -ACS on hospital day #1 suspected -initial troponin was 572; peak troponin - 7389 -troponin repeated 02/19 - still elevated at 3199 but slowly coming down; this fits more so with ACS rather than myocardial demand ischemia -echo with normal EF and normal LV wall motion -she has Q waves inferiorly and anteriorly on her EKG -cont aspirin 81mg daily -cont crestor 40mg daily -consider low-dose beta anand if BPs will allow -s/p left heart cath today by Dr Espinoza - results: ICU-kvcts-iqqhzqj vessel trifurcating into LAD, circumflex, and ramus. There is diffuse disease with mid up to 30 to 40% stenosis and distal 70 to 80% stenosis extending into the LAD and circumflex. KLE-praha-mtamvld and transapical vessel. Ostial 90% stenosis. There is 100% occlusion after the large septal branch. The mid and distal LAD fills via right to left and left to left collateralization. D1 and D2 are long. LCx-medium caliber. Ostial 80 to 90% stenosis. There are no obtuse marginal branches noted. There may be a single OM which partially fills late via collateralization. Ramus-this is large and branching. Proximally there is diffuse mild disease. RCA-this is large caliber and dominant. Proximal 70 to 80% stenosis. Mid vessel with scattered 30 to 40% stenosis and then a focal distal stenosis of 30%. RCA branches into a large PLB and large PDA. PLB has proximal 80 to 90% complex stenosis. The PDA has no significant disease. There are right to left collaterals to the LAD. -will need either CABG or staged PCI -last LDL was 91 in January 2025; is on max dose of crestor; consider adding zetia #acute HFpEF - -imaging and admit exam c/w pulmonary edema/volume overload -resolved s/p multiple doses of IV lasix with marked improvement in volume status & respiratory status; extubated from the [facility] hospital day #2 -echo with preserved EF & normal LV wall motion -BMP stable -cont lasix 20mg today, but looks euvolemic today -in light of contrast load today will hold lasix after today's dose and recheck BMP am #recurrent, intermittent abdominal pain - -episodes present for months -CTA abd/pelvis -- all 3 mesenteric arteries have significant stenoses -I messaged Dr Ward from vascular surgery who sees her in clinic for previous carotid disease, subclavian artery stenosis, etc. -he briefly looked at CTA - he advised f/u with him in clinic to discuss this further; likely not the main cause of her abdominal pain suspect these episodes were angina as she had the same type of abdominal pain on the day of her presentation -although she has h/o gastritis/GERD - given the cath results today - these pains were cardiac in etiology #acute metabolic encephalopathy - resolved -2nd to hypoxia, hypercapnia, possible pneumonia/bronchitis, etc. #COPD with exacerbation - resolved -bronchodilators + systemic steroids +antibiotics -cont prednisone 10mg/day today, then tomorrow, then stop -she is s/p 5-day azithromycin course #GERD/history of gastritis/history of hiatal hernia - -cont PPI -cont carafate QID -tums prn #hypomagnesemia - -severe, level 1 at presentation -s/p replacement with IV mag; mag level now wnl -etiology? 2nd to poor oral intake at home? chronic PPI use? other? -repeat mag in am #h/o HTN - -all anti-hypertensives on hold including indapamide, verapamil -"low" BPs in arms may be due to subclavian artery stenosis -ideally she should be on low-dose metoprolol if BPs will allow #DVT Proph - -lovenox 40mg daily #CKD stage 3a - -daily BMP #hypothyroidism - -TSH 2.4 in January -cont synthroid #tobacco dependence - -family counselor to quit #PAD/history of carotid stenosis/history of subclavian artery stenosis - -BPs may not be reliable in either arm due to subclavian artery stenosis -art line indeed was giving readings 20+ points better than automatic BP cuff -off midodrine #LLL pulmonary nodule - -given long-standing tobacco use will need f/u CT scan in the next few months for stability -5mm in size PT, OT evals completed family EXTENSIVELY updated at bedside 02/18 updated 02/20 by phone and then again at bedside today care d/w Dr Pitts from cardiology [place] correspondence had with Dr Espinoza Admission and Anticipated Discharge Date Admission Date: February 16, 2025 Subjective saw patient post-cath has severe triple-vessel disease including L main disease following the cath she denies any chest pain, right wrist pain, dyspnea, heartburn episodes she is aware of cath results and the need for CT surgery eval at bedside tele overnight wnl is walking to/from bathroom w/o difficulty Review of Systems Review of Systems: gen - feels well overall cv - no orthopnea pulm - minimal cough Physical Exam Physical Exam: gen - laying in bed comfortably; NAD, pleasant HENT - MMM neck - no JVD heart - RRR, s1 s2, no obvious murmur lungs - mild wheezes b/l, no rales, no distress abd - soft NT ND BS+; no HSM vascular - b/l foot pulses 1-2+; no edema b/l legs; varicose veins b/l legs; right radial artery - no ecchymoses, no aneurysm psych - a/o x 3 Results & Data Results & Data Vital Signs (Past 12 Hours) Vital Signs Temp Pulse Pulse Resp BP BP Pulse Ox 02/21/25 16:00 02/21/25 16:00 69 02/21/25 14:30 75 18 89/58 L 93 02/21/25 13:30 79 18 94/60 L 94 02/21/25 13:00 02/21/25 12:30 68 18 95/66 L 94 02/21/25 11:30 36.2 C L 74 18 98/68 L 93 02/21/25 10:30 74 17 114/85 93 02/21/25 10:00 71 17 119/91 97 02/21/25 09:46 66 16 125/84 92 02/21/25 09:31 74 16 103/65 91 02/21/25 07:22 84 15 117/94 97 02/21/25 07:08 36.6 C 92 H 18 151/90 H 97 Pulse Ox O2 Del Method O2 Del Method 02/21/25 16:00 93 Room Air 02/21/25 16:00 02/21/25 14:30 Room Air 02/21/25 13:30 Room Air 02/21/25 13:00 Room Air 02/21/25 12:30 Room Air 02/21/25 11:30 Room Air 02/21/25 10:30 Room Air 02/21/25 10:00 Room Air 02/21/25 09:46 Room Air 02/21/25 09:31 Room Air 02/21/25 07:22 Room Air 02/21/25 07:08 Room Air Laboratory Results Laboratory Results - last 24 hr 02/20/25 02/21/25 02/21/25 20:17 04:01 12:26 Sodium 141 Potassium 4.0 Chloride 101 Carbon Dioxide 30 Anion Gap 10 BUN 27 H Creatinine 1.25 H Est Cr Clr Drug Dosing 41.7 eGFR 44.12 BUN/Creatinine Ratio 21.6 H Glucose 86 POC Glucose 81 138 H Calcium 9.1 PG Care Time/CCT Total # of Minutes Spent Total Time Spent with Patient: Total time spent is greater than 50% in coordination of care (as documented) at patient's floor/unit and/or counseling patient: Coding Level of Care Code 31733 SUB INP/OBS CARE 2/35MIN Diagnoses Acute respiratory failure with hypoxia and hypercapnia J96.01; J96.02 Acute heart failure with preserved ejection fraction (HFpEF) I50.31 Flash pulmonary edema J81.0 NSTEMI (non-ST elevated myocardial infarction) I21.4 CAD (coronary artery disease), burns pa[place] coronary artery I25.10 Mesenteric artery stenosis K55.1 Chronic intermittent abdominal pain R10.9; G89.29 Acute metabolic encephalopathy G93.41 COPD (chronic obstructive pulmonary disease) J44.9 Hypomagnesemia E83.42 Peripheral vascular disease I73.9 Tobacco use Z72.0 Stenosis of both subclavian arteries I70.8 Hx of carotid stenosis Z86.79 Hypothyroidism, unspecified type E03.9 Hypothyroidism type: unspecified Essential hypertension I10 Hypertension type: essential hypertension Mixed hyperlipidemia E78.2 Hyperlipidemia type: mixed hyperlipidemia History of uterine cancer Z85.42 GERD (gastroesophageal reflux disease) K21.9 Chronic kidney disease, stage III (moderate) N18.3 History of parotid gland removal Z90.49 (15) Hypothyroidism Hypothyroidism type: unspecified Qualified Code(s): E03.9 - Hypothyroidism, unspecified (16) Hypertension Hypertension type: essential hypertension Qualified Code(s): I10 - Essential (primary) hypertension (17) Hyperlipidemia Hyperlipidemia type: mixed hyperlipidemia Qualified Code(s): E78.2 - Mixed hyperlipidemia
[2025-02-22 06:00] LABS: Hematocrit (blood only) 45.6 % (37.0-47.0); Hemoglobin 15.3 g/dl (12.0-16.0); Mean Corpuscular Hemoglobin 29.5 pg (25.0-34.0); Mean Corpuscular Volume 87.9 fL (80.0-100.0); Platelet Count 239 K/uL (130-400); RDW Standard Deviation 47.9 fL (36.4-46.3); Red Blood Count 5.19 M/uL (4.20-5.40); White Blood Count 7.05 K/ul (4.8-10.8)
[2025-02-22 06:18] LABS: Anion Gap 7.0 (3-11); Blood Urea Nitrogen 29.0 mg/dl (6-23); Calcium 9.0 mg/dl (8.6-10.3); Carbon Dioxide 30.0 mmol/L (21-32); Chloride 100.0 mmol/L (98-107); Creatinine Clr Calc Pharmacy 44.4 ml/min; Glucose 93.0 mg/dl (70-99(Fasting)); Magnesium 1.4 mg/dl (1.7-2.4); Potassium 3.8 mmol/L (3.5-5.1); Sodium 137.0 mmol/L (136-145)
[2025-02-22] MEDS ORDERED: SUCCINYLCHOLINE CHLORIDE 20 MG/ML 10 ML VIAL IV ONE (06:29)
[2025-02-22] MEDS ORDERED: ETOMIDATE 2 MG/ML 20 ML VIAL IV ONE (06:29)
[2025-02-22] MEDS: CALCIUM CARBONATE 500 MG CHEWABLE TAB PO PRN (09:10)
[2025-02-22] MEDS: MAGNESIUM SULFATE / D5W 1 GM/100 ML BAG IV SCH (10:12)
--- NOTE | 2025-02-22 11:06 | Cardiology Progress Note ---
Date of Service February 22, 2025 Assessment & Plan (1) Chest pain: (2) NSTEMI (non-ST elevated myocardial infarction): (3) Acute heart failure with preserved ejection fraction (HFpEF): Plan 1. Chest pain: Her chest pain was hard to interpret, it had characteristics of both angina and reflux, however now with resolution following her event I am leaning toward a lot of it being anginal. She has severe coronary artery disease without clear culprit lesion intervention, her presentation is consistent with global ischemia (I reviewed her echo and I do not believe it is normal, it is consistent with global ischemia, her electrocardiogram is consistent with this as well has since her flash pulmonary edema). This could happen again even though she feels well and has been walking around without discomfort. Dr. Espinoza and I feel that she should be transferred for evaluation for bypass surgery and possibly valve surgery, she would prefer to go to [place]. She can make those arrangements. 2. NSTEMI: On presentation she had a mildly elevated troponin which increased significantly. The pattern is consistent with injury, her presenting echo and her enzyme pattern and electrocardiographic findings are consistent with global ischemia/injury causing her presentation. I am going to repeat her echocardiogram as a limited study today to see if she has worsening of her LV function after this event. I am also going to repeat her ECG. 3. CHF: Her respiratory arrest seems at least in part due to congestive heart failure however her chest x-ray never showed severe findings, it may well be that she had "flash pulmonary edema" from her severe pulmonary artery disease. She seems to be out of her heart failure currently. Admission and Anticipated Discharge Date Admission Date: February 16, 2025 Subjective She is feeling very well today, much better than when she came in and has had no further epigastric or chest discomfort. I suspect that this confirms it is cardiac symptoms that she was feeling not GI although we still cannot be sure. She has even been walking around the hallway without discomfort. Physical Exam Physical Exam: Constitutional: Alert, cooperative and in no distress. She is resting supine in bed. HEENT: Unremarkable Neck: No jugular venous distention, carotid pulses are normal and equal bilaterally without bruits. Pulmonary: Lungs are clear bilaterally. Cardiac: Regular rhythm with no murmur, gallop or rub. Abdomen: Soft, nontender with normal bowel sounds. Extremities: No edema. Neurologic: No focal findings. Skin: No rash, ecchymoses or petechiae. Results & Data Vital Signs (Past 12 Hours) Vital Signs Temp Pulse Pulse Pulse Resp BP Pulse Ox 02/22/25 08:00 71 02/22/25 07:48 36.5 C 79 18 103/71 91 02/22/25 07:19 66 18 93 02/22/25 03:23 36.6 C 81 16 105/72 92 O2 Del Method 02/22/25 08:00 02/22/25 07:48 Room Air 02/22/25 07:19 Room Air 02/22/25 03:23 Room Air Laboratory Results CBC 02/22/25 Range/Units 05:29 WBC 7.05 (4.8-10.8) K/ul RBC 5.19 (4.20-5.40) M/uL Hgb 15.3 (12.0-16.0) g/dl Hct 45.6 (37.0-47.0) % Plt Count 239 (130-400) K/uL Comprehensive Metabolic Panel 02/22/25 Range/Units 05:29 Sodium 137 (136-145) mmol/L Potassium 3.8 (3.5-5.1) mmol/L Chloride 100 (98-107) mmol/L Carbon Dioxide 30 (21-32) mmol/L BUN 29 H (6-23) mg/dl Creatinine 1.17 (0.6-1.2) mg/dl Glucose 93 (70-99(Fasting)) mg/dl Calcium 9.0 (8.6-10.3) mg/dl Intake and Output 02/21/25 02/22/25 02/22/25 22:59 06:59 14:59 Intake Total 450 / 450 Balance 450 / 450 Intake: Oral 450 / 450 Other: # Unmeasured Voids 1 2 1 Weight 95.5 kg Weight Measurement Method Built in [facility] Diagnostic Findings Telemetry: Sinus rhythm, rate 60-80, no significant arrhythmia PG Care Time/CCT Total # of Minutes Spent Total Time Spent with Patient: Total time spent is greater than 50% in coordination of care (as documented) at patient's floor/unit and/or counseling patient: Coding Level of Care Code 70677 SUB INP/OBS CARE 2/35MIN Diagnoses Chest pain R07.9 NSTEMI (non-ST elevated myocardial infarction) I21.4 Acute heart failure with preserved ejection fraction (HFpEF) I50.31
[2025-02-22] MEDS: METOPROLOL TARTRATE 25 MG TAB PO SCH (11:46)
--- NOTE | 2025-02-22 16:06 | XCELERA ---
[id number]
--- NOTE | 2025-02-22 16:39 | Hospitalist Progress Note ---
Date of Service February 22, 2025 Assessment & Plan (1) Acute respiratory failure with hypoxia and hypercapnia: (2) Acute heart failure with preserved ejection fraction (HFpEF): (3) Flash pulmonary edema: (4) NSTEMI (non-ST elevated myocardial infarction): (5) CAD (coronary artery disease), [place] coronary artery: (6) Mesenteric artery stenosis: (7) Chronic intermittent abdominal pain: (8) Acute metabolic encephalopathy: (9) COPD (chronic obstructive pulmonary disease): (10) Hypomagnesemia: (11) Peripheral vascular disease: (12) Tobacco use: (13) Stenosis of both subclavian arteries: (14) Hx of carotid stenosis: (15) Hypothyroidism: (16) Hypertension: (17) Hyperlipidemia: (18) History of uterine cancer: (19) GERD (gastroesophageal reflux disease): (20) Chronic kidney disease, stage III (moderate): (21) History of parotid gland removal: Plan 79yo female with long-standing tobacco dependence, hypothyroidism, uterine cancer 2006, childhood asthma/current COPD, CKD stage 3a, known subclavian artery stenosis, h/o carotid stenosis s/p CEA on right, and 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 Patient's respiratory distress escalated significantly and rapidly while in the ER ultimately requiring intubation & mechanical ventilation. Imaging c/w pulmonary edema. #acute respiratory failure with hypoxia & hypercapnia - resolved - -2nd to pulmonary edema/acute CHF +/- COPD exacerbation; no evidence of PE on CTA chest; pneumonia not suspected -s/p intubation/mech ventilation 02/16; extubated 02/17 AM -remains on tapering steroids - currently on prednisone 10mg/day; stop after today's dose -completed 5 days of azithromycin #new diagnosis of severe, triple vessel CAD; NSTEMI - -ACS/NSTEMI on hospital day #1 suspected -initial troponin was 572; peak troponin - 7389 -troponin repeated 02/19 - still elevated at 3199 but slowly coming down; this fits more so with ACS rather than myocardial demand ischemia -echo today with EF 40-45% and severe hypokinesis/akinesis of LAD territory -cont aspirin 81mg daily -cont crestor 40mg daily -start low-dose metoprolol tartrate 12.5mg BID -if she can tolerate then ultimately increase to 25mg BID -in light of depressed EF ideally the IR is changed to long-acting metoprolol succ -s/p left heart cath 02/[address] Espinoza - results: SQZ-pztla-mexnrav vessel trifurcating into LAD, circumflex, and ramus. There is diffuse disease with mid up to 30 to 40% stenosis and distal 70 to 80% stenosis extending into the LAD and circumflex. JDW-sgtfl-camuunm and transapical vessel. Ostial 90% stenosis. There is 100% occlusion after the large septal branch. The mid and distal LAD fills via right to left and left to left collateralization. D1 and D2 are long. LCx-medium caliber. Ostial 80 to 90% stenosis. There are no obtuse marginal branches noted. There may be a single OM which partially fills late via collateralization. Ramus-this is large and branching. Proximally there is diffuse mild disease. RCA-this is large caliber and dominant. Proximal 70 to 80% stenosis. Mid vessel with scattered 30 to 40% stenosis and then a focal distal stenosis of 30%. RCA branches into a large PLB and large PDA. PLB has proximal 80 to 90% complex stenosis. The PDA has no significant disease. There are right to left collaterals to the LAD. -CABG or staged PCI advised by Dr Espinoza -last LDL was 91 in January 2025; is on max dose of crestor; consider adding zetia #acute systolic CHF - euvolemic today - -imaging and admit exam c/w pulmonary edema/volume overload -resolved s/p multiple doses of IV lasix with marked improvement in volume status & respiratory status; extubated from the [facility] day #2 -echo with EF 40-45% and extensive hypokinesis/akinesis of LAD territory -BMPs stable -resume lasix 20mg tomorrow -in light of mildly depressed LV function ideally would be on Entresto somewhere in the future- or at least low-dose CORAL/ARB #recurrent, intermittent abdominal pain - -episodes present for months -suspect these were episodes of atypical angina -CTA abd/pelvis -- all 3 mesenteric arteries have significant stenoses -I messaged Dr Bryan Ward from vascular surgery who sees her in clinic for previous carotid disease, subclavian artery stenosis, etc. -he briefly looked at CTA - he advised f/u with him in clinic to discuss this further; likely not the main cause of her abdominal pain suspect these episodes were angina as she had the same type of abdominal pain on the day of her presentation -although she has h/o gastritis/GERD - given the cath results - these pains were cardiac in etiology, not GI #acute metabolic encephalopathy - resolved -2nd to hypoxia, hypercapnia, possible pneumonia/bronchitis, etc. #COPD with exacerbation - resolved -stop prednisone after today's dose -completed 5-day course of azithromycin -lungs clear today #GERD/history of gastritis/history of hiatal hernia - -cont PPI -cont carafate QID -tums prn #hypomagnesemia - -severe, level 1 at presentation -s/p replacement with IV mag; mag level normalized, then low again today -etiology? 2nd to poor oral intake at home? chronic PPI use? other? -give IV mag replacement today -repeat mag in am #h/o HTN - -all anti-hypertensives were placed on hold including indapamide, verapamil, and metoprolol early in the hospitalization due to hypotension -"low" BPs in arms may be due in part to subclavian artery stenosis -ideally she should be on low-dose metoprolol if BPs will allow -to that end starting meto tartrate 12.5mg BID -if she tolerates ultimately transition to meto succ #DVT Proph - -lovenox 40mg daily #CKD stage 3a - -daily BMP -Cr stable today #hypothyroidism - -TSH 2.4 in January -cont synthroid #tobacco dependence - -psychosocial rehabilitation counselor to quit #PAD/history of carotid stenosis/history of subclavian artery stenosis - -BPs may not be reliable in either arm due to subclavian artery stenosis -art line indeed was giving readings 20+ points better than automatic BP cuff -off midodrine #LLL pulmonary nodule - -given long-standing tobacco use will need f/u CT scan in the next few months for stability -5mm in size PT, OT wilian completed family EXTENSIVELY updated at bedside 02/18 updated 02/20 by phone and then again at bedside 02/21 updated pt's daughter Jessica 02/22 by phone care d/w Dr Pitts from cardiology care d/w Dr Espinoza (multiple phone calls) from cardiology multiple phone calls to [facility] today - spoke with CT surgery Dr Thomas; spoke with interventional cardiology Dr Moreno phone calls to [facility] were about 40 minutes in length in total total time today on all care activities and complex care coordination - about 90 minutes in light of [facility] declining to accept her in transfer for consideration of CABG or high-risk stenting will need to explore an alternative hospital patient to discuss her other options tonight with her family ([facility] vs [facility] vs other) Admission and Anticipated Discharge Date Admission Date: February 16, 2025 Subjective no events overnight no "spells" of upper abd pain, radiating chest discomfort, neck discomfort, or neck/throat "burning" no dyspnea no orthopnea no dyspnea with walking to bathroom moving her bowels (multiple today) eating fair she is anxious about her newly found CAD and the potential for needing surgery she is open to going to rehab if necessary multiple phone calls to [facility] today first call was to CT surgery, Dr Thomas he reviewed her cath images, etc - felt she was not a good candidate for CABG; he advised cath with stenting 2nd call was to interventional cardiology, Dr Josh Moreno felt she was a poor cath/stent candidate given the complexity/severity of her CAD both physicians declined to accept Ms Jensen in transfer patient and pt's daughter Jessica made aware of the above Review of Systems Review of Systems: cv - no PND, no orthopnea pulm - no dyspnea or SCHNEIDER; mild cough at times; no significant wheezing GI - no abd pains, no reflux symptoms Physical Exam Physical Exam: gen - laying in bed comfortably; NAD, pleasant; anxious today HENT - MMM neck - minimal JVD heart - RRR, s1 s2, no obvious murmur lungs - no wheezes today; fair-good airation; no rales, no distress abd - soft NT ND BS+; no HSM vascular - b/l foot pulses 1-2+; no edema b/l legs; varicose veins b/l legs; right radial artery - no ecchymoses, no aneurysm psych - a/o x 3 Results & Data Results & Data Vital Signs (Past 12 Hours) Vital Signs Temp Pulse Pulse Resp BP Pulse Ox O2 Del Method 02/22/25 16:34 36.5 C 85 20 114/70 90 Room Air 02/22/25 11:41 36.7 C 81 20 105/77 91 Room Air 02/22/25 08:00 71 02/22/25 07:48 36.5 C 79 18 103/71 91 Room Air 02/22/25 07:19 66 18 93 Room Air Laboratory Results Laboratory Results - last 24 hr 02/22/25 05:29 WBC 7.05 RBC 5.19 Hgb 15.3 Hct 45.6 MCV 87.9 MCH 29.5 MCHC 33.6 RDW Std Deviation 47.9 H RDW Coeff of Rudy 14.9 H Plt Count 239 MPV 9.4 Sodium 137 Potassium 3.8 Chloride 100 Carbon Dioxide 30 Anion Gap 7 BUN 29 H Creatinine 1.17 Est Cr Clr Drug Dosing 44.4 eGFR 47.76 BUN/Creatinine Ratio 24.8 H Glucose 93 Calcium 9.0 Magnesium 1.4 L PG Care Time/CCT Total # of Minutes Spent Total Time Spent with Patient: Total time spent is greater than 50% in coordination of care (as documented) at patient's floor/unit and/or counseling patient: Prolonged Care Time Prolonged Care Time: Yes Total Prolonged Care Time: 90 Coding Level of Care Code 83685 SUB INP/OBS CARE 3/50MIN (25 - SIGNIFICANT, SEPARATELY IDENTIFIABLE ) Diagnoses Acute respiratory failure with hypoxia and hypercapnia J96.01; J96.02 Acute heart failure with preserved ejection fraction (HFpEF) I50.31 Flash pulmonary edema J81.0 NSTEMI (non-ST elevated myocardial infarction) I21.4 CAD (coronary artery disease), [place] coronary artery I25.10 Mesenteric artery stenosis K55.1 Chronic intermittent abdominal pain R10.9; G89.29 Acute metabolic encephalopathy G93.41 COPD (chronic obstructive pulmonary disease) J44.9 Hypomagnesemia E83.42 Peripheral vascular disease I73.9 Tobacco use Z72.0 Stenosis of both subclavian arteries I70.8 Hx of carotid stenosis Z86.79 Hypothyroidism, unspecified type E03.9 Hypothyroidism type: unspecified Essential hypertension I10 Hypertension type: essential hypertension Mixed hyperlipidemia E78.2 Hyperlipidemia type: mixed hyperlipidemia History of uterine cancer Z85.42 GERD (gastroesophageal reflux disease) K21.9 Chronic kidney disease, stage III (moderate) N18.3 History of parotid gland removal Z90.49 Additional Codes Prolonged Care Time - Prolonged Care Time: Yes ([id number]) (15) Hypothyroidism Hypothyroidism type: unspecified Qualified Code(s): E03.9 - Hypothyroidism, unspecified (16) Hypertension Hypertension type: essential hypertension Qualified Code(s): I10 - Essential (primary) hypertension (17) Hyperlipidemia Hyperlipidemia type: mixed hyperlipidemia Qualified Code(s): E78.2 - Mixed hyperlipidemia
--- NOTE | 2025-02-22 19:25 | Communication Note ---
Date of Service: February 22, 2025 Today I had multiple calls to [facility] via their transfer center. Initially spoke with Dr Frida Thomas, CT surgery, who reviewed her cath imaging, etc. He felt that Mrs Jensen was a poor candidate for CABG and recommended speaking with [facility] interventional [facility]. I subsequently spoke with Dr Dveon Moreno & Dr Fatemeh Tirado with the [facility] interventional cardiology division. Dr Moreno felt that Mrs Jensen was a poor stent candidate given the severity/complexity of her CAD lesions. Dr Moreno also felt that her best option was CABG. Therefore, Mrs Jensen was not accepted in transfer to [facility]. I called & spoke with Dr Espinoza from [facility] to give him update. Will plan to seek out a 2nd and/or 3rd opinion from other institutions starting tomorrow. I updated Mrs Jensen at bedside regarding the conversations with [facility] today and that her transfer was declined. Recommended she speak with her and children about preferences for other potential hospitals to call. I then called & spoke with her daughter, Jessica. Jessica will disseminate this information to the rest of the family. They will discuss where they would like us to try next for transfer ([facility], [facility], [place], etc). Nursing staff made aware of all of the above. Rudolph Mae MD
[2025-02-23 06:52] LABS: Anion Gap 8.0 (3-11); Blood Urea Nitrogen 26.0 mg/dl (6-23); Calcium 9.1 mg/dl (8.6-10.3); Carbon Dioxide 31.0 mmol/L (21-32); Chloride 100.0 mmol/L (98-107); Creatinine Clr Calc Pharmacy 39.3 ml/min; Glucose 85.0 mg/dl (70-99(Fasting)); Magnesium 2.1 mg/dl (1.7-2.4); Potassium 3.9 mmol/L (3.5-5.1); Sodium 139.0 mmol/L (136-145)
--- NOTE | 2025-02-23 09:05 | Cardiology Progress Note ---
Date of Service February 23, 2025 Assessment & Plan (1) Chest pain: (2) NSTEMI (non-ST elevated myocardial infarction): (3) Acute heart failure with preserved ejection fraction (HFpEF): (4) CAD (coronary artery disease), [place] coronary artery: Plan 1. Chest pain: Her chest pain was hard to interpret, it had characteristics of both angina and reflux, however now with resolution following her event I am leaning toward most if not all of it being anginal. She has severe coronary artery disease without a clear culprit lesion amenable to intervention, her presentation is consistent with global ischemia (I reviewed her echo and I do not believe it is normal, it is consistent with global ischemia, her electrocardiogram is consistent with this as well as is her flash pulmonary edema). This could happen again even though she feels well and has been walking around without discomfort. Dr. Espinoza and I feel that she should be transferred for evaluation for bypass surgery and possibly valve surgery, however I believe she was denied. I believe arrangements are being made for high risk intervention. 2. NSTEMI: On presentation she had a mildly elevated troponin which increased significantly. The pattern is consistent with injury, her presenting echo and her enzyme pattern and electrocardiographic findings are consistent with global ischemia/injury causing her presentation, although she had both inferior and anterior findings. Her LV function did not decline significantly following this event. 3. CHF: Her respiratory arrest seems at least in part due to congestive heart failure however her chest x-ray never showed severe findings, it may well be that she had "flash pulmonary edema" from her severe coronary artery disease. She seems to be out of her heart failure currently. 4. Coronary artery disease: We need to try to optimize her medical therapy to prevent recurrent ischemia as well as to prevent progressive atherosclerosis. She is on aspirin, I am going to add clopidogrel. She should remain on metoprolol. I would discontinue verapamil, if she needs better blood pressure control I would go up on metoprolol or add an CORAL which would help with her LV dysfunction. She is on good dose rosuvastatin, the last cholesterol measurement I see is from January 20, 2025 and her LDL is 91, total cholesterol 195 with an HDL of 85. This yields a non-HDL cholesterol of 110. I would strongly consider adding an injectable agent like Repatha since this is not at goal and we need to optimize her cholesterol management. Liver function tests were good. Admission and Anticipated Discharge Date Admission Date: February 16, 2025 Subjective She has been feeling well the last few days, when I asked her if she had discomfort recently she told me about GI symptoms again after eating tomato soup, but I believe that was several days ago not recently. She still relates her epigastric/chest discomfort to GI, I am pretty sure that it is cardiac and less she has both. Today she feels well and has been out of bed without much difficulty. Physical Exam Physical Exam: Constitutional: Alert, cooperative and in no distress. She is sitting at her bedside HEENT: Unremarkable Neck: No jugular venous distention, carotid pulses are normal and equal bilaterally without bruits. Pulmonary: Lungs are clear bilaterally. Cardiac: Regular rhythm with no murmur, gallop or rub. Abdomen: Soft, nontender with normal bowel sounds. Extremities: No edema. Neurologic: No focal findings. Skin: No rash, ecchymoses or petechiae. Results & Data Vital Signs (Past 12 Hours) Vital Signs Temp Pulse Pulse Resp BP Pulse Ox O2 Del Method 02/23/25 08:00 60 02/23/25 07:52 Room Air 02/23/25 07:42 36.6 C 62 20 92/52 L 90 Room Air 02/23/25 07:16 55 L 98 Room Air 02/23/25 03:17 36.6 C 60 18 94/64 L 94 Room Air 02/22/25 23:22 36.6 C 58 L 18 93/55 L 94 Room Air 02/22/25 21:42 59 L Laboratory Results Comprehensive Metabolic Panel 02/23/25 Range/Units 05:23 Sodium 139 (136-145) mmol/L Potassium 3.9 (3.5-5.1) mmol/L Chloride 100 (98-107) mmol/L Carbon Dioxide 31 (21-32) mmol/L BUN 26 H (6-23) mg/dl Creatinine 1.26 H (0.6-1.2) mg/dl Glucose 85 (70-99(Fasting)) mg/dl Calcium 9.1 (8.6-10.3) mg/dl Intake and Output 02/22/25 02/23/25 02/23/25 22:59 06:59 14:59 Intake Total 340 / 1058.333 Balance 340 / 1057.333 Intake: IV 100 / 278.333 Magnesium Sulfate / D5w 1 gm In 100 / 278.333 100 ml @ 50 mls/hr IV Q2H [facility] Rx#:[id number] Oral 240 / 780 Other: Weight 87.2 kg Weight Measurement Method Built in [facility] Diagnostic Findings Sinus rhythm, rate 60 to 70 bpm, no significant arrhythmia PG Care Time/CCT Total # of Minutes Spent Total Time Spent with Patient: Total time spent is greater than 50% in coordination of care (as documented) at patient's floor/unit and/or counseling patient: Coding Level of Care Code 94420 SUB INP/OBS CARE 3/50MIN Diagnoses Chest pain R07.9 NSTEMI (non-ST elevated myocardial infarction) I21.4 Acute heart failure with preserved ejection fraction (HFpEF) I50.31 CAD (coronary artery disease), [place] coronary artery I25.10
[2025-02-23] MEDS: CLOPIDOGREL BISULFATE 75 MG TAB PO SCH (10:18)
[2025-02-23 11:09] VITALS: RESP 17; TEMP 97.2; O2SAT 94
--- NOTE | 2025-02-23 14:29 | Discharge Summary ---
Discharge Summary Date of Service February 23, 2025 Principal Dx & Hospital Course #1 = Principal Diagnosis (1) Acute respiratory failure with hypoxia and hypercapnia: (2) NSTEMI (non-ST elevated myocardial infarction): (3) Acute heart failure with preserved ejection fraction (HFpEF): (4) Flash pulmonary edema: (5) CAD (coronary artery disease), [place] coronary artery: (6) Mesenteric artery stenosis: (7) Chronic intermittent abdominal pain: (8) Acute metabolic encephalopathy: (9) COPD (chronic obstructive pulmonary disease): (10) Hypomagnesemia: (11) Peripheral vascular disease: (12) Tobacco use: (13) Stenosis of both subclavian arteries: (14) Hx of carotid stenosis: (15) Hypothyroidism: (16) Hypertension: (17) Hyperlipidemia: (18) History of uterine cancer: (19) GERD (gastroesophageal reflux disease): (20) Chronic kidney disease, stage III (moderate): (21) History of parotid gland removal: Plan 79yo woman with diffuse vascular disease and long-standing tobacco dependence presented with persistent abdominal pain beginning early AM of admission as well as worsening dyspnea. Patient's respiratory distress escalated significantly and rapidly while in the ER ultimately requiring intubation & mechanical ventilation. Imaging c/w pulmonary edema. Extubated the following day. She had NSTEMI with peak HS troponin around 7300. TTE with mildly reduced EF 40-45% and extensive LAD territory hypokinesis to akinesis. Cardiology consulted and she underwent coronary angiography which showed extensive/multivessel disease. She will be transferring to [facility] for evaluation for CABG or comp arthur PCI, which are not available at this facility. By problem: #acute respiratory failure with hypoxia & hypercapnia - resolved - probably from flash pulmonary edema. no evidence of PE on CTA chest; pneumonia not suspected -s/p intubation/mech ventilation 02/16; extubated 02/17 AM -completed course of steroids and azithromycin for possible acute exacerbation of COPD #new diagnosis of severe, triple vessel CAD; NSTEMI - -ACS/NSTEMI -cont aspirin 81mg daily -cont crestor 40mg daily - discussed with Dr. Pitts - she is at max dose but not controlled to goal and may benefit from repatha - deferred to outpatient setting -cont low-dose metoprolol tartrate 12.5mg BID -if she can tolerate then ultimately increase to 25mg BID -in light of depressed EF ideally the IR is changed to long-acting metoprolol succ -note that cuff BP's have been consistently 20 points lower than BPs from arterial line while in ICU - effect of her underlying vascular disease -s/p left heart cath 02/[address] Espinoza - results: FBF-grqez-bqovdyv vessel trifurcating into LAD, circumflex, and ramus. There is diffuse disease with mid up to 30 to 40% stenosis and distal 70 to 80% stenosis extending into the LAD and circumflex. THF-ulcaw-tvxffkn and transapical vessel. Ostial 90% stenosis. There is 100% occlusion after the large septal branch. The mid and distal LAD fills via right to left and left to left collateralization. D1 and D2 are long. LCx-medium caliber. Ostial 80 to 90% stenosis. There are no obtuse marginal branches noted. There may be a single OM which partially fills late via collateralization. Ramus-this is large and branching. Proximally there is diffuse mild disease. RCA-this is large caliber and dominant. Proximal 70 to 80% stenosis. Mid vessel with scattered 30 to 40% stenosis and then a focal distal stenosis of 30%. RCA branches into a large PLB and large PDA. PLB has proximal 80 to 90% complex stenosis. The PDA has no significant disease. There are right to left collaterals to the LAD. -CABG or staged PCI advised by Dr Espinoza -transfer accepted by Dr. Fuentes, I also spoke with Dr. Clarke #acute systolic CHF - resolved, remains euvolemic -imaging and admit exam c/w pulmonary edema/volume overload -diuresed with IV lasix, marked improvement in volume status & respiratory status; ext[facility]ated from the [facility]2 -echo with EF 40-45% and extensive hypokinesis/akinesis of LAD territory -continue furosemide and metoprolol, consider CORAL/ARB or SNRI in future if BP can tolerate #recurrent, intermittent abdominal pain - #PAD/history of carotid stenosis/history of subclavian artery stenosis - -episodes present for months -suspect these were episodes of atypical angina -CTA abd/pelvis -- all 3 mesenteric arteries have significant stenoses -discussed Dr Bryan Ward from vascular surgery who sees her in clinic for previous carotid disease, subclavian artery stenosis, etc. -he briefly looked at CTA - he advised f/u with him in clinic to discuss this further; likely not the main cause of her abdominal pain suspect these episodes were angina as she had the same type of abdominal pain on the day of her presentation -although she has h/o gastritis/GERD - given the cath results - these pains were cardiac in etiology, not GI #acute metabolic encephalopathy - resolved -2nd to hypoxia, hypercapnia, possible pneumonia/bronchitis, etc. #COPD with exacerbation - resolved -continue bronchodilators #GERD/history of gastritis/history of hiatal hernia - -cont PPI -cont carafate QID -tums prn #hypomagnesemia - -severe, level 1 at presentation -replaced IV, recurred, replaced and 2.1 today -may be related to PPI -oral supplement if she can tolerate #h/o HTN - -all anti-hypertensives were placed on hold including indapamide, verapamil, and metoprolol early in the hospitalization due to hypotension -"low" BPs in arms may be due in part to subclavian artery stenosis -ideally she should be on low-dose metoprolol if BPs will allow -verapamil should be stopped since not providing any secondary benefit #CKD stage 3a - -daily BMP -Cr stable today #hypothyroidism - -TSH 2.4 in January -cont synthroid #tobacco dependence - -international student counselor to quit #LLL pulmonary nodule - -given long-standing tobacco use will need f/u CT scan in the next few months for stability -5mm in size #DVT Proph - -lovenox 40mg daily PT, OT evals completed Much improved and walked 250 feet with PT and did stairs Notes For Next Care Provider Lung nodule needing outpatient CT follow up Outpatient cardiology follow up, optimization of lipids control Admission HPI Per Admitting Provider 79yo female with long-standing tobacco dependence, hypothyroidism, uterine cancer 2006, childhood asthma/current COPD, CKD stage 3, known subclavian artery stenosis, h/o carotid stenosis s/p CEA on right, and prior [place] tumor of the parotid gland presents with persistent abdominal pain as well as worsening dyspnea. During my assessment patient was intubated and sedated on propofol. Thus, all history was obtained from the ER provider, the medical record, and the patient's daughter & . Ms Jensen reportedly has been dealing with recurrent episodes of severe upper abdominal pain going back 6-12 months. Episodes are sometime post-prandial, and other episodes are unrelated to eating. Episodes can list minutes to hours. Pain radiates from the upper abdomen into the middle of the chest and up to the lower anterior neck. She has some dyspnea with these episodes. Does not typically vomit with her spells. She has had some weight loss dating back to when these episodes started. Daughter & report she takes large amounts of Tums for her abdominal pain without relief of symptoms. She had a severe episode last Friday, and then about 9/930am today - while in the bathroom - she developed a typical episode of abdominal pain. She was able to ready herself to go to the [facility] ENT office for her ears but the pain did persist. While at ENT the patient's noted mild dyspnea. Following this visit she came to the ER to be evaluated for the ongoing abdominal pain and dyspnea. Upon presentation to the ER today she was tachycardic and her o2 sats were 81% in room air. 6 liters NC O2 was applied with improvement in her sats. She was sent for a CTA chest to check for PE and upon return her respiratory status worsened rapidly. She also had worsening lethargy/altered mental status. Attempts to utilize NIPPV with BiPAP were not successful, and therefore she was intubated by the ER attending. Since intubation she has had some pink/mildly bloody gastric secretions exuding from the enteric tube. Per the patient's Ms Jensen has been in her usual state of health the last few days. She has had no infectious symptoms or respiratory illness. There was no vomiting while at the ENT office or en route to [facility]. Lastly, per the pt's family as well as per outpatient primary care office visit documentation, the patient's verapamil was recently discontinued due to low BPs at home as well as in the office. This is in addition to d/c of her metoprolol and indapamide. Discharge Exam Last 24h vitals reviewed GEN: no acute distress, sitting in bed, looks good HEENT: pupils equal, sclerae anicteric, moist MM RESP: normal WOB, CTAB CV: reg no mrg ABD: soft/nt/nd +BT : no [place] SKIN: warm and dry, no generalized rashes No extremity edema, no cyanosis NEURO: AOx person, place, and situation. Face symmetric, speech normal, moves 4 ext spontaneously and equally Discharge Plan Discharge Items Reason For Visit: ACUTE HYPOXIC/HYPERCAPNIC RESPIRATORY FAILURE Condition on Discharge: Critical Follow-up/Referrals: Humera Mccann DO [Primary Care Provider] - Medications and DC Order Prescriptions: No Action aspirin 81 mg tablet,delayed release (DR/EC) 81 mg PO QAM Qty: 90 potassium chloride 20 mEq tablet,ER particles/crystals 20 meq PO BID Qty: 180 2RF Hold Instructions: Home Medication placed on hold at Doctor's office rosuvastatin 40 mg tablet 40 mg PO QAM Qty: 90 3RF betamethasone dipropionate 0.05 % cream 1 applic topical BID PRN (Reason: skin irritation) Qty: 45 0RF levothyroxine 137 mcg tablet 137 mcg PO QAM Qty: 90 3RF indapamide 2.5 mg tablet 2.5 mg PO QAM Qty: 90 1RF Hold Instructions: low BP metoprolol succinate 50 mg tablet extended release 24 hr 50 mg PO QAM Qty: 90 1RF Hold Instructions: low BP verapamil 240 mg tablet extended release 240 mg PO HS Qty: 90 1RF Hold Instructions: low bp alprazolam 0.25 mg tablet 0.25 mg PO DAILY PRN (Reason: anxiety) Qty: 30 0RF dicyclomine 20 mg tablet 20 mg PO BID PRN (Reason: stomach cramps) Qty: 60 5RF hydroxyzine pamoate [Vistaril] 25 mg capsule 25 mg PO Q8H PRN (Reason: anxiety) Qty: 30 0RF pantoprazole 40 mg tablet,delayed release (DR/EC) 40 mg PO DAILY Qty: 90 1RF docusate sodium [Colace] 100 mg capsule 100 mg PO BID PRN (Reason: Constipation) cholecalciferol (vitamin D3) 25 mcg (1,000 unit) capsule 25 mcg PO QAM Admission Data Admit Date/Time: 02/16/25 15:57 Attending Provider: Pia Rand Admit Provider: Rudolph Mae Primary Care Provider: Huemra Mccann Other Providers: Rudolph Mae; Basim Carranza; Hamzah Guevara; Quique Tabares; Mahamed Gracia; Kimo Espinoza; Je Pitts; Isma Painter Jr; Jamal Philip; Meron Porter; Tonia Cloud; Jun Brink; Jun Romero; Dahiana Wilhelm; Bethel Sy; Carie Dawson; Bethel Wick; David Garcia; Vic Hubbard; Thad Keane; Tommie Estes; Logan Izquierdo; Stacey Melendez; [facility] Stay Data Consultations 02/16/25 15:09 ED Decision to Admit Stat 02/16/25 16:57 Consult Chair Mechanic Routine 02/17/25 09:45 Consult Cardiology Routine 02/23/25 13:21 Burn CD for patient Stat Procedures Performed Operation Date: 02/21/25 08:00 Actual Procedures p Cineradiography w/Routine Exam - Kimo Espinoza MD, PhD p Cath, Coronaries ONLY (no LV) - Kimo Espinoza MD, PhD Diagnostic Imagining Performed 02/16/25 13:18 CT for pulmonary embolism PE [CT angio chest PE protocol] Stat 02/16/25 16:16 CTA abdomen pelvis w con [CT angio abdomen pelvis w con] Stat 02/21/25 06:55 CL Cath Imgs for PACS use only Stat Total Time Total Time Spent Total Time Spent (In Minutes): I personally spent: 55 minutes today on clinical care activities including: reviewing chart notes and vital signs reviewing labs reviewing studies discussion with qm consultant(s) - Dr. Pitts discussion with animal daycare provider, transfer center, accepting physicians examining and counseling the patient writing orders documentation Coding Level of Care Code 73181 INP/OBS DISCH >30 MIN Diagnoses Acute respiratory failure with hypoxia and hypercapnia J96.01; J96.02 NSTEMI (non-ST elevated myocardial infarction) I21.4 Acute heart failure with preserved ejection fraction (HFpEF) I50.31 Flash pulmonary edema J81.0 CAD (coronary artery disease), [place] coronary artery I25.10 Mesenteric artery stenosis K55.1 Chronic intermittent abdominal pain R10.9; G89.29 Acute metabolic encephalopathy G93.41 COPD (chronic obstructive pulmonary disease) J44.9 Hypomagnesemia E83.42 Peripheral vascular disease I73.9 Tobacco use Z72.0 Stenosis of both subclavian arteries I70.8 Hx of carotid stenosis Z86.79 Hypothyroidism, unspecified type E03.9 Hypothyroidism type: unspecified Essential hypertension I10 Hypertension type: essential hypertension Mixed hyperlipidemia E78.2 Hyperlipidemia type: mixed hyperlipidemia History of uterine cancer Z85.42 GERD (gastroesophageal reflux disease) K21.9 Chronic kidney disease, stage III (moderate) N18.3 History of parotid gland removal Z90.49
[2025-02-23 15:36] VITALS: BP 114/85; PULSE 66
--- NOTE | 2025-02-25 14:46 | Electrocardiogram Report ---
Test Reason : Blood Pressure : */* mmHG Vent. Rate : 69 BPM Atrial Rate : 69 BPM P-R Int : 222 ms QRS Dur : 78 ms QT Int : 386 ms P-R-T Axes : 48 -23 104 degrees QTcB Int : 413 ms Sinus rhythm with 1st degree A-V block Minimal voltage criteria for LVH, may be normal variant ( Sergio product ) Inferior infarct (cited on or before 16-Feb-2025) Anteroseptal infarct (cited on or before 16-Feb-2025) Abnormal ECG When compared with ECG of 19-Feb-2025 15:49, T wave inversion more evident in Lateral leads Confirmed by Je Pitts ([id number]) on 02/25/2025 2:45:53 PM Referred By: REFERRED SELF Confirmed By: Je Pitts
== END 2025-02-23 15:43 | disposition short-term general hospital (02) | DRG 208 ==
LOC: ED 12:28 → 1E 15:57 → SUATTDRO 15:57 → 1E 16:54 → 2S 02-21 10:15
PROC: CLB.CCO (2025-02-21 08:00)

== ENCOUNTER 2025-06-10 19:29 | Inpatient (IN) ==
--- NOTE | 2025-06-10 20:16 | Emergency Department Note ---
ED Provider Note History of Present Illness Chief Complaint: Fall Stated Complaint: FALL, HIT NOSE, ON BLOOD THINNERS Time Seen by Provider: 06/10/25 20:08 Source: patient Mode of arrival: EMS Limitations: no limitations Patient is a 80-year-old female who presents to the emergency department with complaints of facial pain after a ground-level fall. Patient states that she was walking back the hallway to her bathroom when she tripped and fell forward onto her face. Patient denies any loss of consciousness and denies any lightheadedness or dizziness prior to the fall. Patient is on Plavix and aspirin. Patient reports that she is having pain in her left lower leg after a ground-level fall on Friday which was exacerbated by this fall. Patient denies any chest pain or shortness of breath. Home Medications Medication Instructions Recorded Confirmed Type aspirin 81 mg tablet,delayed 81 mg PO QAM #90 tabs 01/20/19 06/10/25 History release rosuvastatin 40 mg tablet 40 mg PO QAM #90 tabs 03/16/24 06/10/25 Rx betamethasone dipropionate 0.05 % 1 applic topical BID PRN skin 07/26/24 06/10/25 Rx topical cream irritation #45 grams levothyroxine 137 mcg tablet 137 mcg PO QAM #90 tabs 08/03/24 06/10/25 Rx alprazolam 0.25 mg tablet 0.25 mg PO DAILY PRN anxiety #30 01/25/25 06/10/25 Rx tabs benzocaine 15 mg-menthol 3.6 mg 1 sarah beth buccal Q2H PRN #0 ea 02/23/25 06/10/25 Rx lozenges (Cepacol Sore Throat (benzocaine-menthol)) clopidogrel 75 mg tablet 75 mg PO QAM #0 tabs 02/23/25 06/10/25 Rx potassium chloride 20 mEq 20 meq PO QAM #0 tabs 02/23/25 06/10/25 Rx tablet,extended release(part/cryst) dicyclomine 20 mg tablet 20 mg PO BID PRN stomach cramps 02/28/25 06/10/25 Rx #180 tabs acetaminophen 500 mg tablet 1,000 mg (2 x 500 mg) PO Q4H PRN 03/07/25 06/10/25 Rx pain #30 tabs cholecalciferol (vitamin D3) 25 50 mcg PO QAM 03/14/25 06/10/25 History mcg (1,000 unit) capsule escitalopram oxalate 10 mg tablet 10 mg PO DAILY #90 tabs 04/21/25 06/10/25 Rx furosemide 20 mg tablet 20 - 40 mg PO QAM 06/10/25 06/10/25 History metoprolol succinate 25 mg 12.5 mg PO DAILY 06/10/25 06/10/25 History tablet,extended release 24 hr Allergies Allergy/AdvReac Type Severity Reaction Status Date / Time cefaclor Allergy Severe Anaphylaxis Verified 06/10/25 21:53 eggplant Allergy Intermediate Itching Verified 06/10/25 21:53 tongue surgical glue Allergy Mild Redness of Uncoded 06/10/25 21:53 Skin Past Med/Surg History Problem List (Updated 06/12/25 @ 00:27 by ELVIRA Magaña) Hypoxia (Acute) Volume overload Pleural effusion, left Pleural effusion, right Acute hypoxemic respiratory failure Hypokalemia (Acute) Abrasion (Acute) Acute facial pain (Acute) Head injury (Acute) Fall (Acute) Heart failure with reduced ejection fraction CAD (coronary artery disease), [place] coronary artery (02/2025) Mesenteric artery stenosis Chronic intermittent abdominal pain Hypomagnesemia NSTEMI (non-ST elevated myocardial infarction) (02/2025) Peripheral vascular disease Hiatal hernia Tobacco use Sensorineural hearing loss, bilateral Stenosis of both subclavian arteries [facility] vascular visit (05/2022): asymptomatic, 2 year reevaluation recommended Hx of carotid stenosis s/p Right CEA (2017) Venous insufficiency (chronic) (peripheral) Pre-diabetes Hypothyroidism Hypertension Hyperlipidemia History of uterine cancer (2006) chemo and XRT GERD (gastroesophageal reflux disease) COPD (chronic obstructive pulmonary disease) (Acute) Per records, patient denies Chronic kidney disease, stage III (moderate) Anxiety 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 Vitamin D deficiency Medical History Acute heart failure with preserved ejection fraction (HFpEF) Flash pulmonary edema Imbalance Bilateral impacted cerumen Parotid mass Postmenopausal Hx of renal calculi History of seasonal allergies History of anemia Hx of blood clots Superficial RLE blood clot (after delivery), no issues since History of asthma Childhood, no current/recent issues Surgical History S/P CABG x 3 (02/28/25) 02/28/2025 History of parotid gland removal (02/03/24) superficial right parotidectomy, pathology Warthin Tumor Hx of esophagogastroduodenoscopy (10/2021) History of cholecystectomy History of colonoscopy H/O total hysterectomy History of tooth extraction H/O carotid endarterectomy (12/03/17) Right H/O: section x1 Family History Grandmother Breast cancer Mother Myocardial infarction Heart disease Stroke Hypertension Mother Hypertension Father , age 76 Family history of esophageal cancer Heart disease Hypertension Cancer Other No family history of adverse response to anesthesia No family history of bleeding disorder Denies family history of Ovarian cancer Prostate cancer Lung cancer Colorectal cancer Social History Smoking Status: Former smoker Tobacco Type: Cigarettes Age Started Using Tobacco: 21; Age Quit Using Tobacco: 79; packs per day: 1; Smoking End Date: February 2025; Second Hand Exposure: No; Do You Dip or Chew Tobacco: No; Hx Alcohol Use: No Hx Substance Use: No Preferred Language: Mexican Communication Ability: Effective Communication Ability Comment: intubated Visual Impairment: No Limitations Hearing Ability: Normal Respiratory Therapy Instructor Required: No Beliefs That Will Affect Care: None marital status: Current Living Situation: Spouse Current Living Situation Comment: lives at home with current occupational status: retired current occupation: Retired How many Children do You have: 2 Other Information That Helps Us Care for You: No Feels Safe at Home: Yes Safety Concerns: Feels Safe At This Time Childhood Exposure to Second-Hand Smoke: Yes Diet: regular Diet Comment: regular caffeine: Yes (coffee) during the past year weight has: decreased > 10 lbs Dental Care, Regularly: No Physical Activity Frequency: 1-2 Times per Week Physical Activity Frequency Comment: limited Seatbelt Use: always Sunscreen Use: No Assistive Devices: Cane and Denture - Upper Physical Exam Vital Signs Vital Signs - 24 hr 06/11/25 01:00 06/11/25 01:01 Pulse Rate - Lying 77 Pulse Rate - Sitting 74 Pulse Rate - Standing 67 Pulse Rate [Finger] 69 Respiratory Rate 22 Respiratory Effort / Characteristics Non-Labored Spontaneous Respiratory Depth Normal Respiratory Pattern Regular Blood Pressure - Lying 109/64 Blood Pressure - Sitting 104/61 Blood Pressure- Standing 96/62 L Blood Pressure [Right Arm] 88/70 L Blood Pressure Mean [Right Arm] 76 Pulse Oximetry 96 Oxygen Delivery Method Nasal Cannula Oxygen Flow Rate 2 VITAL SIGNS - Vital signs and nursing notes were reviewed. GENERAL -80-year-old female appearing their stated age, who is in no acute distress. Communicates well with provider and answers questions appropriately. Patient's family members are at bedside. HEAD - Normocephalic, Atraumatic. No Mcconnell's Sign or Raccoon's Eyes. No depressed skull fractures palpable. EYES - PERRL with EOMI bilaterally. Sclera anicteric. Conjunctiva pink and moist with no injection noted. EARS - No deformities of external structures noted on gross examination bilaterally. NOSE - Midline and without cyanosis. No epistaxis or purulent drainage noted. Patient does report epistaxis after the initial fall however she is not having any bleeding any longer. Patient does have a small abrasion to the bridge of her nose. It does not appear to be repairable wound. Bleeding is controlled at this time. MOUTH/OROPHARYNX - Without perioral cyanosis. Buccal mucosa pink and moist and without leukoplakia. NECK - Neck with FROM. Supple to palpation. No lymphadenopathy noted. LUNGS - Chest wall symmetric without accessory muscle use, intercostals retractions, or central cyanosis. Normal vesicular breath sounds CTA B/L. No wheezes, rales, or rhonchi appreciated. CARDIAC - RRR with S1/S2. No murmur, rubs, or gallops appreciated. EXTREMITIES -patient has some moderate edema noted in her bilateral lower extremities, the patient reports that this is baseline for her and does not appear to be any worse than it is normally. Patient has +4/5 strength in her bilateral lower extremities which she also reports is baseline for her. NEUROLOGIC -Sensory intact to light touch throughout. PSYCH - A&Ox3 and cooperates fully with examiner. Pt is very pleasant and interacts well with examiner Course Administered Medications Acetaminophen (Acetaminophen 325 Mg Tab) 650 mg PO Q4H PRN PRN Reason: Pain or Fever Stop: 07/11/25 03:35 Last Admin: 06/11/25 20:48 Dose: 650 mg Documented By: KENDALL Aspirin (Aspirin 81 Mg Ectab) [facility] [place]: 07/11/25 08:59 Last Admin: 06/11/25 08:04 Dose: 81 mg Documented By: van Clopidogrel Bisulfate (Clopidogrel Bisulfate 75 Mg Tab) 75 [facility] [place]: 07/11/25 08:59 Last Admin: 06/11/25 08:04 Dose: 75 mg Documented By: van Escitalopram Oxalate (Escitalopram Oxalate 10 Mg Tab) 10 mg PO DAILY [facility]COM Stop: 07/11/25 08:59 Last Admin: 06/11/25 08:04 Dose: 10 mg Documented By: van Furosemide (Furosemide 40 Mg/4 Ml Vial) 40 mg IV DAILY [facility] Stop: 07/11/25 14:04 Last Admin: 06/11/25 14:14 Dose: 40 mg Documented By: van Levothyroxine Sodium (Levothyroxine Sodium 137 Mcg Tablet) 137 mcg PO DAILYBB [facility] Stop: 07/11/25 06:29 Last Admin: 06/11/25 05:47 Dose: 137 mcg Documented By: KENDALL Magnesium Oxide (Magnesium Oxide 400 Mg Tab) 400 [facility] [place]: 07/11/25 08:59 Last Admin: 06/11/25 08:04 Dose: 400 mg Documented By: van Metoprolol Succinate (Metoprolol Succ 25mg Ext Rel Tab) 12.5 mg PO DAILY [facility] Stop: 07/11/25 08:59 Last Admin: 06/11/25 07:38 Dose: Not Given Documented By: van Rosuvastatin Calcium (Rosuvastatin Calcium 20 Mg Tab) 40 [facility] [place]: 07/11/25 08:59 Last Admin: 06/11/25 08:04 Dose: 40 mg Documented By: van Discontinued Medications Potassium Chloride (K Antonio / Wtr) 10 meq in 100 mls @ 100 mls/hr IV Q1H [facility] Stop: 06/10/25 23:59 Last Infusion: 06/11/25 01:30 Dose: Infused Documented By: Admin: 06/11/25 00:02 Dose: 100 mls/hr Documented By: Infusion: 06/10/25 23:26 Dose: Infused Documented By: Admin: 06/10/25 22:26 Dose: 100 mls/hr Documented By: Infusion: 06/10/25 22:25 Dose: Infused Documented By: Admin: 06/10/25 21:22 Dose: 100 mls/hr Documented By: SHAVONNE Sodium Chloride (Nss) 250 mls @ 80 mls/hr IV .Q3H8M ONE Stop: 06/11/25 04:04 Last Infusion: 06/11/25 02:28 Dose: Infused Documented By: Admin: 06/11/25 01:36 Dose: 80 mls/hr Documented By: ZAID Magnesium Sulfate/Dextrose (Magnesium Sulfate / D5w) 1 gm in 100 mls @ 50 mls/hr IV Q2H MALCOM Stop: 06/11/25 07:29 Last Infusion: 06/11/25 07:46 Dose: Infused Documented By: van Admin: 06/11/25 05:45 Dose: 50 mls/hr Documented By: Infusion: 06/11/25 05:44 Dose: Infused Documented By: senior product development manager: 06/11/25 03:40 Dose: 50 mls/hr Documented By: Infusion: 06/11/25 03:38 Dose: Infused Documented By: senior product development manager: 06/11/25 01:34 Dose: 50 mls/hr Documented By: ZAID Magnesium Sulfate/Dextrose (Magnesium Sulfate / D5w) 1 gm in 100 mls @ 50 mls/hr IV Q2H MALCOM Stop: 06/11/25 11:29 Last Infusion: 06/11/25 12:07 Dose: Infused Documented By: van Admin: 06/11/25 09:43 Dose: 50 mls/hr Documented By: van Infusion: 06/11/25 09:35 Dose: Infused Documented By: van Admin: 06/11/25 07:35 Dose: 50 mls/hr Documented By: van Ioversol (Optiray 320 100ml) 90 ml IV ONCE ONE Stop: 06/10/25 20:54 Last Admin: 06/10/25 20:54 Dose: 90 ml Documented By: CATHY Potassium Chloride (Potassium Chloride Crtab 20 Meq Tabcr) 40 meq PO NOW STA Stop: 06/11/25 00:58 Last Admin: 06/11/25 01:34 Dose: 40 meq Documented By: ZAID Potassium Chloride (Potassium Chloride Crtab 20 Meq Tabcr) 40 meq PO NOW STA Stop: 06/11/25 07:04 Last Admin: 06/11/25 07:35 Dose: 40 meq Documented By: van Potassium Chloride (Potassium Chloride Crtab 20 Meq Tabcr) 20 meq PO 1200,1800 MALCOM Stop: 06/11/25 18:00 Last Admin: 06/11/25 17:26 Dose: 20 meq Documented By: van Admin: 06/11/25 12:31 Dose: 20 meq Documented By: van Medical Decision Making Differential Diagnosis Fracture, dislocation, subluxation, intracranial hemorrhage, subdural hematoma, nasal bone fracture, epistaxis, skin tear, skin avulsion, among others Medical Records Attestation: I reviewed the patient's medical records. Home Medications was personally reviewed by me Laboratory Data Attestation: I reviewed the patient's lab results. 06/11/25 05:55 06/11/25 12:58 Lab Results 06/10/25 Range/Units 19:46 WBC 6.64 (4.8-10.8) K/ul RBC 4.52 (4.20-5.40) M/uL Hgb 12.5 (12.0-16.0) g/dl Hct 39.9 (37.0-47.0) % MCV 88.3 (80.0-100.0) fL MCH 27.7 (25.0-34.0) pg MCHC 31.3 L (32.0-36.0) g/dL RDW Std Deviation 55.1 H (36.4-46.3) fL RDW Coeff of Rudy 17.3 H (11.5-14.5) % Plt Count 258 (130-400) K/uL MPV 9.3 L (9.4-12.4) fL Immature Gran % (Auto) 0.3 % Neut % (Auto) 83.9 % Lymph % (Auto) 6.9 % Rolette % (Auto) 6.9 % Eos % (Auto) 1.5 % Baso % (Auto) 0.5 % Neut # (Auto) 5.57 (1.40-6.50) K/uL Lymph # (Auto) 0.46 L (1.20-3.40) K/uL Rolette # (Auto) 0.46 (0.11-0.59) K/uL Eos # (Auto) 0.10 (0.00-0.50) K/uL Baso # (Auto) 0.03 (0.00-0.20) K/uL Immature Gran # (Auto) 0.02 (0.01-0.20) K/uL PT 13.3 H (9.0-12.0) Seconds INR 1.3 H (0.9-1.1) APTT 28 (21-31) Seconds PTT Ratio 1.0 Sodium 142 (136-145) mmol/L Potassium 2.7 L (3.5-5.1) mmol/L Chloride 96 L (98-107) mmol/L Carbon Dioxide 34 H (21-32) mmol/L Anion Gap 12 H (3-11) BUN 15 (6-23) mg/dl Creatinine 1.11 (0.6-1.2) mg/dl Est Cr Clr Drug Dosing 41.0 ml/min eGFR 50.56 BUN/Creatinine Ratio 13.5 (10-20) Glucose 105 H (70-99(Fasting)) mg/dl Calcium 7.3 L (8.6-10.3) mg/dl Magnesium 0.7 L* (1.7-2.4) mg/dl Total Bilirubin 1.1 H (0.2-1.0) mg/dl AST 17 (13-39) U/L ALT 8 (7-52) U/L Alkaline Phosphatase 73 (34-104) U/L Total Protein 6.8 (6.0-8.3) gm/dl Albumin 3.7 (3.4-5.0) gm/dl Globulin 3.1 (2.5-4.0) gm/dl Albumin/Globulin Ratio 1.2 (0.9-2) Imaging Data Radiologist's Impression: Chest CT 06/10/25 20:13 Exam(s): CT CHEST With Contrast IV Amt: 90 ML OPTIRAY 320 EXAM: CT Chest With Intravenous Contrast CLINICAL HISTORY: Trauma. TECHNIQUE: Axial computed tomography images of the chest with intravenous contrast. CTDI is 62 mGy and DLP is 1098 mGy-cm. Automated exposure control was utilized for the study. A dose lowering technique was utilized adhering to the principles of ALARA. CONTRAST: Patient received 90 ML OPTIRAY 320 of IV contrast COMPARISON: Chest x-ray 06/10/2025, CT chest 02/16/2025. FINDINGS: Lungs: Left lower lobe compressive atelectasis related to pleural effusion. No definite infiltrate. Pleural space: Moderate posterior layering left pleural effusion. No pneumothorax. Heart: Status post CABG. No cardiomegaly. No significant pericardial effusion. Coronary artery calcifications. Bones/joints: Status post sternotomy. No acute fracture. Soft tissues: Unremarkable. Vasculature: Unremarkable. No thoracic aortic aneurysm. Lymph nodes: Unremarkable. No enlarged lymph nodes. IMPRESSION: Posterior layering right pleural effusion with compressive atelectasis. Status post sternotomy/CABG. Electronically signed by: Bethel Davila M.D. 06/10/25 23:12 PM Chest X-Ray 06/10/25 20:13 Exam(s): XR CXR 1 VIEW EXAM: XR Chest, 1 View CLINICAL HISTORY: Trauma. TECHNIQUE: Frontal view of the chest. COMPARISON: 02/18/2025. FINDINGS: Status post sternotomy. Mild cardiomegaly. Posterior layering left pleural effusion with mild atelectasis. No definite CHF. No pneumothorax. Degenerative changes of the thoracic spine. No fracture identified. IMPRESSION: Cardiomegaly. Left pleural effusion with atelectasis. Electronically signed by: Bethel Davila M.D. 06/10/25 23:[address] 06/10/25 20:13 Exam(s): CT L SPINE With Contrast IV Amt: 90 ML OPTIRAY 320 EXAM: CT Lumbar Spine With Intravenous Contrast CLINICAL HISTORY: trauma. TECHNIQUE: Axial computed tomography images of the lumbar spine with intravenous contrast. CTDI is 62 mGy and DLP is 1098 mGy-cm. Automated exposure control was utilized for the study. A dose lowering technique was utilized adhering to the principles of ALARA. CONTRAST: Patient received 90 ML OPTIRAY 320 of IV contrast COMPARISON: CT abdomen pelvis 02/16/2025. FINDINGS: Vertebrae: No acute fracture. Maintenance of height of the vertebral bodies. Dextroscoliosis. No spondylolisthesis. Sclerotic changes from the L2 through S1 vertebral body, unchanged. limits. Discs/spinal canal/neural foramina: Multilevel degenerative changes from greatest from L2-3 through L5-S1, unchanged. Soft tissues: No paraspinal collection. Partially visualized left pleural effusion with atelectasis. IMPRESSION: No acute post-traumatic abnormality. Multilevel degenerative changes. Electronically signed by: Bethel Davila M.D. 06/10/25 23:08 PM Tibia/Fibula X-Ray 06/10/25 20:13 Exam(s): XR LEFT TIB/FIB, 2 views EXAM: XR Left Tibia and Fibula, 2 Views CLINICAL HISTORY: leg pain. TECHNIQUE: Frontal and lateral views of the left tibia and fibula. COMPARISON: No relevant prior studies available. FINDINGS: Bones/joints: Unremarkable. No acute fracture. No dislocation. Soft tissues: Diffuse soft tissue swelling. No radiopaque foreign body. Vascular calcifications. IMPRESSION: Diffuse soft tissue swelling. No acute fracture. Electronically signed by: Bethel Davila M.D. 06/10/25 23:[address] 06/10/25 20:14 Exam(s): CT C SPINE EXAM: CT Cervical Spine Without Intravenous Contrast CLINICAL HISTORY: Trauma. TECHNIQUE: Axial computed tomography images of the cervical spine without intravenous contrast. CTDI is 62 mGy and DLP is 1098 mGy-cm. Automated exposure control was utilized for the study. A dose lowering technique was utilized adhering to the principles of ALARA. COMPARISON: CT soft tissue neck 06/17/2023. FINDINGS: Vertebrae: No acute fracture. Maintenance of height of the vertebral bodies. No subluxation. Straightening of the normal cervical lordosis. Discs/spinal canal/neural foramina: Multilevel degenerative changes, greatest at C5-6 and C6-7. Soft tissues: Prevertebral soft tissues are unremarkable. Other: Posterior layering left pleural effusion. Atherosclerotic vascular calcifications. IMPRESSION: Straightening of the normal cervical lordosis, most commonly seen with muscle spasm or positioning. Multilevel degenerative changes. Electronically signed by: Bethel Davila M.D. 06/10/25 22:[address] 06/10/25 20:14 Exam(s): CT HEAD Without Contrast EXAM: CT Head Without Intravenous Contrast CLINICAL HISTORY: Trauma. TECHNIQUE: Axial computed tomography images of the head/brain without intravenous contrast. CTDI is 62 mGy and DLP is 1098 mGy-cm. Automated exposure control was utilized for the study. A dose lowering technique was utilized adhering to the principles of ALARA. COMPARISON: No relevant prior studies available. FINDINGS: Brain: Age-appropriate generalized atrophy. No acute stroke. Diffuse supratentorial periventricular and subcortical white matter changes. No acute hemorrhage or abnormal extra-axial fluid collection. Ventricles: No hydrocephalus. No midline shift. Bones/joints: Unremarkable. No acute fracture. Soft tissues: Unremarkable. Sinuses: Minimal left maxillary sinus mucosal thickening. No acute sinusitis. IMPRESSION: No acute post-traumatic intracranial abnormality. Non-specific white matter changes, most commonly seen with small vessel disease. Electronically signed by: Bethel Davila M.D. 06/10/25 22:[address] 06/10/25 20:15 Exam(s): CT T SPINE IV Amt: 90 ML OPTIRAY 320 EXAM: CT Thoracic Spine With Intravenous Contrast CLINICAL HISTORY: trauma. TECHNIQUE: Axial computed tomography images of the thoracic spine with intravenous contrast. CTDI is 62 mGy and DLP is 1098 mGy-cm. Automated exposure control was utilized for the study. A dose lowering technique was utilized adhering to the principles of ALARA. CONTRAST: Patient received 90 ML OPTIRAY 320 of IV contrast COMPARISON: CTA chest 02/18/2025. FINDINGS: Vertebrae: No acute fracture. Maintenance of height of the vertebral bodies. No spondylolisthesis. Bone mineralization within normal limits. Discs/spinal canal/neural foramina: Mild multilevel endplate degenerative changes without high-grade central canal stenosis. Soft tissues: Moderate posterior layering left pleural effusion with atelectasis. IMPRESSION: No acute post-traumatic abnormality. Electronically signed by: Bethel Davila M.D. 06/10/25 22:55 PM Abdomen/Pelvis CT 06/10/25 20:42 Exam(s): CT ABDOMEN + PELVIS With Contrast IV Amt: 90 ML OPTIRAY 320 EXAM: CT Abdomen and Pelvis With Intravenous Contrast CLINICAL HISTORY: trauma. TECHNIQUE: Axial computed tomography images of the abdomen and pelvis with intravenous contrast. CTDI is 62 mGy and DLP is 1098 mGy-cm. Automated exposure control was utilized for the study. A dose lowering technique was utilized adhering to the principles of ALARA. CONTRAST: Patient received 90 ML OPTIRAY 320 of IV contrast COMPARISON: 02/16/2025 FINDINGS: Lung bases: Posterior layering right pleural effusion with atelectasis. ABDOMEN: Liver: Unremarkable. No mass. Gallbladder and bile ducts: Unremarkable. No calcified stones. No ductal dilation. Pancreas: Atrophic. No mass. No ductal dilation. Spleen: Unremarkable. No splenomegaly. Adrenals: Unremarkable. No mass. Kidneys and ureters: No obstructive uropathy. No obstructing renal or ureteral calculi. No hydronephrosis or hydroureter. Stomach and bowel: No obstruction or ileus. Sigmoid colon diverticulosis without evidence for acute diverticulitis. PELVIS: Appendix: No findings to suggest acute appendicitis. Bladder: Partially contracted. No mass. Reproductive: Uterus not identified. ABDOMEN and PELVIS: Intraperitoneal space: No free air. No free fluid. Bones/joints: No acute fracture. Dextroscoliosis. Degenerative changes of the spine. Soft tissues: Unremarkable. Vasculature: Atherosclerotic vascular calcifications. No abdominal aortic aneurysm. Unchanged splenic artery calcified aneurysm. Lymph nodes: Unremarkable. No enlarged lymph nodes. IMPRESSION: Posterior layering right pleural effusion with atelectasis. Otherwise no potential acute posttraumatic abnormality. Senescent changes. Electronically signed by: Bethel Davila M.D. 06/10/25 23:22 PM [facility] Narrative Patient is a 80-year-old female who presents to the emergency department with complaints of facial pain after a ground-level fall. Patient states that she was walking back the hallway to her bathroom when she tripped and fell forward onto her face. Patient denies any loss of consciousness and denies any lightheadedness or dizziness prior to the fall. Patient is on Plavix and aspirin. Patient reports that she is having pain in her left lower leg after a ground-level fall on Friday which was exacerbated by this fall. Patient denies any chest pain or shortness of breath. Patient was evaluated by myself and findings were noted in the physical exam above. Patient was ordered IV placement, lab work, chest x-ray, x-ray of the left lower extremity and urinalysis. Patient was also ordered a CT scan of the head, C- spine, chest, thoracic spine, abdomen and pelvis, and lumbar spines. Patient's lab work resulted with a normal white blood cell count of 6.64. Patient had no indication of anemia with a hemoglobin of 12.5 and hematocrit of 39.9. Patient did have a low potassium of 2.7. Patient does report that she has a history of chronic issues with lower potassium and has previously been taking oral potassium for her hypokalemia. Patient reports that she was taking 40 mill equivalents of potassium per day and was recently dropped down to 20 mill equivalents per day. Patient was ordered IV potassium at this time. Patient had no other significant electrolyte imbalances noted. Patient has a chest CT that was completed and interpreted by radiology to note a posterior layering pleural effusion with compressive atelectasis. Patient also had a chest x-ray that was completed and interpreted by radiology to also note the same pleural effusion. Patient had a lumbar and thoracic spine CT completed and interpreted by radiology to show no acute posttraumatic abnormalities there were only multilevel degenerative changes noted. Patient had a CT of the abdomen that was completed and interpreted by radiology as well to show no potential acute posttraumatic abnormalities. Patient's head CT was also completed and interpreted by radiology to show no acute posttraumatic intracranial abnormalities. There was nonspecific white matter changes that are mostly seen with small vessel disease that the patient has had on previous CTs per the patient. I discussed the rest of the findings with the patient and her family at bedside they also verbalized that the patient has previously been made aware of this pleural effusion after her bypass surgery. Patient was found to only be saturating about 86 to 87% on room air.. Patient reports that she is not using oxygen at home but notes that she has been having some intermittent shortness of breath with exertion since her surgery though denies feeling any shortness of breath or chest pain at this time. I discussed with the patient that I would advise her to stay in the hospital for further evaluation and management as she is becoming hypoxic without exertion. Patient verbalized understanding and is agreeable to the plan for admission to the hospital. I spoke with Dr. Travis with [facility] about this patient. He gave him a full report of the patient's chief complaint, current status and the results of her imaging and lab work. He verbalized understanding and was agreeable to admit the patient under his service. Please refer to the [facility]'s documentation for further evaluation and management of this patient. Attending Attestation: I David Stafford MD I have reviewed the advanced practitioner's documentation and agree with the plan of care. I accept the responsibility for the associated risk of managing the patient. I performed a substantive portion of the visit including involvement in all aspects of medical decision making. Impression Fall, Head injury, Acute facial pain, Abrasion, Hypokalemia, Hypoxia Discharge Plan Visit Data Chief Complaint: Fall Stated Complaint: FALL, HIT NOSE, ON BLOOD THINNERS ED Provider: David Stafford ED Midlevel Provider: Cher Pike Discharge Problem: Fall, Head injury, Acute facial pain, Abrasion, Hypokalemia, Hypoxia Patient Disposition: Admitted As Inpatient Condition: Fair Discharge Instructions Interventions: ED Discharge Assessment Last Done: 06/11/25 02:20 ED DC CONDITION Conditon at Discharge Condition at Discharge: Fair Discharge Problem: Fall Qualifiers: Encounter type: initial encounter Qualified Code(s): W19.XXXA - Unspecified fall, initial encounter Head injury Qualifiers: Encounter type: initial encounter Qualified Code(s): S09.90XA - Unspecified injury of head, initial encounter
[2025-06-10 20:27] LABS: Hematocrit (blood only) 39.9 % (37.0-47.0); Hemoglobin 12.5 g/dl (12.0-16.0); Immature Granulocytes # (auto) 0.02 K/uL (0.01-0.20); Immature Granulocytes % (auto) 0.3 %; Mean Corpuscular Hemoglobin 27.7 pg (25.0-34.0); Mean Corpuscular Volume 88.3 fL (80.0-100.0); Platelet Count 258 K/uL (130-400); RDW Standard Deviation 55.1 fL (36.4-46.3); Red Blood Count 4.52 M/uL (4.20-5.40); White Blood Count 6.64 K/ul (4.8-10.8)
[2025-06-10 20:43] LABS: Alanine Aminotransferase 8.0 U/L (7-52); Albumin Globulin Ratio 1.2 (0.9-2); Albumin Level 3.7 gm/dl (3.4-5.0); Alkaline Phosphatase 73.0 U/L (34-104); Anion Gap 12.0 (3-11); Bilirubin,Total 1.1 mg/dl (0.2-1.0); Blood Urea Nitrogen 15.0 mg/dl (6-23); Calcium 7.3 mg/dl (8.6-10.3); Carbon Dioxide 34.0 mmol/L (21-32); Chloride 96.0 mmol/L (98-107); Creatinine Clr Calc Pharmacy 41.0 ml/min; Globulin 3.1 gm/dl (2.5-4.0); Glucose 105.0 mg/dl (70-99(Fasting)); Potassium 2.7 mmol/L (3.5-5.1); Sodium 142.0 mmol/L (136-145); Total Protein 6.8 gm/dl (6.0-8.3)
[2025-06-10] MEDS: OPTIRAY 320 100ml IV ONE (20:54)
[2025-06-10 21:02] LABS: INR 1.3 (0.9-1.1); Partial Thromboplastin Time 28 Seconds (21-31); Prothrombin Time 13.3 Seconds (9.0-12.0)
[2025-06-10] MEDS: POTASSIUM CHLORIDE / WTR 10 MEQ/100 ML PLCT IV SCH (21:22)
--- NOTE | 2025-06-10 22:28 | CT Scan Report ---
Exam(s): CT HEAD Without Contrast EXAM: CT Head Without Intravenous Contrast CLINICAL HISTORY: Trauma. TECHNIQUE: Axial computed tomography images of the head/brain without intravenous contrast. CTDI is 62 mGy and DLP is 1098 mGy-cm. Automated exposure control was utilized for the study. A dose lowering technique was utilized adhering to the principles of ALARA. COMPARISON: No relevant prior studies available. FINDINGS: Brain: Age-appropriate generalized atrophy. No acute stroke. Diffuse supratentorial periventricular and subcortical white matter changes. No acute hemorrhage or abnormal extra-axial fluid collection. Ventricles: No hydrocephalus. No midline shift. Bones/joints: Unremarkable. No acute fracture. Soft tissues: Unremarkable. Sinuses: Minimal left maxillary sinus mucosal thickening. No acute sinusitis. IMPRESSION: No acute post-traumatic intracranial abnormality. Non-specific white matter changes, most commonly seen with small vessel disease. Electronically signed by: Bethel Davila M.D. 06/10/25 22:27 PM
--- NOTE | 2025-06-10 22:50 | CT Scan Report ---
Exam(s): CT C SPINE EXAM: CT Cervical Spine Without Intravenous Contrast CLINICAL HISTORY: Trauma. TECHNIQUE: Axial computed tomography images of the cervical spine without intravenous contrast. CTDI is 62 mGy and DLP is 1098 mGy-cm. Automated exposure control was utilized for the study. A dose lowering technique was utilized adhering to the principles of ALARA. COMPARISON: CT soft tissue neck 06/17/2023. FINDINGS: Vertebrae: No acute fracture. Maintenance of height of the vertebral bodies. No subluxation. Straightening of the normal cervical lordosis. Discs/spinal canal/neural foramina: Multilevel degenerative changes, greatest at C5-6 and C6-7. Soft tissues: Prevertebral soft tissues are unremarkable. Other: Posterior layering left pleural effusion. Atherosclerotic vascular calcifications. IMPRESSION: Straightening of the normal cervical lordosis, most commonly seen with muscle spasm or positioning. Multilevel degenerative changes. Electronically signed by: Bethel Davila M.D. 06/10/25 22:49 PM
--- NOTE | 2025-06-10 22:56 | CT Scan Report ---
Exam(s): CT T SPINE IV Amt: 90 ML OPTIRAY 320 EXAM: CT Thoracic Spine With Intravenous Contrast CLINICAL HISTORY: trauma. TECHNIQUE: Axial computed tomography images of the thoracic spine with intravenous contrast. CTDI is 62 mGy and DLP is 1098 mGy-cm. Automated exposure control was utilized for the study. A dose lowering technique was utilized adhering to the principles of ALARA. CONTRAST: Patient received 90 ML OPTIRAY 320 of IV contrast COMPARISON: CTA chest 02/18/2025. FINDINGS: Vertebrae: No acute fracture. Maintenance of height of the vertebral bodies. No spondylolisthesis. Bone mineralization within normal limits. Discs/spinal canal/neural foramina: Mild multilevel endplate degenerative changes without high-grade central canal stenosis. Soft tissues: Moderate posterior layering left pleural effusion with atelectasis. IMPRESSION: No acute post-traumatic abnormality. Electronically signed by: Bethel Davila M.D. 06/10/25 22:55 PM
--- NOTE | 2025-06-10 23:09 | CT Scan Report ---
Exam(s): CT L SPINE With Contrast IV Amt: 90 ML OPTIRAY 320 EXAM: CT Lumbar Spine With Intravenous Contrast CLINICAL HISTORY: trauma. TECHNIQUE: Axial computed tomography images of the lumbar spine with intravenous contrast. CTDI is 62 mGy and DLP is 1098 mGy-cm. Automated exposure control was utilized for the study. A dose lowering technique was utilized adhering to the principles of ALARA. CONTRAST: Patient received 90 ML OPTIRAY 320 of IV contrast COMPARISON: CT abdomen pelvis 02/16/2025. FINDINGS: Vertebrae: No acute fracture. Maintenance of height of the vertebral bodies. Dextroscoliosis. No spondylolisthesis. Sclerotic changes from the L2 through S1 vertebral body, unchanged. limits. Discs/spinal canal/neural foramina: Multilevel degenerative changes from greatest from L2-3 through L5-S1, unchanged. Soft tissues: No paraspinal collection. Partially visualized left pleural effusion with atelectasis. IMPRESSION: No acute post-traumatic abnormality. Multilevel degenerative changes. Electronically signed by: Bethel Davila M.D. 06/10/25 23:08 PM
--- NOTE | 2025-06-10 23:13 | CT Scan Report ---
Exam(s): CT CHEST With Contrast IV Amt: 90 ML OPTIRAY 320 EXAM: CT Chest With Intravenous Contrast CLINICAL HISTORY: Trauma. TECHNIQUE: Axial computed tomography images of the chest with intravenous contrast. CTDI is 62 mGy and DLP is 1098 mGy-cm. Automated exposure control was utilized for the study. A dose lowering technique was utilized adhering to the principles of ALARA. CONTRAST: Patient received 90 ML OPTIRAY 320 of IV contrast COMPARISON: Chest x-ray 06/10/2025, CT chest 02/16/2025. FINDINGS: Lungs: Left lower lobe compressive atelectasis related to pleural effusion. No definite infiltrate. Pleural space: Moderate posterior layering left pleural effusion. No pneumothorax. Heart: Status post CABG. No cardiomegaly. No significant pericardial effusion. Coronary artery calcifications. Bones/joints: Status post sternotomy. No acute fracture. Soft tissues: Unremarkable. Vasculature: Unremarkable. No thoracic aortic aneurysm. Lymph nodes: Unremarkable. No enlarged lymph nodes. IMPRESSION: Posterior layering right pleural effusion with compressive atelectasis. Status post sternotomy/CABG. Electronically signed by: Bethel Davila M.D. 06/10/25 23:12 PM
--- NOTE | 2025-06-10 23:23 | CT Scan Report ---
Exam(s): CT ABDOMEN + PELVIS With Contrast IV Amt: 90 ML OPTIRAY 320 EXAM: CT Abdomen and Pelvis With Intravenous Contrast CLINICAL HISTORY: trauma. TECHNIQUE: Axial computed tomography images of the abdomen and pelvis with intravenous contrast. CTDI is 62 mGy and DLP is 1098 mGy-cm. Automated exposure control was utilized for the study. A dose lowering technique was utilized adhering to the principles of ALARA. CONTRAST: Patient received 90 ML OPTIRAY 320 of IV contrast COMPARISON: 02/16/2025 FINDINGS: Lung bases: Posterior layering right pleural effusion with atelectasis. ABDOMEN: Liver: Unremarkable. No mass. Gallbladder and bile ducts: Unremarkable. No calcified stones. No ductal dilation. Pancreas: Atrophic. No mass. No ductal dilation. Spleen: Unremarkable. No splenomegaly. Adrenals: Unremarkable. No mass. Kidneys and ureters: No obstructive uropathy. No obstructing renal or ureteral calculi. No hydronephrosis or hydroureter. Stomach and bowel: No obstruction or ileus. Sigmoid colon diverticulosis without evidence for acute diverticulitis. PELVIS: Appendix: No findings to suggest acute appendicitis. Bladder: Partially contracted. No mass. Reproductive: Uterus not identified. ABDOMEN and PELVIS: Intraperitoneal space: No free air. No free fluid. Bones/joints: No acute fracture. Dextroscoliosis. Degenerative changes of the spine. Soft tissues: Unremarkable. Vasculature: Atherosclerotic vascular calcifications. No abdominal aortic aneurysm. Unchanged splenic artery calcified aneurysm. Lymph nodes: Unremarkable. No enlarged lymph nodes. IMPRESSION: Posterior layering right pleural effusion with atelectasis. Otherwise no potential acute posttraumatic abnormality. Senescent changes. Electronically signed by: Bethel Davila M.D. 06/10/25 23:22 PM
--- NOTE | 2025-06-10 23:30 | XRay Report ---
Exam(s): XR CXR 1 VIEW EXAM: XR Chest, 1 View CLINICAL HISTORY: Trauma. TECHNIQUE: Frontal view of the chest. COMPARISON: 02/18/2025. FINDINGS: Status post sternotomy. Mild cardiomegaly. Posterior layering left pleural effusion with mild atelectasis. No definite CHF. No pneumothorax. Degenerative changes of the thoracic spine. No fracture identified. IMPRESSION: Cardiomegaly. Left pleural effusion with atelectasis. Electronically signed by: Bethel Davila M.D. 06/10/25 23:30 PM
--- NOTE | 2025-06-10 23:32 | XRay Report ---
Exam(s): XR LEFT TIB/FIB, 2 views EXAM: XR Left Tibia and Fibula, 2 Views CLINICAL HISTORY: leg pain. TECHNIQUE: Frontal and lateral views of the left tibia and fibula. COMPARISON: No relevant prior studies available. FINDINGS: Bones/joints: Unremarkable. No acute fracture. No dislocation. Soft tissues: Diffuse soft tissue swelling. No radiopaque foreign body. Vascular calcifications. IMPRESSION: Diffuse soft tissue swelling. No acute fracture. Electronically signed by: Bethel Davila M.D. 06/10/25 23:31 PM
[2025-06-11 01:00] LABS: Magnesium 0.7 mg/dl (1.7-2.4)
--- NOTE | 2025-06-11 01:01 | History & Physical Report ---
Date of Service June 11, 2025 Assessment & Plan (1) Acute hypoxemic respiratory failure: (2) Pleural effusion, right: (3) Hypomagnesemia: (4) Hypokalemia: Plan Patient is a 80 y/o female with a PMHx including HFpEF, CAD, HLD, HTN, GERD,COPD, CKD stage 3, anxiety. Patient presented via EMS after a fall at home onto her face, also reported fall on Friday resulting in bilateral leg bruising and pain. Workup in the ED essentially negative for any traumatic changes however did reveal right pleural effusion and patient was found to be hypoxic 87% on room air. Laboratories revealed potassium 2.7. She is being admitted for ambulatory dysfunction and acute CHF/hypoxia. #acute hypoxemic respiratory failure/hypomagnesemia/right pleural effusion - Chest CT revealed right pleural effusion, on 1L NC at time of admission, without LE edema. Echo 02/2025 revealed EF 40 to 45%. - patient has been off home Lasix of 20 mg daily for several months, restarted 06/09 - given significant electrolyte abnormalities and hypotensive at time of admission, will defer IV diuretic use at this time - Consult pulmonology - could consider thoracentesis Patient not on any AC, is on aspirin and Plavix with recent CABG in March - will continue for now Magnesium 0.7 3G IV mag ordered and repeat laboratories in a.m. - Strict I&O monitoring - Daily weights - incentive spirometry - heart healthy, low-sodium diet - oxygen as needed for O2 <94% - daily BMP and Mg #hypokalemia K+ 2.7, Mg 0.7, renal function stable. Unclear etiology is just restarted diuretics 06/09, with loose stools (possible GI losses?). no noted changes on EKG - patient with poor tolerance of K riders and avoiding significant IVF with effusion above 3 bags K rider ordered + 40 mEq p.o. KCl Continue home potassium supplement Repeat BMP with a.m. labs #ambulatory dysfunction/repeated ground-level falls - Patient with a fall on Friday and Friday, denies LOC. No acute traumatic changes seen on diagnostic imaging, H&H stable. PT/OT consulted Fall precautions - orthostatic VS ordered Trend CBC #[facility]G in March at [facility] continue metoprolol, statin, Plavix and aspirin #HTNhypotensive on arrival to the ED. continue metoprolol with holding precautions Holding diuretics with electrolyte abnormalities #Hypothyroidismcontinue levothyroxine #Mental healthcontinue escitalopram VTE ppx: SCDs, low risk and possible procedure above Dispo: med/tele Admission and Anticipated Discharge Date Admission Date: 06/11/25 History of Present Illness Chief Complaint: fall Primary Care Provider: Humera Mccann DO Patient is a 80 y/o female with a PMHx including HFpEF, CAD, HLD, HTN, GERD,COPD, CKD stage 3, anxiety. Patient presented via EMS after a fall at home onto her face, also reported fall on Friday resulting in bilateral leg bruising and pain. Workup in the ED essentially negative for any traumatic changes however did reveal right pleural effusion and patient was found to be hypoxic 87% on room air. Laboratories revealed potassium 2.7. She is being admitted for ambulatory dysfunction and acute CHF/hypoxia. Patient seen at bedside. She is complaining of significant pain with K riders, will give low-dose fluids. She stated that on Friday she was coming up her 5 steps on her porch when she tripped and fell up them resulting in bilateral leg pain and bruising however she was still able to ambulate. This evening she was walking to her laundry room when she fell flat onto her face. She is unsure if she tripped on anything however denies any syncope, dizziness, lightheadedness, chest pain, shortness of breath prior to the fall. She denies any loss of consciousness. She is without pain at bedside.. Patient had a CABG in March 2025 at [facility]. He stated that they did not restart any of her home blood pressure medications until yesterday. She restarted Lasix 06/09 however did not take 06/10 as she was to go to cardiac rehab. She quit smoking in February, denies alcohol use. Is due for her evening medications. Wishes to be full code however would not want long-term life support. Regarding her low potassium, she does endorse soft stools however denies watery diarrhea or vomiting. She stated she has been eating enough however has not been drinking enough and does feel little bit dehydrated but did not want to go into fluid overload. Allergies Allergy/AdvReac Type Severity Reaction Status Date / Time cefaclor Allergy Severe Anaphylaxis Verified 06/10/25 21:53 eggplant Allergy Intermediate Itching Verified 06/10/25 21:53 tongue surgical glue Allergy Mild Redness of Uncoded 06/10/25 21:53 Skin Home Medications Medication Instructions Recorded Confirmed Type aspirin 81 mg tablet,delayed 81 mg PO QAM #90 tabs 01/20/19 06/10/25 History release rosuvastatin 40 mg tablet 40 mg PO QAM #90 tabs 03/16/24 06/10/25 Rx betamethasone dipropionate 0.05 % 1 applic topical BID PRN skin 07/26/24 06/10/25 Rx topical cream irritation #45 grams levothyroxine 137 mcg tablet 137 mcg PO QAM #90 tabs 08/03/24 06/10/25 Rx alprazolam 0.25 mg tablet 0.25 mg PO DAILY PRN anxiety #30 01/25/25 06/10/25 Rx tabs benzocaine 15 mg-menthol 3.6 mg 1 sarah beth buccal Q2H PRN #0 ea 02/23/25 06/10/25 Rx lozenges (Cepacol Sore Throat (benzocaine-menthol)) clopidogrel 75 mg tablet 75 mg PO QAM #0 tabs 02/23/25 06/10/25 Rx potassium chloride 20 mEq 20 meq PO QAM #0 tabs 02/23/25 06/10/25 Rx tablet,extended release(part/cryst) dicyclomine 20 mg tablet 20 mg PO BID PRN stomach cramps 02/28/25 06/10/25 Rx #180 tabs acetaminophen 500 mg tablet 1,000 mg (2 x 500 mg) PO Q4H PRN 03/07/25 06/10/25 Rx pain #30 tabs cholecalciferol (vitamin D3) 25 50 mcg PO QAM 03/14/25 06/10/25 History mcg (1,000 unit) capsule escitalopram oxalate 10 mg tablet 10 mg PO DAILY #90 tabs 04/21/25 06/10/25 Rx furosemide 20 mg tablet 20 - 40 mg PO QAM 06/10/25 06/10/25 History metoprolol succinate 25 mg 12.5 mg PO DAILY 06/10/25 06/10/25 History tablet,extended release 24 hr Past Med/Surg History Problem List (Updated 06/12/25 @ 00:27 by ELVIRA Magaña) Hypoxia (Acute) Volume overload Pleural effusion, left Pleural effusion, right Acute hypoxemic respiratory failure Hypokalemia (Acute) Abrasion (Acute) Acute facial pain (Acute) Head injury (Acute) Fall (Acute) Heart failure with reduced ejection fraction CAD (coronary artery disease), kenaitze coronary artery (02/2025) Mesenteric artery stenosis Chronic intermittent abdominal pain Hypomagnesemia NSTEMI (non-ST elevated myocardial infarction) (02/2025) Peripheral vascular disease Hiatal hernia Tobacco use Sensorineural hearing loss, bilateral Stenosis of both subclavian arteries [facility] vascular visit (05/2022): asymptomatic, 2 year reevaluation recommended Hx of carotid stenosis s/p Right CEA (2017) Venous insufficiency (chronic) (peripheral) Pre-diabetes Hypothyroidism Hypertension Hyperlipidemia History of uterine cancer (2006) chemo and XRT GERD (gastroesophageal reflux disease) COPD (chronic obstructive pulmonary disease) (Acute) Per records, patient denies Chronic kidney disease, stage III (moderate) Anxiety 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 Vitamin D deficiency Medical History Acute heart failure with preserved ejection fraction (HFpEF) Flash pulmonary edema Imbalance Bilateral impacted cerumen Parotid mass Postmenopausal Hx of renal calculi History of seasonal allergies History of anemia Hx of blood clots Superficial RLE blood clot (after delivery), no issues since History of asthma Childhood, no current/recent issues Surgical History S/P CABG x 3 (02/28/25) 02/28/2025 History of parotid gland removal (02/03/24) superficial right parotidectomy, pathology Warthin Tumor Hx of esophagogastroduodenoscopy (10/2021) History of cholecystectomy History of colonoscopy H/O total hysterectomy History of tooth extraction H/O carotid endarterectomy (12/03/17) Right H/O: section x1 Family History Grandmother Breast cancer Mother Myocardial infarction Heart disease Stroke Hypertension Mother Hypertension Father , age 76 Family history of esophageal cancer Heart disease Hypertension Cancer Other No family history of adverse response to anesthesia No family history of bleeding disorder Denies family history of Ovarian cancer Prostate cancer Lung cancer Colorectal cancer Social History Smoking Status: Former smoker Tobacco Type: Cigarettes Age Started Using Tobacco: 21; Age Quit Using Tobacco: 79; packs per day: 1; Smoking End Date: February 2025; Second Hand Exposure: No; Do You Dip or Chew Tobacco: No; Hx Alcohol Use: No Hx Substance Use: No Preferred Language: Yi Communication Ability: Effective Communication Ability Comment: intubated Visual Impairment: No Limitations Hearing Ability: Normal Plugger Man Required: No Beliefs That Will Affect Care: None marital status: Current Living Situation: Spouse Current Living Situation Comment: lives at home with current occupational status: retired current occupation: Retired How many Children do You have: 2 Other Information That Helps Us Care for You: No Feels Safe at Home: Yes Safety Concerns: Feels Safe At This Time Childhood Exposure to Second-Hand Smoke: Yes Diet: regular Diet Comment: regular caffeine: Yes (coffee) during the past year weight has: decreased > 10 lbs Dental Care, Regularly: No Physical Activity Frequency: 1-2 Times per Week Physical Activity Frequency Comment: limited Seatbelt Use: always Sunscreen Use: No Assistive Devices: Cane and Denture - Upper Review of Systems Review of Systems: see HPI Physical Exam Physical Exam: The patient is awake, alert and oriented 3, well developed and well nourished, normocephalic and atraumatic, in no acute distress. Non-toxic appearing. HEENT- EOMI, mucous membranes dry. Hearing grossly intact. Heart-normal S1 and S2. No murmurs, rubs or gallops. Lungs-decreased bilaterally, no respiratory distress, no accessory muscle use. 1L NC. Abdomen-normal bowel sounds and soft. No ascites noted. Non-tender. Extremities- no clubbing, cyanosis, or edema. Rheumatologic-normal range of motion. Psychiatric-normal affect. Results & Data Results & Data Vital Signs (Past 12 Hours) Vital Signs Temp Pulse Pulse Resp BP BP Pulse Ox 06/11/25 00:06 90 06/11/25 00:00 70 24 100/53 L 87 L 06/10/25 23:43 71 06/10/25 23:00 69 23 105/68 97 06/10/25 22:30 67 20 103/65 99 06/10/25 21:30 78 20 114/77 96 06/10/25 20:30 72 18 97/70 L 100 06/10/25 20:18 99 06/10/25 19:45 95 06/10/25 19:40 79 06/10/25 19:34 37 C 79 18 117/74 89 L 06/10/25 19:34 37 C 79 18 117/74 89 L O2 Del Method O2 Flow Rate 06/11/25 00:06 Nasal Cannula 1 06/11/25 00:00 Room Air 06/10/25 23:43 06/10/25 23:00 Nasal Cannula 2 06/10/25 22:30 Nasal Cannula 2 06/10/25 21:30 Nasal Cannula 2 06/10/25 20:30 Nasal Cannula 2 06/10/25 20:18 Nasal Cannula 2 06/10/25 19:45 Nasal Cannula 2 06/10/25 19:40 06/10/25 19:34 Room Air 06/10/25 19:34 Room Air Laboratory Results reviewed CBC, PT/INR, CMP magnesium ordered Diagnostic Findings reviewed AP CT, thoracic spine CT, head CT, cervical spine CT, tibia/fibula XR, lumbar spine CT, CXR chest CT Medications Administered for now ED3 bags K rider, 500 mL NSS ECG Additional Comments: sinus rhythm with first-degree AV block with occasional PVCs (similar to previous) Right bundle branch block (similar to previous) Rate 78 QTc 510 Code Status & VTE Plan Code Status full code VTE Prophylaxis Plan VTE Prophylaxis will be ordered: Yes Supervising Physician Co-Signing Physician Notes Patient seen and examined, chart reviewed, case discussed with CYNTHIA Escobar and I agree with the assessment and plan as above Acute hypoxic respiratory failure, pleural effusion on right -Electrolyte repletion -Pulmonary consultation appreciated re: possible thoracentesis. Patient with borderline low BP in the ER, cautious diuresis -Remainder as above PG Care Time/CCT Total # of Minutes Spent Total Time Spent with Patient: Total time spent is greater than 50% in coordination of care (as documented) at patient's floor/unit and/or counseling patient: Coding Level of Care Code 39703 INT INP/OBS CARE 3/75MIN Diagnoses Acute hypoxemic respiratory failure J96.01 Pleural effusion, right J90 Hypomagnesemia E83.42 Hypokalemia E87.6
[2025-06-11] MEDS: MAGNESIUM SULFATE / D5W 1 GM/100 ML BAG IV SCH ×2 (01:34→07:35)
[2025-06-11] MEDS: POTASSIUM CHLORIDE CRTAB 20 MEQ TABCR PO STA ×2 (01:34→07:35)
[2025-06-11] MEDS: SODIUM CHLORIDE 0.9% 250 ML IV ONE (01:36)
[2025-06-11 02:28] LABS: Appearance Urine Cloudy (Clear); Bacteria Urine Automated 4+ (None Seen); Cast Urine Automated 0-2 /lpf (0-2); Glucose Urine UA Negative (Negative); RBC Urine Automated >20 /hpf (0-2); Starch Talc Urine Present (None Prsent)
[2025-06-11] MEDS ORDERED: DOCUSATE SODIUM 100 MG CAP PO PRN (03:36)
[2025-06-11] MEDS ORDERED: MELATONIN 3 MG TAB PO PRN (03:36)
[2025-06-11] MEDS ORDERED: ONDANSETRON INJ 2 MG/ML 2 ML VIAL IV PRN (03:36)
[2025-06-11] MEDS: LEVOTHYROXINE SODIUM 137 MCG TABLET PO SCH (05:47)
[2025-06-11 06:17] LABS: Hematocrit (blood only) 35.7 % (37.0-47.0); Hemoglobin 11.1 g/dl (12.0-16.0); Immature Granulocytes # (auto) 0.01 K/uL (0.01-0.20); Immature Granulocytes % (auto) 0.2 %; Mean Corpuscular Hemoglobin 27.4 pg (25.0-34.0); Mean Corpuscular Volume 88.1 fL (80.0-100.0); Platelet Count 206 K/uL (130-400); RDW Standard Deviation 55.8 fL (36.4-46.3); Red Blood Count 4.05 M/uL (4.20-5.40); White Blood Count 4.56 K/ul (4.8-10.8)
[2025-06-11 06:34] LABS: Alanine Aminotransferase 7.0 U/L (7-52); Albumin Globulin Ratio 1.2 (0.9-2); Albumin Level 3.4 gm/dl (3.4-5.0); Alkaline Phosphatase 61.0 U/L (34-104); Anion Gap 9.0 (3-11); Bilirubin,Total 0.9 mg/dl (0.2-1.0); Blood Urea Nitrogen 13.0 mg/dl (6-23); Calcium 6.9 mg/dl (8.6-10.3); Carbon Dioxide 32.0 mmol/L (21-32); Chloride 100.0 mmol/L (98-107); Creatinine Clr Calc Pharmacy 45.8 ml/min; Globulin 2.8 gm/dl (2.5-4.0); Glucose 102.0 mg/dl (70-99(Fasting)); Magnesium 1.3 mg/dl (1.7-2.4); Potassium 3.1 mmol/L (3.5-5.1); Sodium 141.0 mmol/L (136-145); Total Protein 6.2 gm/dl (6.0-8.3)
[2025-06-11] MEDS: METOPROLOL SUCC 25MG EXT REL TAB PO SCH (07:38)
[2025-06-11] MEDS: ASPIRIN 81 MG ECTAB PO SCH (08:04)
[2025-06-11] MEDS: CLOPIDOGREL BISULFATE 75 MG TAB PO SCH (08:04)
[2025-06-11] MEDS: ROSUVASTATIN CALCIUM 20 MG TAB PO SCH (08:04)
[2025-06-11] MEDS: MAGNESIUM OXIDE 400 MG TAB PO SCH (08:04)
[2025-06-11] MEDS: ESCITALOPRAM OXALATE 10 MG TAB PO SCH (08:04)
[2025-06-11] MEDS ORDERED: POTASSIUM CHLORIDE CRTAB 20 MEQ TABCR PO SCH (09:00)
[2025-06-11] MEDS: POTASSIUM CHLORIDE CRTAB 20 MEQ TABCR PO SCH (12:31)
--- NOTE | 2025-06-11 12:49 | Hospitalist Progress Note ---
Date of Service June 11, 2025 Assessment & Plan (1) Acute hypoxemic respiratory failure: (2) Pleural effusion, right: (3) Hypomagnesemia: (4) Hypokalemia: Plan Patient is a 80 y/o female with a PMHx including HFpEF, CAD, HLD, HTN, GERD,COPD, CKD stage 3, anxiety. Patient presented via EMS after a fall at home onto her face, also reported fall on Friday resulting in bilateral leg bruising and pain. Workup in the ED essentially negative for any traumatic changes however did reveal right pleural effusion and patient was found to be hypoxic 87% on room air. Laboratories revealed potassium 2.7. She is being admitted for ambulatory dysfunction and acute CHF/hypoxia. # Acute Hypoxic Respiratory failure suspect HFrEF, right pleural effusion - Chest CT revealed right pleural effusion, on 1L NC at time of admission, without LE edema. Echo 02/2025 revealed EF 40 to 45%. - patient has been off home Lasix of 20 mg daily for several months, restarted 06/09 -Ordered x-ray deferred on admission due to unilateral effusion, electrolyte abnormalities. Pulmonology was consulted for evaluation for thoracentesis. She is on aspirin/Plavix - Pulm consulted to consider tap for unilateral effusion. given overt volume overload is not recommended fo rthis, diuresis recommended at this time. Her dry weight is around 85-89 kg. On admission weight 89 kg BMP is markedly elevated at 1306. SHe has a right layering effusion, although left side is without effusion and no diffuse pulmonary edema is noted. JVD difficult to assess due to habitus and scar from prior carotid surgery. She had 2 syncopal events, she reports that she did not have any presyncopal prodrome at all but these happened while tending to walk and stand so may have been orthostatic. The episode prior to admission she reports that she had no warning, no lightheadedness or dizziness and felt flat on her nose and does have some ecchymosis along the bridge of her nose and cardiogenic syncope is not excluded Syncope, CAD, AoC HFrEF s/o CABG -CTchest: Layering effusion. S/p sternotomy/CABG -CThead: No acute posttraumatic change. White matter changes consistent with small vessel disease -CTA/P: Layering pleural effusion redemonstrated. Senescent changes. No intra-abdominal traumatic finding - Sinus 60-80s on telemetry. Echo 02/22/2025: Mildly reduced EF. LAD territory wall motion abnormalities. Referred to [facility] and was discharged 03/05/2025 after CABG x 3 LEPE to LAD, SVG to OM, PDA and was discharged from [facility] 03/05/2025. EF at that time was 40%. Was recommended on Plavix for 1 year and to continue Lasix. Her last follow-up 04/2025 have been feeling well overall although some shortness of breath and easy fatigue. No syncope chest pain or chest pressure at that time. Comparison EKG 02/21/2025, first-degree AV block, RBBB/left anterior fascicular block present Metoprolol, statin, DAPT continued 06/11 On afternoon BMP potassium has normalized to 3.6, magnesium improved at 1.9. Lasix twice daily IV ordered with potassium supplementation. Strict I&Os #hypokalemia Potassium 2.7 on admission, magnesium 0.7. Creatinine at baseline Had recently restarted diuretics 06/09 Following morning potassium rising to 3.1, mg rising 1.3. Additional potassium/magnesium ordered and repeat BMP pending Once electrolytes within reasonable range --> Lasix [id number] #ambulatory dysfunction/repeated ground-level falls - Patient with a fall on Friday and Friday, denied LOC on admit but pt reports happened fast and she is not completley sure on reassessment. She did not have presyncope. - No acute traumatic changes seen on diagnostic imaging, H&H stable. PT/OT consulted Fall precautions - Continued on telemetry #HTN Hypotensive on arrival Metoprolol with hold precautions #Hypothyroidism Continue Synthroid #Mental health Continue Lexapro VTE ppx: SCDs Dispo: med/tele Admission and Anticipated Discharge Date Admission Date: June 11, 2025 Subjective She is bedside this morning. She reports she feels much better than yesterday and overall improved. She reports that she does not really know what happened, she reports that she was walking and then was coming around after she had fallen flat on her face. She reports she did not have any lightheadedness or dizziness and had not felt off at all. She denies chest pain, chest pressure or any shortness of breath preceding this. She reports she had a similar episode on Friday when she was walking up 1 step. Again she did not have any chest pain, chest pressure, lightheadedness, dizziness but suddenly was waking up on the ground was unsure of what happened. She did recently restart her Lasix this week. She denies shortness of breath/orthopnea. She denies fever/chills. Physical Exam Physical Exam: General: A&Ox3. NAD. Cooperative. HEENT: Ecchymosis on bridge of nose, normocephalic. Vision/hearing intact. JVD ~2cm above clavicle, although difficult to assess due to habitus and overlying scar Pulm: +Diminished/rales RLL. Symmetrical chest rise. No increased work of breathing. No respiratory distress. Cardiac: RRR, +sm. Radial pulses intact and symmetrical. Ext: B/l LE edema through the thights. Some soft tissue component, +pitting edema of the calf and prox thigh. L anterior dewitt with contusion. PT pulse intact to palp bilaterally. Results & Data Results & Data Vital Signs (Past 12 Hours) Vital Signs Temp Pulse Pulse Resp BP BP BP 06/11/25 11:36 36.6 C 71 18 113/74 06/11/25 09:26 60 06/11/25 08:20 06/11/25 07:23 36.5 C 66 18 98/64 L 06/11/25 04:05 65 06/11/25 03:46 06/11/25 03:46 36.8 C 75 20 99/67 L 06/11/25 03:36 36.8 C 20 99/67 L 06/11/25 03:36 06/11/25 02:20 36.7 C 72 20 87/68 L 06/11/25 02:00 68 20 95/62 L 06/11/25 01:00 69 22 88/70 L Pulse Ox Pulse Ox O2 Del Method O2 Del Method O2 Flow Rate O2 Flow Rate 06/11/25 11:36 96 Nasal Cannula 2 06/11/25 09:26 06/11/25 08:20 Nasal Cannula 2 06/11/25 07:23 97 Nasal Cannula 2 06/11/25 04:05 06/11/25 03:46 Nasal Cannula 2 06/11/25 03:46 95 Nasal Cannula 2 06/11/25 03:36 95 Nasal Cannula 2 06/11/25 03:36 95 Nasal Cannula 2 06/11/25 02:20 Nasal Cannula 2 06/11/25 02:00 96 Nasal Cannula 2 06/11/25 01:00 96 Nasal Cannula 2 PG Care Time/CCT Total # of Minutes Spent Total Time Spent with Patient: Total time spent is greater than 50% in coordination of care (as documented) at patient's floor/unit and/or counseling patient: Coding Level of Care Code 13072 SUB INP/OBS CARE 3/50MIN Diagnoses Acute hypoxemic respiratory failure J96.01 Pleural effusion, right J90 Hypomagnesemia E83.42 Hypokalemia E87.6
--- NOTE | 2025-06-11 13:06 | Pulmonary Consultation ---
Date of Consultation June 11, 2025 Assessment & Plan (1) Pleural effusion, left: (2) Heart failure with reduced ejection fraction: (3) Volume overload: Plan Pulmonary has been consulted for left pleural effusion. This has been present at least since February. The patient is massively volume overloaded on exam. This is likely secondary to heart failure. I do not believe that thoracentesis is indicated at this time. Would recommend diuresis, needs electrolyte replacement aggressively. Can consider cardiology consultation for assistance. Continue oxygen supplementation, out of bed is much as possible should use incentive spirometer. Thank you for this consult. I will sign off at this time. Please call me with any questions. History of Present Illness Reason for Consultation: Pleural effusion Requesting Physician: Luis Travis MD Attending Physician: Luis Travis MD History of Present Illness Patient is a 80-year-old female with a past medical history significant forCAD with [place] in February 2025 status post CABG 02/23/2025, heart failure with moderately reduced ejection fraction, history of pulmonary edema and left pleural effusion, history of tobacco use disorder (quit in February), history of scattered small pulmonary nodules, hypertension, GERD. The patient presented to the hospital 06/10/2025 after sustaining a fall at home onto her face. She had also fallen on Friday with bilateral leg bruising and leg pain. Imaging in the ER did not show any evidence of traumatic injuries. CT of the chest did show a left pleural effusion with some adjacent atelectasis. No other airspace disease appreciated. BNP was found to be elevated. Hypokalemic on presentation. Hypomagnesemic as well. The patient was admitted to the hospitalist service. Pulmonary has been consulted for pleural effusion. When I examined the patient today she is resting comfortably on nasal cannula. She denies any oxygen requirement at home previously. She is aware of her pleural effusion and notes that this has been present for some time. I looked back in her imaging and this left-sided pleural effusion has been present since at least February. The patient is grossly volume overloaded with 2-3+ tense pitting edema of the lower extremities. She says that she recently started taking diuretics at home. She is feeling better since being in the hospital. Eager to get some of the swelling down. Her lungs are clear to auscultation, slightly diminished at bases. No wheezing appreciated. Nontachypneic. Allergies Allergy/AdvReac Type Severity Reaction Status Date / Time cefaclor Allergy Severe Anaphylaxis Verified 06/10/25 21:53 eggplant Allergy Intermediate Itching Verified 06/10/25 21:53 tongue surgical glue Allergy Mild Redness of Uncoded 06/10/25 21:53 Skin Home Medications Medication Instructions Recorded Confirmed Type aspirin 81 mg tablet,delayed 81 mg PO QAM #90 tabs 01/20/19 06/10/25 History release rosuvastatin 40 mg tablet 40 mg PO QAM #90 tabs 03/16/24 06/10/25 Rx betamethasone dipropionate 0.05 % 1 applic topical BID PRN skin 07/26/24 06/10/25 Rx topical cream irritation #45 grams levothyroxine 137 mcg tablet 137 mcg PO QAM #90 tabs 08/03/24 06/10/25 Rx alprazolam 0.25 mg tablet 0.25 mg PO DAILY PRN anxiety #30 01/25/25 06/10/25 Rx tabs benzocaine 15 mg-menthol 3.6 mg 1 sarah beth buccal Q2H PRN #0 ea 02/23/25 06/10/25 Rx lozenges (Cepacol Sore Throat (benzocaine-menthol)) clopidogrel 75 mg tablet 75 mg PO QAM #0 tabs 02/23/25 06/10/25 Rx potassium chloride 20 mEq 20 meq PO QAM #0 tabs 02/23/25 06/10/25 Rx tablet,extended release(part/cryst) dicyclomine 20 mg tablet 20 mg PO BID PRN stomach cramps 02/28/25 06/10/25 Rx #180 tabs acetaminophen 500 mg tablet 1,000 mg (2 x 500 mg) PO Q4H PRN 03/07/25 06/10/25 Rx pain #30 tabs cholecalciferol (vitamin D3) 25 50 mcg PO QAM 03/14/25 06/10/25 History mcg (1,000 unit) capsule escitalopram oxalate 10 mg tablet 10 mg PO DAILY #90 tabs 04/21/25 06/10/25 Rx furosemide 20 mg tablet 20 - 40 mg PO QAM 06/10/25 06/10/25 History metoprolol succinate 25 mg 12.5 mg PO DAILY 06/10/25 06/10/25 History tablet,extended release 24 hr Patient History Medical History Acute heart failure with preserved ejection fraction (HFpEF) Flash pulmonary edema Imbalance Bilateral impacted cerumen Parotid mass Postmenopausal Hx of renal calculi History of seasonal allergies History of anemia Hx of blood clots Superficial RLE blood clot (after delivery), no issues since History of asthma Childhood, no current/recent issues Surgical History S/P CABG x 3 (02/28/25) 02/28/2025 History of parotid gland removal (02/03/24) superficial right parotidectomy, pathology Warthin Tumor Hx of esophagogastroduodenoscopy (10/2021) History of cholecystectomy History of colonoscopy H/O total hysterectomy History of tooth extraction H/O carotid endarterectomy (12/03/17) Right H/O: section x1 Family History Grandmother Breast cancer Mother Myocardial infarction Heart disease Stroke Hypertension Mother Hypertension Father , age 76 Family history of esophageal cancer Heart disease Hypertension Cancer Other No family history of adverse response to anesthesia No family history of bleeding disorder Denies family history of Ovarian cancer Prostate cancer Lung cancer Colorectal cancer Social History Smoking Status: Former smoker Tobacco Type: Cigarettes Age Started Using Tobacco: 21; Age Quit Using Tobacco: 79; packs per day: 1; Smoking End Date: February 2025; Second Hand Exposure: No; Do You Dip or Chew Tobacco: No; Hx Alcohol Use: No Hx Substance Use: No Preferred Language: Nepali Communication Ability: Effective Communication Ability Comment: intubated Visual Impairment: No Limitations Hearing Ability: Normal Resist Coater Developer Required: No Beliefs That Will Affect Care: None marital status: Current Living Situation: Spouse Current Living Situation Comment: lives at home with current occupational status: retired current occupation: Retired How many Children do You have: 2 Other Information That Helps Us Care for You: No Feels Safe at Home: Yes Safety Concerns: Feels Safe At This Time Childhood Exposure to Second-Hand Smoke: Yes Diet: regular Diet Comment: regular caffeine: Yes (coffee) during the past year weight has: decreased > 10 lbs Dental Care, Regularly: No Physical Activity Frequency: 1-2 Times per Week Physical Activity Frequency Comment: limited Seatbelt Use: always Sunscreen Use: No Assistive Devices: Cane and Denture - Upper Review of Systems Review of Systems: Endorses some facial pain where she fell. Also some pain in her lower extremities. Also endorses abdominal swelling and significant lower extremity swelling. Physical Exam Physical Exam: General: Obese, appears stated age, well-kept, not in distress. HEENT: Skin excoriations appreciated on her nose. No JVD appreciated. Skin: Bruising appreciated lower extremities. Tense 2-3+ edema appreciated in both lower extremities. Cardiovascular: Heart is a regular rate and rhythm, no murmurs appreciated on my exam. No significant lower extremity edema. Chest incision is well-healed. Lungs: Nontachypneic, on nasal cannula. No wheezing. Diminished at bases. Abdomen: Obese, nontender to palpation. Musculoskeletal: Normal muscle mass and tone. No gross joint deformity abnormalities. No effusions appreciated. Neurologic: Awake and alert, oriented. CN II through XII are grossly intact. Speech is fluent. Nonfocal exam. Psychiatric: Appropriate cooperative during my exam. Results & Data Results & Data Vital Signs (Past 12 Hours) Vital Signs Temp Pulse Pulse Resp BP BP BP 06/11/25 11:36 36.6 C 71 18 113/74 06/11/25 09:26 60 06/11/25 08:20 06/11/25 07:23 36.5 C 66 18 98/64 L 06/11/25 04:05 65 06/11/25 03:46 06/11/25 03:46 36.8 C 75 20 99/67 L 06/11/25 03:36 36.8 C 20 99/67 L 06/11/25 03:36 06/11/25 02:20 36.7 C 72 20 87/68 L 06/11/25 02:00 68 20 95/62 L 06/11/25 01:00 69 22 88/70 L Pulse Ox Pulse Ox O2 Del Method O2 Del Method O2 Flow Rate O2 Flow Rate 06/11/25 11:36 96 Nasal Cannula 2 06/11/25 09:26 06/11/25 08:20 Nasal Cannula 2 06/11/25 07:23 97 Nasal Cannula 2 06/11/25 04:05 11/08/25 03:46 Nasal Cannula 2 06/11/25 03:46 95 Nasal Cannula 2 06/11/25 03:36 95 Nasal Cannula 2 06/11/25 03:36 95 Nasal Cannula 2 06/11/25 02:20 Nasal Cannula 2 06/11/25 02:00 96 Nasal Cannula 2 06/11/25 01:00 96 Nasal Cannula 2 PG Care Time/CCT Total # of Minutes Spent Total Time Spent with Patient: Total time spent is greater than 50% in coordination of care (as documented) at patient's floor/unit and/or counseling patient: [place] [address] IN/OBS CONSULT LVL 4,60M Patient Type New History Detailed Exam Detailed Medical Decision Making Moderate Complexity Diagnoses Pleural effusion, left J90 Heart failure with reduced ejection fraction I50.20 Volume overload E87.70
[2025-06-11 13:33] LABS: Anion Gap 7.0 (3-11); Blood Urea Nitrogen 13.0 mg/dl (6-23); Calcium 7.0 mg/dl (8.6-10.3); Carbon Dioxide 33.0 mmol/L (21-32); Chloride 99.0 mmol/L (98-107); Creatinine Clr Calc Pharmacy 43.3 ml/min; Glucose 135.0 mg/dl (70-99(Fasting)); Magnesium 1.9 mg/dl (1.7-2.4); Potassium 3.6 mmol/L (3.5-5.1); Sodium 139.0 mmol/L (136-145)
[2025-06-11] MEDS: FUROSEMIDE 40 MG/4 ML VIAL IV SCH (14:14)
[2025-06-11] MEDS: ACETAMINOPHEN 325 MG TAB PO PRN (20:48)
[2025-06-12 08:15] LABS: Hematocrit (blood only) 36.9 % (37.0-47.0); Hemoglobin 11.2 g/dl (12.0-16.0); Immature Granulocytes # (auto) 0.01 K/uL (0.01-0.20); Immature Granulocytes % (auto) 0.2 %; Mean Corpuscular Hemoglobin 27.3 pg (25.0-34.0); Mean Corpuscular Volume 90.0 fL (80.0-100.0); Platelet Count 215 K/uL (130-400); RDW Standard Deviation 56.6 fL (36.4-46.3); Red Blood Count 4.10 M/uL (4.20-5.40); White Blood Count 5.14 K/ul (4.8-10.8)
[2025-06-12 08:35] LABS: Alanine Aminotransferase 7.0 U/L (7-52); Albumin Globulin Ratio 1.3 (0.9-2); Albumin Level 3.8 gm/dl (3.4-5.0); Alkaline Phosphatase 70.0 U/L (34-104); Anion Gap 7.0 (3-11); Bilirubin,Total 1.1 mg/dl (0.2-1.0); Blood Urea Nitrogen 12.0 mg/dl (6-23); Calcium 7.6 mg/dl (8.6-10.3); Carbon Dioxide 35.0 mmol/L (21-32); Chloride 98.0 mmol/L (98-107); Creatinine Clr Calc Pharmacy 47.7 ml/min; Globulin 3.0 gm/dl (2.5-4.0); Glucose 97.0 mg/dl (70-99(Fasting)); Magnesium 1.6 mg/dl (1.7-2.4); Potassium 3.6 mmol/L (3.5-5.1); Sodium 140.0 mmol/L (136-145); Total Protein 6.8 gm/dl (6.0-8.3)
[2025-06-12] MEDS: POTASSIUM CHLORIDE CRTAB 20 MEQ TABCR PO SCH (08:47)
--- NOTE | 2025-06-12 11:09 | Hospitalist Progress Note ---
Date of Service June 12, 2025 Assessment & Plan (1) Acute hypoxemic respiratory failure: (2) Pleural effusion, right: (3) Hypomagnesemia: (4) Hypokalemia: Plan Patient is a 80 y/o female with a PMHx including HFpEF, CAD, HLD, HTN, GERD,COPD, CKD stage 3, anxiety. Patient presented via EMS after a fall at home onto her face, also reported fall on Friday resulting in bilateral leg bruising and pain. Workup in the ED essentially negative for any traumatic changes however did reveal right pleural effusion and patient was found to be hypoxic 87% on room air. Laboratories revealed potassium 2.7. She is being admitted for ambulatory dysfunction and acute CHF/hypoxia. # Acute Hypoxic Respiratory failure suspect HFrEF, right pleural effusion - Chest CT revealed right pleural effusion, on 1L NC at time of admission, without LE edema. Echo 02/2025 revealed EF 40 to 45%. - patient has been off home Lasix of 20 mg daily for several months, restarted 06/09 - Pulmonology was consulted for evaluation for thoracentesis given persistent one sided effusion. She is on aspirin/Plavix. Thoa was not recommended. Her dry weight is around 85-89 kg. On admission weight 89 kg BMP is markedly elevated at 1306. SHe has a right layering effusion, although left side is without effusion and no diffuse pulmonary edema is noted. JVD difficult to assess due to habitus and scar from prior carotid surgery. She had 2 syncopal events, she reports that she did not have any presyncopal prodrome at all but these happened while tending to walk and stand so may have been orthostatic. The episode prior to admission she reports that she had no warning, no lightheadedness or dizziness and felt flat on her nose and does have some ecchymosis along the bridge of her nose and cardiogenic syncope is not excluded Syncope, CAD, AoC HFrEF s/o CABG -CTchest: Layering effusion. S/p sternotomy/CABG -CThead: No acute posttraumatic change. White matter changes consistent with small vessel disease -CTA/P: Layering pleural effusion redemonstrated. Senescent changes. No intra-abdominal traumatic finding - Sinus 60-80s on telemetry. Echo 02/22/2025: Mildly reduced EF. LAD territory wall motion abnormalities. [place] [facility] was discharged 03/05/2025 after CABG x 3 LEPE to LAD, SVG to OM, PDA and was discharged from [facility] [place]/05/[place]25. EF at that time was 40%. Was recommended on Plavix for 1 year and to continue Lasix. Her last follow-up 04/2025 have been feeling well overall although some shortness of breath and easy fatigue. No syncope chest pain or chest pressure at that time. Comparison EKG 02/21/2025, first-degree AV block, RBBB/left anterior fascicular block present Metoprolol, statin, DAPT continued Diuresis was started 06/11 after magnesium/potassium had improved. Diuresis was not done initially due to severe hypokalemia/hypomagnesemia Magnesium repletion continued Clinically progressing 06/12, remains on oxygen but orthopnea/dyspnea has improved and creatinine is stable Patient reports very brisk diuresis 06/11 however was voiding into the toilet and this was not measured. Discussed with nursing staff, strict ins and outs. Patient will make sure she is voiding into a hat. Goal net -1-2 L/day she had some hypotension around her treatment although feels greatly improved today. Will decrease Lasix dose to 20 mg IV and split as twice daily @1700 #hypokalemia Potassium 2.7 on admission, magnesium 0.7. Creatinine at baseline Normalized Continue magnesium/potassium supplementation as needed. Daily BMP #ambulatory dysfunction/repeated ground-level falls - Patient with a fall on Friday and Friday, denied LOC on admit but pt reports happened fast and she is not completley sure on reassessment. She did not have presyncope.? Weakness with volume overload possibly orthostasis however by her story cardiogenic syncope is not excluded and she had significant electrolyte derangements. She is continued on telemetry monitoring - No acute traumatic changes seen on diagnostic imaging, H&H stable. PT/OT consulted Fall precautions #HTN Hypotensive on arrival, resolved Metoprolol with hold precautions #Hypothyroidism Continue Synthroid #Mental health Continue Lexapro VTE ppx: SCDs Dispo: med/tele Admission and Anticipated Discharge Date Admission Date: June 11, 2025 Subjective She feels much better this morning. Has noticed some improvement in the swelling of her legs. Did not get lightheaded or dizzy, or note her blood press ure dropped around to receiving Lasix and she thinks this even at the 50s transiently overnight. She does not have any chest pain or chest pressure. She feels like she is breathing a little more comfortably today. Physical Exam Physical Exam: General: A&Ox3. NAD. Cooperative. HEENT: Ecchymosis on bridge of nose, normocephalic. Vision/hearing intact. JVD ~2cm above clavicle, although difficult to assess due to habitus and overlying scar Pulm: +Diminished. Right lower lobe rales improved, remains with some crackles. Symmetrical chest rise. No increased work of breathing. No respiratory distress. Cardiac: RRR, +sm. Radial pulses intact and symmetrical. Ext: B/l LE edema through the +pitting edema of the calf and prox thigh. L anterior dewitt with contusion. Leg swelling/edema is qualitatively improved 06/12 Results & Data Results & Data Vital Signs (Past 12 Hours) Vital Signs Temp Pulse Pulse Resp BP Pulse Ox Pulse Ox 06/12/25 08:45 06/12/25 08:05 36.3 C L 70 16 114/76 98 06/12/25 07:18 66 06/12/25 04:05 36.8 C 85 18 86/54 L 94 06/12/25 03:36 94 06/11/25 23:39 36.5 C 86 18 92/61 L 97 O2 Del Method O2 Del Method O2 Flow Rate O2 Flow Rate 06/12/25 08:45 Nasal Cannula 2 06/12/25 08:05 Nasal Cannula 2 06/12/25 07:18 06/12/25 04:05 Nasal Cannula 2 06/12/25 03:36 Nasal Cannula 2 06/11/25 23:39 Nasal Cannula 2 PG Care Time/CCT Total # of Minutes Spent Total Time Spent with Patient: Total time spent is greater than 50% in coordination of care (as documented) at patient's floor/unit and/or counseling patient: Coding Level of Care Code 52339 SUB INP/OBS CARE 3/50MIN Diagnoses Acute hypoxemic respiratory failure J96.01 Pleural effusion, right J90 Hypomagnesemia E83.42 Hypokalemia E87.6
[2025-06-12] MEDS: FUROSEMIDE 40 MG/4 ML VIAL IV SCH (17:42)
[2025-06-12] MEDS: MAGNESIUM OXIDE 400 MG TAB PO SCH (20:53)
[2025-06-13 07:50] LABS: Anion Gap 6.0 (3-11); Blood Urea Nitrogen 13.0 mg/dl (6-23); Calcium 8.0 mg/dl (8.6-10.3); Carbon Dioxide 38.0 mmol/L (21-32); Chloride 95.0 mmol/L (98-107); Creatinine Clr Calc Pharmacy 42.9 ml/min; Glucose 97.0 mg/dl (70-99(Fasting)); Magnesium 1.7 mg/dl (1.7-2.4); Potassium 4.1 mmol/L (3.5-5.1); Sodium 139.0 mmol/L (136-145)
--- NOTE | 2025-06-13 17:23 | Hospitalist Progress Note ---
Date of Service June 13, 2025 Assessment & Plan (1) Acute hypoxemic respiratory failure: (2) Pleural effusion, right: (3) Hypomagnesemia: (4) Hypokalemia: Plan Patient is a 80 y/o female with a PMHx including HFpEF, CAD, HLD, HTN, GERD,COPD, CKD stage 3, anxiety. Patient presented via EMS after a fall at home onto her face, also reported fall on Friday resulting in bilateral leg bruising and pain. Workup in the ED essentially negative for any traumatic changes however did reveal right pleural effusion and patient was found to be hypoxic 87% on room air. Laboratories revealed potassium 2.7. She is being admitted for ambulatory dysfunction and acute CHF/hypoxia. # Acute Hypoxic Respiratory failure suspect HFrEF, right pleural effusion - Chest CT revealed right pleural effusion, on 1L NC at time of admission, without LE edema. Echo 02/2025 revealed EF 40 to 45%. - patient has been off home Lasix of 20 mg daily for several months, restarted 06/09 - Pulmonology was consulted for evaluation for thoracentesis given persistent one sided effusion. She is on aspirin/Plavix. Thoa was not recommended. Her dry weight is around 85-89 kg. On admission weight 89 kg, back to 85kg - clinically improving - Continue diuresis as tolerated clinically with persistent moderate edema, hypotension limiting overal diuresis #Edema #Volume Overload #Ischemic CMP - EF 40-45% in February wwith LAD hypokeniesis and LVF, thinned myocardium mid- distal and apical myocardium - continue diuresis, hold afternooon dose secondary to hypotension, resume at 20mg BID17 tomorrow as tolerated - May need TEDS vs Coban Lyte to mobilize fluid for diuresis Syncope, CAD, AoC HFrEF s/o CABG -CTchest: Layering effusion. S/p sternotomy/CABG -CThead: No acute posttraumatic change. White matter changes consistent with small vessel disease -CTA/P: Layering pleural effusion redemonstrated. Senescent changes. No intra-abdominal traumatic finding - Sinus 60-80s on telemetry. Echo 02/22/2025: Mildly reduced EF. LAD territory wall motion abnormalities. Referred to [facility] [place] and was discharged 03/05/2025 after CABG x 3 LEPE to LAD, SVG to OM, PDA and was discharged from [facility] [place] 03/05/2025. EF at that time was 40%. Was recommended on Plavix for 1 year and to continue Lasix. Her last follow-up 04/2025 have been feeling well overall although some shortness of breath and easy fatigue. No syncope chest pain or chest pressure at that time. Comparison EKG 02/21/2025, first-degree AV block, RBBB/left anterior fascicular block present Metoprolol, statin, DAPT continued Diuresis was started 06/11 after magnesium/potassium had improved. Diuresis was not done initially due to severe hypokalemia/hypomagnesemia. s.ee above for onging diuresis Magnesium repletion continued Clinically progressing 06/12, remains on oxygen but orthopnea/dyspnea has improved and creatinine is stable Patient reports very brisk diuresis 06/11 however was voiding into the toilet and this was not measured. Discussed with nursing staff, strict ins and outs. Patient will make sure she is voiding into a hat. Goal net -1-2 L/day she had some hypotension around her treatment although feels greatly improved today. Will decrease Lasix dose to 20 mg IV and split as twice daily @1700 #hypokalemia Potassium 2.7 on admission, WNL now - AM checks #Hypomagnesemia - 1.7 today #ambulatory dysfunction/repeated ground-level falls - Patient with a fall on Friday and Friday, denied LOC on admit but pt reports happened fast and she is not completley sure on reassessment. She did not have presyncope.? Weakness with volume overload possibly orthostasis however by her story cardiogenic syncope is not excluded and she had significant electrolyte derangements. She is continued on telemetry monitoring - No acute traumatic changes seen on diagnostic imaging, H&H stable. PT/OT consulted Fall precautions #HTN Hypotensive on arrival, continue to monitor with diuresis, MAP still WNL but diuresis complicating normalization Metoprolol with hold precautions #Hypothyroidism Continue Synthroid #Mental health Continue Lexapro VTE ppx: SCDs Dispo: med/tele Admission and Anticipated Discharge Date Admission Date: June 11, 2025 Subjective Doing okay this morning. Eating well. No problems with oral intake or drinking. Sitting up in bedside chair during my evaluation. Not having any dizziness orthostasis at least when getting up from the bed to the chair. Has not been up walking around much as of yet. Urinating quite a bit with Lasix. We reviewed the edema in her legs and she states that she is still quite above what would be her baseline but she always has some edema. No new events or other concerns per nursing or patient Physical Exam Physical Exam: General: A&Ox3. NAD. Cooperative. HEENT: Ecchymosis on bridge of nose, normocephalic. Vision/hearing intact. JVD ~2cm above clavicle, although difficult to assess due to habitus and overlying scar Pulm: +Diminished. Right lower lobe rales improved, remains with some crackles. Symmetrical chest rise. No increased work of breathing. No respiratory distress. Cardiac: RRR, +sm. Radial pulses intact and symmetrical. Ext: 2+pitting edema of the calf, minimal in the prox thigh. L anterior dewitt with contusion., Right bicep with old contusion/eccymosis, right forearm with faint but diffuse eccymosis Results & Data Results & Data Vital Signs (Past 12 Hours) Vital Signs Temp Pulse Pulse Resp BP Pulse Ox O2 Del Method 06/13/25 16:33 66 06/13/25 14:59 36.4 C 75 18 88/59 L 95 Nasal Cannula 06/13/25 11:16 36.8 C 68 20 95/64 L 97 Nasal Cannula 06/13/25 09:58 60 06/13/25 08:30 Nasal Cannula 06/13/25 07:38 36.7 C 66 18 100/63 95 Nasal Cannula O2 Flow Rate 06/13/25 16:33 06/13/25 14:59 2 06/13/25 11:16 2 06/13/25 09:58 06/13/25 08:30 2 06/13/25 07:38 2 Laboratory Results 06/13/25 06:58 Sodium 139 Potassium 4.1 Chloride 95 L Carbon Dioxide 38 H Anion Gap 6 BUN 13 Creatinine 1.10 Est Cr Clr Drug Dosing 42.9 eGFR 51.11 BUN/Creatinine Ratio 11.8 Glucose 97 Calcium 8.0 L Magnesium 1.7 PG Care Time/CCT Total # of Minutes Spent Total Time Spent with Patient: Total time spent is greater than 50% in coordination of care (as documented) at patient's floor/unit and/or counseling patient: Coding Level of Care Code 68444 SUB INP/OBS CARE 3/50MIN Diagnoses Acute hypoxemic respiratory failure J96.01 Pleural effusion, right J90 Hypomagnesemia E83.42 Hypokalemia E87.6
[2025-06-14 07:04] LABS: Hematocrit (blood only) 38.1 % (37.0-47.0); Hemoglobin 11.6 g/dl (12.0-16.0); Immature Granulocytes # (auto) 0.02 K/uL (0.01-0.20); Immature Granulocytes % (auto) 0.4 %; Mean Corpuscular Hemoglobin 27.8 pg (25.0-34.0); Mean Corpuscular Volume 91.1 fL (80.0-100.0); Platelet Count 224 K/uL (130-400); RDW Standard Deviation 57.1 fL (36.4-46.3); Red Blood Count 4.18 M/uL (4.20-5.40); White Blood Count 5.70 K/ul (4.8-10.8)
[2025-06-14 07:20] LABS: Anion Gap 7.0 (3-11); Blood Urea Nitrogen 17.0 mg/dl (6-23); Calcium 8.5 mg/dl (8.6-10.3); Carbon Dioxide 37.0 mmol/L (21-32); Chloride 94.0 mmol/L (98-107); Creatinine Clr Calc Pharmacy 40.8 ml/min; Glucose 93.0 mg/dl (70-99(Fasting)); Magnesium 1.7 mg/dl (1.7-2.4); Potassium 4.7 mmol/L (3.5-5.1); Sodium 138.0 mmol/L (136-145)
--- NOTE | 2025-06-14 09:50 | Electrocardiogram Report ---
Test Reason : Blood Pressure : */* mmHG Vent. Rate : 78 BPM Atrial Rate : 78 BPM P-R Int : 210 ms QRS Dur : 120 ms QT Int : 448 ms P-R-T Axes : 58 -57 27 degrees QTcB Int : 510 ms Sinus rhythm with 1st degree A-V block with occasional Premature ventricular complexes Right bundle branch block Left anterior fascicular block Bifascicular block Possible Lateral infarct When compared with ECG of 22-Feb-2025 12:36, Right bundle branch block is now Present LA interval has increased Confirmed by Je Pitts ([id number]) on 06/14/2025 9:49:48 AM Referred By: REFERRED SELF Confirmed By: Je Pitts
--- NOTE | 2025-06-14 17:11 | Hospitalist Progress Note ---
Date of Service June 14, 2025 Assessment & Plan (1) Acute hypoxemic respiratory failure: (2) Pleural effusion, right: (3) Hypomagnesemia: (4) Hypokalemia: Plan Patient is a 80 y/o female with a PMHx including HFpEF, CAD, HLD, HTN, GERD,COPD, CKD stage 3, anxiety. Patient presented via EMS after a fall at home onto her face, also reported fall on Friday resulting in bilateral leg bruising and pain. Workup in the ED essentially negative for any traumatic changes however did reveal right pleural effusion and patient was found to be hypoxic 87% on room air. Laboratories revealed potassium 2.7. She is being admitted for ambulatory dysfunction and acute CHF/hypoxia. # Acute Hypoxic Respiratory failure suspect HFrEF, right pleural effusion - Chest CT revealed right pleural effusion, on 1L NC at time of admission, without LE edema. Echo 02/2025 revealed EF 40 to 45%. - patient has been off home Lasix of 20 mg daily for several months, restarted 06/09 - Pulmonology was consulted for evaluation for thoracentesis given persistent one sided effusion. She is on aspirin/Plavix. Thoa was not recommended. Her dry weight is around 85-89 kg. On admission weight 89 kg, back to 87.6kg - clinically improving - Continue diuresis as tolerated clinically with persistent moderate edema, hypotension had limited diuresis rate but that is now improving - 2 step test in AM, possible DC to home with HH as early as tomorrow depending on volume status #Edema #Volume Overload #Ischemic CMP - EF 40-45% in February wwith LAD hypokeniesis and LVF, thinned myocardium mid- distal and apical myocardium - continue diuresis, hold afternooon dose secondary to hypotension, resume at 20mg BID17 tomorrow as tolerated - May need TEDS vs Coban Lyte to mobilize fluid for diuresis - continue twice daily lasix, will task PT to apply coban lyte/unna to mobilize lower extremity fluid Syncope, CAD, AoC HFrEF s/o CABG -CTchest: Layering effusion. S/p sternotomy/CABG -CThead: No acute posttraumatic change. White matter changes consistent with small vessel disease -CTA/P: Layering pleural effusion redemonstrated. Senescent changes. No intra-abdominal traumatic finding - Sinus 60-80s on telemetry. Echo 02/22/2025: Mildly reduced EF. LAD territory wall motion abnormalities. Referred to [facility] [place] [place] and was discharged 03/05/2025 after CABG x 3 LEPE to LAD, SVG to OM, PDA and was discharged from [facility] [place] [place] 03/05/2025. EF at that time was 40%. Was recommended on Plavix for 1 year and to continue Lasix. Her last follow-up 04/2025 have been feeling well overall although some shortness of breath and easy fatigue. No syncope chest pain or chest pressure at that time. Comparison EKG 02/21/2025, first-degree AV block, RBBB/left anterior fascicular block present Metoprolol, statin, DAPT continued Diuresis was started 06/11 after magnesium/potassium had improved. Diuresis was not done initially due to severe hypokalemia/hypomagnesemia. s.ee above for onging diuresis Clinically progressing 06/12, remains on oxygen but orthopnea/dyspnea has improved and creatinine is stable Patient reports very brisk diuresis 06/11 however was voiding into the toilet and this was not measured. Discussed with nursing staff, strict ins and outs. Patient will make sure she is voiding into a hat. Goal net -1-2 L/day she had some hypotension around her treatment although feels greatly improved today. Will decrease Lasix dose to 20 mg IV and split as twice daily @1700 #hypokalemia Potassium 2.7 on admission, WNL now - AM checks WNL #Hypomagnesemia - 1.7 today #ambulatory dysfunction/repeated ground-level falls - Patient with a fall on Friday and Friday, denied LOC on admit but pt reports happened fast and she is not completley sure on reassessment. She did not have presyncope.? Weakness with volume overload possibly orthostasis however by her story cardiogenic syncope is not excluded and she had significant electrolyte derangements. She is continued on telemetry monitoring - No acute traumatic changes seen on diagnostic imaging, H&H stable. PT/OT consulted Fall precautions #HTN Hypotensive on arrival, continue to monitor with diuresis, MAP still WNL but diuresis complicating normalization Metoprolol with hold precautions #Hypothyroidism Continue Synthroid #Mental health Continue Lexapro VTE ppx: SCDs Dispo: med/tele Admission and Anticipated Discharge Date Admission Date: June 11, 2025 Subjective Doing better this morning. Has been up with physical therapy meeting milestones she feels as though she is approaching her baseline. Still has more edema than typical. We discussed different options for mobilizing as fluids of the edema effectively diuresed. Otherwise she has no specific shortness of breath no dizziness or orthostasis. Sleeping up and standing. Eating drinking. No problems with eliminations. Physical Exam Physical Exam: General: A&Ox3. NAD. Cooperative. HEENT: Ecchymosis on bridge of nose, normocephalic. Vision/hearing intact. JVD ~2cm above clavicle, although difficult to assess due to habitus and overlying scar Pulm: +Diminished. Right lower lobe rales improved, remains with some crackles. Symmetrical chest rise. No increased work of breathing. No respiratory distress. Cardiac: RRR, +sm. Radial pulses intact and symmetrical. Ext: 2+pitting edema of the calf, minimal in the prox thigh. L anterior dewitt with contusion., Right bicep with old contusion/eccymosis, right forearm with faint but diffuse eccymosis Results & Data Results & Data Vital Signs (Past 12 Hours) Vital Signs Temp Pulse Pulse Resp BP Pulse Ox O2 Del Method 06/14/25 16:01 70 06/14/25 11:20 36.4 C L 71 18 101/65 98 Room Air 06/14/25 08:00 Nasal Cannula 06/14/25 07:48 36.7 C 66 18 100/67 99 Nasal Cannula 06/14/25 07:30 68 O2 Flow Rate 06/14/25 16:01 06/14/25 11:20 06/14/25 08:00 2 06/14/25 07:48 2 06/14/25 07:30 Laboratory Results 06/14/25 05:38 WBC 5.70 RBC 4.18 L Hgb 11.6 L Hct 38.1 MCV 91.1 MCH 27.8 MCHC 30.4 L RDW Std Deviation 57.1 H RDW Coeff of Rudy 17.1 H Plt Count 224 MPV 10.0 Immature Gran % (Auto) 0.4 Neut % (Auto) 81.6 Lymph % (Auto) 7.2 Arthur % (Auto) 8.6 Eos % (Auto) 1.8 Baso % (Auto) 0.4 Neut # (Auto) 4.66 Lymph # (Auto) 0.41 L Arthur # (Auto) 0.49 Eos # (Auto) 0.10 Baso # (Auto) 0.02 Immature Gran # (Auto) 0.02 Sodium 138 Potassium 4.7 Chloride 94 L Carbon Dioxide 37 H Anion Gap 7 BUN 17 Creatinine 1.10 Est Cr Clr Drug Dosing 40.8 eGFR 51.11 BUN/Creatinine Ratio 15.5 Glucose 93 Calcium 8.5 L Magnesium 1.7 PG Care Time/CCT Total # of Minutes Spent Total Time Spent with Patient: Total time spent is greater than 50% in coordination of care (as documented) at patient's floor/unit and/or counseling patient: Coding Level of Care Code 02062 SUB INP/OBS CARE 2/35MIN Diagnoses Acute hypoxemic respiratory failure J96.01 Pleural effusion, right J90 Hypomagnesemia E83.42 Hypokalemia E87.6
[2025-06-15 07:28] VITALS: RESP 16
[2025-06-15 08:26] LABS: Hematocrit (blood only) 36.2 % (37.0-47.0); Hemoglobin 10.8 g/dL (12.0-16.0); Immature Granulocytes # (auto) 0.01 K/uL (0.01-0.20); Immature Granulocytes % (auto) 0.2 %; Mean Corpuscular Hemoglobin 27.2 pg (25.0-34.0); Mean Corpuscular Volume 91.2 fL (80.0-100.0); Platelet Count 207 K/uL (130-400); RDW Standard Deviation 56.9 fL (36.4-46.3); Red Blood Count 3.97 M/uL (4.20-5.40); White Blood Count 4.92 K/ul (4.8-10.8)
[2025-06-15 08:42] LABS: Anion Gap 4.0 (3-11); Blood Urea Nitrogen 20.0 mg/dl (6-23); Calcium 8.9 mg/dl (8.6-10.3); Carbon Dioxide 38.0 mmol/L (21-32); Chloride 96.0 mmol/L (98-107); Creatinine Clr Calc Pharmacy 46.1 ml/min; Glucose 95.0 mg/dl (70-99(Fasting)); Potassium 5.0 mmol/L (3.5-5.1); Sodium 138.0 mmol/L (136-145)
[2025-06-15] MEDS: SODIUM CHLORIDE 0.9% 250 ML IV ONE (09:30)
[2025-06-15 15:48] VITALS: BP 97/68; PULSE 72; TEMP 98.4; O2SAT 95
--- NOTE | 2025-06-15 16:00 | Discharge Summary ---
Discharge Summary Date of Service June 15, 2025 Principal Dx & Hospital Course #1 = Principal Diagnosis (1) Acute hypoxemic respiratory failure: (2) Pleural effusion, right: (3) Hypomagnesemia: (4) Hypokalemia: Plan Patient is a 80 y/o female with a PMHx including HFpEF, CAD, HLD, HTN, GERD,COPD, CKD stage 3, anxiety. Patient presented via EMS after a fall at home onto her face, also reported fall on Friday resulting in bilateral leg bruising and pain. Workup in the ED essentially negative for any traumatic changes however did reveal right pleural effusion and patient was found to be hypoxic 87% on room air. Laboratories revealed potassium 2.7. She is being admitted for ambulatory dysfunction and acute CHF/hypoxia. # Acute Hypoxic Respiratory failure suspect HFrEF, right pleural effusion - Chest CT revealed right pleural effusion, on 1L NC at time of admission, without LE edema. Echo 02/2025 revealed EF 40 to 45%. - patient has been off home Lasix of 20 mg daily for several months, restarted 06/09 - Pulmonology was consulted for evaluation for thoracentesis given persistent one sided effusion. She is on aspirin/Plavix. Thoa was not recommended. Her dry weight is around 85-89 kg. On admission weight 89 kg, back to 87.6kg - She is chronically hypotensive. This did somewhat limit the rate of which we could diurese. Ultimately after several days of diuresis she was back to her dry weight. She still does have moderate lower extremity edema bilaterally. Also on a background of chronic lymphedema. Advised her to follow-up with her primary clinic within a week to discuss Lasix therapy. She will likely benefit from Coban Lyte or Unna Boots to improve the mobilization of fluid ultimately for diuresis. I still think she is above her dry weight. #New oxygen requirement - 2 step at the time of discharge indicated 2 L nasal cannula required. Prescription was given for such. Advised to follow-up with primary clinic for ongoing evaluation, long-term oxygen prescription management, potential weaning with additional diuresis #Edema #Volume Overload #Ischemic CMP - EF 40-45% in February wwith LAD hypokeniesis and LVF, thinned myocardium mid- distal and apical myocardium - continue diuresis, hold afternooon dose secondary to hypotension, resume at 20mg BID17 tomorrow as tolerated - May need TEDS vs Coban Lyte to mobilize fluid for diuresis - continue twice daily lasix, will task PT to apply coban lyte/unna to mobilize lower extremity fluid as above Syncope, CAD, AoC HFrEF s/o CABG -CTchest: Layering effusion. S/p sternotomy/CABG -CThead: No acute posttraumatic change. White matter changes consistent with small vessel disease -CTA/P: Layering pleural effusion redemonstrated. Senescent changes. No intra-abdominal traumatic finding - Sinus 60-80s on telemetry. Echo 02/22/2025: Mildly reduced EF. LAD territory wall motion abnormalities. [place] [facility] [place]25 after CABG x 3 LEPE to LAD, SVG to OM, PDA and [place] [facility] [place]. EF at that time was 40%. Was recommended on Plavix for 1 year and to continue Lasix. Her last follow-up 04/2025 have been feeling well overall although some shortness of breath and easy fatigue. No syncope chest pain or chest pressure at that time. Comparison EKG 02/21/2025, first-degree AV block, RBBB/left anterior fascicular block present Metoprolol, statin, DAPT continued - Stable time discharge, routine follow-up #hypokalemia Potassium 2.7 on admission, WNL now - AM checks WNL advise recheck within 1 week of discharge, #Hypomagnesemia - Within normal limits 1.7 on the day of discharge, advised to recheck within 7 days #ambulatory dysfunction/repeated ground-level falls - Patient with a fall on Friday and Friday, denied LOC on admit. Weakness with volume overload possibly orthostasis however by her story cardiogenic syncope is not excluded and she had significant electrolyte derangements. - She is continued on telemetry monitoring exhibited no high risk findings., Orthostasis and unsteadiness had improved at the time of discharge, will continue with home health services and cautious support for ambulation PT/OT consulted able to participate uneventfully, for the last several days prior to discharge, appropriate for discharge to home with home health services. #HTN Hypotensive on arrival, continue to monitor with diuresis, MAP still WNL but diuresis complicating normalization Metoprolol with hold precautions, no changes made to her baseline #Hypothyroidism Continue Synthroid #Mental health Continue Lexapro Admission HPI Per Admitting Provider Patient is a 80 y/o female with a PMHx including HFpEF, CAD, HLD, HTN, GERD,COPD, CKD stage 3, anxiety. Patient presented via EMS after a fall at home onto her face, also reported fall on Friday resulting in bilateral leg bruising and pain. Workup in the ED essentially negative for any traumatic changes however did reveal right pleural effusion and patient was found to be hypoxic 87% on room air. Laboratories revealed potassium 2.7. She is being admitted for ambulatory dysfunction and acute CHF/hypoxia. Patient seen at bedside. She is complaining of significant pain with K riders, will give low-dose fluids. She stated that on Friday she was coming up her 5 steps on her porch when she tripped and fell up them resulting in bilateral leg pain and bruising however she was still able to ambulate. This evening she was walking to her laundry room when she fell flat onto her face. She is unsure if she tripped on anything however denies any syncope, dizziness, lightheadedness, chest pain, shortness of breath prior to the fall. She denies any loss of consciousness. She is without pain at bedside.. Patient had a CABG in March 2025 at [facility]. He stated that they did not restart any of her home blood pressure medications until yesterday. She restarted Lasix 06/09 however did not take 06/10 as she was to go to cardiac rehab. She quit smoking in February, denies alcohol use. Is due for her evening medications. Wishes to be full code however would not want long-term life support. Regarding her low potassium, she does endorse soft stools however denies watery diarrhea or vomiting. She stated she has been eating enough however has not been drinking enough and does feel little bit dehydrated but did not want to go into fluid overload. Discharge Exam General: A&Ox3. NAD. Cooperative. HEENT: Ecchymosis on bridge of nose, normocephalic. Vision/hearing intact. JVD ~2cm above clavicle, although difficult to assess due to habitus and overlying scar Pulm: +Diminished. Right lower lobe rales improved, remains with some crackles. Symmetrical chest rise. No increased work of breathing. No respiratory distress. Cardiac: RRR, +sm. Radial pulses intact and symmetrical. Ext: 2+pitting edema of the calf, minimal in the prox thigh. L anterior dewitt with contusion., Right bicep with old contusion/eccymosis, right forearm with faint but diffuse eccymosis Discharge Plan Discharge Items Patient Disposition: Home - Self-Care Reason For Visit: HYPOXIA, ACUTE CHF, HYPOKALEMIA, FALL Discharge Diagnosis: Volume Overlaod/CHF Condition on Discharge: Fair Activity: Resume your previous activity Non-emergency contact: Primary Care Provider Call non-emergency contact if: you have any medication questions, your symptoms worsen and you have a fever Follow-up/Referrals: Humera Mccann DO [Primary Care Provider] - 06/24/25 8:20 am Diet: Heart Healthy Addtl Attending Provider Instructions: Recheck potassium and magnesium, discuss long-term diuretic dosing, referral for Coban light versus Unna boots to mobilize lower extremity edema and continue diuresis to dry weight Pending Studies at Discharge: Yes Stand-Alone Forms: [employer], Smoking Cessation Medications and DC Order Prescriptions: Continued aspirin 81 mg tablet,delayed release (DR/EC) 81 mg PO QAM Qty: 90 rosuvastatin 40 mg tablet 40 mg PO QAM Qty: 90 3RF betamethasone dipropionate 0.05 % cream 1 applic topical BID PRN (Reason: skin irritation) Qty: 45 0RF levothyroxine 137 mcg tablet 137 mcg PO QAM Qty: 90 3RF alprazolam 0.25 mg tablet 0.25 mg PO DAILY PRN (Reason: anxiety) Qty: 30 0RF dicyclomine 20 mg tablet 20 mg PO BID PRN (Reason: stomach cramps) Qty: 180 3RF acetaminophen 500 mg tablet 1,000 mg PO Q4H PRN (Reason: pain) Qty: 30 0RF escitalopram oxalate 10 mg tablet 10 mg PO DAILY Qty: 90 1RF cholecalciferol (vitamin D3) 25 mcg (1,000 unit) capsule 50 mcg PO QAM furosemide 20 mg tablet 20 - 40 mg PO QAM Rx Instructions: Take 1-2 tabs orally daily in the morning metoprolol succinate 25 mg tablet extended release 24 hr 12.5 mg PO DAILY clopidogrel 75 mg Tablet 75 mg PO QAM Qty: 0 0RF potassium chloride 20 mEq Tablet,Er Particles/Crystals 20 meq PO QAM Qty: 0 0RF Cepacol Sore Throat (justo-men) 15-3.6 mg Lozenge 1 sarah beth buccal Q2H PRNQty: 0 0RF Discharge Orders: Discharge Order (Routine); Ordered 06/15/25 Ordered By: Andrea Patricia Discharge Order- CHF (Routine); Ordered 06/15/25 Ordered By: Andrea Patricia Krames/Other Patient Handouts: Understanding Oxygen Therapy, Using Oxygen Safely Admission Data Admit Date/Time: 06/11/25 01:08 Attending Provider: Andrea Patricia Admit Provider: Nyla Vinson Primary Care Provider: Humera Mccann. Other Providers: Nydia Lucas; Nyla Vinson Hospital Stay Data Consultations 06/11/25 00:18 ED Decision to Admit Stat 06/11/25 03:36 Consult Pulmonology Routine Diagnostic Imagining Performed 06/10/25 20:13 CT chest diagnostic w con Stat CT lumbar spine w con Stat 06/10/25 20:14 CT cervical spine wo con Stat CT head/brain wo con Stat 06/10/25 20:15 CT thoracic spine w con Stat 06/10/25 20:42 CT abd pelvis IV con only Stat Pending Results Patient Have Any Pending Studies at Discharge: Yes Discharge Instructions Given to Patient (Per Discharging Provider) Recheck potassium and magnesium, discuss long-term diuretic dosing, referral for Coban light versus Unna boots to mobilize lower extremity edema and continue diuresis to dry weight Total Time Total Time Spent Total Time Spent (In Minutes): 45 minutes spent with the patient at the bedside, reviewing with nursing staff and physical therapy in regards to discharge planning. Prescription management. Discharge follow-up and coordination. Coding Level of Care Code 79467 INP/OBS DISCH >30 MIN Diagnoses Acute hypoxemic respiratory failure J96.01 Pleural effusion, right J90 Hypomagnesemia E83.42 Hypokalemia E87.6
== END 2025-06-15 16:41 | disposition home or self-care (01) | DRG 291 ==
LOC: SUATTDRO → ED 19:29 → SUATTDRO 06-11 01:08 → 2N 06-11 01:08